=== PATIENT | male | born 1980 | race Caucasian/White ===

== ENCOUNTER → 2018-09-26 10:01 | Outpatient (CLI) | payer OTHER, SELFPAY ==
[2017-08-15 14:51] VITALS: BMI 33.9
--- NOTE | 2018-09-26 10:04 | RAD_ITS ---
STUDY: X-RAY - CERVICAL SPINE REASON FOR EXAM: Male, 38 years old. Back pain TECHNIQUE: 5 view(s) of the cervical spine were obtained. COMPARISON: None FINDINGS: Normal anterior atlantoaxial articulation. Normal odontoid process. Normal cervical lordosis. Normal vertebral bodies and endplates. Normal disc space heights. Normal visualized intervertebral neuroforamina. The soft tissue structures are unremarkable. RAD/Cerv Spine 4 or 5 Views IMPRESSION: Normal x-ray examination of the visualized cervical spine. Electronically Signed: Colby Cheung MD at 3:10 EST , Service support ,
== END ==
PROVIDERS: Family Provider Family Medicine; PCP Family Medicine; Referring Provider Family Medicine; Visit Provider Family Medicine
DX: M54.12 Radiculopathy, cervical region (principal); M25.512 Pain in left shoulder
CPT/HCPCS: 72050

== ENCOUNTER → 2018-10-18 06:35 | Outpatient (CLI) | payer OTHER, SELFPAY ==
--- NOTE | 2018-10-18 06:41 | MRI_ITS ---
STUDY: MRI BRAIN WITH AND WITHOUT CONTRAST REASON FOR EXAM: Male, 38 years old. HEADACHES X 20 YRS, NECK PAIN,POSTERIOR H/A TECHNIQUE: Standardized multiplanar fat and water weighted pulse sequences were obtained. 10 ml of Gadavist contrast material was administered intravenously for the contrast portion of the examination. COMPARISON: None. FINDINGS: Normal size of the ventricles and extra-axial spaces for the patient's age. Normal white matter tracts of the supratentorial brain. Normal bilateral basal ganglia. Normal thalami. There is no extra-axial fluid accumulation. Normal flow voids within the major intracranial circulation suggesting patency by spin echo criteria. Normal venous enhancement. There is no enhancing intra-axial or extra-axial abnormality. Normal sella turcica, pituitary gland, infundibular stalk, optic chiasm and hypothalamus. Normal tectal plate and pineal gland. Normal midbrain, jeff and medulla. Normal cerebellum. Normal basal cisterns. Normal bilateral temporal bones. Normal bilateral internal auditory canals. No demonstrated orbital abnormality, within the constraints of a routine brain study. Normal visualized paranasal sinuses. Normal calvarium and skull base. Normal visualized soft tissue structures. Normal visualized upper cervical spine. MRI/Brain W/WO Contrast IMPRESSION: Normal unenhanced and enhanced MRI of the brain. Electronically Signed: Cal Seo MD at 8:35 EST Tel , Service support ,
== END ==
PROVIDERS: Family Provider Family Medicine; PCP Family Medicine; Referring Provider Psychiatry & Neurology Neurology; Visit Provider Psychiatry & Neurology Neurology
DX: R51 Headache (principal)
CPT/HCPCS: 70553; A9585

== ENCOUNTER → 2019-04-11 15:26 | Outpatient (CLI) | payer OTHER, SELFPAY ==
[2019-04-11 15:17] VITALS: BMI 33.9
--- NOTE | 2019-04-11 15:28 | RAD_ITS ---
STUDY: X-RAY - LEFT TIBIA AND FIBULA REASON FOR EXAM: Male, 38 years old. Recently increasing pain. History of darren placement with subsequent removal proximal fixation screws. TECHNIQUE: 2 view(s) of the tibia and fibula were obtained. COMPARISON: 2 views of the left tibia and fibula January 13, 2015. FINDINGS: There is a healed fracture deformity of the distal diaphysis of the tibia. Intramedullary darren is again seen extending inferiorly from the proximal to distal tibial metadiaphysis. The 2 proximal fixation screws have been removed since previous exam, while the 2 distal fixation screws are unchanged. Normal visualized fibula. There is no demonstrated destructive osseous lesion. The soft tissue structures are unremarkable. RAD/Tibia & Fibula 2 Views IMPRESSION: 1. Interval healing of distal tibial fracture fixed by an intramedullary darren. 2. The proximal fixation screws of the intramedullary darren and pin removed since 2014, while the distal fixation screws are unchanged. Electronically Signed: Vamsi Matta MD at 16:22 EDT , Service support ,
--- NOTE | 2019-04-11 15:28 | RAD_ITS ---
STUDY: X-RAY - LEFT KNEE REASON FOR EXAM: Male, 38 years old. Recent increasing pain, history of darren placement with subsequent removal of proximal fixation screws. TECHNIQUE: 4 view(s) of the knee. COMPARISON: 2 views of the left tibia and fibula January 13, 2015. FINDINGS: Normal visualized distal femur. An intramedullary darren is again seen extending inferiorly from the proximal tibial metaphysis to a point outside the [id number]. The proximal fixation screws seen on prior study have been removed. Normal visualized proximal fibula. Normal patella. There is no demonstrated destructive osseous lesion or fracture. There is mild degenerative arthrosis of the medial femorotibial compartment. Normal lateral femorotibial compartment. Normal patellofemoral articulation. Normal proximal tibiofibular articulation. There is no demonstrated joint effusion. The soft tissue structures are unremarkable. RAD/Knee 4 or More Views IMPRESSION: 1. Tibial intramedullary darren again noted. The proximal fixation screws have been removed since January 2015. 2. Mild degenerative narrowing of the medial femorotibial compartment. Electronically Signed: Vamsi Matta MD at 16:18 EDT , Service support ,
== END ==
PROVIDERS: Family Provider Family Medicine; PCP Family Medicine; Referring Provider Orthopaedic Surgery; Visit Provider Orthopaedic Surgery
DX: M25.562 Pain in left knee (principal); Z87.81 Personal history of (healed) traumatic fracture
CPT/HCPCS: 73564; 73590

== ENCOUNTER → 2019-05-30 17:47 | Outpatient (CLI) | payer OTHER, SELFPAY ==
[2019-05-22 10:43] VITALS: BMI 26.4
--- NOTE | 2019-05-30 18:22 | MRI_ITS ---
STUDY: MRI LEFT REARFOOT WITHOUT CONTRAST REASON FOR EXAM: Male, 39 years old. Left ankle pain. TECHNIQUE: Standardized fat and water weighted pulse sequences were obtained in all 3 orthogonal planes. COMPARISON: June 30, 2016 FINDINGS: Normal subcutis adipose space. There is susceptibility artifact associated with intramedullary darren and screws in the distal tibia. Normal posterior tibialis tendon. Normal flexor digitorum longus tendon. Normal flexor hallucis longus tendon. Normal peroneus longus and brevis tendons. Normal tibialis anterior tendon. Normal extensor hallucis longus tendon. Normal extensor digitorum longus tendons. Normal Achilles tendon and teno-osseous insertion. Normal plantar fascia. There is a plantar calcaneal spur, but without cancellous marrow edema. Normal intrinsic muscles of the rearfoot. Normal distal tibiofibular syndesmotic ligamentous complex. Normal lateral ligamentous complex. Normal subtalar ligaments and sinus tarsi. Normal deltoid ligamentous complexes. Normal plantar calcaneonavicular (spring) ligament. Normal tibiotalar articulation. Normal talar dome. There is stable joint space narrowing with broadening and mild spurring at the medial aspect of the middle subtalar joint suggesting fibrous tarsal coalition, series 7 image 14/. Normal talonavicular articulation. Normal calcaneocuboid articulation. Normal navicular-cuneiform articulations. MRI/Lower Ext Joint Only (Routine) IMPRESSION: Spurring suggesting fibrous talocalcaneal tarsal coalition. No acute fracture. Findings are stable compared to the prior exam. Electronically Signed: Colin Godwin MD at 20:26 EDT , Service support ,
== END ==
PROVIDERS: Family Provider Family Medicine; PCP Family Medicine; Referring Provider Podiatrist; Visit Provider Podiatrist
DX: M19.079 Primary osteoarthritis, unspecified ankle and foot (principal); Q66.89 Other specified congenital deformities of feet; G57.52 Tarsal tunnel syndrome, left lower limb
CPT/HCPCS: 73721

== ENCOUNTER → 2019-07-11 15:25 | Outpatient (CLI) | payer OTHER, SELFPAY ==
[2019-06-04 14:17] VITALS: BMI 26.9
[2019-07-11 17:43] LABS: Absolute Lymphocyte Count 1.84 X10^3/uL (0.83-4.51); Absolute Neutrophil Count 3.6 X10^3/uL (2.0-7.7); Basophil# 0.05 X10^3/uL; Basophil% 0.8 % (0-1); Eosinophil# 0.14 X10^3/uL; Eosinophils% 2.3 % (0-5); Hematocrit 43.4 % (40-54); Lymphocyte # 1.84 X10^3/ul (4.0); Lymphocyte % 29.6 % (19-41); Mean Corp Hgb Conc 32.3 g/dL (32-36); Mean Corpuscular Volume 93.1 fL (80-94); Mean Platelet Vol. 10.5 fl (6.2-12.0); Monocyte# 0.52 X10^3/uL; Monocyte% 8.4 % (0-10); NRBC Flagged by Analyzer 0 % (0-5); Neutrophil # 3.64 X10^3/uL (2.7-7.7); Neutrophil % 58.6 % (47-70); Platelet Count 241 K/mm3 (150-450); RBC Distribution Width CV 12.8 % (11.6-14.6); RBC Distribution Width SD 43.7 fl (35.1-43.9); Red Blood Count 4.66 M/mm3 (4.6-6.2); White Blood Count 6.2 K/mm3 (4.4-11.0)
[2019-07-11 17:48] LABS: ALB/GLOB Ratio 1.2 RATIO (0.9-2.4); AST(SGOT) 11 U/L (15-37); Alanine Aminotransfer ALT/SGPT 22 U/L (16-61); Albumin, Serum 4.2 g/dL (3.2-5.0); Alkaline Phosphatase 69 U/L (45-117); Anion Gap 6 (5-15); BUN 15 mg/dL (7-18); BUN/Creat Ratio 18.2 RATIO (10-20); Calcium,Total 8.8 mg/dL (8.5-10.1); Chloride 105 mmol/L (98-107); Creatinine, Serum 0.82 mg/dL (0.70-1.30); EST Glomerular Filtration Rate 111 mL/min (>60); Est Glom Filt Rate - Afr Amer 134 mL/min (>60); Globulin 3.5 g/dL (2.2-4.2); Glucose 81 mg/dL (74-106); Potassium 3.8 mmol/L (3.5-5.1); Protein, Total 7.7 g/dL (6.4-8.2); Sodium Level 141 mmol/L (136-145)
== END ==
PROVIDERS: Family Provider Family Medicine; PCP Family Medicine; Visit Provider Family Medicine
DX: Z01.812 Encounter for preprocedural laboratory examination (principal)
CPT/HCPCS: 36415; 80053; 85025

== ENCOUNTER 2019-07-27 07:58 | Day surgery (SDC) | payer OTHER, SELFPAY ==
[2019-06-04 14:17] VITALS: BMI 26.9
[2019-07-27] VITALS (7 sets, daily range): BP systolic 97–130; BP diastolic 54–83; PULSE 82–94; RESP 15–16; TEMP 36.1–36.7; O2SAT 92–100; BMI 25.7
[2019-07-27] MEDS: Lactated Ringers 1,000 ML 100 ML IV ×2 (08:35→13:12)
--- NOTE | 2019-07-27 09:23 | RAD_ITS ---
STUDY: Fluoroscopy LEFT ANKLE REASON FOR EXAM: Male, 39 years old. Subtalar joint arthrodesis TECHNIQUE: 6 fluoroscopic view(s) of the ankle. COMPARISON: None. FINDINGS: 6 fluoroscopic images are provided of the ankle, calcaneus and distal foot. The cortical screws appear to be in anatomic position and alignment. Total exposure time recorded, 1 minute 54 seconds. RAD/Ankle min 3 Views IMPRESSION: Postoperative fluoroscopic changes 6 views status post arthrodesis. Electronically Signed: Susana Orellana MD at 16:06 EST Tel , Service support ,
--- NOTE | 2019-07-27 09:30 | BON_PTH ---
PATIENT: IMAN GREEN [place] [facility] [id number] AGE/SX: 39/M ROOM: RE07/27/[address]: Dr. David Gregg DPM : 1980 BED: DIS: 07/27/2019 SPEC #: [id number] RECD: 07/27/19 15:39 STATUS: [place] REJackeline #: [id number] BLANKA: 07/27/19 09:[address]: David Gregg DEPT: SURGICAL PATHOLOGY RECD BY: Nico Augustin ENTERED: 07/30/19 09:55 SP TYPE: Bone OTHR DR: Dr. Mat Cotter MD Tissues: A - Bone of ankle, NOS B - Bone of foot, NOS Procedures: Decalcification bone/plaque Surgery Specimen Level III HEADER OPERATION: Subtalar joint arthrodesis with plantar fasciotomy, resection PRE-OP DIAGNOSIS: Tarsal coalition subtalar joint with arthritis, plantar fascitis with heal spur, tarsal tunnel syndrome TISSUE SUBMITTED: A. Cyst and bone subtalar joint left ankle, BStefanie Frost, left 2nd toe MICROSCOPIC DIAGNOSIS A. Cyst and bone subtalar joint left ankle: Pieces of bone and adjacent dense fibroconnective tissue with reactive changes. See comment. Maxine. Richie, left second toe: A piece of bone with reactive changes, clinically richie. See comment. SJ:sarah 08/02/19 COMMENT A. A minute benign cyst is noted without any cyst lining. MICROSCOPIC DESCRIPTION Slides are reviewed. GROSS DESCRIPTION A - Received in fixative is one container labeled with the patient's name and designated cyst of bone left subtalar joint. The specimen consists of multiple fragments of bone measuring in aggregate 5 x 3 x 0.4 cm. The entire specimen is submitted in two cassettes after decalcification. B - Received in fixative is one container labeled with the patient's name and designated hammertoe left second toe. The specimen consists of a piece of bone measuring 1 x 0.5 x 0.2 cm. The entire specimen is submitted in one cassette after decalcification. / SJ:sarah 07/30/19 TC:5 CPT: 94071 x2, 90178 x2
--- NOTE | 2019-07-27 09:42 | DCINST_ITS ---
Discharge Diet: Light diet - advance as tolerated Discharge Activity: May Not Drive Weight Bearing Status: No weight bearing - No weightbearing left foot Keep extremity elevated above heart level: Left Leg - Keep left foot elevated for at least 50 minutes of every hour Call your doctor if your incision/area has: Continuous Slow Oozing, Sudden Increased Bleeding, Foul Smelling Discharge Call your doctor if you observe: Fever of 101 or Higher, Coldness, Increased Pain, Shortness of breath, Chest pain, Increased palpitations (irregular heartbeat), Calf discomfort, Uncontrolled pain Cleanse incision/area with: Do not get Incision Wet, Keep Dressing Clean & Dry Allergies/Adverse Reactions: Allergies No Known Allergies Allergy (Verified 07/27/19 08:22) Medications to take at Discharge acetaminophen 325 mg capsule 325 mg PO Q6H PRN 05/22/19 Multivitamin [Multivitamins] 1 ea PO DAILY 07/20/19 Ondansetron HCl [Zofran] 4 mg PO Q8H PRN PRN #15 tab 07/27/19 Oxycodone HCl/Acetaminophen [Percocet 5/325] 1 - 2 tab PO Q4H PRN PRN 4 Days #40 tab 07/27/19 Rivaroxaban [Xarelto] 10 mg PO DAILY #30 tab 07/27/19 The following prescriptions were given: Oxycodone HCl/Acetaminophen [Percocet 5/325] 1 - 2 tab PO Q4H PRN PRN 4 Days #40 tab PRN Reason: Pain Prescription Printed Rivaroxaban [Xarelto] 10 mg PO DAILY #30 tab Prescription Printed Ondansetron HCl [Zofran] 4 mg PO Q8H PRN PRN #15 tab PRN Reason: Nausea Prescription Printed Primary Care Physician: Mat Cotter MD [Primary Care Provider] - Test Results: Test results from this visit will be discussed in further detail at your follow- up appointment, if applicable. Please Follow Up With: David Gregg DPM When: 1 week, sooner if needed
[2019-07-27] MEDS: Cefazolin 2 GM in 0.9% Normal Saline 100 ML IV (09:46)
--- NOTE | 2019-07-27 12:44 | RAD_ITS ---
STUDY: X-RAY - LEFT FOOT CLINICAL: Male, 39 years old. Postop TECHNIQUE: 3 view(s) of the foot. COMPARISON: None. FINDINGS: Normal talus, calcaneus, and tarsal bones. Normal visualized subtalar, talonavicular, calcaneocuboid, tarsal and tarsometatarsal articulations. Normal metatarsi. Normal metatarsophalangeal joint of the great toe. Normal tibial and fibular sesamoid bones. Normal interphalangeal joint of the great toe. Normal phalanges of the great toe. Patient is postop arthrodesis of the third digit with a cortical screw extending through the proximal and distal interphalangeal joints. There is also a arthrodesis of the talar calcaneal joint visualized heterotopic bone. The is visualized intramedullary darren and cortical screws within the distal tibia. There is postoperative edema. RAD/Foot min 3 Views IMPRESSION: Postoperative changes detailed above. Electronically Signed: Susana Orellana MD at 16:02 EST Tel , Service support ,
--- NOTE | 2019-07-27 12:45 | OP.PCM_ITS ---
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 Plantar fasciitis w/ infracalcaneal spur left. 2nd digit hammer toe, left Post-Operative Diagnosis: Same Surgery/Procedure Performed:: Subtalar joint arthrodesis, left. Tarsal tunnel decompression, left. Plantar fasciotomy with resection of infracalcaneal spur, left. Arthrodesis correction 2nd digit hammer toe, left emblem cutter: yes - Dr. Ashley Chris Type of Anesthesia:: General Specimen's removed: Bone and cyst from left subtalar joint sent to pathology. Bone from 2nd digit hammer toe, left - sent to pathology Estimated Blood Loss (mL): 10mL Description of Procedure: Indications: This is a 39 year old gentleman with chronic pain to the left foot at level of the medial subtalar joint with shooting symptoms to bottom of foot, as well plantar fasciitis and heel spur syndrome, and painful 2nd digit hammer all on the left foot despite nonsurgical. He has elected to undergo surgical intervention (procedures as noted above). This was discussed with him in detail, reviewed the possible benefits vs risks, goals, expectations, alternative options, and typical healing/post op recovery. The consent forms were reviewed with him, and he freely signed them. All of his questions were answered. No guarantees were given nor implied. No warranties were given. Operative Procedure: The patient was brought back into the operating room and was placed on the operating room table in the supine position. Patient was carefully secured to the operating room table with a safety belt around the waist. A time out was performed and the patient was properly identified and the surgical plan was confirmed. The patient received 2g of IV Cefazolin for antibiotic prophylaxis. A well padded pneumatic tourniquet was applied around the patient's left thigh. The patient received anesthesia per the anesthesiologist. The left lower extremity was scrubbed, prepped, draped in the usual aseptic fashion. The left foot was elevated for 3 minutes and the left thigh pneumatic tourniquet was inflated to 300mmHg. Left subtalar joint: Attention was directed to the left foot. There was noted to be limited range of motion to the subtalar joint consistent with degenerative a rthritis and coalition. Attention was directed to the medial ankle/hindfoot where a curvilinear skin incision was made overlying the medial subtalar joint. This was done using a 15 blade. Careful dissection was completed down the posterior tibial tendon and flexor digitorum longus tendon sheaths, which were incised and reflected using a dissecting scissors. The tendons were gently moved out of the way and protected. The medial subtalar joint was visualized and severely fibrosed, and there was noted to be a pea sized ganglion cyst coming out of the joint. The cyst was dissected out and was sent to pathology. There was noted to be gel like fluid to the cyst consistent with a ganglion cyst. There was fibrosis and significant wearing away of the cartilage of the medial subtalar joint with fibrous coalition. The medial subtalar joint fibrosis was debrided away, there was very little cartilage remaining to the medial subtalar joint, but the remaining cartilage was debrided from the joint for arthrodesis. Also the posterior subtalar joint was visualized and the cartilage was debrided away for arthrodesis. This was done with a curette as well as a powered rasp being sure not to cause osteonecrosis. All cartilage was debrided away to viable bone for good arthrodesis. Some of the bone/cartilage debrided from the subtalar joint was sent with the cyst to pathology for further evaluation. The site was flushed out with copious amounts of normal saline solution. The joint surfaces were fenestrated using a 0.062 kwire on each surface and the surfaces were also further prepped using a curved osteotome and mallet to stimulate bleeding and good fusion. The fusion site was packed with cancellous bone chips to also aid fusion. The subtalar joint and heel were placed in neutral position with heel vertical to weightbearing surface and was fixated using 2 x 7.0mm Arthrex compression screws using rigid open reduction internal fixation technique, with intra operative fluoroscopy guidance. In order to place the screws, a skin incision was made to the posterior plantar heel and careful blunt dissection was completed down to the bone. Once the screws were placed, there was noted to be good bone to bone compression and contact across the subtalar joint with the prepped subtalar joint surfaces in good alignment. The subtalar joint was very rigid and stable. The screws were in good position. This was confirmed with intra-operative fluoroscopy. The surgical site was flushed out with copious amounts of normal saline solution. The tendon sheaths were and subcutaneous tissue layer were reapproximated using 3-0 Vicryl and the skin was reapproximated using 3-0 Monocryl, and heel incision was reapproximated using 3- 0 Nylon. Left tarsal tunnel syndrome: Attention was directed to the tarsal tunnel. An incision was made overlying the tarsal tunnel using a 15 blade. Careful dissection was completed down to the flexor retinaculum, which was identified and was released, exposing the tarsal tunnel. Careful dissection was completed down to the tibial nerve. The tibial nerve was visualized, along with its branches of the medial and lateral plantar nerves and medial calcaneal nerve. It was noted there were adhesions around the tibial nerve as well as to the aforementioned branches at the level of the tarsal tunnel, these were identified and carefully released. Also of note, the tibial nerve did appear yellowish and degenerative at this level consistent with tarsal tunnel syndrome. The surgical site was flushed out with copious amounts of normal saline solution. The rest of the tissues at the surgical site appeared healthy and viable. The flexor retinaculum was not reapproximated together to help prevent further impingement/entrapment of the tibial nerve and associated branches. The subcutaneous tissue layers was reapproximated using 3-0 Vicryl and the skin was reapproximated using 3-0 Monocryl. Left plantar fasciitis and infracalcaneal spur. Attention was directed to the p lantar heel. The infracalcaneal spur was visualized on intra operative fluoroscopy. A skin incision was made to the medial hindfoot at the level of the plantar fascia and infracalcaneal spur, careful dissection was completed down through the subcutaneous tissue layer. A plane was created superiorly and inferiorly around the plantar fascia and the medial 50% of the plantar fascia was released via a plantar fasciotomy. It was noted there was significant thickening of the plantar fascia with fibrosis at this level consistent with chronic plantar fasciitis. The infracalcaneal spur was felt, and was carefully resected using a powered rasp. Resection of the infracalcaneal spur was confirmed using intraoperative fluoroscopy. Images pre and post infracalcaneal spur resection were saved. The site was flushed out with copious amounts of normal saline solution. The skin was reapproximated using 3-0 Monocryl. Left 2nd digit hammer toe: Attention was directed to the 2nd toe on the left foot. A dorsal linear longitudinal incision was made over the proximal interphalangeal joint (PIPJ) of the toe. An incision was made longitudinally to the extensor digitorum longus tendon and split down the middle, leaving the ends intact, this was done with a 15 blade. The dorsal PIPJ joint capsule was incised with a 15 blade. The cartilage from the head of the proximal phalanx was resected using a powered sagittal saw, and cartilage from the base of the middle phalanx was resected using a bone cutting rongeur. The site was flushed out with copious amounts of normal saline solution. An Arthrex FT compression screw was placed through the phalanges of the toe holding the toe in rectus position. This was confirmed with intra operative fluoroscopy. The site was again flushed out with copious amounts of normal saline solution. The skin was reapproximated using 4-0 Monocryl. The pneumatic tourniquet was deflated at 120 minutes, and there was immediate return of warmth and perfusion to the foot and to all toes on the foot with normal temperature gradient and CFT < 2 seconds to all toes. Hemostasis was achieved with no significant bleeding noted. Also of note all vital structures including all vital neurovascular and soft tissue structures were properly identified, retracted, and protected as necessary during the procedures. At the end, a dressing was applied which consisted of Cavilon to the edges of the sutured skin incision with overlying steristrips. Then Betadine soaked adaptic, 4x4 gauze, Kerlix and paolo bandage was applied being sure to apply it not too tight. A well padded below the knee posterior splint was applied with posterior heel offloaded. The patient tolerated the above operative procedure well at the anesthesia well with no complication. The patient was transported to the recovery room with vital signs stable and in good condition. Post operative orders were placed. Post operative instructions were reviewed and dispensed verbal and written. No weightbearing left foot, keep left foot elevated for at least 50 minutes of every hour, keep dressing clean, dry and intact. Prescription for Percocet 1-2 tabs PO q 4 hours prn pain was prescribed. He is to follow up with me within 1 week or sooner if needed. Also post op ankle, foot and calcaneus xrays (left) were obtained and reviewed in the PACU. Findings show subtalar joint arthrodesis with intact screws in proper alignment and bone to bone compression, resection of infracalcaneal spur, and arthrodesis 2nd toe with toe in rectus position, otherwise no other acute findings and no complications seen. Grafts/Implants Used: 2 x 7.0mm Arthrex Screws, 1 x Arthrex FT compression screw, cancellous bone - Complications None
--- NOTE | 2019-07-27 12:45 | RAD_ITS ---
STUDY: X-RAY - LEFT CALCANEUS REASON FOR EXAM: Male, 39 years old. Post operative change TECHNIQUE: 2 view(s) of the calcaneus were obtained. COMPARISON: None. FINDINGS: There are 2 cortical screws transfixing the talocalcaneal joint for arthrodesis. RAD/Calcaneus min 2 Views IMPRESSION: Post operative change of the talar calcaneal joint status post arthrodesis. Electronically Signed: Susana Orellana MD at 16:05 EST Tel , Service support ,
--- NOTE | 2019-07-27 12:45 | RAD_ITS ---
STUDY: X-RAY - LEFT ANKLE REASON FOR EXAM: Male, 39 years old. Postop TECHNIQUE: 3 view(s) of the ankle. COMPARISON: None. FINDINGS: An intramedullary darren transfixed by 2 cortical screws in the distal radius. There are 2 cortical screws transfixing the talocalcaneal joint. There is soft tissue edema. RAD/Ankle min 3 Views IMPRESSION: Postoperative change status post open reduction internal fixation of the tibia. Postoperative change status post arthrodesis of the talar calcaneal joint. Electronically Signed: Susana Orellana MD at 16:03 EST Tel , Service support ,
== END 2019-07-27 15:02 | disposition home or self-care (01) ==
LOC: SDC 07:58 → AC 07:59
PROVIDERS: Family Provider Family Medicine; PCP Family Medicine; Referring Provider Podiatrist; Visit Provider Podiatrist
PROC: (CPT 27630; principal; 2019-07-27 09:15)
DX: G57.52 Tarsal tunnel syndrome, left lower limb (principal); M72.2 Plantar fascial fibromatosis; M19.072 Primary osteoarthritis, left ankle and foot; M77.32 Calcaneal spur, left foot; M20.42 Other hammer toe(s) (acquired), left foot; Q66.89 Other specified congenital deformities of feet; M67.472 Ganglion, left ankle and foot; G89.29 Other chronic pain; I47.1 Supraventricular tachycardia; G47.00 Insomnia, unspecified; E66.9 Obesity, unspecified; Z68.25 Body mass index [BMI] 25.0-25.9, adult; Z79.899 Other long term (current) drug therapy; Z87.891 Personal history of nicotine dependence
CPT/HCPCS: 27630; 28035; 28119; 28285; 28725; 64450; 73610; 73630; 73650; 76000; 88304; 88311; 97161; C1713; J7120; J2405

== ENCOUNTER 2019-10-19 08:30 | Outpatient (RCR) | payer OTHER, SELFPAY ==
[2019-06-04 14:17] VITALS: BMI 26.9
--- NOTE | 2019-07-24 12:43 | HP.PTEVAL_ITS ---
Patient's Visit Information IMAN GREEN is a 39 year old M referred to Physical Therapy by David Gregg DPM with a diagnosis of planned L subtalar arthrodesis, fasciotomy, heel spurs. Date of Evaluation: 07/24/19 Physical Therapist: Jaime Olivia, MUSTAPHA, OCS, CSCS - Visit Plan Duration: f/u 4-6 weeks after surg. Plan: Educated patient today on options for ex generally post surgically without disobeying NWB precautions. He needed very general information and was satisfied that he could stay active after his surgery for the 6 week NWB period until doctor wanted therapy to resume. Will get new script and call when therapy appropriate after surgery but will come in prior if having trouble with activitiy after surgery. - Subjective Findings: Will have subtalar fusion adn bone spur removal adn hammer toe fix this Tuesday. Will be immobile and wants to know what to do in meantime. Broke leg a while ago and wants to be active. Surgery is for pain and OA. Will be NWB for 6 weeks. Will have WC at home adn crutches. Will rent a knee scooter. Likes to jog adn do yoga and yard work. Enjoys running a mmile in the [facility] his house. 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 What can I do despite my foot. Wondering what options are? What can I do at home. No equipment at home other than dumbbells adn a workout ball to sit on. - Pain L foot Pain Intensity (Out of 10): 4 Pain Intensity Range: 4 - Objective Walks normal, sTeps normal today, able to walk on toes adn heels without pain. Trasnfers normal without deficits. Ankle aROM approx 5 degrees B DF, 55 PF, L inv 25 adn ev 15, strength ankles 4+. reflexes LE 2/3 patella and achilles. LB aROM WFL adn withotu pain, neck is WFL adn without pain. Strength knees and hips 5/5. Pt in good shape today and just has many questions about safety of working out outside of L ankles WB protocol for the 6 weeks after surgery that he will be NWB. - Goals Goal 1:: Pt comfortable with activitiy level options going into surgery Goal Time Frame: met for today. Goal 2:: Pt remain active for whole body health for 4-6 weeks while recovering from surgery. Goal Time Frame: 4-6 Weeks - Rehabilitation Potential Physical Therapy Diagnosis: L foot pain surgery pending. Rehabilitation Potential: Fair - Anticipated Interventions Patient/Client Instruction: Educate patient on: Condition, Plan of Care, Risk Factors, Benefits of Fitness Program For the Purpose of:: To increase tolerance to activity/condition/position, To improve ability of physical actions for home/community/work/leisure Thank you for the opportunity to evaluate your patient. For Medicare and Medicare HMO plans, please review the plan of care and approve it. It will need to be FAXED BACK to us at [phone] for Medicare purposes. For Medicare only, by signing this I certify the plan of care. Please let me know if there are questions or concerns regarding this plan of care. Physician Signature: Date:
--- NOTE | 2019-09-14 08:29 | HP.PTREVAL ---
David Gregg, ROXANE, It has been my pleasure to treat IMAN GREEN over the last 2 visits for planned L subtalar arthrodesis, fasciotomy, heel spurs. Please see the progress note below for an update on the physical therapy plan of care! Subjective: 6 weeks of NWB, 50% last week adn 100% with crutch R this week but boot prohibits from not using the crutch. Still needs boot to walk until week 10. (Late September). Pain not a huge issue. Been on feet alot last week at hospital and sore. Did not work out much first 4 weeks due to sickness. Working out at home with yoga , body weight and claisthenics. No specific foot exercises. Been pulling Df with a belt. Sleeping well. Pain this week to / with walking and described as dull ache. Off work for 12 weeks. Objective/Function: boot rides up a little high and uncomfortable to walk without crutch(not surgically but limitation saravia. Walking in boot FWB but prefers to use crutch for above reason. Stance without boot SL L is 1-2 sec and R is 10+. Can march in place without bot but is awkward WB on L. AROM L ankle 2 ev, 17 inv, 0 DF, 45 PF. Passively a couple degrees better. Strength 4-/5 in ankle motions. 2nd toe has incission and very little movement, big toe ext to 16 degrees. Metatarsals moving well. Incisions medially at ankle and over 2nd toe healed well and dry, no signs of redness, heat or swelling. I with gait and transfers. Plan Plan: New script received for WBAT in boot, ROM and strength. Will see 3x/week for 3-6 weeks for ROM to ankle focus eversion and DF, STM to calf and foot adn manual mobs for ev/inv/DF. strength to ankle. Gait training and progression. Pt is WBAT in boot. Goals Goal 1:: Pt comfortable with activitiy level options going into surgery Goal Time Frame: met for today. Goal 2:: Pt remain active for whole body health for 4-6 weeks while recovering from surgery. Goal Time Frame: 4-6 Weeks Goal Progress: Goal Met Goal 3:: 8 degrees DF 10 degrees ev adn 25 inv AROM to help normalize activitiy Goal Time Frame: 4-6 Weeks Goal 4:: Normal walking out of boot when allowed by doctor withoout gait deviations Goal Time Frame: 4-6 Weeks Goal 5:: Steps nromal and reciprocal. Goal Time Frame: 4-6 Weeks Goal 6:: Pt ready to return to work with full day on feet. Goal Time Frame: 6-8 Weeks Anticipated Interventions Patient/Client Instruction: Educate patient on: Condition, Plan of Care, Risk Factors, Benefits of Fitness Program For the Purpose of:: To increase tolerance to activity/condition/position, To improve ability of physical actions for home/community/work/leisure Therapeutic Exercise to Include: Strength training, Balance training, Coordination, Flexibilty training, Gait and locomotor training For the Purpose of:: To improve ability of physical actions for home/community/work/leisure, To improve gait and locomotor functions Manual Therapy Techniques to Include: Mobilization, Soft tissue mobilization For the Purpose of:: To increase ROM Cryotherapy (ice pack, ice massage): Yes Please do not hesitate to contact me at [phone] by phone or if you have questions or concerns regarding this new plan of care! Sincerely, Jaime Olivia, DPT, OCS, CSCS
--- NOTE | 2019-10-03 11:36 | HP.PTREVAL ---
David Gregg, ROXANE, It has been my pleasure to treat IMAN GREEN over the last 10 visits for planned L subtalar arthrodesis, fasciotomy, heel spurs. Please see the progress note below for an update on the physical therapy plan of care! Subjective: Feels better in ROM, still weak. No pain lately. At end of day 2/10 sometimes feeling exhausted. In boot all day and will see doctor tomorrow. Sleep is good. No problem with HEP. Needs to be stronger. Objective/Function: 6 degrees DF with knee straigth adn 7 with knee bent. 55 PF actively, 8 degrees inv and 23 eversion. 4/5 strength to resisted testing without pain today. Able to stand painfree equal WB but SLS on L 3 seconds vs 15+ R. PT GALARZA COME ALONG WELL WITH ROM AND PAIN, HAS DONE SOME STRENGTHENING AND IS WAITING TO GET RELEASED FROM DOCTOR FOR WB WITHOUT BOOT FOR GAIT TRAINING AND MORE AGGRESSIVE THERAPY WHCIH IS APPROPRIATE. Plan Plan: PT TO DOCTOR TOMORROW AND WILL GET NEW SCRIPT.2-3X/WEEK FOR 2-4 WEEKS AFTER DOTOR APPOINTMENT TOMORROW, STRENGTHENING l FOOT AND ANKLE, CONTINUE INV rom AND PROGRESSION OF GAIT OUT OF BOOT ALLOWED BY DOCTOR APPROPRIATE, PROPRIOCEPTION EX ALSO. Goals Goal 1:: Pt comfortable with activitiy level options going into surgery Goal Time Frame: met for today. Goal Progress: Goal Met Goal 2:: Pt remain active for whole body health for 4-6 weeks while recovering from surgery. Goal Time Frame: 4-6 Weeks Goal Progress: Goal Met Goal 3:: 8 degrees DF 10 degrees ev adn 25 inv AROM to help normalize activitiy Goal Time Frame: 4-6 Weeks Goal Progress: Progressing Goal 4:: Normal walking out of boot when allowed by doctor withoout gait deviations Goal Time Frame: 4-6 Weeks Goal Progress: APPROP. Goal 5:: Steps nromal and reciprocal. Goal Time Frame: 4-6 Weeks Goal Progress: APPROP. Goal 6:: Pt ready to return to work with full day on feet. Goal Time Frame: 6-8 Weeks Goal Progress: APPROP. Anticipated Interventions Patient/Client Instruction: Educate patient on: Condition, Plan of Care, Risk Factors, Benefits of Fitness Program For the Purpose of:: To increase tolerance to activity/condition/position, To improve ability of physical actions for home/community/work/leisure Therapeutic Exercise to Include: Strength training, Balance training, Coordination, Flexibilty training, Gait and locomotor training For the Purpose of:: To improve ability of physical actions for home/community/work/leisure, To improve gait and locomotor functions Manual Therapy Techniques to Include: Mobilization, Soft tissue mobilization For the Purpose of:: To increase ROM Cryotherapy (ice pack, ice massage): Yes Please do not hesitate to contact me at [phone] by phone or if you have questions or concerns regarding this new plan of care! Sincerely, Jaime Olivia, DPT, OCS, CSCS
--- NOTE | 2019-12-18 13:52 | HP.PT.NRP ---
IMAN GREEN was seen in my office for initial evaluation on 07/24/19. The following Plan of Care was established for this patient: Initial Duration: f/u 4-6 weeks after surg. Patient/Client Instruction: Educate patient on: Condition, Plan of Care, Risk Factors, Benefits of Fitness Program For the Purpose of:: To increase tolerance to activity/condition/position, To improve ability of physical actions for home/community/work/leisure Therapeutic Exercise to Include: Strength training, Balance training, Coordination, Flexibilty training, Gait and locomotor training For the Purpose of:: To improve ability of physical actions for home/community/work/leisure, To improve gait and locomotor functions Manual Therapy Techniques to Include: Mobilization, Soft tissue mobilization For the Purpose of:: To increase ROM Cryotherapy (ice pack, ice massage): Yes This patient was last seen in our office 10/19/19. Pertinent comments regarding their Physical therapy will appear below: Pt seen 16 visits of POC and was at least 50% better. He did cancel his last several visits withotu rescheduling. At this point, it has been nearly two months and I will discontinue due to nonattendance. At this point I will be discontinuing this patient from physical therapy. I would be happy to see this patient again in the future if found appropriate by the physician. Thank you! Jaime Olivia, DPT, OCS, CSCS
== END 2019-10-19 19:00 | disposition home or self-care (01) ==
LOC: PT 08:30
PROVIDERS: Family Provider Family Medicine; PCP Family Medicine; Referring Provider Podiatrist; Visit Provider Podiatrist
DX: Z98.890 Other specified postprocedural states (principal)
CPT/HCPCS: 97110; 97140; 97161; 97164; 97530

== ENCOUNTER 2020-05-28 22:51 | Outpatient (RCR) | payer OTHER, SELFPAY ==
[2020-05-01 16:16] VITALS: BMI 25.7
== END 2020-06-11 23:59 ==
LOC: EMPH 22:51
PROVIDERS: PCP Family Medicine; Visit Provider Family Medicine Geriatric Medicine
DX: Z11.59 Encounter for screening for other viral diseases (principal)
CPT/HCPCS: 87635; U0003

== ENCOUNTER 2020-07-07 18:11 | Outpatient (RCR) | payer OTHER, SELFPAY ==
[2020-05-01 16:16] VITALS: BMI 25.7
== END 2020-07-12 23:59 ==
LOC: EMPH 18:11
PROVIDERS: PCP Family Medicine; Visit Provider Family Medicine Geriatric Medicine
DX: Z03.818 Encounter for observation for suspected exposure to other biological agents ruled out (principal)
CPT/HCPCS: 87426

== ENCOUNTER 2020-08-06 10:50 | Outpatient (RCR) | payer OTHER, SELFPAY ==
[2020-05-01 16:16] VITALS: BMI 25.7
== END 2020-08-11 23:59 ==
LOC: EMPH 10:50
PROVIDERS: PCP Family Medicine; Referring Provider Family Medicine Geriatric Medicine; Visit Provider Family Medicine Geriatric Medicine
DX: Z03.818 Encounter for observation for suspected exposure to other biological agents ruled out (principal)
CPT/HCPCS: 87426

== ENCOUNTER 2020-08-20 13:08 | Outpatient (RCR) | payer OTHER, SELFPAY ==
[2020-05-01 16:16] VITALS: BMI 25.7
== END 2020-09-11 23:59 ==
LOC: EMPH 13:08
PROVIDERS: PCP Family Medicine; Referring Provider Family Medicine Geriatric Medicine; Visit Provider Family Medicine Geriatric Medicine
DX: Z03.818 Encounter for observation for suspected exposure to other biological agents ruled out (principal)
CPT/HCPCS: 87426

== ENCOUNTER 2020-09-22 13:53 | Outpatient (RCR) | payer OTHER, SELFPAY ==
[2020-05-01 16:16] VITALS: BMI 25.7
== END 2020-10-12 23:59 ==
LOC: EMPH 13:53
PROVIDERS: PCP Family Medicine; Referring Provider Family Medicine Geriatric Medicine; Visit Provider Family Medicine Geriatric Medicine
DX: Z03.818 Encounter for observation for suspected exposure to other biological agents ruled out (principal)
CPT/HCPCS: 87426

== ENCOUNTER → 2022-06-23 | Outpatient (CLI) | payer OTHER, SELFPAY ==
--- NOTE | 2022-06-23 16:10 | RAD_ITS ---
STUDY: X-RAY CHEST REASON FOR EXAM: Male, 42 years old. CHEST PAIN COUGH TECHNIQUE: XR Chest 2 Views COMPARISON: None FINDINGS: There is no demonstrated pleural abnormality. Normal size heart. Normal mediastinum and sandra. Normal visualized pulmonary arteries. Normal visualized aortic arch and descending thoracic aorta. Normal visualized thoracic spine. Normal visualized ribs, clavicles, and shoulders. There is no demonstrated abnormality of the visualized soft tissue structures of the upper abdomen. RAD/Chest PA and Lateral IMPRESSION: There are no acute findings. Electronically Signed: Ajith Vaca MD at 16:25 EDT ,
== END | disposition home or self-care (01) ==
LOC: MTRAD 16:09
PROVIDERS: PCP Family Medicine; Referring Provider Family Medicine; Visit Provider Family Medicine
DX: R05.9 Cough, unspecified (principal)
CPT/HCPCS: 71046

== ENCOUNTER 2023-05-12 04:01 | Emergency (ER) | payer OTHER, SELFPAY ==
[2023-05-12 04:03] VITALS: BP 180/110; PULSE 105; RESP 16; TEMP 36.4; O2SAT 99; BMI 28.7
--- NOTE | 2023-05-12 04:29 | EDS_ITS ---
HPI History of Present Illness Chief Complaint: General Illness Informant: patient Onset/Context/Timing Onset: Hours Context: Sudden Onset Timing: Continuous Quality: Shaky Location: Arms and legs Worsened by: Nothing Relieved by: Nothing Narrative Narrative: Patient presents with shakiness that began a few hours prior to arrival. Patient states he woke and felt like he was shaky. Patient states it is mainly on his arms and legs. Patient states nothing makes it better and nothing makes it worse. Patient denies any nausea or vomiting. Patient denies any chest pain or shortness of breath. Patient denies any diaphoresis. Patient states he felt like he might be having a panic attack but has never had panic attacks in the past. PFSH PFS Medical History Arthritis Back pain Hypertension Knee pain Severe headache Home Medications ibuprofen 200 mg tablet 200 mg PO Q6H PRN 12/17/22 [History Last Taken Unknown] prednisone 10 mg tablet 10 mg PO .COMPLEX #30 tabs 12/17/22 [Rx Last Taken Unknown] Allergy/AdvReac Type Severity Reaction Status Date / Time No Known Allergies Allergy Verified 05/12/23 04:11 Family History Father Diabetes Surgical History H/O cardiac radiofrequency ablation Optional surgery surgery of tibia Social History Smoking Status: Never smoker alcohol intake: never ROS ROS ED Constitutional Constitutional ED: Denies chills or fever(s) Eyes Eyes: Denies blurry vision or change in vision ENT ENT ED: Denies rhinorrhea or sore throat Cardiovascular Cardiovascular: Denies chest pain or palpitations Respiratory/Chest Respiratory/Chest: Denies cough or dyspnea Gastrointestinal Gastrointestinal: Denies nausea or vomiting Genitourinary Genitourinary ED: Denies dysuria or hematuria Musculoskeletal Musculoskeletal: Reports back pain; Denies neck pain Integumentary Denies abscess or rash Neurologic Neurologic: Reports headache(s); Denies weakness Allergic/Immunologic Allergic/Immunologic ED: Denies mouth swelling or urticaria EXAM Physical Exam Const Vital Signs: 05/12/23 04:03 05/12/23 04:07 05/12/23 04:52 Temperature 97.5 F L Temperature Source Temporal Pulse Rate 105 H 93 Respiratory Rate 16 Respiratory Effort Normal Non-Labored Respiratory Pattern Normal Blood Pressure 180/110 H 134/84 H Blood Pressure Mean 133 Pulse Ox 99 Oxygen Delivery Method Room Air 05/12/23 04:34 05/12/23 05:41 05/12/23 06:42 Temperature Temperature Source Pulse Rate 93 85 Respiratory Rate 19 H 17 Respiratory Effort Respiratory Pattern Blood Pressure 115/83 H 114/85 H Blood Pressure Mean 93 94 Pulse Ox 98 94 Oxygen Delivery Method Room Air Room Air Room Air Positive well nourished and well developed General Appearance ED: well developed and NAD HEENT Reports moist mucous membranes Neck supple and no JVD Resp normal respiratory effort and clear to auscultation bilaterally Cardio regular rate, regular rhythm and no murmurs GI normal to inspection, nondistended, normoactive bowel sounds and non-tender Palpation: soft Extremity normal to inspection General Extremety ED: Negative for edema or tenderness General Extremity: Negative for edema Neuro oriented x3, CN's II-XII intact bilaterally and no sensory deficits noted Sensorium / Orientation: alert Motor Exam: strength 5/5 throughout Psych mental status grossly normal Skin no rashes or lesions noted MDM MDM MDM Narrative Medical decision making narrative: Different diagnosis includes electrolyte abnormality, cardiac dysrhythmia, cardiac ischemia, pneumonia, aortic dissection, hypertensive urgency, and anxiety. EKG will be obtained to assess for cardiac dysrhythmia and cardiac ischemia. CBC will be obtained to assess for leukocytosis and anemia. Basic metabolic profile will be obtained to assess for electrolyte abnormality and renal function. High-sensitivity troponin will be obtained to assess for c ardiac ischemia. 2-hour repeat high-sensitivity troponin will be obtained to assess for ongoing cardiac ischemia. Chest x-ray will be obtained to assess for pneumonia and widened mediastinum. Lab Data Attestation: I reviewed the patient's lab results. Lab results narrative: CBC was reviewed and was within normal limits. Basic metabolic profile was reviewed. Potassium was slightly low at 3.3. The remainder is within normal limits. High-sensitivity troponin was reviewed and was normal at 4. 2-hour repeat high-sensitivity troponin was reviewed and was normal at 4. Labs: Laboratory Results - last 24 hr 05/12/23 05/12/23 04:45 06:50 WBC 6.8 RBC 4.89 Hgb 14.4 Hct 44.6 MCV 91.2 MCH 29.4 MCHC 32.3 RDW Std Deviation 42.9 RDW Coeff of Jacqueline 12.7 Plt Count 207 MPV 10.1 Immature Gran % (Auto) 0.300 Neut % (Auto) 62.6 Lymph % (Auto) 24.8 [place] % (Auto) 9.7 Eos % (Auto) 1.9 Baso % (Auto) 0.7 Absolute Neuts (auto) 4.2 Absolute Lymphs (auto) 1.68 Nucleated RBC % 0 Sodium 139 Potassium 3.3 L Chloride 104 Carbon Dioxide 27.0 Anion Gap 8 BUN 11 Creatinine 1.03 Estim Creat Clear Calc 92.47 Est GFR (MDRD) Af Amer 101 Est GFR (MDRD) Non-Af 84 BUN/Creatinine Ratio 10.7 Glucose 105 Calcium 8.7 Troponin I High Sens 4 4 Radiography Chest X-Ray - ED: 1 View, Read by ED Physician, Read by Radiologist and No Acute Disease Diagnostic Testing: Clinical Impression(s) from Imaging Studies Chest X-Ray 05/12/23 04:34 IMPRESSION: No radiographic evidence of acute cardiopulmonary disease. Electronically Signed: Jimenez Mullen MD at 5:32 EDT , Portable 1 view chest x-ray was obtained. On my independent interpretation, lung maciel are clear. There is normal cardiac silhouette. Bony thorax is normal. There is no acute process noted. Radiologist also interpreted the x- ray and agrees. EKG Initial EKG: Attestation: I personally reviewed and interpreted this EKG as follows: Interpretation: Sinus Rhythm (94) and No Acute Injury Pattern Comments: EKG was obtained. On my independent interpretation, it showed a normal sinus rhythm with a rate of 94. NE interval, QRS interval, and QTc intervals were all normal. [place] was normal. There are no acute ST or T wave changes. Prior EKG tracings: available for review Prior: Unchanged (10/20/2014) Treatment and Re-Evaluation :: Patient was given aspirin and sublingual nitroglycerin. Patient's blood pressure improved after the sublingual nitroglycerin. Patient states his shakiness also improved after this. Patient was given a dose of oral potassium. Patient is feeling better on reevaluation. Patient was advised of his findings. Patient has a HEART score of 1. Patient was advised that this is low risk for acute cardiac event. Patient was instructed to follow-up with his primary care physician in 5 to 7 days. Patient understands and is agreeable with the plan. All questions were answered. Discharge Plan Triage Chief Complaint: General Illness ED Provider: Jaime Lockwood Dx/Rx/DC Orders Clinical Impression: Shakiness Instructions: ED Chest Pain, Uncertain Cause Prescriptions: No Action ibuprofen 200 mg tablet 200 mg PO Q6H PRN prednisone 10 mg tablet 10 mg PO .COMPLEX Qty: 30 0RF Rx Instructions: Take 4 pills for 3 days, 3 pills for 3 days, 2 pills for 3 days, take 1 pill for 3 days Primary Care Provider: Nyasia Simmons Referrals: Nyasia Simmons, [facility] [facility] [Primary Care Provider] - Keep Randa appointment Disposition Disposition: Home, Self Care
--- NOTE | 2023-05-12 04:34 | RAD_ITS ---
INDICATION: chest pain EXAMINATION/TECHNIQUE: X-RAY - XR Chest 1 View COMPARISON: 06/23/22. FINDINGS: LINES/DEVICES: None. LUNGS: No consolidation, edema or effusion. No pneumothorax. MEDIASTINUM AND CARDIOVASCULAR STRUCTURES: Cardiac silhouette not enlarged. BONES AND SOFT TISSUES: Unremarkable. RAD/Chest 1 View (Portable) IMPRESSION: No radiographic evidence of acute cardiopulmonary disease. Electronically Signed: Jimenez Mullen MD at 5:32 EDT ,
[2023-05-12] MEDS: Aspirin 81 MG TAB.CHEW 324 MG PO (04:47)
[2023-05-12 04:48] LABS: Absolute Lymphocyte Count 1.68 X10^3/uL (0.83-4.51); Absolute Neutrophil Count 4.2 X10^3/uL (2.0-7.7); Basophil# 0.05 X10^3/uL; Basophil% 0.7 % (0-1); Eosinophil# 0.13 X10^3/uL; Eosinophils% 1.9 % (0-5); Hematocrit 44.6 % (40-54); Hemoglobin 14.4 g/dL (13.0-16.5); Lymphocyte # 1.68 X10^3/ul (0.83-4.51); Lymphocyte % 24.8 % (19-41); Mean Corp Hgb Conc 32.3 g/dL (32-36); Mean Corpuscular Hgb 29.4 pg (27.0-32.0); Mean Corpuscular Volume 91.2 fL (80-94); Mean Platelet Vol. 10.1 fl (6.2-12.0); Monocyte# 0.66 X10^3/uL; Monocyte% 9.7 % (0-10); NRBC Flagged by Analyzer 0 % (0-5); Neutrophil # 4.23 X10^3/uL (2.7-7.7); Neutrophil % 62.6 % (47-70); Platelet Count 207 K/mm3 (150-450); RBC Distribution Width CV 12.7 % (11.6-14.6); RBC Distribution Width SD 42.9 fl (35.1-43.9); Red Blood Count 4.89 M/mm3 (4.6-6.2); White Blood Count 6.8 K/mm3 (4.4-11.0)
[2023-05-12 04:52] VITALS: BP 134/84; PULSE 93
[2023-05-12] MEDS: Nitroglycerin SL (ED/IMG/CATH) 0.4 MG TABLET SL (04:52)
[2023-05-12 05:15] LABS: Anion Gap 8 (5-15); BUN 11 mg/dL (7-18); BUN/Creat Ratio 10.7 RATIO (10-20); Calcium,Total 8.7 mg/dL (8.5-10.1); Chloride 104 mmol/L (98-107); Creatinine, Serum 1.03 mg/dL (0.70-1.30); EST Glomerular Filtration Rate 84 mL/min (>60); Est Glom Filt Rate - Afr Amer 101 mL/min (>60); Estimated Creatinine Clearance 92.47 ml/min; Glucose 105 mg/dL (74-106); Potassium 3.3 mmol/L (3.5-5.1); Sodium Level 139 mmol/L (136-145); Troponin-I HS (w/2H Reflex) 4 pg/mL (3.0-78.0)
[2023-05-12] MEDS: Potassium Chloride Oral Tablet 20 MEQ 40 MEQ PO (05:39)
[2023-05-12 05:41] VITALS: BP 115/83; PULSE 93; RESP 19; O2SAT 98
[2023-05-12 06:42] VITALS: BP 114/85; PULSE 85; RESP 17; O2SAT 94
[2023-05-12 06:46] LABS: Reflex Troponin-HS? (from REC) Y
[2023-05-12 07:17] LABS: Troponin-I HS 4 pg/mL (3.0-78.0)
[2023-05-12 07:39] VITALS: BP 113/76; PULSE 78; RESP 18; O2SAT 95
== END 2023-05-12 07:43 | disposition home or self-care (01) ==
PROVIDERS: Emergency Provider Emergency Medicine; PCP Nurse Practitioner Family; Visit Provider Emergency Medicine
DX: R25.1 Tremor, unspecified (principal)
CPT/HCPCS: 71045; 80048; 84484; 85025; 93005; 99284; A4216

== ENCOUNTER → 2024-11-07 | Outpatient (CLI) | payer OTHER, SELFPAY ==
--- NOTE | 2024-11-07 15:13 | RAD_ITS ---
PROCEDURE: CERV SPINE 4 OR 5 VIEWS REASON FOR EXAM: Left shoulder pain. TECHNIQUE: 6 views of the cervical spine COMPARISON: None. FINDINGS: Normal vertebral body heights. No visible fracture. Disc space heights are preserved. No significant osseous neural foraminal narrowing on oblique views. Normal alignment. No translational instability with flexion or extension. Prevertebral soft tissues are unremarkable. RAD/Cerv Spine 4 or 5 Views IMPRESSION: No significant abnormalities. Reading Location: [id number]
--- NOTE | 2024-11-07 15:13 | RAD_ITS ---
PROCEDURE: SHOULDER MIN 2 VIEWS REASON FOR EXAM: Left shoulder pain. TECHNIQUE: Four views of the left shoulder were obtained. COMPARISON: None. FINDINGS: LEFT SHOULDER: No fracture. No suspicious bone lesion. Normal alignment of the acromioclavicular and glenohumeral joints. Soft tissues are unremarkable. RAD/Shoulder min 2 Views IMPRESSION: Unremarkable examination. Reading Location: [facility]
== END | disposition home or self-care (01) ==
LOC: MTRAD 15:13
PROVIDERS: PCP Nurse Practitioner Family; Referring Provider Orthopaedic Surgery Sports Medicine; Visit Provider Orthopaedic Surgery Sports Medicine
DX: M25.512 Pain in left shoulder (principal)
CPT/HCPCS: 72050; 73030

== ENCOUNTER → 2024-11-21 | Outpatient (CLI) | payer OTHER, SELFPAY ==
--- NOTE | 2024-11-21 14:28 | RAD_ITS ---
EXAM: XR Cervical Spine, 2 or 3 Views CLINICAL INDICATION: PAIN TECHNIQUE: Frontal and lateral views of the cervical spine. COMPARISON: No relevant prior studies available. FINDINGS: VERTEBRAE: Unremarkable. Normal alignment. No acute fracture. DISC SPACES: No acute findings. No significant narrowing. SOFT TISSUES: Unremarkable. OTHER FINDINGS: No significant dynamic instability. RAD/Cerv Spine 2 or 3 Views IMPRESSION: 1. No acute fracture. 2. No significant dynamic instability. Reading Location: [facility]
== END | disposition home or self-care (01) ==
LOC: MTRAD 14:28
PROVIDERS: PCP Nurse Practitioner Family; Referring Provider Student in an Organized Health Care Education/Training Program; Visit Provider Student in an Organized Health Care Education/Training Program
DX: M54.2 Cervicalgia (principal)
CPT/HCPCS: 72040

== ENCOUNTER → 2024-11-27 | Outpatient (CLI) | payer OTHER, SELFPAY ==
--- NOTE | 2024-11-27 14:56 | MRI_ITS ---
PROCEDURE: SPINE CERVICAL (ROUTINE) 11/27/2024 REASON FOR EXAM: PAIN TECHNIQUE: Cervical spine MRI without intravenous gadolinium-based contrast. Coronal and Sagittal reconstruction series were provided. COMPARISON: Cervical spine radiograph 11/21/2024 FINDINGS: Vertebrae: Vertebral body heights and disc spaces are within normal limits. Alignment: Straightening of the cervical lordosis. Spinal Cord: Cervical spinal cord is of normal size and signal intensities. Structures at the foramen magnum are unremarkable. C2-3: Disc osteophyte complex, [id number]-right uncinate hypertrophy. No significant canal stenosis. Moderate left neural foraminal narrowing. Right neural foramen is patent. C3-4: Small disc osteophyte complex and uncinate hypertrophy with mild facet degenerative changes. No significant canal stenosis. Mild left neural foraminal narrowing. Right neural foramen is patent. C4-5: Disc osteophyte complex, lmfdd-[id number]-accy-left uncinate hypertrophy and facet degenerative changes. Mild canal stenosis and mild bilateral neural foraminal narrowing. C5-6: Disc osteophyte complex, oebp-avomtxm-kxcg-right uncinate hypertrophy and facet degenerative changes with severe canal stenosis. Severe left and moderate right neural foraminal narrowing. C6-7: Disc osteophyte complex, uncinate hypertrophy and facet degenerative changes. No significant canal stenosis. Moderate left and mild right neural foraminal narrowing. C7-T1: Tiny disc osteophyte complex and mild facet degenerative changes. No significant canal stenosis or neural foraminal narrowing. . MRI/Spine Cervical (Routine) IMPRESSION: No acute fracture or traumatic subluxation. Multilevel degenerative changes most prominent at C5-C6 with up to severe canal stenosis and neural foraminal narrowing. Reading Location: [facility]
== END | disposition home or self-care (01) ==
LOC: MRI 14:51
PROVIDERS: PCP Nurse Practitioner Family; Referring Provider Student in an Organized Health Care Education/Training Program; Visit Provider Student in an Organized Health Care Education/Training Program
DX: G95.9 Disease of spinal cord, unspecified (principal)
CPT/HCPCS: 72141

== ENCOUNTER 2024-12-07 15:00 | Outpatient (RCR) | payer OTHER, SELFPAY ==
--- NOTE | 2024-11-08 17:50 | HP.PTEVAL ---
Patient's Visit Information Visit Information Visit Information: IMAN GREEN is a 44 year old M referred to Physical Therapy by Dr. Mat Deutsch MD with a diagnosis of L shoulder pain. Date of Evaluation: 11/08/24 Physical Therapist: Jaime Olivia, DPT, OCS, CSCS Visit Plan Frequency: 2x /Week Duration: 4-6 Weeks Plan: 2x/week for 4-6 weeks seems more cervical to this therapist... IE HEP cervical ret ext 10x every two hours and postural correction to bgin in two days after injection kicks in. Please treat with manual therapy for ext upper thoracic and lower cervical spine, progression of ext ROM excercises and neck ROM. strengthening of posture and scap/shoulder stabs to HEP. may do STM to L neck and scap muscles, PA mobs to thoracic and cervical and manual PROM nck and traction, and US to L g-h nonthermal. Montior L shoulder eer, neck ROM R rot and ext and shoulder elevation L for improvement. Subjective Subjective: Has had L shoulder pain since june(and has happened previously) in L joint and neck and into scapula. Insidious onset. Used to ex daily with yoga and bike riding with BFR curls flyes, tricep kickbacks, chest presses and OH and incline. Was doing that for a year or so. Woke up out of nowhere with this. US has helped in the past. Had injection this am which has not helped yet. 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 Worse after work.Chairs not comfortable Stopped workout b/c of this pain. Basic ADLs at home all I but not doing much else at home. Runs [employer] and is limitd due to this pain and called off hospital due to pain. Bad in the am and loosens up, wakes up at [facility] with this. Sleeps on R side. or L and these both hurt. Pain L scapula/shoulder: Pain Intensity (Out of 10): 3 Pain Intensity Range: 9 Comment: am worse. Objective Objective: Posture is FW head and protracted scapula, tightness pecs.Loss of cervical lordosis cervical aROM 45 ext with pain L neck, 68 L rotation adn 58 R rotation with pain on L side neck. scap mobility is good. + c/s compression. Shoulder AROM is full, slight er adn end range flexion pain. elbow and wrsit AROM wFL. reflexes 2/3 bi and tri sensation B UE WNL gross light touch. strength UEis strong at 4 flexion abd and empty can, slightly more pain empty can er painful and weak, IR 4/5 B without pain. elbow and wrist aROM WFL repeated flexion NE repeated c/s ret NE repeated ret/ext: improved shoulder and neck ROM rota and ext and stronger er. Balance/Special Test Scores Quick DASH Score: 52.2725 Goals Goal 1:: Pain in neck and shoulder 90% better and 1/10 at worst Goal Time Frame: 4-6 Weeks Goal 2:: Sleep without waking at night due to pain Goal Time Frame: 4-6 Weeks Goal 3:: Patient will return to work without worseening pain in neck/shoulder Goal Time Frame: 4-6 Weeks Goal 4:: quickdash score 15 or bettr Goal Time Frame: 4-6 Weeks Goal 5:: I appropriate HEP to limit future prob lems Goal Time Frame: 4-6 Weeks Goal 6:: symmetircal ext rotation strngth, full elevation ROM, full neck ROM all without pain Goal Time Frame: 4-6 Weeks Rehabilitation Potential Physical Therapy Diagnosis: limited shoulder and neck ROM and weakness in arm leading to pain and diminished comfrot with funciton. Rehabilitation Potential: Good Anticipated Interventions Patient/Client Instruction: Educate patient on: Condition and Plan of Care For the Purpose of:: To decrease pain, To increase ROM, To improve nutrient delivery to tissue, To increase tolerance to activity/condition/position and To improve ability of physical actions for home/community/work/leisure Therapeutic Exercise to Include: Strength training, Postural training, Flexibilty training, Relaxation training, Passive ROM and Active ROM For the Purpose of:: To decrease pain, To increase ROM, To improve nutrient delivery to tissue, To improve muscle performance and motor function and To increase tolerance to activity/condition/position Manual Therapy Techniques to Include: Mobilization, Passive ROM and Soft tissue mobilization For the Purpose of:: To decrease pain, To increase ROM, To improve nutrient delivery to tissue and To improve muscle performance and motor function Thermo therapy (hot pack): Yes Ultrasound (thermal/non thermal): Yes (nonthrmal) For the Purpose of:: To decrease pain, To decrease swelling/inflammation and To increase ROM Text: Thank you for the opportunity to evaluate your patient. For Medicare and Medicare HMO plans, please review the plan of care and approve it. It will need to be FAXED BACK to us at [phone] for Medicare purposes. For Medicare only, by signing this I certify the plan of care. Please let me know if there are questions or concerns regarding this plan of care. Physician Signature: Date:
--- NOTE | 2024-12-07 15:58 | HP.PTDCSUM ---
Discharge Summary D/C summary: It has been my pleasure to treat ROMATT JADYN GREEN referred by Dr. Mat Deutsch MD, with the diagnosis of L shoulder pain for a total of 7 visit(s). Discharge Date: 12/07/24 Please see the following information for a summary of their discharge status. Subjective Subjective: Strength is better but ROM in L shoulder is stiff. 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 Recommended disc replacement. Pain in L shoulder is different, tingling is gone, pain lateral upper arm and into forearm 5/10 at times with work. Worse on feet at work. Has nerve pain meeds daily which helps but does not last. Activities : avoids lifting and reaching. Avoids yard work due to fear. Sleep is still interrupted at times. Pain L scapula/shoulder: Pain Intensity (Out of 10): 3 Overall Improvement % Improvement: 70 Objective Objective/Function: Full cervical ROM without pain, 8- extension, 75 B rotations. L shoulder slightly tighter in flexion vs R at 160 vs 150. weakness evident in tricep on R and ext rotation but overall funcitonal. Improving symptoms and willing to continue on his own at home vs more therapy. Will f/u with Dr. Vazquez in a few weeks for possible surgery info. Goals Goal 1:: Pain in neck and shoulder 90% better and 1/10 at worst Goal Progress: 70% Goal 2:: Sleep without waking at night due to pain Goal Progress: Not Progressing Goal 3:: Patient will return to work without worseening pain in neck/shoulder Goal Progress: Not Progressing Goal 4:: quickdash score 15 or bettr Goal Progress: Progressing Goal 5:: I appropriate HEP to limit future prob lems Goal Progress: Goal Met Goal 6:: symmetircal ext rotation strngth, full elevation ROM, full neck ROM all without pain Goal Progress: Progressing Plan Plan: d/c to HEP D/C Information Discharge Comments: To see spinal surgeon in 2-3 weeks and continue HEP fo neck and shoulder ROM and strengthening via HEP in the meantime. d/c sentence: If there are questions or concerns regarding this patient's physical therapy, please feel free to call me at [phone]. Thank you for the referral of this patient. Sincerely, Jaime Olivia, DPT, OCS, CSCS Balance/Gait/Functional tests Balance/Special Test Scores Quick DASH Score: 31.8175 Improvement % Improvement: 70
== END 2024-12-07 19:00 | disposition home or self-care (01) ==
LOC: PT 15:00
PROVIDERS: PCP Nurse Practitioner Family; Referring Provider Orthopaedic Surgery Sports Medicine; Visit Provider Orthopaedic Surgery Sports Medicine
DX: M25.512 Pain in left shoulder (principal)
CPT/HCPCS: 97012; 97110; 97140; 97161; 97164

== ENCOUNTER 2025-01-01 09:26 | Day surgery (SDC) | payer OTHER, SELFPAY ==
[2024-12-21 06:53] LABS: Absolute Neutrophil Count 4.6 X10^3/uL (2.0-7.7); Basophil# 0.05 X10^3/uL; Basophil% 0.6 % (0-1); Eosinophil# 0.13 X10^3/uL; Eosinophils% 1.6 % (0-5); Hematocrit 44.9 % (40-54); Hemoglobin 14.9 g/dL (13.0-16.5); Lymphocyte % 33.5 % (19-41); Mean Corp Hgb Conc 33.2 g/dL (32-36); Mean Corpuscular Hgb 30.3 pg (27.0-32.0); Mean Corpuscular Volume 91.4 fL (80-94); Monocyte# 0.58 X10^3/uL; Monocyte% 7.2 % (0-10); NRBC Flagged by Analyzer 0 % (0-5); Neutrophil # 4.57 X10^3/uL (2.7-7.7); Neutrophil % 56.9 % (47-70); Platelet Count 236 K/mm3 (150-450); RBC Distribution Width CV 12.6 % (11.6-14.6); RBC Distribution Width SD 42.1 fl (35.1-43.9); Red Blood Count 4.91 M/mm3 (4.6-6.2); White Blood Count 8.1 K/mm3 (4.4-11.0)
[2024-12-21 07:07] LABS: Magnesium 2.2 mg/dL (1.5-2.2)
[2024-12-21 07:29] LABS: Anion Gap 14 (5-15); BUN 22 mg/dL (4-19); BUN/Creat Ratio 22.4 RATIO (10-20); Calcium,Total 9.5 mg/dL (7.6-11.0); Carbon Dioxide 25.4 mmol/L (21.0-32.0); Chloride 102 mmol/L (98-108); Creatinine, Serum 0.96 mg/dL (0.70-1.20); EST Glomerular Filtration Rate 100 (>60); Glucose 93 mg/dL (70-99); HIV Nonreactive (Nonreactive); Hepatitis B Surface Antibody REAC; Hepatitis C Antibody Nonreactive (Nonreactive); Sodium Level 141 mmol/L (133-145)
--- NOTE | 2024-12-21 07:33 | EKG12_ITS ---
Test Reason : PRE-OP Blood Pressure : */* mmHG Vent. Rate : 79 BPM Atrial Rate : 79 BPM P-R Int : 158 ms QRS Dur : 88 ms QT Int : 372 ms P-R-T Axes : 52 34 39 degrees QTcB Int : 426 ms Normal sinus rhythm Normal ECG Confirmed by HUYEN REYES, JIGNESH ([id number]), web content editor SARAH TIWARI ([id number]) on 12/21/2024 9:08:13 AM Referred By: Karlos Vazquez Confirmed By: JIGNESH MATSON MD
[2024-12-22 06:27] LABS: Hepatitis A AB, Total Negative (Negative)
[2025-01-01] VITALS (11 sets, daily range): BP systolic 142–154; BP diastolic 87–99; PULSE 112–121; RESP 16–18; TEMP 36.2–37; O2SAT 99–100; BMI 29.0
[2025-01-01] MEDS: 0.9% Normal Saline (1000mL) 1,000 ML 15 ML IV (10:05)
[2025-01-01] MEDS: Acetaminophen 500 MG Tablet 1000 MG PO (10:05)
[2025-01-01] MEDS: Magnesium 1 GM over 15 mins IV (10:05)
--- NOTE | 2025-01-01 10:33 | PCM.PRE.AN2 ---
ASA Classification* ASA Classification ASA Classification: 2 Assessment & Plan Anesthesia* Anesthesia Assessment Anesthesia Assessment: Discussed sedation and/or anesthesia options, risks, benefits, and alternatives with patient/parents/legal guardian/POA. Questions invited. The patient/parents/legal guardian/POA seems to understand and agrees to proceed with anesthesia plan. Reviewed the physical assessment, medical history, allergy history and patient home medications list prior to surgery/procedure/anesthetic and documented any changes. Performed airway and anesthesia risk assessments. Anesthesia Type Anesthesia Type: General History Source History Obtained from:: Patient and Chart Anesthesia Focused Assessment* Temperature: 97.2 F Pulse Rate: 112 Blood Pressure: 147/96 Respiratory Rate: 16 Pulse Ox: 99 Oxygen Delivery Method: Room Air Airway Assessment Mouth opens: >3 cm Mallampati Score: III Teeth Condition: Missing (Patient has several missing molars. Rest of the teeth are tight..) Neck Range of motion (ROM): Full ROM Focused Labs Anesthesia Preop lab: CBC WBC 8.1 K/mm3 (4.4-11.0) 12/21/24 06:19 12/21/24 RBC 4.91 M/mm3 (4.6-6.2) 12/21/24 06:19 12/21/24 Hgb 14.9 g/dL (13.0-16.5) 12/21/24 06:19 12/21/24 Hct 44.9 % (40-54) 12/21/24 06:19 12/21/24 Plt Count 236 K/mm3 (150-450) 12/21/24 06:19 12/21/24 CHEMISTRY Potassium 4.0 mmol/L (3.3-5.1) 12/21/24 06:19 12/21/24 Sodium 141 mmol/L (133-145) 12/21/24 06:19 12/21/24 Magnesium 2.2 mg/dL (1.5-2.2) 12/21/24 06:19 12/21/24 Phosphorus 3.4 mg/dL (2.5-4.9) 05/22/24 06:57 05/22/24 BUN 22 mg/dL (4-19) H 12/21/24 06:19 12/21/24 Creatinine 0.96 mg/dL (0.70-1.20) 12/21/24 06:19 12/21/24 Glucose 93 mg/dL (70-99) 12/21/24 06:19 12/21/24 TSH 1.46 uIU/mL (0.358-3.74) 12/23/14 17:30 12/23/14 COAG PT 13.1 SECONDS (11.7-14.9) 10/20/14 09:15 10/20/14 Pre-Assessment Diagnosis/Proposed Procedure Planned Operative Procedure(s): Cervical Disc Arthroplasty C4-5 and C5-6 Anesthesia History Anesthesia History - specialist icu: Anesthesia History - specialist icu Hx Hospitalization No 12/18/24 08:22 Any Problems With Anesthesia No 12/18/24 08:22 Cholinesterase deficiency No 12/18/24 08:22 You/Your Family Experience No 12/18/24 08:22 fever (hyperthermia) with Relationship Recent Exposure to Contagious No 01/01/25 09:59 Disease Does patient have nerve No 12/18/24 08:22 stimulator Patient instructed to have device shut off --Does patient have Pacemaker No 01/01/25 09:59 or ICD? When Was Last Pacemaker Check QUESTION #4 FULL TEXT: You/Your Family Experience fever (hyperthermia) with Anesthesia Last Oral Intake Last Oral intake: Last Oral Intake NPO since 07:30 01/01/25 09:59 Meds taken in AM with sips of Yes 01/01/25 09:59 water? Meds patient instructed to take am of surgery Any additional information?: Yes NPO since: 07:30 (Patient took preop Ensure at 7:30 AM.) Meds taken in AM with sips of water?: Yes PONV PONV - specialist icu: PONV - specialist icu Female No 12/18/24 08:22 HX of Motion Sickness Yes 12/18/24 08:22 HX of N/V After Surgery No 12/18/24 08:22 Non-Smoker Yes 12/18/24 08:22 Duration of Surgery greater Yes 12/18/24 08:22 than 60 minutes Number of Risk Factors 3 12/18/24 08:22 PONV Score Moderate Risk 12/18/24 08:22 Height & Weight Height & Weight: Anesthesia: Height & Weight Height 5 ft 9 in 01/01/25 09:59 Weight: 89 kg 01/01/25 09:59 Body Mass Index (BMI) 29.0 01/01/25 09:59 Respiratory Assessment Respiratory Assessment - specialist icu: Respiratory Tract Infection Hx - specialist icu Hx Respiratory Tract Infection No 12/18/24 08:22 STOP Sleep Apnea STOP Sleep Apnea - specialist icu: STOP Sleep Apnea - specialist icu Hx Hypertension No 12/18/24 08:22 Hx Sleep Apnea No 12/18/24 08:22 CPAP No 12/18/24 08:22 BIPAP No 12/18/24 08:22 Do you snore loudly (louder No 12/18/24 08:22 than talking or can be heard Do you often feel tired/ No 12/18/24 08:22 fatigued/ sleepy during daytime? Has anyone observed you stop No 12/18/24 08:22 breathing during sleep? STOP Results Negative 12/18/24 08:22 QUESTION #5 FULL TEXT : Do you snore loudly (louder than talking or can be heard through closed doors)? 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 - specialist icu: Tobacco Use History - specialist icu Tobacco Use Smoking Status Former smoker 12/18/24 08:22 Hx Tobacco Use No 12/18/24 08:22 Years Smoking Packs Smoked per Day Smoking Cessation Date was Yes - quit smoking within 15 12/18/24 08:22 within the last 15 years years Hx Smoking Cessation Date 09/12/09 12/18/24 08:22 Hx Smoking Cessation Counseling Hematologic Medial History Hematologic Hx - specialist icu: Hematologic Medical Hx - clinical documentation developer Hx of Blood Transfusion No 12/18/24 08:22 Hx of Transfusion in last 3 No 12/18/24 08:22 Months Date of Last Transfusion (if within last 3 months) Ever experience any problems No 12/18/24 08:22 with transfusion(s)? Specify any problems Hx of Preganancy in last 3 N/A 12/18/24 08:22 Months Nurse Filling Out Transfusion VCHRISTIN 12/18/24 08:22 & Questions: Date: 12/18/24 12/18/24 08:22 Time: 08:24 12/18/24 08:22 Patient unable to answer at this time (ie. confused, unrespo /Reproduction History /Reproductive History - specialist icu: /Reproductive Hx- specialist icu Hx Now Gestational Age (in weeks): EDC: Hx Hx Para Hx Section SAB Active Medications Active Medications: Current Medications Generic Name Dose Route Start Last Admin Trade Name Freq PRN Reason Stop Dose Admin Acetaminophen 1,000 mg 01/01/25 11:30 01/01/25 10:05 Acetaminophen 500 Mg Tablet PO 01/01/25 11:31 1,000 mg X1 ONE Administration Dexamethasone Sodium Phosphate 8 mg 01/01/25 11:30 Dexamethasone 10 Mg/Ml Vial IV 01/01/25 11:31 X1 ONE Dexamethasone Sodium Phosphate 4 mg 01/01/25 11:30 Dexamethasone 4 Mg/Ml Vial IV 01/01/25 11:31 X1 ONE Cefazolin Sodium 2 gm/ N/A 20 mls @ 400 mls/hr 01/01/25 11:30 IV 01/01/25 11:32 PREOP ONE Tranexamic Acid 1,000 mg/ 110 mls @ 440 mls/hr 01/01/25 11:30 Sodium Chloride IV 01/01/25 11:44 X1 ONE Tranexamic Acid 1,000 mg/ 110 mls @ 440 mls/hr 01/01/25 11:30 Sodium Chloride IV 01/01/25 11:44 X1 ONE Magnesium Sulfate 1 gm/ 102 mls @ 408 mls/hr 01/01/25 11:30 01/01/25 10:05 Dextrose IV 01/01/25 11:44 408 mls/hr X1 ONE Administration Sodium Chloride 1,000 mls @ 15 mls/hr 01/01/25 09:35 01/01/25 10:05 IV 15 mls/hr .Q48H NANDA Administration Insulin Human Lispro 1 - 6 unit 01/01/25 11:30 Insulin Lispro 100 Unit/Ml Insuln.Pen SC 01/01/25 18:00 Q4H PRN PRN BG>/= 180, SEE PROTOCOL Protocol PFSH Medical History Wears glasses History of steroid therapy Injury of head and neck Gastric reflux Former smoker History of echocardiogram Cardiology follow-up encounter History of irregular heartbeat Left shoulder pain Knee pain Back pain Severe headache Arthritis Hypertension Home Medications ?Medication ?Instructions ?Recorded ?Last Taken ?Type TENS unit electrodes (Pro Comfort 11/08/24 Unknown History Tens Electrode pads) acetaminophen 650 mg 1,300 mg PO QDAY PRN pain 11/08/24 12/31/24 History tablet,extended release ibuprofen 200 mg capsule 800 mg PO TID PRN pain 11/08/24 12/25/24 History multivitamin 1 tab PO QDAY 11/08/24 12/29/24 History baclofen 5 mg tablet 5 mg PO BID PRN pain 11/21/24 12/31/24 History duloxetine 30 mg capsule,delayed 30 mg PO DAILY 11/29/24 12/18/24 History release gabapentin 300 mg capsule 300 mg PO TID PRN pain 12/18/24 01/01/25 History omeprazole 20 mg capsule,delayed 20 mg PO DAILY 01/01/25 12/31/24 History release Allergy/AdvReac Type Severity Reaction Status Date / Time No Known Allergies Allergy Verified 01/01/25 09:56 Family History Father Diabetes Surgical History History of fusion of talotibial joint and subtalar joint surgery of tibia H/O cardiac radiofrequency ablation Optional surgery Social History household members: spouse and children Smoking Status: Former smoker quit date: 09/12/00 alcohol intake: current alcohol intake frequency: holidays/special occasions only substance use type: does not use Review of Systems (Anesthesia) ROS Narrative System reviewed and no additional complaints, except as documented.
--- NOTE | 2025-01-01 11:01 | HP.PCM_ITS ---
History and Physical MR#: [id number] Acct: [id number] Name: IMAN GREEN Rep #: [id number] : 1980 Provider: Dr. Karlos Vazquez MD Age/Sex: 44/M Location: [facility] [place] Status: Signed Intake Vital Signs 11/21/2513:38 Height 5 ft 9 in Intake Visit Reasons: cervical spine Allergies No Known Allergies Allergy (Verified 12/21/24 08:38) Medications ?Medication ?Instructions ?Recorded ?Confirmed ?Type TENS unit electrodes (Pro Comfort 11/08/24 12/21/24 History Tens Electrode pads) acetaminophen 650 mg 1,300 mg PO QDAY PRN pain 11/08/2412/21 History tablet,extended release ibuprofen 200 mg capsule 800 mg PO TID PRN pain 11/08/24 12/21/24 History multivitamin 1 tab PO QDAY 11/08/24 12/21/24 History baclofen 5 mg tablet 5 mg PO BID PRN pain 11/21/24 12/21/24 H istory duloxetine 30 mg capsule,delayed 30 mg PO DAILY 11/29/24 12/21/24 History release gabapentin 300 mg capsule 300 mg PO TID PRN pain 12/18/24 12/21/24 History PFSH Medical History Wears glasses History of steroid therapy Injury of head and neck Gastric reflux Former smoker History of echocardiogram Cardiology follow-up encounter History of irregular heartbeat Left shoulder pain Knee pain Back pain Severe headache Arthritis Hypertension Surgical History History of fusion of talotibial joint and subtalar joint surgery of tibia H/O cardiac radiofrequency ablation Optional surgery Family History Father Diabetes Social History household members: spouse and children Smoking Status: Former smoker quit date: 09/12/00 alcohol intake: current alcohol intake frequency: holidays/special occasions only substance use type: does not use HPI cervical spine Details: This documentation accurately reflects the service provided and the decisions made by me, Dr. Karlos Vazquez MD 12/21/24 [id number]. Part of today?s visit was documented by Sharon SCHULZ, acting as scribe. IMAN GREEN is a 44 year old M here today for pre-op cervical spine dos: 01/01/25. Patient is here for a Pre op visit. He states that the pain is really bad today. Patient has a lot of nerve pain today. He has been trying to not do a whole lot. Patient has neck pain and headaches. I examined the patient today. The left hand is a little weak. Patient states that he has had some balance issues. I went over the MRI with the patient today. I explained to the patient that he would do a fusion now, he would have to do another fusion later. I explained to the patient about the future operation that we would do. Patient had an ablation 10 years ago. Patient states that his EKG's have been normal. I stated to the patient about what would happen after the surgery. The first 4 days patient will have problems swallowing. I advise patient to eat soft foods. I advise patient to have a follow up post op appointment after the surgery. I explained to the patient would could happen after the surgery, so he is aware. After 3 months patient has no restrictions. I advise patient no excessive lifting or moving once the collar is off. I advise that patient has his nuck a little bit higher for a week. The suregry takes 2 hours to do. 11/29/24: IMAN GREEN is a 44 year old M here today for cervical spine MRI review. Patient rates his pain a 2-3/10 today. Patient continues with physical therapy and states it is going well. He states the general cervical spine pain and range of motion is getting somewhat better. He states the radiating pain that is in the left arm is pretty much the same. Patient states he takes Ibuprofen PRN for the pain. A month of dexterity issues but pain has been going on for the last 6 months. Patient is left hand dominant. 11/21/2024: IMAN GREEN is a 44 year old M here today for cervical spine pain. Last June he started having a lot of pain, but kept working with it. Three weeks ago he couldn't move his neck, he had to call off work for 2 days because he was in pain. Patient feels like he loses his strength in his arms. Hit hurts mainly in th upper left quadrant. He got xrays done today. Saw Dr. Get jacinto for injection in the shoulder, it didn't help. The injection made the pain worse. Tried doing heat, and it made it worse. Patient is doing physical therapy, he stated that it is going well for him. No benefit from chiropractor, flare started in June he was being very active at that time. Left sided neck pain down the back of his left arm and stops at the forearm. He denies pain that extends into his hand and fingers. He says he will occasionally get a shooting pain into his left armpit however this is infrequent. He does report dexterity changes and has dropped paper, tooth brush, and water bottle out of his left hand. Says that this has been worsening over the last several months. Ortho Exam General General: Yes no acute distress Neurologic: Yes alert and Yes oriented x3 Spine SPINE TESTING CERVICAL THORACIC LUMBAR Musculoskeletal Strength 0=absent - 5=normal Details: Neurological exam of the upper extremities shows 4+ power left wrist extension and triceps all other muscle groups show 5 power. Normal sensation across all dermatomes. Brisk knee reflexes. Dominique's negative. There is mild midline and left-sided paraspinal tenderness. Romberg's negative. Single leg stand showed good balance. Coding Level of Care Code Off vis,est,level 4 Diagnoses Cervical myelopathy with cervical radiculopathy G95.9; M54.12 Time Spent (min) 35 Assessment and Plan Assessment and Plan (1) Cervical myelopathy with cervical radiculopathy: Status: Acute Plan Again reviewed prior imaging shows a relatively normal cervical spine there is a slight straightening of the normal cervical lordosis and a mild degenerative changes at C6-7. No instability. Reviewed cervical MRI from November 27, 2024 which showed C4-5 mild canal stenosis and mild bilateral neural foraminal narrowing and C5-6 disc bulge which results in severe canal stenosis with severe left and moderate right neural foraminal narrowing. Explained imaging findings in detail. At this time due to the patient's several month history of worsening dexterity issues which has resulted in him dropping things out of his hands such as paper and cups, as well as his physical exam findings of decreased left tricep strength and brisk bilateral knee reflexes, discussed surgical options today with the patient. This issue initially started in June however over the last several months it has been worsening. Discussed in detail a C4-6 cervical disc replacement. Explained the procedure in detail and discussed risks and benefits of the surgery. The risks include but are not limited to infection, bleeding, hematoma formation, need for further surgery, DVT, pulm embolism, pneumonia, atelectasis, adjacent segment degeneration, hypermobility, dysphagia, dysphonia, recurrent laryngeal nerve injury, persistent pain, persistent numbness and weakness, spinal cord injury, nerve root injury. Patient understands and agrees to proceed with surgery. Consent was signed.
[2025-01-01 11:46] LABS: Bedside Glucose 132 mg/dL (74-106)
[2025-01-01] MEDS: Cefazolin 2 GM in Syringe 10 ML IV (12:00)
[2025-01-01] MEDS: TRANEXAMIC ACID 1,000 MG in 0.9% Normal Saline (100mL Bag) 100 ML 440 MG IV ×2 (12:00→14:01)
--- NOTE | 2025-01-01 12:05 | RAD_ITS ---
EXAM: XR Cervical Spine, 2 or 3 Views CLINICAL INDICATION: CERVICAL DISC ARTHROPLASTY C4-5 C5-6 TECHNIQUE: Frontal and lateral views of the cervical spine. COMPARISON: No relevant prior studies available. FINDINGS: VERTEBRAE: Unremarkable. No definite fracture. Normal alignment. DISC SPACES: No acute findings. No significant narrowing. SOFT TISSUES: Unremarkable. OTHER FINDINGS: Fluoroscopic guidance was used intraoperatively. A total 5 images were obtained. Total fluoroscopy time was 28 seconds. Total radiation dose was 3.0 mGy. RAD/Cerv Spine 2 or 3 Views IMPRESSION: Fluoroscopic guidance was used intraoperatively. Please refer to the operative note for further details. Reading Location: [facility] [place]
[2025-01-01] MEDS: dexAMETHasone 10 MG/ML Vial 8 MG IV (12:10)
--- NOTE | 2025-01-01 14:52 | OP.PCM_ITS ---
Procedures Musculoskeletal 20xxx-29xxx: Other Procedure See Report Operative Report (Standard) Operative Information Date of Procedure: 01/01/25 Pre-Operative Diagnosis: 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 Post-Operative Diagnosis: Same Surgery/Procedure Performed: C4-6 cervical disc replacement basting puller: Yes Postulant: Mary Perez Tasks completed by welder first class: Closing, Removing tissue, Hemostasis: Electrocautery and Retracting Type of Anesthesia: General RN Documented Start/Stop Times: Operation Date: 01/01/25 11:30 Case Time Into Pre-Op 01/01/25 09:30 Out of Pre-Op 01/01/25 11:43 Anesthesia Start 01/01/25 11:51 Into Room 01/01/25 11:51 Procedure Start 01/01/25 12:26 Procedure End 01/01/25 14:36 Anesthesia End 01/01/25 14:51 Out of Room 01/01/25 14:51 Procedure Start Time: 12:26 Procedure Stop Time: 14:36 Select all DRAINS/GRAFTS/IMPLANTS that apply: Prosthetic device Prosthetic device details: Zimvie Mobi-C cervical disc replacement prosthesis Estimated Blood Loss: 30 cc Specimen collected: No Description of surgery: Preoperative diagnosis: C4-6 disc herniation, with radiculomyelopathy Postoperative diagnosis: Same Name of procedure: C4-6 anterior cervical disc replacement - Cervical disc replacement C4-5, CPT code 07782 - Cervical disc replacement C5-6, CPT code 82197/51 Attending surgeon: Karlos Vazquez M.D. Anesthesia: Gen. endotracheal Estimated blood loss: 30 mL Complications: None Instrumentation used: Brennen [employer] Mobi-C cervical disc replacement implants Indications: The patient is a pleasant 44-year-old gentleman who presented with symptoms of neck pain, progressive left worse than right upper extremity radiation, progressive difficulty with dexterity and balance. MRI revealed C4-5 right paracentral soft disc extrusion with right hemicord compression, C5-6 left paracentral disc extrusion with left hemicord compression and foraminal stenosis. In order to halt the progression of myelopathy, patient requested surgical intervention. All risks and benefits of the procedure were explained to the patient. The risks include but are not limited to infection, bleeding, injury to nerves and vessels, vertebral artery injury, spinal cord injury, paralysis, vocal cord paralysis, injury to esophagus, need for further procedures, adjacent segment degeneration, heterotopic ossification, implant loosening, implant failure, DVT, pulmonary embolism, cardiopulmonary event, etc. Procedure: The patient was identified in the preoperative suite using unique patient identifiers. Skin was marked consent was taken and all questions were answered. The patient was then brought back to the operative room and a timeout was performed. General endotracheal anesthesia was given. Intraoperative neuro monitoring leads were applied. The patient was carefully positioned supine on a regular OR table. A lateral x-ray with a C-arm was done to identify the level and to define the incision. The anterior neck was then prepped and draped in the usual fashion. A final timeout was then performed. A transverse skin incision was then taken to the left of midline 2 fingerbreadths above the clavicle. Subcutaneous tissue was then divided with Bovie. Platysma was identified and cut transversely with scissors. The fascial interval between the sternocleidomastoid and the larynx was developed. Omohyoid was identified and mobilized medially and inferiorly. Carotid sheath was laterally while the esophagus with the larynx was retracted medially to reach the prevertebral fascia. All prevertebral layers of fascia were bluntly dissected and a Chesapeake pin was placed into one of the bodies. A lateral C-arm image was used to confirm the correct level. Once this was done longus coli muscle was elevated on both sides at and above and below C4-6 discs. Shadow line retractors were then placed with great care to protect the esoph yady. A long handle knife was then used to perform annulotomy at C4-5. Disc fragments were removed with the pituitary. Chesapeake pins were placed in C4 and C5 for disc distraction. AP view confirmed midline placement of Chesapeake pins. Curettes were utilized to remove cartilage from the endplates. Discectomy was performed laterally up to the uncovertebral joints. Adequate decompression was performed, PLL was thinned out and resected. Foramina were decompressed without taking down the uncovertebral processes. Soft disc fragments were removed from the right Javier canal in adequate decompression was a chieved. Once the disc space was prepared, trials of various sizes were utilized. Thorough irrigation was given. Mobi-C anterior cervical disc replacement implant of size 15 x 15 mm with 5 mm height was then placed under fluoroscopic guidance. Adequate positioning was noticed on AP and lateral views. The retractors were then moved to the C5-6 disc space and the procedure of complete discectomy and decompression was repeated. Left paracentral and foraminal disc extrusions were removed after taking down the PLL. Mobi-C implant of 17 x 17 mm with 5 mm height was placed at this level. AP and lateral fluoroscopy confirmed good position. Thorough irrigation was again given. Hemostasis was achieved with FloSeal and bipolar cautery. Closure was done with 3-0 Vicryl for the platysma and subcu taneous tissue layers and 4-0 Monocryl for the skin. Steri-Strips were applied and dressing was done with 4 x 4 gauze and Tegaderm. A cervical collar was then applied. The patient was then woken up from anesthesia extubated and taken to PACU in stable condition. Intraoperative neuro monitoring was performed throughout this procedure. Motor evoked potentials were run periodically. All potentials remained at baseline throughout the procedure. I was present for the entire surgery and performed the surgery myself. Surgical Findings: See operative note Complications Complications: No
--- NOTE | 2025-01-01 15:02 | PCM.POST.ANE ---
Anesthesia: Postop Eval I Current Vital Signs Temperature: 97.4 F Pulse Rate: 112 Blood Pressure: 149/87 Respiratory Rate: 16 Pulse Ox: 100 Oxygen Delivery Method: Nasal Cannula Oxygen Flow Rate (L/min): 4 Assessment Airway patent: Yes Spontaneous unlabored respirations: Yes Mental status: Awake and Calm nausea: No Vomiting: No Anesthesia Complication: No Fluid Hydration Crystalloid volume administer (ml): 1,600 Total IV fluid infused: 1,600 Progress Note Anesthesia document: Postop Eval 1 completed: Yes
[2025-01-01] MEDS: HYDROcodone Bitartrate/Apap 5/325 Tablet PO (16:40)
--- NOTE | 2025-01-01 20:23 | POSTOPAN2_ITS ---
Anesthesia Postop Eval I Sum Postop Eval Completion status Anesthesia document: Postop Eval 1 completed: Yes Anesthesia Postop Eval I Summary Anesthesia Postop Eval I Summary: Anesthesia Postop Eval I: Assessment Summary Airway patent Yes 01/01/25 15:03 ASSISTANT PROFESSOR OF MATHEMATICS.[email or web address] Spontaneous unlabored Yes 01/01/25 15:03 ASSISTANT PROFESSOR OF MATHEMATICS.SKOBIrineo respirations Mental status Awake,Calm 01/01/25 15:03 ASSISTANT PROFESSOR OF MATHEMATICS.SKOBY nausea No 01/01/25 15:03 ASSISTANT PROFESSOR OF MATHEMATICS.SKOBY Vomiting No 01/01/25 15:03 ASSISTANT PROFESSOR OF MATHEMATICS.SKOBY Anesthesia Postop Eval I: Fluid Summary Crystalloid volume administer 1,600 01/01/25 15:03 ASSISTANT PROFESSOR OF MATHEMATICS.SKOBY (ml) Colloids volume administered ( ml) Blood Product volume administered (ml) Total IV fluid infused 1,600 01/01/25 15:03 ASSISTANT PROFESSOR OF MATHEMATICS.SKOBIrineo Anesthesia Postop Eval I: Summary Notes Anesthesia Complication No 01/01/25 15:03 ASSISTANT PROFESSOR OF MATHEMATICS.SKOBIrineo Anesthesia Complication Comment: Post-operative progress note Anesthesia: Postop Eval II Evaluation Mental status: Awake and Calm Pain Level: 2 nausea: No Vomiting: No Complications Anesthesia Complication: No
--- NOTE | 2025-01-01 20:23 | PCM.POSTANE2 ---
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 Vomiting No 01/01/25 15:03 GRINDER OPERATOR [email or web address].SKOBY Anesthesia Postop Eval I: Fluid Summary Crystalloid volume administer 1,600 01/01/25 15:03 GRINDER OPERATOR [email or web address].SKOBY (ml) Colloids volume administered ( ml) Blood Product volume administered (ml) Total IV fluid infused 1,600 01/01/25 15:03 GRINDER OPERATOR AUTOMATIC.SKOBIrineo Anesthesia Postop Eval I: Summary Notes Anesthesia Complication No 01/01/25 15:03 GRINDER OPERATOR AUTOMATIC.SKOBIrineo Anesthesia Complication Comment: Post-operative progress note Anesthesia: Postop Eval II Evaluation Mental status: Awake and Calm Pain Level: 2 nausea: No Vomiting: No Complications Anesthesia Complication: No
== END 2025-01-01 18:17 | disposition home or self-care (01) ==
LOC: SDC 09:26 → AC 09:27
PROVIDERS: Anesthesiology; PCP Nurse Practitioner Family; Referring Provider Orthopaedic Surgery Orthopaedic Surgery of the Spine; Visit Provider Orthopaedic Surgery Orthopaedic Surgery of the Spine
PROC: (CPT 22856; principal; 2025-01-01 11:00)
DX: M50.021 Cervical disc disorder at C4-C5 level with myelopathy (principal); M50.022 Cervical disc disorder at C5-C6 level with myelopathy; M50.121 Cervical disc disorder at C4-C5 level with radiculopathy; M50.122 Cervical disc disorder at C5-C6 level with radiculopathy; M48.02 Spinal stenosis, cervical region; Z79.899 Other long term (current) drug therapy; Z87.891 Personal history of nicotine dependence
CPT/HCPCS: 22856; 22858; 00600; 36415; 72040; 76000; 80048; 82962; 83735; 85025; 86703; 86706; 86708; 86803; 86850; 86900; 86901; 87081; 93005; A4648; J2405; J3475

== ENCOUNTER 2025-01-02 00:42 | Emergency (ER) | payer OTHER, SELFPAY ==
[2025-01-02] VITALS (10 sets, daily range): BP systolic 143–197; BP diastolic 93–107; PULSE 100–132; RESP 16–24; TEMP 36.3–36.9; O2SAT 92–98; BMI 29.2
[2025-01-02 01:39] LABS: Absolute Lymphocyte Count 1.09 X10^3/uL (0.83-4.51); Absolute Neutrophil Count 15.3 X10^3/uL (2.0-7.7); Basophil# 0.04 X10^3/uL; Basophil% 0.2 % (0-1); Hematocrit 46.3 % (40-54); Hemoglobin 15.6 g/dL (13.0-16.5); Lymphocyte # 1.09 X10^3/ul (0.83-4.51); Lymphocyte % 6.4 % (19-41); Mean Corp Hgb Conc 33.7 g/dL (32-36); Mean Corpuscular Hgb 30.2 pg (27.0-32.0); Mean Corpuscular Volume 89.7 fL (80-94); Mean Platelet Vol. 10.5 fl (6.2-12.0); Monocyte# 0.46 X10^3/uL; Monocyte% 2.7 % (0-10); NRBC Flagged by Analyzer 0 % (0-5); Neutrophil # 15.27 X10^3/uL (2.7-7.7); Platelet Count 193 K/mm3 (150-450); RBC Distribution Width CV 12.7 % (11.6-14.6); RBC Distribution Width SD 41.4 fl (35.1-43.9); Red Blood Count 5.16 M/mm3 (4.6-6.2)
[2025-01-02] MEDS: Morphine 4 MG/ML Syringe IV (01:46)
[2025-01-02] MEDS: 0.9% Normal Saline (1000mL) 1,000 ML 999 ML IV (01:46)
[2025-01-02 01:54] LABS: Magnesium 2.1 mg/dL (1.5-2.2)
[2025-01-02] MEDS: Ondansetron 4 MG/2 ML Vial IV (01:56)
[2025-01-02] MEDS: Lorazepam 2 MG/ML WCH Syringe 1 MG IV (01:56)
[2025-01-02 01:59] LABS: Anion Gap 16 (5-15); BUN 11 mg/dL (4-19); BUN/Creat Ratio 11.2 RATIO (10-20); Calcium,Total 9.6 mg/dL (7.6-11.0); Chloride 103 mmol/L (98-108); Creatinine, Serum 0.94 mg/dL (0.70-1.20); EST Glomerular Filtration Rate 103 (>60); Estimated Creatinine Clearance 111.23 ml/min (50-250); Glucose 143 mg/dL (70-99); Potassium 4.2 mmol/L (3.3-5.1); Sodium Level 143 mmol/L (133-145)
[2025-01-02] MEDS: Metoprolol Tartrate 5 MG/5 ML Vial IV (02:43)
--- NOTE | 2025-01-02 03:32 | EX.ED.DYSGE1 ---
HPI History of Present Illness Chief Complaint: Hypertension Informant: patient and spouse/S.O. Narrative Narrative: Patient is a 44-year-old male with remote history of hypertension. He also has cervical myelopathy and underwent cervical surgery today. He states that he has been having pain despite taking the Walling and based on the procedure he is felt anxiety and has noticed that his blood pressure has been running high. He states that he contacted his surgeon who advised him that if his diastolic blood pressure persistently reads above 100 that he may need to be seen in the ER for treatment. He states that at home his blood pressure was approximately 180/115 and therefore he presents for evaluation [facility] Medical History Wears glasses History of steroid therapy Injury of head and neck Gastric reflux Former smoker History of echocardiogram Cardiology follow-up encounter History of irregular heartbeat Left shoulder pain Knee pain Back pain Severe headache Arthritis Hypertension Home Medications ?Medication ?Instructions ?Recorded ?Last Taken ?Type TENS unit electrodes (Pro Comfort 11/08/24 Unknown History Tens Electrode pads) multivitamin 1 tab PO QDAY 11/08/24 12/29/24 History gabapentin 300 mg capsule 300 mg PO TID PRN pain 12/18/24 01/01/25 History dexamethasone 4 mg tablet 4 mg PO BID #5 tabs 01/01/25 Unknown Rx hydrocodone-acetaminophen 5-325mg 1 tab PO Q6H PRN pain 7 days #28 01/01/25 Unknown Rx 5mg-325mg tabs meloxicam 15 mg tablet 15 mg PO DAILY #30 tabs 01/01/25 Unknown Rx methocarbamol 500 mg tablet 500 - 750 mg (1 - 1.5 x 500 mg) PO 01/01/25 Unknown Rx TID PRN pain/spasms #60 tabs omeprazole 20 mg capsule,delayed 20 mg PO DAILY 01/01/25 12/31/24 History release sennosides 8.6 mg capsule (senna) 8.6 mg PO BID PRN constipation #30 01/01/25 Unknown Rx caps lorazepam 1 mg tablet (Ativan) 1 mg PO TID PRN anxiety 5 days #15 01/02/25 Unknown Rx tabs metoprolol tartrate 25 mg tablet 25 mg PO BID 30 days #60 tabs 01/02/25 Unknown Rx oxycodone 5 mg tablet 5 mg PO Q6H PRN pain 5 days #20 01/02/25 Unknown Rx tabs Allergy/AdvReac Type Severity Reaction Status Date / Time No Known Allergies Allergy Verified 01/02/25 00:43 Family History Father Diabetes Surgical History History of fusion of talotibial joint and subtalar joint surgery of tibia H/O cardiac radiofrequency ablation Optional surgery Social History household members: spouse and children Smoking Status: Former smoker quit date: 09/12/00 alcohol intake: current alcohol intake frequency: holidays/special occasions only substance use type: does not use ROS ROS ED Constitutional Constitutional ED: Denies chills or fever(s) Eyes Eyes: Denies change in vision ENT ENT ED: Denies sore throat Cardiovascular Cardiovascular: Reports racing heartbeat; Denies chest pain Respiratory/Chest Respiratory/Chest: Denies cough or dyspnea Gastrointestinal Gastrointestinal: Denies abdominal pain, diarrhea, nausea or vomiting Genitourinary Genitourinary ED: Denies dysuria Musculoskeletal Musculoskeletal: Reports neck pain Integumentary Denies rash Neurologic Neurologic: Denies headache(s), paresthesias or weakness Psychiatric Psychiatric: Reports anxiety Hematologic/Lymphatic Hematologic/Lymphatic: Denies easy bleeding or easy bruising EXAM Physical Exam Const Vital Signs: 01/02/25 00:42 01/02/25 00:45 01/02/25 00:45 Temperature 98.2 F 98.2 F Temperature Source Oral Oral Pulse Rate 132 H 132 H Respiratory Rate 20 H 20 H Respiratory Effort Respiratory Pattern Blood Pressure 193/107 H 197/107 H 168/102 H Blood Pressure Mean 135 137 124 Pulse Ox 97 97 Oxygen Delivery Method Room Air Room Air 01/02/25 00:47 01/02/25 01:45 01/02/25 02:00 Temperature 98.2 F 98.4 F Temperature Source Oral Oral Pulse Rate 100 111 H Respiratory Rate 20 H 16 Respiratory Effort Normal Respiratory Pattern Normal Blood Pressure 161/102 H 161/102 H Blood Pressure Mean 121 121 Pulse Ox 95 95 Oxygen Delivery Method Room Air Room Air 01/02/25 02:15 01/02/25 03:00 01/02/25 03:15 Temperature 98.2 F Temperature Source Oral Pulse Rate 105 H 106 H 105 H Respiratory Rate 18 24 H 19 H Respiratory Effort Respiratory Pattern Blood Pressure 144/97 H 152/94 H 150/93 H Blood Pressure Mean 112 110 108 Pulse Ox 94 94 92 Oxygen Delivery Method Room Air 01/02/25 03:22 01/02/25 03:30 01/02/25 03:38 Temperature 97.4 F L Temperature Source Pulse Rate 104 H 104 H Respiratory Rate 21 H 19 H Respiratory Effort Respiratory Pattern Blood Pressure 143/93 H 146/103 H 149/97 H Blood Pressure Mean 107 116 114 Pulse Ox 94 98 Oxygen Delivery Method Room Air Positive well nourished and well developed General Appearance ED: well developed HEENT HEENT Narrative: Normocephalic atraumatic Eyes PERRL and EOMs intact bilaterally General Eye ED: Negative for scleral icterus Neck Neck Narrative: C-collar in place with postsurgical changes consistent with his recent procedure No active bleeding or obvious signs of external infection Resp normal respiratory effort and clear to auscultation bilaterally Cardio regular rhythm Rate: tachycardic and other Other Details: Tachycardic rate with regular rhythm No murmurs rubs or gallops noted Extremity normal to inspection Extremity Narrative: No asymmetric edema no pitting edema negative Homans' sign bilaterally Neuro oriented x3, CN's II-XII intact bilaterally and no sensory deficits noted Sensorium / Orientation: alert Motor Exam: strength 5/5 throughout Psych Mood & Affect: anxious Skin Skin Narrative: Postoperative changes as documented above without secondary findings to suggest infection MDM MDM MDM Narrative Medical decision making narrative: Patient arrived to the ER hypertensive and tachycardic. He states tachycardia is nothing new for him. He reports that he used to be on metoprolol secondary to hypertension but because his blood pressure had improved he was taken off. He has potential for increased pain from the surgery driving the hypertension as well as the anxiety aspect. In order to rule out endorgan damage such as acute kidney injury or cardiac ischemia/ACS and EKG was obtained as well as basic blood work. He does not have a headache or alteration in mental status so I have low concern for a spontaneous subarachnoid or subdural hemorrhage and he does not show findings concerning for hypertensive encephalopathy. EKG was sinus tachycardia without ischemic findings going against ACS. Kidney function is normal going against YANIRA. After receiving medication he had improvement of his heart rate and blood pressure. The blood pressure reduced between 15 and 25% which is the goal reduction in the ER. He reported feeling much better after medicated. Therefore at this time he does not have signs of endorgan damage his heart rate and blood pressure have improved and therefore there is no need for further workup and he can be given symptomatic medications and is otherwise safe for discharge History & Record Review Discussion w/independent historian: Patient and Significant other Lab Data Attestation: I reviewed the patient's lab results. Labs: Laboratory Results - last 24 hr 01/02/25 00:57 WBC 17.0 H RBC 5.16 Hgb 15.6 Hct 46.3 MCV 89.7 MCH 30.2 MCHC 33.7 RDW Std Deviation 41.4 RDW Coeff of Jacqueline 12.7 Plt Count 193 MPV 10.5 Immature Gran % (Auto) 0.700 Neut % (Auto) 90.0 H Lymph % (Auto) 6.4 L [place] % (Auto) 2.7 Eos % (Auto) 0.0 Baso % (Auto) 0.2 Absolute Neuts (auto) 15.3 H Absolute Lymphs (auto) 1.09 Nucleated RBC % 0 Sodium 143 Potassium 4.2 Chloride 103 Carbon Dioxide 23.0 Anion Gap 16 H BUN 11 Creatinine 0.94 Estim Creat Clear Calc 111.23 Est GFR (MDRD) Non-Af 103 BUN/Creatinine Ratio 11.2 Glucose 143 H Calcium 9.6 Magnesium 2.1 Discharge Plan Triage Chief Complaint: Hypertension Other Complaint: Other, Pain/Inj ED Provider: Finn Alan Dx/Rx/DC Orders Clinical Impression: Accelerated hypertension, Cervical myelopathy with cervical radiculopathy, Sinus tachycardia Instructions: Blood Pressure Check Steps, ED Hypertension New Begin Treatment Prescriptions: New metoprolol tartrate 25 mg tablet 25 mg PO BID 30 Days Qty: 60 0RF oxycodone 5 mg tablet 5 mg PO Q6H PRN (Reason: pain) 5 Days Qty: 20 0RF lorazepam [Ativan] 1 mg tablet 1 mg PO TID PRN (Reason: anxiety) 5 Days Qty: 15 0RF No Action multivitamin Tablet 1 tab PO QDAY (DME) Pro Comfort Tens Electrode Pad See Rx Instructions .Route Rx Instructions: As directed gabapentin 300 mg capsule 300 mg PO TID PRN (Reason: pain) omeprazole 20 mg capsule,delayed release(DR/EC) 20 mg PO DAILY hydrocodone-acetaminophen 5-325 mg tablet 1 tab PO Q6H PRN (Reason: pain) 7 Days Qty: 28 0RF meloxicam 15 mg tablet 15 mg PO DAILY Qty: 30 0RF Patient Comments: STARTING 01/02/25 Rx Instructions: take one tablet once a day methocarbamol 500 mg tablet 500 - 750 mg PO TID PRN (Reason: pain/spasms) Qty: 60 0RF dexamethasone 4 mg tablet 4 mg PO BID Qty: 5 0RF Rx Instructions: take 2 tablets on day 1, 2 tablets on day 2, and 1 tablet on day 3 senna 8.6 mg capsule 8.6 mg PO BID PRN (Reason: constipation) Qty: 30 0RF Primary Care Provider: Nyasia Simmons Referrals: Nyasia Simmons, DATA PROGRAMMER-C [Primary Care Provider] - Activity Restrictions/Additional Instructions: Please stop the Walling and begin using the oxycodone for improved pain control. In order to help control your blood pressure begin taking the metoprolol twice a day as directed. Use Ativan as needed if you feel anxious as this can also cause spikes to your blood pressure. Return to the ER should you have any further concerns Print Language: Barbadian Disposition Disposition: Home, Self Care Discharge Date/Time: 01/02/25 04:18
--- NOTE | 2025-01-02 11:28 | EDS_ITS ---
HPI History of Present Illness Chief Complaint: Hypertension [facility] Medical History Wears glasses History of steroid therapy Injury of head and neck Gastric reflux Former smoker History of echocardiogram Cardiology follow-up encounter History of irregular heartbeat Left shoulder pain Knee pain Back pain Severe headache Arthritis Hypertension Home Medications ?Medication ?Instructions ?Recorded ?Last Taken ?Type TENS unit electrodes (Pro Comfort 11/08/24 Unknown Hi story Tens Electrode pads) multivitamin 1 tab PO QDAY 11/08/2412/29 History gabapentin 300 mg capsule 300 mg PO TID PRN pain 12/1801/01/25 History dexamethasone 4 mg tablet 4 mg PO BID #5 tabs 01/01/25 Unknown Rx hydrocodone-acetaminophen 5-325mg 1 tab PO Q6H PRN vianey n 7 days #28 01/01/25 Unknown Rx 5mg-325mg tabs meloxicam 15 mg tablet 15 mg PO DAILY #30 tabs 12/12 11/06 Unknown Rx methocarbamol 500 mg tablet 500 - 750 mg (1 - 1.5 x 50 0 mg) PO 01/01/25 Unknown Rx TID PRN pain/spasms #60 tabs omeprazole 20 mg capsule,delayed 20 mg PO DAILY 12/31/24 History release sennosides 8.6 mg capsule (senna) 8.6 mg PO BID PRN co nstipation #30 01/01/25 Unknown Rx caps lorazepam 1 mg tablet (Ativan) 1 mg PO TID PRN anxiety #10 tabs 01/02/25 Unknown Rx metoprolol tartrate 25 mg tablet 25 mg PO BID #60 tabs 01/02/25 Unknown Rx oxycodone 5 mg capsule 5 mg PO Q4H PRN pain 3 days #14 01/02/25 Unknown Rx caps Allergy/AdvReac Type Severity Reaction Status Date / Time No Known Allergies Allergy Verified 01/02/25 00:43 Family History Father Diabetes Surgical History History of fusion of talotibial joint and subtalar joint surgery of tibia H/O cardiac radiofrequency ablation Optional surgery Social History household members: spouse and children Smoking Status: Former smoker quit date: 09/12/00 alcohol intake: current alcohol intake frequency: holidays/special occasions only substance use type: does not use EXAM Physical Exam Const Vital Signs: 01/02/25 00:42 01/02/25 00:45 01/02/25 00:45 Temperature 98.2 F 98.2 F Temperature Source Oral Oral Pulse Rate 132 H 132 H Respiratory Rate 20 H 20 H Respiratory Effort Respiratory Pattern Blood Pressure 193/107 H 197/107 H 168/102 H Blood Pressure Mean 135 137 124 Pulse Ox 97 97 Oxygen Delivery Method Room Air Room Air 01/02/25 00:47 01/02/25 01:45 01/02/25 02:00 Temperature 98.2 F 98.4 F Temperature Source Oral Oral Pulse Rate 100 111 H Respiratory Rate 20 H 16 Respiratory Effort Normal Respiratory Pattern Normal Blood Pressure 161/102 H 161/102 H Blood Pressure Mean 121 121 Pulse Ox 95 95 Oxygen Delivery Method Room Air Room Air 01/02/25 02:15 01/02/25 03:00 01/02/25 03:15 Temperature 98.2 F Temperature Source Oral Pulse Rate 105 H 106 H 105 H Respiratory Rate 18 24 H 19 H Respiratory Effort Respiratory Pattern Blood Pressure 144/97 H 152/94 H 150/93 H Blood Pressure Mean 112 110 108 Pulse Ox 94 94 92 Oxygen Delivery Method Room Air 01/02/25 03:22 01/02/25 03:30 01/02/25 03:38 Temperature 97.4 F L Temperature Source Pulse Rate 104 H 104 H Respiratory Rate 21 H 19 H Respiratory Effort Respiratory Pattern Blood Pressure 143/93 H 146/103 H 149/97 H Blood Pressure Mean 107 116 114 Pulse Ox 94 98 Oxygen Delivery Method Room Air MDM MDM MDM Narrative Medical decision making narrative: I was asked by nursing staff to change pharmacies where Dr. Alan wrote prescriptions for patient for Oxy IR as well as metoprolol and Ativan. Apparently [place] pharmacy did not have some of these medications and I was asked to change them to [facility] pharmacy which was done by myself. Lab Data Labs: Laboratory Results - last 24 hr 01/02/25 00:57 WBC 17.0 H RBC 5.16 Hgb 15.6 Hct 46.3 MCV 89.7 MCH 30.2 MCHC 33.7 RDW Std Deviation 41.4 RDW Coeff of Jacqueline 12.7 Plt Count 193 MPV 10.5 Immature Gran % (Auto) 0.700 Neut % (Auto) 90.0 H Lymph % (Auto) 6.4 L [place] % (Auto) 2.7 Eos % (Auto) 0.0 Baso % (Auto) 0.2 Absolute Neuts (auto) 15.3 H Absolute Lymphs (auto) 1.09 Nucleated RBC % 0 Sodium 143 Potassium 4.2 Chloride 103 Carbon Dioxide 23.0 Anion Gap 16 H BUN 11 Creatinine 0.94 Estim Creat Clear Calc 111.23 Est GFR (MDRD) Non-Af 103 BUN/Creatinine Ratio 11.2 Glucose 143 H Calcium 9.6 Magnesium 2.1 Discharge Plan Triage Chief Complaint: Hypertension Other Complaint: Other, Pain/Inj ED Provider: Finn Alan Dx/Rx/DC Orders Clinical Impression: Accelerated hypertension, Cervical myelopathy with cervical radiculopathy, Sinus tachycardia Instructions: Blood Pressure Check Steps, ED Hypertension New Begin Treatment Prescriptions: New metoprolol tartrate 25 mg tablet 25 mg PO BID Qty: 60 0RF lorazepam [Ativan] 1 mg tablet 1 mg PO TID PRN (Reason: anxiety) Qty: 10 0RF oxycodone 5 mg capsule 5 mg PO Q4H PRN (Reason: pain) 3 Days Qty: 14 0RF No Action multivitamin Tablet 1 tab PO QDAY (DME) Pro Comfort Tens Electrode Pad See Rx Instructions .Route Rx Instructions: As directed gabapentin 300 mg capsule 300 mg PO TID PRN (Reason: pain) omeprazole 20 mg capsule,delayed release(DR/EC) 20 mg PO DAILY hydrocodone-acetaminophen 5-325 mg tablet 1 tab PO Q6H PRN (Reason: pain) 7 Days Qty: 28 0RF meloxicam 15 mg tablet 15 mg PO DAILY Qty: 30 0RF Patient Comments: STARTING 01/02/25 Rx Instructions: take one tablet once a day methocarbamol 500 mg tablet 500 - 750 mg PO TID PRN (Reason: pain/spasms) Qty: 60 0RF dexamethasone 4 mg tablet 4 mg PO BID Qty: 5 0RF Rx Instructions: take 2 tablets on day 1, 2 tablets on day 2, and 1 tablet on day 3 senna 8.6 mg capsule 8.6 mg PO BID PRN (Reason: constipation) Qty: 30 0RF Primary Care Provider: Nyasia Simmons Referrals: Nyasia Simmons, COMMERCIAL MAINTENANCE TECHNICIAN-C [Primary Care Provider] - Activity Restrictions/Additional Instructions: Please stop the [address] and begin using the oxycodone for improved pain control. In order to help control your blood pressure begin taking the metoprolol twice a day as directed. Use Ativan as needed if you feel anxious as this can also cause spikes to your blood pressure. Return to the ER should you have any further concerns Print Language: Mongolian Disposition Disposition: Home, Self Care Discharge Date/Time: 01/02/25 04:18
== END 2025-01-02 04:18 | disposition home or self-care (01) ==
PROVIDERS: Emergency Provider Emergency Medicine; PCP Nurse Practitioner Family; Visit Provider Emergency Medicine
DX: I10 Essential (primary) hypertension (principal); G95.9 Disease of spinal cord, unspecified; R00.0 Tachycardia, unspecified; M54.12 Radiculopathy, cervical region; Z87.891 Personal history of nicotine dependence
CPT/HCPCS: 80048; 83735; 85025; 93005; 96361; 96374; 96375; 99283; A4216; J2405

== ENCOUNTER → 2025-01-15 | Outpatient (CLI) | payer OTHER, SELFPAY ==
--- NOTE | 2025-01-15 10:12 | RAD_ITS ---
PROCEDURE: CERV SPINE 2 OR 3 VIEWS 01/15/2025 REASON FOR EXAM: STATUS POST DISC REPLACEMENT TECHNIQUE: 2 views of the cervical spine. FINDINGS: Cervical spine is visualized on the lateral view from the skull base to T1. Status post intervertebral disc prosthesis/replacement C4-5 and C5-6 appears intact and anatomic. No fracture or malalignment. No prevertebral soft tissue swelling. C6-7 disc space narrowing. Visualized apices appear clear. RAD/Cerv Spine 2 or 3 Views IMPRESSION: Status post intervertebral disc prosthesis/replacement C4-5 and C5-6 appears in tact and anatomic. No fracture or malalignment. Reading Location: [id number]
== END | disposition home or self-care (01) ==
LOC: MTRAD 10:12
PROVIDERS: PCP Nurse Practitioner Family; Referring Provider Student in an Organized Health Care Education/Training Program; Visit Provider Student in an Organized Health Care Education/Training Program
DX: Z98.890 Other specified postprocedural states (principal)
CPT/HCPCS: 72040

== ENCOUNTER → 2025-02-13 | Outpatient (CLI) | payer OTHER, SELFPAY ==
--- NOTE | 2025-02-13 16:01 | RAD_ITS ---
PROCEDURE: CERV SPINE 2 OR 3 VIEWS 02/13/2025 REASON FOR EXAM: S/P CERVICAL DISC REPLACMENT TECHNIQUE: 2 views of the cervical spine. COMPARISON: Cervical spine radiographs on 01/15/2025 FINDINGS: Postoperative changes from disc replacement at C4-5 and C5-6, unchanged from 01/15/2025. Vertebral body heights and alignment are maintained. Mild disc space narrowing at C6-7, similar to prior. Prevertebral soft tissues are unremarkable. Lung apices are clear. RAD/Cerv Spine 2 or 3 Views IMPRESSION: Stable postoperative appearance of the cervical spine. Reading Location: [id number]
== END | disposition home or self-care (01) ==
LOC: MTRAD 16:01
PROVIDERS: PCP Nurse Practitioner Family; Referring Provider Orthopaedic Surgery Orthopaedic Surgery of the Spine; Visit Provider Orthopaedic Surgery Orthopaedic Surgery of the Spine
DX: Z98.890 Other specified postprocedural states (principal)
CPT/HCPCS: 72040

== ENCOUNTER 2025-03-14 11:00 | Outpatient (RCR) | payer OTHER, SELFPAY ==
--- NOTE | 2025-01-22 12:52 | HP.PTEVAL_ITS ---
Patient's Visit Information Visit Information Visit Information: IMAN GREEN is a 44 year old M referred to Physical Therapy by MYKEL Harvey with a diagnosis of post cervical disc replacement 01/01. Date of Evaluation: 01/22/25 Physical Therapist: Jaime Olivia, CHAPOT, OCS, CSCS Visit Plan Frequency: 2x /Week Duration: 4-6 Weeks Plan: 2x/week for 4-8 weeks for IE HEP: cervical AROM rotation and retraction 10x 3x/day, scapular circles 15x 3x/day, UE AROM elevation 10x 3x/day and posture and education on avoiding bending lifting twisting shear forces. Ho given Please treat with ensurring ROM cervical improving, upper cervical rotation mobs if neded but not on surgial site. Focus on neck isometrics, scapular and upper half strength with head in proper psoition and using bands and db to geet I in home program which patient is willing and motivated to do. no bending lifting and twisting until 3 months according to doctor note. ice as needed. Subjective Subjective: 01/01/25 had cervical disc replacement [id number]. It went well. [place] better after and has recovered well. Had some surgical paina nd difficulty swallowing for a few days. has been doing walking and leg work. Restrictions to 8# lifting currently. 6 weeks that will bump up. Still feels weak. Symptoms prior was pain and stiffness in L arm and neck. L arm symptoms and weakness and had some in his left leg. Pain is much better now and mostly at base of neck. Busy days feels tight in neck but it is all manageable pain ranges 0-3/10 and more stiffness at end of ranges. Feels good looking up. Sleeping is not great, wakes up sore, changes positions alot. AM pain gone in 5 minutes. Sleeping is getting better. 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 Exercises: walking alot, no others. Wants to do yoga, BFR strength, bike, walks with . L handed. Pain neck pain.: Pain Intensity (Out of 10): 1 Pain Intensity Range: 0 and 3 Objective Objective: 58 R rotation adn 70 L rotation cervical spine, 65 extension with some stretching anteriorly, SB about 10 B with pulling. Posture is forward head and protracted scapula B. incision anterior neck with mild scarring but no redness, heat or swelling. UE AROM WFL, end range L elevation is tight vs R. strength is 4+ wrists, 4 elbows, 4 R shoulder elevation and 4- L, rotations 4 B er adn 4+ ir. reflexes 2/3 bi adn tri B. Sensation B UE WNL to gross light touch. Tightness evident B pecs, - nerve root stretches symptoms today. good balance adn gait today with no evidence of balance problems. Balance/Special Test Scores Oswestry Neck Score: 15 Goals Goal 1:: symmetircal rotation ROM without pain neck Goal Time Frame: 4-6 Weeks Goal 2:: I appropriate HEP for strenght upper half in good posture without cueing to minimize future problems Goal Time Frame: 4-6 Weeks Goal 3:: patient feel 90% back to normal and pain 1/10 at worst. Goal Time Frame: 4-6 Weeks Goal 4:: oswestry neck 4 or better Goal Time Frame: 4-6 Weeks Goal 5:: Plan to return to work Goal Time Frame: 4-6 Weeks Rehabilitation Potential Physical Therapy Diagnosis: stiffness and weakness and post surgical limiting funciton Rehabilitation Potential: Good Anticipated Interventions Patient/Client Instruction: Educate patient on: Condition and Plan of Care For the Purpose of:: To decrease pain, To increase ROM, To improve nutrient delivery to tissue, To improve muscle performance and motor function and To increase tolerance to activity/condition/position Therapeutic Exercise to Include: Strength training, Postural training, Flexibilty training, Relaxation training, Passive ROM and Active ROM For the Purpose of:: To decrease pain, To increase ROM, To improve nutrient delivery to tissue, To improve muscle performance and motor function, To increase tolerance to activity/condition/position and To improve ability of physical actions for home/community/work/leisure Manual Therapy Techniques to Include: Passive ROM and Soft tissue mobilization For the Purpose of:: To decrease pain, To increase ROM, To improve nutrient delivery to tissue and To improve muscle performance and motor function Cryotherapy (ice pack, ice massage): Yes For the Purpose of:: To decrease pain, To decrease swelling/inflammation and To improve nutrient delivery to tissue Text: Thank you for the opportunity to evaluate your patient. For Medicare and Medicare HMO plans, please review the plan of care and approve it. It will need to be FAXED BACK to us at [phone] for Medicare purposes. For Medicare only, by signing this I certify the plan of care. Please let me know if there are questions or concerns regarding this plan of care. Physician Signatu re: Date:
--- NOTE | 2025-03-14 11:27 | HP.PTDCSUM ---
Discharge Summary D/C summary: It has been my pleasure to treat ROMATT JADYN GREEN referred by MYKEL Harvey, with the diagnosis of post cervical disc replacement 01/01 for a total of 12 visit(s). Discharge Date: 03/14/25 Please see the following information for a summary of their discharge status. Subjective Subjective: Doing well, took a wk off of exerec ises due to some soreness maybe from ex , maybe from sanding blocks. Got back to exercise with no problems. Sleeep is OK. To doctor in 2 weeks. Will be released to work then. 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 Will continue workout. Still needs to be stronger. Pain neck pain.: Pain Intensity (Out of 10): 0 Overall Improvement % Improvement: 90 Objective Objective/Function: Good posture today and ROM symmetrical at 80 degrees and 77 extension UE AROM WFL, strength weaker on L slightly vs R but funcitonal. Goals Goal 1:: symmetircal rotation ROM without pain neck Goal Progress: Goal Met Goal 2:: I appropriate HEP for strenght upper half in good posture without cueing to minimize future problems Goal Progress: Goal Met Goal 3:: patient feel 90% back to normal and pain 1/10 at worst. Goal Progress: Goal Met Goal 4:: oswestry neck 4 or better Goal Progress: Progressing Goal 5:: Plan to return to work Goal Progress: Goal Met Plan Plan: d/c to [facility] D/C Information Discharge Comments: Pt to continue via [facility] and see doc in two weeks, doing well. Ready by then from a PT perspective to return to work. d/c sentence: If there are questions or concerns regarding this patient's physical therapy, please feel free to call me at [phone]. Thank you for the referral of this patient. Sincerely, Jaime Olivia, DPT, OCS, CSCS Balance/Gait/Functional tests Balance/Special Test Scores Oswestry Neck Score: 12 Improvement % Improvement: 90
== END 2025-03-14 13:11 | disposition home or self-care (01) ==
LOC: PT 11:00
PROVIDERS: PCP Nurse Practitioner Family; Visit Provider Student in an Organized Health Care Education/Training Program
DX: Z98.890 Other specified postprocedural states (principal)
CPT/HCPCS: 97110; 97161; 97164; 97530

== ENCOUNTER → 2025-03-25 | Outpatient (CLI) | payer OTHER, SELFPAY ==
--- NOTE | 2025-03-25 13:42 | RAD_ITS ---
PROCEDURE: CERV SPINE 2 OR 3 VIEWS 03/25/2025 REASON FOR EXAM: S/P CERVICAL DISC REPLACEMENT TECHNIQUE: CERV SPINE 2 OR 3 VIEWS COMPARISON: 02/14/2025. FINDINGS: No evidence of acute fracture or dislocation. C4-5 and C5-6 prosthetic discs. Up to mild discogenic degenerative changes of the non fused levels. Grade 1 anterolisthesis of C7 on T1. 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 Spondylosis. Spondylolisthesis. No significant interval change. Reading Location: [place] [id number]
== END | disposition home or self-care (01) ==
LOC: MTRAD 13:41
PROVIDERS: PCP Nurse Practitioner Family; Referring Provider Student in an Organized Health Care Education/Training Program; Visit Provider Student in an Organized Health Care Education/Training Program
DX: Z98.890 Other specified postprocedural states (principal)
CPT/HCPCS: 72040

== ENCOUNTER 2025-07-16 06:23 | Day surgery (SDC) | payer OTHER, SELFPAY ==
--- NOTE | 2025-07-11 16:46 | PAT.ANE_ITS ---
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 When Was Last Pacemaker Check QUESTION #4 FULL TEXT: You/Your Family Experience fever (hyperthermia) with Anesthesia Last Oral Intake Last Oral intake: Last Oral Intake NPO since Meds taken in AM with sips of water? 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 Female No 07/11/25 11:46 HX of Motion Sickness No 07/11/25 11:46 HX of N/V After Surgery No 07/11/25 11:46 Non-Smoker Yes 07/11/25 11:46 Duration of Surgery greater No 07/11/25 11:46 than 60 minutes Number of Risk Factors 1 07/11/25 11:46 PONV Score Low Risk 07/11/25 11:46 Height & Weight Height & Weight: Anesthesia: Height & Weight Height 5 ft 9 in 02/25/25 14:29 Respiratory Assessment Respiratory Assessment - vending machine technician: Respiratory Tract Infection Hx - vending machine technician Hx Respiratory Tract Infection No 07/11/25 11:46 STOP Sleep Apnea STOP Sleep Apnea - vending machine technician: STOP Sleep Apnea - vending machine technician Hx Hypertension Yes 07/11/25 11:46 Hx Sleep Apnea No 07/11/25 11:46 CPAP No 07/11/25 11:46 BIPAP No 07/11/25 11:46 Do you snore loudly (louder No 07/11/25 11:46 than talking or can be heard Do you often feel tired/ No 07/11/25 11:46 fatigued/ sleepy during daytime? Has anyone observed you stop No 07/11/25 11:46 breathing during sleep? STOP Results Negative 07/11/25 11:46 QUESTION #5 FULL TEXT : Do you snore loudly (louder than talking or can be heard through closed doors)? 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 Specify any problems Hx of Preganancy in last 3 N/A 07/11/25 11:46 Months Nurse Filling Out Transfusion VCHRISTIN 07/11/25 11:46 & Questions: Date: 07/11/25 07/11/25 11:46 Time: 11:48 07/11/25 11:46 Patient unable to answer at this time (ie. 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: /Reproductive Hx- vending machine technician Hx Now No 07/11/25 11:46 Gestational Age (in weeks): EDC: Hx Hx Para Hx Section SAB No 07/11/25 11:46 [facility] [place] Medical History (Updated 07/11/25 @ 11:46 by Roxy Fleming) Wears glasses History of steroid therapy Injury of head and neck Gastric reflux Former smoker History of echocardiogram Cardiology follow-up encounter History of irregular heartbeat Left shoulder pain Knee pain Back pain Severe headache Arthritis Hypertension Home Medications Medication Instructions Recorded Last Taken Type TENS unit electrodes (Pro [employer]fort 11/08/24 Unknown Hi story Tens Electrode pads) multivitamin 1 tab PO QDAY 11/08/2412/29 History omeprazole 20 mg capsule,delayed 20 mg PO DAILY PRN GE RD 01/01/25 12/31/24 History release losartan 50 mg tablet 50 mg PO QDAY 02/14/25 Unkno wn History methylprednisolone 4 mg tablets in 4 mg PO UD 07/11/25 Unknown History a dose pack Allergy/AdvReac Type Severity Reaction Status Date / Time No Known Allergies Allergy Verified 07/11/25 11:38 Family History Father Diabetes Surgical History (Updated 07/11/25 @ 11:46 by Roxy Fleming) Hx of cervical spine surgery History of fusion of talotibial joint and subtalar joint surgery of tibia H/O cardiac radiofrequency ablation Optional surgery Social History household members: spouse and children Smoking Status: Former smoker quit date: 09/12/00 alcohol intake: current alcohol intake frequency: holidays/special occasions only substance use type: does not use Audit: Pertinent Findings Pertinent Findings EKG Perinent findings: January 02, 2025. Sinus tachycardia 114 bpm. Otherwise normal EKG. Recommendation Anesthesia Recommendation Anesthesia recommendation: OPTIMIZED for anesthesia
[2025-07-16] VITALS (8 sets, daily range): BP systolic 106–135; BP diastolic 70–91; PULSE 71–83; RESP 16; TEMP 36.1–36.4; O2SAT 93–96; BMI 29.5
--- OUTSIDE RECORDS SUMMARY | 2025-07-16 06:26 | XMS RPT_ITS | CCD ---
Author Organization [facility] Care Team Providers Care Polisher Brass Name Role Phone Anderson Wong Unavailable Jenifer Retana LPN Unavailable [phone] Dr. Mat Cotter Primary Care Provider Dr. Mat Cotter Referring Provider MYKEL Wong Attending Provider [phone] Troy AWNING MAKER-C, [place] Primary Care Provider Troy AWNING MAKER-C, Nyasia Referring Provider Anderson Wong Attending Provider [phone] Mat Deutsch MD Attending Provider Mat Deutsch MD Referring Provider Mary Regan Attending Provider Mary Regan Referring Provider Dr. Parveen Pandey MD Attending Provider Dr. Karlos Vazquez MD Referring Provider Dr. Karlos Vazquez MD Attending Provider Dr. Jeramy Ochoa MD Other Provider Dr. Karlos Vazquez MD Other Provider Dr. Finn Alan DO Emergency Provider Dr. Finn Alan DO Attending Provider Troy AWNING MAKER-C, Nyasia Primary Care Provider Troy AWNING MAKER-C, Nyasia Referring Provider Dr. Alyssa Peralta DC Attending Provider Troy AWNING MAKER-C, Nyasia Primary Care Provider Troy AWNING MAKER-C, Nyasia Referring Provider Mat Deutsch MD Attending Provider [phone] Mat Deutsch MD Referring Provider [phone] Troy AWNING MAKER-C, Nyasia Primary Care Provider [phone] Troy AWNING MAKER-C, [place] Referring Provider Mary Regan Attending Provider [phone] Mary Regan Referring Provider [phone] Troy, Nyasia Primary Care Unavailable Mat Deutsch Referring Unavailable Mat Deutsch Attending Unavailable Troy, Nyasia Primary Care Unavailable Troy, Nyasia Referring Unavailable Ld Leon Attending Unavailable Troy, Nyasia Primary Care Unavailable Assessment, Health Risk Attending Unavaila ble Assessment, Health Risk Referring Unavaila ble Vazquez, Karlos Referring Unavailable Vazquez, Karlos Attending Unavailable Troy, Nyasia Primary Care Unavailable Vazquez, Karlos Attending Unavailable Vazquez, Karlos Referring Unavailable Troy, Nyasia Primary Care Unavailable Kancherla, Jeramy Consulting Unavailable Troy, Nyasia Primary Care Unavailable Ana, Mary Attending Unavailable Troy, Nyasia Primary Care Unavailable Ana, Mary Attending Unavailable Ana, Mary Referring Unavailable Troy, Nyasia Primary Care Unavailable Finn Alan Attending Unavailable Troy, Nyasia Primary Care Unavailable Ana, Mary Attending Unavailable Ana, Mary Referring Unavailable Ana, Mary Referring Unavailable Ana, Mary Attending Unavailable Troy, Nyasia Primary Care Unavailable Troy, Nyasia Primary Care Unavailable Troy, Nyasia Referring Unavailable Ana, Mary Attending Unavailable Troy, Nyasia Primary Care Unavailable Troy, Nyasia Referring Unavailable Ana, Mary Attending Unavailable Troy, Nyasia Referring Unavailable Alyssa Peralta Attending Unavailable Troy, Nyasia Primary Care Unavailable Vazquez, Karlos Attending Unavailable Vazquez, Karlos Referring Unavailable Troy, Nyasia Primary Care Unavailable Kancherla, Jeramy Consulting Unavailable Vazquez, Karlos Consulting Unavailable Vazquez, Karlos Referring Unavailable Troy, Nyasia Primary Care Unavailable Parveen Pandey Attending Unavailable Troy, Nyasia Referring Unavailable Karlos Vazquez Attending Unavailable Troy, Nyasia Primary Care Unavailable Troy, Nyasia Primary Care Unavailable Get, Mat Referring Unavailable Mat Deutsch Attending Unavailable Troy, Nyasia Primary Care Unavailable Troy, Nyasia Referring Unavailable Get, Mat Attending Unavailable Troy, Nyasia Primary Care Unavailable Troy, Nyasia Referring Unavailable Anderson Francisco Attending Unavailable Vazquez, Karlos Attending Unavailable Troy, Nyasia Referring Unavailable Troy, Nyasia Primary Care Unavailable Karlos Vazquez Attending Unavailable Troy, Nyasia Primary Care Unavailable Troy, Nyasia Referring Unavailable Troy, Nyasia Referring Unavailable Troy, Nyasia Primary Care Unavailable Ana, Mary Attending Unavailable Tryo, Nyasia Primary Care Unavailable Aan, Mary Attending Unavailable Ana, Mary Referring Unavailable Allergies Allergy Classification Reported Allergen(s) Allergy Type Date of Onset Reaction(s) Facility NEGATED: Highlighted row has been ruled out! (2 sources) Observed no known allergies at [facility] No Known Allergies 7 propensity to adverse reactions [facility] Work Phone: Medications Current Medications Medication Drug Class(es) Dates Sig (Normalized) Sig (Original) losartan potassium 50 mg oral tablet (6 sources) Angiotensin 2 Receptor Winnie Start: 02-14-2025 take 1 tablet by mouth once daily Losartan 50 mg tablet Active 50 mg PO daily February 14, 2025 12:00am Multivitamin tablet (12 sources) Start: 11-08-2024 Multivitamin tablet Active 1 {tbl} PO daily November 08, 2024 1:00am omeprazole 20 mg delayed release oral capsule (12 sources) Proton Pump Inhibitor Start: 01-01-2025 take 1 capsule by mouth once daily Omeprazole 20 mg capsule,delayed release(DR/EC) Active 20 mg PO DAILY January 01, 2025 12:00am Start: 12-25-2014 End: 09-28-2016 take 1 tablet by mouth once daily as needed PRILOSEC 20 MG CPDR One tablet by mouth daily as needed OMEPRAZOLE [id number] Parveen Pandey MD oxyCODONE hydrochloride 5 mg oral tablet (8 sources) Opioid Agonist Start: 01-02-2025 take 1 tablet by mouth every six hours as needed for pain Oxycodone 5 mg tablet Active 5 mg PO EVERY 6 HOURS as needed for pain 20 5 January 02, 2025 Start: 01-02-2025 End: 01-15-2025 take 1 capsule by mouth every four hours as needed for pain Oxycodone 5 mg capsule Discontinued 5 mg PO Q4H as needed for pain 14 3 0 January 02, 2025 January 15, 2025 10:28am Status post cervical disc replacement Other specified postprocedural states Tens Unit Electrodes (Pro Comfort Tens Electrode) pad (12 sources) Start: 11-08-2024 Tens Unit Elec trodes (Pro Comfort Tens Electrode) pad Active 0 .Route November 08, 2024 1:00am As directed Start: 11-08-2024 Tens Unit Elec trodes (Pro Comfort Tens Electrode) pad Active 0 .ROUTE November 08, 2024 1:00am As directed Completed/Discontinued Medications Medication Drug Class(es) Dates Sig (Normalized) Sig (Original) 8 hr acetaminophen 650 mg extended release oral tablet (20 sources) Start: 11-08-2024 End: 01-01-2025 take 2 tablets by mouth once daily as needed for pain Acetaminophen 650 mg tablet extended release Discontinued 1300 mg PO daily as needed for pain November 08, 2024 1:00am January 01, 2025 2:49pm Start: 05-22-2019 End: 12-17-2022 take 1 capsule by mouth every six hours as needed for pain Acetaminophen (Tylenol) 325 mg capsule Discontinued 325 mg PO EVERY 6 HOURS as needed for Pain Or Fever May 22, 2019 12:00am December 17, 2022 3:38pm acetaminophen 325 mg / HYDROcodone bitartrate 5 mg oral tablet (20 sources) Opioid Agonist Start: 01-01-2025 End: 01-15-2025 Hydrocodone-Acetaminophen 5- 325 mg tablet Discontinued 1 {tbl} PO EVERY 6 HOURS as needed for pain 28 7 0 January 01, 2025 January 15, 2025 10:28am Status post cervical disc replacement Other specified postprocedural states Start: 01-28-2015 End: 08-15-2017 Hydrocodone-Acetaminophen 1 TABLET tablet Discontinued 1 - 2 {tbl} PO EVERY 6 HOURS NEEDED as needed for Pain 30 1 January 28, 2015 12:00am August 15, 2017 3:54pm Start: 01-28-2015 End: 08-15-2017 take 1 tablet by mouth every six hours as needed Hydrocodone-Acetaminophen Discontinued 1 - 2 TABLET PO EVERY 6 HOURS NEEDED January 28, 2015 12:00am August 15, 2017 3:54pm acetaminophen 325 mg / oxyCODONE hydrochloride 5 mg oral tablet (14 sources) Opioid Agonist Start: 07-27-2019 End: 08-01-2019 Oxycodone-Acetaminophen 1 TABLET tablet Discontinued 1 - 2 {tbl} PO EVERY 4 HOURS NEEDED as needed for Pain 40 4 July 27, 2019 July 30, 2019 1:00am August 01, 2019 1:07am Primary osteoarthritis, left ankle and foot Start: 07-27-2019 End: 08-01-2019 take 1 tablet by mouth every four hours as needed Oxycodone-Acetaminophen Discontinued 1 - 2 TABLET PO EVERY 4 HOURS NEEDED 40 4 July 27, 2019 August 01, 2019 1:07am amoxicillin 875 mg / clavulanate 125 mg oral tablet (14 sources) Penicillin-class Antibacterial Start: 10-05-2024 End: 10-15-2024 Amoxicillin-Pot Clavulanate 875-125 mg tablet Discontinued 1 {tbl} PO Q12H 20 10 0 October 05, 2024 1:00am October 14, 2024 1:00am October 15, 2024 1:10am Acute sinusitis, unspecified Start: 02-11-2017 End: 02-21-2017 AMOXICILLIN-POT CLAVULANATE 875-125 MG TABS Take 1 tab every 12 hours AMOXICILLIN-POT CLAVULANATE [id number] Anderson HOGUE baclofen 5 mg oral tablet (11 sources) gamma-Aminobutyric Acid-ergic Agonist Start: 11-21-2024 End: 01-01-2025 take 1 tablet by mouth twice daily as needed for pain Baclofen 5 mg tablet Discontinued 5 mg PO TWICE A DAY as needed for pain November 21, 2024 12:00am January 01, 2025 2:49pm cephalexin 500 mg oral capsule (8 sources) Cephalosporin Antibacterial Start: 01-01-2025 End: 01-02-2025 take 2 tablets by mouth once daily Cephalexin 500 mg capsule Discontinued 500 mg PO TWICE A DAY 6 0 January 01, 2025 12:00am January 02, 2025 12:46am take 2 tablets once a day for 3 days cyclobenzaprine hydrochloride 10 mg oral tablet (14 sources) Muscle Relaxant Start: 05-02-2019 End: 05-22-2019 take 1 tablet by mouth at bedtime as needed for muscle spasms Cyclobenzaprine 10 mg tablet Discontinued 10 mg PO BEDTIME as needed for muscle spasm 14 0 May 02, 2019 12:00am May 22, 2019 10:44am dexamethasone 4 mg oral tablet (8 sources) Corticosteroid Start: 01-01-2025 End: 03-28-2025 Dexamethasone 4 mg tablet Discontinued 4 mg PO TWICE A DAY 5 0 January 01, 2025 12:00am March 28, 2025 11:02am take 2 tablets on day 1, 2 tablets on day 2, and 1 tablet on day 3 diclofenac sodium 0.01 mg/mg topical gel (20 sources) Nonsteroidal Anti-inflammatory Drug Start: 11-08-2024 End: 12-18-2024 Diclofenac Sodium (Arthritis Pain (Diclofenac)) 1 % gel Discontinued 2 g TOPICAL ONCE as needed November 08, 2024 1:00am December 18, 2024 8:11am apply to single elbow, wrist or hand; for hand includes palm/fingers/back of hand Start: 08-15-2017 End: 04-11-2019 take 1 tablet by mouth three times daily Diclofenac Sodium 25 mg tablet,delayed release (DR/EC) Discontinued 25 mg PO THREE TIMES A DAY August 15, 2017 1:00am April 11, 2019 3:18pm docusate sodium 100 mg oral capsule (14 sources) Start: 01-28-2015 End: 08-15-2017 take 1 capsule by mouth twice daily as needed for constipation Docusate Sodium 100 MG capsule Discontinued 100 mg PO TWICE DAILY NEEDED as needed for Constipation 10 0 January 28, 2015 12:00am August 15, 2017 3:54pm DULoxetine 30 mg delayed release oral capsule (11 sources) Serotonin and Norepinephrine Reuptake Inhibitor Start: 11-29-2024 End: 01-02-2025 take 1 capsule by mouth once daily Duloxetine 30 mg capsule,delayed release(DR/EC) Discontinued 30 mg PO DAILY November 29, 2024 12:00am January 02, 2025 12:46am gabapentin 300 mg oral capsule (8 sources) Anti-epileptic Agent Start: 12-18-2024 End: 02-14-2025 take 1 capsule by mouth three times daily as needed for pain Gabapentin 300 mg capsule Discontinued 300 mg PO THREE TIMES A DAY as needed for pain December 18, 2024 12:00am February 14, 2025 10:46am ibuprofen 200 mg oral capsule (20 sources) Nonsteroidal Anti-inflammatory Drug Start: 11-08-2024 End: 01-01-2025 take 4 capsules by mouth three times daily as needed for pain Ibuprofen 200 mg capsule Discontinued 800 mg PO THREE TIMES A DAY as needed for pain November 08, 2024 1:00am January 01, 2025 2:49pm Start: 12-17-2022 End: 10-05-2024 take 1 tablet by mouth every six hours as needed Ibuprofen 200 mg tablet Discontinued 200 mg PO EVERY 6 HOURS as needed December 17, 2022 12:00am October 05, 2024 4:53pm Start: 02-10-2015 take 1 tablet by neeta th twice daily as needed IBUPROFEN 800 MG TABS 1 po twice daily prn IBUPROFEN [id number] Dave Higgins Start: 10-20-2014 End: 08-15-2017 Ibuprofen 200 MG tablet Disc ontinued 200 mg PO NEEDED as needed for Pain October 20, 2014 1:00am August 15, 2017 3:53pm LORazepam 1 mg oral tablet (8 sources) Benzodiazepine Start: 01-02-2025 End: 01-15-2025 take 1 tablet by mouth three times daily as needed for anxiety Lorazepam (Ativan) 1 mg tablet Discontinued 1 mg PO THREE TIMES A DAY as needed for anxiety 10 0 January 02, 2025 12:00am January 15, 2025 10:28am meloxicam 15 mg oral tablet (8 sources) Nonsteroidal Anti-inflammatory Drug Start: 01-01-2025 End: 01-15-2025 take 1 tablet by mouth once daily Meloxicam 15 mg tablet Discontinued 15 mg PO DAILY 30 0 January 01, 2025 12:00am January 15, 2025 10:28am take one tablet once a day menthol 0.04 mg/mg topical gel (12 sources) Start: 11-08-2024 End: 12-18-2024 Menthol (Biofreeze (Menthol)) 4 % gel Discontinued 1 NMA TOPICAL THREE TIMES A DAY as needed November 08, 2024 1:00am December 18, 2024 8:11am methocarbamol 500 mg oral tablet (8 sources) Muscle Relaxant Start: 01-01-2025 End: 03-28-2025 take 500-750 mg by mouth three times daily as needed for pain Methocarbamol 500 mg tablet Discontinued 500 - 750 mg PO THREE TIMES A DAY as needed for pain/spasms 60 0 January 01, 2025 2:50pm March 28, 2025 11:02am metoprolol tartrate 25 mg oral tablet (20 sources) beta-Adrenergic Winnie Start: 01-02-2025 End: 02-14-2025 take 1 tablet by mouth twice daily Metoprolol Tartrate 25 mg tablet Discontinued 25 mg PO TWICE A DAY 60 0 January 02, 2025 12:00am February 14, 2025 10:46am Start: 08-15-2017 End: 04-11-2019 take 1 tablet by mouth once daily Metoprolol Tartrate (Lopressor) 50 mg tablet Discontinued 50 mg PO daily August 15, 2017 1:00am April 11, 2019 3:18pm Start: 12-23-2014 End: 08-15-2017 take 1 tablet by mouth twice daily Metoprolol Tartrate 50 MG tablet Discontinued 50 mg PO TWICE A DAY 60 December 23, 2014 12:00am August 15, 2017 3:54pm MULTIPLE VITAMIN (4 sources) Start: 12-25-2014 take 1 tablet by mouth once daily MULTIVITAMINS TABS One tablet by mouth daily MULTIPLE VITAMIN Goehner Christophe Pandey MD Start: 12-25-2014 End: 09-28-2016 take 1 tablet by mouth once daily MULTIVITAMINS TABS One tablet by mouth daily MULTIPLE VITAMIN Whit E Refugio [place] Multivitamin 1 EACH tablet (12 sources) Start: 07-20-2019 End: 12-17-2022 Multivitamin 1 EACH tablet Discontinued 1 NMA PO DAILY July 20, 2019 1:00am December 17, 2022 3:39pm Multivitamin preparation (2 sources) Start: 07-20-2019 End: 12-17-2022 Multivitamin Discontinued 1 EACH PO DAILY July 20, 2019 1:00am December 17, 2022 3:39pm Start: 07-20-2019 Multivitamin A ctive 1 EACH PO DAILY July 20, 2019 1:00am naproxen sodium 220 mg oral tablet (14 sources) Nonsteroidal Anti-inflammatory Drug Start: 10-20-2014 End: 08-15-2017 take 1 tablet by mouth once daily Naproxen Sodium 220 MG tablet Discontinued 220 mg PO DAILY October 20, 2014 1:00am August 15, 2017 3:53pm ondansetron 4 mg oral tablet (14 sources) Serotonin-3 Receptor Antagonist Start: 07-27-2019 End: 12-17-2022 take 1 tablet by mouth every eight hours as needed for nausea Ondansetron Hcl 4 MG tablet Discontinued 4 mg PO EVERY 8 HOURS NEEDED as needed for Nausea July 27, 2019 10:41am December 17, 2022 3:39pm predniSONE 10 mg oral tablet (20 sources) Start: 12-17-2022 End: 10-05-2024 Prednisone 10 mg tablet Discontinued 10 mg PO .COMPLEX 30 December 17, 2022 12:00am October 05, 2024 4:53pm Take 4 pills for 3 days, 3 pills for 3 days, 2 pills for 3 days, take 1 pill for 3 days Start: 05-02-2019 End: 05-22-2019 take 3 tablets by mouth once daily, then take 2 tablets by mouth once daily, then take 1 tablet by mouth once daily Prednisone 20 mg tablet Discontinued 20 mg PO DAILY May 02, 2019 12:00am May 22, 2019 10:44am 3 tablets daily for 5 days, then 2 tablets daily for 5 days, then 1 tablet daily for 5 days promethazine hydrochloride 25 mg oral tablet (14 sources) Phenothiazine Start: 01-28-2015 End: 08-15-2017 take 1 tablet by mouth every four hours as needed for nausea Promethazine 25 MG tablet Discontinued 25 mg PO EVERY 4 HOURS NEEDED as needed for Nausea January 28, 2015 12:00am August 15, 2017 3:54pm rivaroxaban 10 mg oral tablet (14 sources) Factor Xa Inhibitor Start: 07-27-2019 End: 12-17-2022 take 1 tablet by mouth once daily Rivaroxaban 10 MG tablet Discontinued 10 mg PO DAILY July 27, 2019 1:00am December 17, 2022 3:39pm sennosides, jail 8.6 mg oral capsule (8 sources) Start: 01-01-2025 End: 01-15-2025 take 1 capsule by mouth twice daily as needed for constipation Sennosides (Senna) 8.6 mg capsule Discontinued 8.6 mg PO TWICE A DAY as needed for constipation 30 0 January 01, 2025 12:00am January 15, 2025 10:28am Problems Active Problems Problem Classification Problem Date Documented Date Episodic/Chronic Cardiac dysrhythmias (2 sources) Supraventricular tachycardia; Translations: [Supraventricular tachycardia] Onset: 12-25-2014 12-25-2014 Chronic Cardiac dysrhythmias (7 sources) Sinus tachycardia; Translations: [Tachycardia, unspecified] 01-10-2025 Episodic Essential hypertension (9 sources) Malignant hypertension; Translations: [Essential (primary) hypertension] Onset: 01-07-2025 01-02-2025 Chronic Immunizations and screening for infectious disease (20 sources) Patient encounter status; Translations: [Encounter for screening for COVID-19] 04-20-2022 Episodic Other bone disease and musculoskeletal deformities (20 sources) Segmental and somatic dysfunction; Translations: [Segmental and somatic dysfunction of cervical region] 07-27-2019 Episodic Other connective tissue disease (1 source) Patellar tendonitis; Translations: [Patellar tendinitis, right knee] 12-17-2022 Episodic Other connective tissue disease (12 sources) Tendonitis of right patellar tendon; Translations: [Patellar tendinitis, right knee] 12-17-2022 Episodic Other nervous system disorders (20 sources) Cervical myelopathy; Translations: [Disease of spinal cord, unspecified] 11-21-2024 Chronic Other nervous system disorders (1 source) Disease of spinal cord, unspecified; Translations: [Disease of spinal cord, unspecified] Onset: 12-06-2024 Chronic Other nervous system disorders (13 sources) Tremor; Translations: [Tremor, unspecified] 05-12-2023 Episodic Other upper respiratory infections (20 sources) Acute pharyngitis; Translations: [Viral upper respiratory tract infection] Onset: 09-14-2016 02-11-2017 Episodic Residual codes; unclassified (20 sources) History of surgical procedure on cervical spine; Translations: [Other specified postprocedural states] 01-01-2025 Episodic Spondylosis; intervertebral disc disorders; other back problems (1 source) Cervical disc disorder at C4-C5 level with myelopathy; Translations: [Cervical disc disorder at C4-C5 level with myelopathy] Onset: 01-10-2025 Chronic Sprains and strains (14 sources) Strain of trapezius muscle; Translations: [Strain of other muscles, fascia and tendons at shoulder and upper arm level, left arm, initial encounter] 07-27-2019 Episodic Unclassified (20 sources) Left shoulder pain; Translations: [M25.512 - Pain in left shoulder] Unclassified (17 sources) Status post cervical disc replacement; Translations: [Z98.890 - Other specified postprocedural states] Past or Other Problems Problem Classification Problem Date Documented Date Episodic/Chronic Fracture of lower limb (2 sources) Fracture of tibia; Translations: [Unspecified fracture of shaft of unspecified tibia] Onset: 11-04-2014 11-04-2014 Episodic Nonspecific chest pain (2 sources) Rib pain; Translations: [Pleurodynia] Onset: 11-08-2016 11-08-2016 Episodic Other aftercare (2 sources) Follow-up orthopedic assessment; Translations: [Encounter for other orthopedic aftercare] Onset: 11-04-2014 11-04-2014 Episodic Other lower respiratory disease (2 sources) Dyspnea; Translations: [Shortness of breath] Onset: 11-08-2016 11-08-2016 Episodic Other non-traumatic joint disorders (20 sources) Pain in left shoulder; Translations: [Left shoulder pain] Onset: 11-18-2024 11-08-2024 Episodic Other nutritional; endocrine; and metabolic disorders (2 sources) Body mass index (BMI) 29.0-29.9, adult; Translations: [Body mass index (BMI) 29.0-29.9, adult] Onset: 12-25-2014 12-25-2014 Episodic Other upper respiratory disease (2 sources) Pain in throat; Translations: [Acute pharyngitis, unspecified] Onset: 09-28-2016 09-28-2016 Episodic Residual codes; unclassified (1 source) Other specified postprocedural states; Translations: [Other specified postprocedural states] Onset: 03-29-2025 Episodic Spondylosis; intervertebral disc disorders; other back problems (7 sources) Neck pain; Translations: [Cervicalgia] Onset: 11-29-2024 02-25-2025 Episodic Unclassified (14 sources) surgery of tibia 04-12-2022 Comment on above: nail inserted 2014 Results Test Name Value Interpretation Reference Range Facility MR/PATKeysha 07-11-2025 [facility] Department [address] [place] [address] PAT - Anesthesia 07/11/25 1646 MR#: [id number] Acct: [id number] Name: IMAN GREEN Rep #: [id number] : 1980 45 From: Jeramy Ochoa MD PCP: GLO Donnelly Status:PRE [facility] Y Race: C Location: [facility] Pre-Assessment Diagnosis/Proposed Procedure Planned Operative Procedure(s): COLONOSCOPY Anesthesia History Anesthesia History - math interventionist: Anesthesia History - math interventionist Hx Hospitalization Yes: SURGERY 01/01/2025 07/11/25 11:46 Any Problems With Anesthesia No 07/11/25 11:46 Cholinesterase deficiency No 07/11/25 11:46 You/Your Family Experience No 07/11/25 11:46 fever (hyperthermia) with Relationship Recent Exposure to Contagious No 01/01/25 09:59 Disease Does patient have nerve No 07/11/25 11:46 stimulator Patient instructed to have device shut off --Does patient have Pacemaker or ICD? When Was Last Pacemaker Check QUESTION #4 FULL TEXT: You/Your Family Experience fever (hyperthermia) with Anesthesia Last Oral Intake Last Oral intake: Last Oral Intake NPO since Meds taken in AM with sips of water? Meds patient instructed to take am of surgery PONV PONV - math interventionist: PONV - math interventionist Female No 07/11/25 11:46 HX of Motion Sickness No 07/11/25 11:46 HX of N/V After Surgery No 07/11/25 11:46 Non-Smoker Yes 07/11/25 11:46 Duration of Surgery greater No 07/11/25 11:46 than 60 minutes Number of Risk Factors 1 07/11/25 11:46 PONV Score Low Risk 07/11/25 11:46 Height Weight Height Weight: Anesthesia: Height Weight Height 5 ft 9 in 02/25/25 14:29 Respiratory Assessment Respiratory Assessment - math interventionist: Respiratory Tract Infection Hx - math interventionist Hx Respiratory Tract Infection No 07/11/25 11:46 STOP Sleep Apnea STOP Sleep Apnea - math interventionist: STOP Sleep Apnea - math interventionist Hx Hypertension Yes 07/11/25 11:46 Hx Sleep Apnea No 07/11/25 11:46 CPAP No 07/11/25 11:46 BIPAP No 07/11/25 11:46 Do you snore loudly (louder No 07/11/25 11:46 than talking or can be heard Do you often feel tired/ No 07/11/25 11:46 fatigued/ sleepy during daytime? Has anyone observed you stop No 07/11/25 11:46 breathing during sleep? STOP Results Negative 07/11/25 11:46 QUESTION #5 FULL TEXT : Do you snore loudly (louder than talking or can be heard through closed doors)? 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 Specify any problems Hx of Preganancy in last 3 N/A 07/11/25 11:46 Months Nurse Filling Out Transfusion VCHRISTIN 07/11/25 11:46 Questions: Date: 07/11/25 07/11/25 11:46 Time: 11:48 07/11/25 11:46 Patient unable to answer at this time (ie. confused, unrespo /Reproductio n History /Reproductiv e History - math interventionist: /Reproductiv e Hx- math interventionist Hx Now No 07/11/25 11:46 Gestational Age (in weeks): EDC: Hx Hx Para Hx Section SAB No 07/11/25 11:46 PFSH Medical History (Updated 07/11/25 @ 11:46 by Roxy Bernadette) Wears glasses History of steroid therapy Injury of head and neck Gastric reflux Former smoker History of echocardiogram Cardiology follow-up encounter History of irregular heartbeat Left shoulder pain Knee pain Back pain Severe headache Arthritis Hypertension Home Medications ???Medication ???Instructions ???Recorded ???Last Taken ???Type TENS unit electrodes (Pro Comfort 11/08/24 Unknown History Tens Electrode pads) multivitamin 1 tab PO QDAY 11/08/24 12/29/24 Hi story omeprazole 20 mg capsule,delayed 20 mg PO DAILY PRN GERD 01/01/25 0 12/31/24 History release losartan 50 mg tablet 50 mg PO QDAY 02/14/25 Unknown His tory methylprednisolone 4 mg tablets in 4 mg PO UD 07/11/25 Unknown Hist ory a dose pack All (more content not included)... Normal [facility] CBC, Employeeon 07-02-2025 Absolute Lymph 2.71 X10 3/uL Normal 0.83-4.51 [facility] Comment on above: Performed By: #### L 100.0200, L400.0100, L500.2900 ####[facility] [address] [place], [address] Absolute Neut 4.9 X10 3/uL Normal 2.0-7.7 [facility] Comment on above: Performed By: #### L 100.0200, L400.0100, L500.2900 ####[facility] [address] [place], [address] Basophils/100 WBC (Bld) 0.9 % Normal 0-1 [facility] Comment on above: Performed By: #### L 100.0200, L400.0100, L500.2900 ####[facility] [address] [place], [address] Eosinophils/100 WBC (Bld) 3.1 % Normal 0-5 [facility] Comment on above: Performed By: #### L 100.0200, L400.0100, L500.2900 ####[facility] [address] [place], [address] Erythrocyte distribution width (RBC) [Ratio] 12.8 % Normal 11.6-14.6 [facility] Comment on above: Performed By: #### L 100.0200, L400.0100, L500.2900 ####[facility] [address] [place], [address] Hematocrit (Bld) [Volume fraction] 43.5 % Normal 40-54 [facility] Comment on above: Performed By: #### L 100.0200, L400.0100, L500.2900 ####[facility] [address] [place], [address] Hemoglobin (Bld) [Mass/Vol] 14.6 g/dL Normal 13.0-16.5 [facility] Comment on above: Performed By: #### L 100.0200, L400.0100, L500.2900 ####[facility] [address] [place], [address] Lymphocytes/100 WBC (Bld) 30.9 % Normal 19-41 [facility] Comment on above: Performed By: #### L 100.0200, L400.0100, L500.2900 ####[facility] [address] [place], [address] MCH (RBC) [Entitic mass] 29.3 pg Normal 27.0-32.0 [facility] Comment on above: Performed By: #### L 100.0200, L400.0100, L500.2900 ####[facility] [address] [place], [address] MCHC (RBC) [Mass/Vol] 33.6 g/dL Normal 32-36 [facility] Comment on above: Performed By: #### L 100.0200, L400.0100, L500.2900 ####[facility] [address] [place], [address] MCV (RBC) [Entitic vol] 87.3 fL Normal 80-94 [facility] Comment on above: Performed By: #### L 100.0200, L400.0100, L500.2900 ####[facility] [address] [place], [address] Monocytes/100 WBC (Bld) 8.8 % Normal 0-10 [facility] Comment on above: Performed By: #### L 100.0200, L400.0100, L500.2900 ####[facility] [address] [place], [address] Neutrophils/100 WBC (Bld) 55.8 % Normal 47-70 [facility] Comment on above: Performed By: #### L 100.0200, L400.0100, L500.2900 ####[facility] [address] [place], [address] NRBC # 0.00 10 3/uL Normal 0-5 [facility] Comment on above: Performed By: #### L 100.0200, L400.0100, L500.2900 ####[facility] [address] [place], [address] Nucleated RBC (Bld) [#/Vol] 0 10*3/uL Normal 0-5 [facility] Comment on above: Performed By: #### L 100.0200, L400.0100, L500.2900 ####[facility] [address] [place], [address] Platelet mean volume (Bld) [Entitic vol] 10.2 fL Normal 6.2-12.0 [facility] Comment on above: Performed By: #### L 100.0200, L400.0100, L500.2900 ####[facility] [address] [place], [address] Platelets (Bld) [#/Vol] 238 10*3/uL Normal 150-450 [facility] Comment on above: Performed By: #### L 100.0200, L400.0100, L500.2900 ####[facility] [address] [place], [address] RBC (Bld) [#/Vol] 4.98 10*6/uL Normal 4.6-6.2 [facility] Comment on above: Performed By: #### L 100.0200, L400.0100, L500.2900 ####[facility] [address] [place], [address] RDW SD 40.7 fl Normal 35.1-43.9 [facility] Comment on above: Performed By: #### L 100.0200, L400.0100, L500.2900 ####[facility] [address] [place], [address] WBC (Bld) [#/Vol] 8.8 10*3/uL Normal 4.4-11.0 [facility] Comment on above: Performed By: #### L 100.0200, L400.0100, L500.2900 ####[facility] [address] [place], [address] Employee Profileon 5 LDH 146 U/L Normal 87-241 [facility] Comment on above: Performed By: #### L 100.0200, L400.0100, L500.2900 ####[facility] [address] [place], [address] Phosphate [Mass/Vol] 4.1 mg/dL Normal 2.7-4.5 [facility] Comment on above: Performed By: #### L 100.0200, L400.0100, L500.2900 ####[facility] [address] [place], [address] URIC 6.5 mg/dL Normal 3.5-7.2 [facility] Comment on above: Result Comment: The drugs N-Acetylcysteine and Metamizole may falsely depress this assay. Performed By: #### L 100.0200, L400.0100, L500.2900 ####[facility] [address] [place], [address] Urinalysis, Employeeon 07-02 BILIRUBIN URINE Negative Normal Negative [facility] Comment on above: Order Comment: Urine , Random Performed By: #### L 100.0200, L400.0100, L500.2900 ####[facility] [address] [place], [address] Clarity (U) Clear Normal Clear [facility] Comment on above: Order Comment: Urine , Random Performed By: #### L 100.0200, L400.0100, L500.2900 ####[facility] [address] [place], [address] Color (U) Yellow Normal Yellow [facility] Comment on above: Order Comment: Urine , Random Performed By: #### L 100.0200, L400.0100, L500.2900 ####[facility] [address] [place], [address] GLUCOSE, UR Normal Normal Normal [facility] Comment on above: Order Comment: Urine , Random Performed By: #### L 100.0200, L400.0100, L500.2900 ####[facility] [address] [place], [address] KETONE UR Negative Normal Negative [facility] Comment on above: Order Comment: Urine , Random Performed By: #### L 100.0200, L400.0100, L500.2900 ####[facility] [address] [place], [address] LEUK ESTERASE Negative Normal Negative [facility] Comment on above: Order Comment: Urine , Random Performed By: #### L 100.0200, L400.0100, L500.2900 ####[facility] [address] [place], [address] Nitrite Ql (U) Negative Normal Negative [facility] Comment on above: Order Comment: Urine , Random Performed By: #### L 100.0200, L400.0100, L500.2900 ####[facility] [address] [place], [address] OCCULT BLOOD-UR Negative Normal Negative [facility] Comment on above: Order Comment: Urine , Random Performed By: #### L 100.0200, L400.0100, L500.2900 ####[facility] [address] [place], [address] pH UR 6.0 Normal 5.0 - 8.0 [facility] Comment on above: Order Comment: Urine , Random Performed By: #### L 100.0200, L400.0100, L500.2900 ####[facility] [address] [place], [address] PROT DIPSTX 15 mg/dl Abnormal Negative [facility] Comment on above: Order Comment: Urine , Random Performed By: #### L 100.0200, L400.0100, L500.2900 ####[facility] [address] [place], [address] SP.GR. DIPSTX 1.020 Normal 1.002-1.030 [facility] Comment on above: Order Comment: Urine , Random Performed By: #### L 100.0200, L400.0100, L500.2900 ####[facility] [address] [place], [address] UROBILI Normal Normal Normal [facility] Comment on above: Order Comment: Urine , Random Performed By: #### L 100.0200, L400.0100, L500.2900 ####[facility] [address] [place], [address] Orthopedic Visit Reporton Orthopedic Visit Report [facility] [facility] [address] [place] [address] OFFICE VISIT Date of Service: 03/28/25 MR#: [id number] Acct: [id number] Name: IMAN GREEN Rep #: [id number] : 1980 Provider: Dr. Karlos Vazquez MD Age/Sex: 44/M Location: [facility] Status: Signed Intake Vital Signs 01/02/25 00:42 02/25/25 14:29 Height 5 ft 9 in 5 ft 9 in Weight: 201 lb BMI 29.7 BP 132/88 H Intake Visit Reasons: CERVICAL SPINE Chief Complaint: 3 months post-op Allergies No Known Allergies Allergy (Verified 02/25/25 13:56) Medications ???Medication ???Instructions ???Recorded ???Confirmed ???Type TENS unit electrodes (Pro Comfort 11/08/24 02/25/25 History Tens Electrode pads) multivitamin 1 tab PO QDAY 11/08/24 03/28/25 Hi story omeprazole 20 mg capsule,delayed 20 mg PO DAILY 01/01/25 03/28/25 H istory release losartan 50 mg tablet 50 mg PO QDAY 02/14/25 03/28/25 Hi story PFSH Medical History Wears glasses History of steroid therapy Injury of head and neck Gastric reflux Former smoker History of echocardiogram Cardiology follow-up encounter History of irregular heartbeat Left shoulder pain Knee pain Back pain Severe headache Arthritis Hypertension Surgical History History of fusion of talotibial joint and subtalar joint surgery of tibia H/O cardiac radiofrequency ablation Optional surgery Family History Father Diabetes Social History household members: spouse and children Smoking Status: Former smoker quit date: 09/12/00 alcohol intake: current alcohol intake frequency: holidays/special occasions only substance use type: does not use HPI CERVICAL SPINE Details: This documentation accurately reflects the service provided and the decisions made by me, Dr. Karlos Vazquez MD 03/28/25 1057. Part of today???s visit was documented by Sharon SCHULZ and Roselia Castro RN, acting as scribe. IMAN GREEN is a 44 year old M here today for 3 months post-op, C4-6 cervical disc replacement, dos: 01/01/25. He sates that he is doing well but does get pain intermittently at the base of his head. He does take Ibuprofen for the pain prn. He has been discharged from PT but was given exercises to do at home which he continues to do. He denies issues with swallowing and is not avoiding any foods. The left sided arm pain he was experiencing before surgery has completely resolved. The patient is a 44-year-old male presenting for post-surgical follow-up and management of occipital headaches. The patient underwent neck surgery in December and has been recovering since then. He was discharged from physical therapy a few weeks ago and continues to perform a prescribed exercise circuit focusing on back and shoulder strengthening. The patient has been advised to gradually increase physical activity, including lifting and neck movements, as the surgical hardware has stabilized. The patient reports persistent occipital headaches, which he has experienced for years prior to the neck surgery. He describes the headaches as occurring at the back of the head, sometimes leading to stiffness. The patient finds relief with oxydermal injections and has been advised to continue extensive muscle strengthening to prevent muscle spasms. The patient also reports intermittent tingling at the fingertips, primarily on the left side, which is not associated with pain. This symptom is noted to be the last to recover post-surgery, with the possibility of incomplete recovery. - Musculoskeletal: Denies difficulty with eating, reports normal eating habits. - Neurological: Reports intermittent tingling in fingertips, denies pain associated with tingling. - Head and Neck: Reports persistent occipital headaches, denies radiating pain. Attestation: Documentation on this patient encounter was supported using ambient scribe technology/ voice AI technology. The patient consented to recording for the purpose of documenting the encounter. Provider reviewed content of the generated note prior to signature. Ortho Exam General General: Yes no acute distress Neurologic: Yes alert and Yes oriented x3 Psychologic: Yes reasonable and appropriate Spine SPINE TESTING CERVICAL THORACIC LUMBAR Musculoskeletal Strength 0=absent - 5=normal Details: Neurological exam of the upper extremities shows 5X5 power. Normal sensation across all dermatomes. Physical examination of the neck shows a well-healed and dry incision. Dominique's negative. Exam Narrative - Musculoskeletal: Normal strength in upper extremities, including (more content not included)... Normal [facility] Cerv Spine 2 or 3 Viewson Cerv Spine 2 or 3 Views [facility] Imaging Services [address] [place] [address] Cerv Spine 2 or 3 Views MR#: [id number] Acct: [id number] Name: IMAN GREEN Rep #: [id number] : 1980 M 44 From: Jimenez Martinez MD PCP: GLO Donnelly Status: REG CLI Study: Cerv Spine 2 or 3 Views Date of Exam: 03/25/25 Exam# [id number] Ordering Dr: Mary Perez PROCEDURE: CERV SPINE 2 OR 3 VIEWS 03/25/2025 REASON FOR EXAM: S/P CERVICAL DISC REPLACEMENT TECHNIQUE: CERV SPINE 2 OR 3 VIEWS COMPARISON: 02/14/2025. FINDINGS: No evidence of acute fracture or dislocation. C4-5 and C5-6 prosthetic discs. Up to mild discogenic degenerative changes of the non fused levels. Grade 1 anterolisthesis of C7 on T1. 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 Spondylosis. Spondylolisthesis. No significant interval change. Reading Location: [id number] CC: AWNING MAKERMayra Simmons; MYKEL Harvey Chief Service Dispatcher: Signed Normal [facility] PT D/C Summary (1)on 025 PT D/C Summary (1) [facility] Physical Therapy [facility] [address] [place] [address] [address] [place] [address] / REHABILITATION SERVICES DISCHARGE SUMMARY MR#: [id number] Acct: [id number] Name: IMAN GREEN Rep #: [id number] : 1980 44 From: Jaime COWANT, OCS, CSCS Referring Dr.: MYKEL Harvey Status: REG RCR Insurance: [employer] [employer] INSURANCE Discharge Summary D/C summary: It has been my pleasure to treat IMAN GREEN referred by MYKEL Harvey, with the diagnosis of post cervical disc replacement 01/01 for a total of 12 visit(s). Discharge Date: 03/14/25 Please see the following information for a summary of their discharge status. Subjective Subjective: Doing well, took a wk off of exerec ises due to some soreness maybe from ex , maybe from sanding blocks. Got back to exercise with no problems. Sleeep is OK. To doctor in 2 weeks. Will be released to work then. 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 Will continue workout. Still needs to be stronger. Pain neck pain.: Pain Intensity (Out of 10): 0 Overall Improvement % Improvement: 90 Objective Objective/Function: Good posture today and ROM symmetrical at 80 degrees and 77 extension UE AROM WFL, strength weaker on L slightly vs R but funcitonal. Goals Goal 1:: symmetircal rotation ROM without pain neck Goal Progress: Goal Met Goal 2:: I appropriate HEP for strenght upper half in good posture without cueing to minimize future problems Goal Progress: Goal Met Goal 3:: patient feel 90% back to normal and pain 1/10 at worst. Goal Progress: Goal Met Goal 4:: oswestry neck 4 or better Goal Progress: Progressing Goal 5:: Plan to return to work Goal Progress: Goal Met Plan Plan: d/c to HEP D/C Information Discharge Comments: Pt to continue via HEP and see doc in two weeks, doing well. Ready by then from a PT perspective to return to work. d/c sentence: If there are questions or concerns regarding this patient's physical therapy, please feel free to call me at [phone]. Thank you for the referral of this patient. Sincerely, Jaime Olivia, MUSTAPHA, OCS, CSCS Balance/Gait/Function al tests Balance/Special Test Scores Oswestry Neck Score: 12 Improvement % Improvement: 90 03/14/25 1127 CC: GLO Simmons; MYKEL Harvey EBG Signed Normal [facility] Chiropractic Reporton 2024 Chiropractic Report [facility] [address] [id number] OFFICE VISIT Date of Service: 02/25/25 MR#: [id number] Acct: [id number] Name: IMAN GREEN Rep #: [id number] : 1980 Provider: MYKEL Schumacher Age/Sex: 44/M Location: [facility] Status: Signed Intake Vital Signs 10/05/24 15:48 10/30/24 16:10 01/02/25 00:42 02/25/25 14:29 Height 5 ft 9 in 5 ft 9 in 5 ft 9 in 5 ft 9 in Weight: 201 lb BMI 29.7 BP 132/88 H Intake Visit Reasons: EST CARE Allergies No Known Allergies Allergy (Verified 02/25/25 13:56) Medications ???Medication ???Instructions ???Recorded ???Confirmed ???Type TENS unit electrodes (Pro Comfort 11/08/24 02/25/25 History Tens Electrode pads) multivitamin 1 tab PO QDAY 11/08/24 02/25/25 Hi story dexamethasone 4 mg tablet 4 mg PO BID #5 tabs 01/01/2502/25 Rx methocarbamol 500 mg tablet 500 - 750 mg (1 - 1.5 x 500 mg) PO 01/01/25 02/25/25 Rx TID PRN pain/spasms #60 tabs omeprazole 20 mg capsule,delayed 20 mg PO DAILY 01/01/25 02/25/25 H istory release losartan 50 mg tablet 50 mg PO QDAY 02/14/25 02/25/25 Hi story PFSH Medical History Wears glasses History of steroid therapy Injury of head and neck Gastric reflux Former smoker History of echocardiogram Cardiology follow-up encounter History of irregular heartbeat Left shoulder pain Knee pain Back pain Severe headache Arthritis Hypertension Surgical History History of fusion of talotibial joint and subtalar joint surgery of tibia H/O cardiac radiofrequency ablation Optional surgery Family History Father Diabetes Social History household members: spouse and children Smoking Status: Former smoker quit date: 09/12/00 alcohol intake: current alcohol intake frequency: holidays/special occasions only substance use type: does not use HPI EST CARE Chief Complaint: Neck pain Visit Number: 1 Details: Iman is a 44 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 He was a previous patient in 2019 for neck pain. He states he had an extreme flare up of left neck and shoulder pain at the beginning of the year and was seen by Orthopedics. Dr. Vazquez ordered an MRI and he ended up having disc replacement surgery on C5/C6,C6/7 in December 2024. He states the surgery was a success and he had immediate pain relief. He has been doing PT since surgery and feels that it is going well. He has one spot on the upper left cspine that "pops" with neck rotation. This is a non painful popping, however he will start to get HAs from that area as the days go on. He would like to have this worked on once he is fully released from Dr. Vazquez. Onset: 12/11/24 Location: L upper neck Duration: intermittent Aggravating or associated factors: ROM Relieving factors: pressure on the area Pain Quality: aching and dull Current Sensation: snapping/popping Exam Musc General: Yes normal posture, normal gait, joint tenderness and decreased range of motion; No muscle weakness Cervical Spine: Yes cervical muscular tenderness left upper , Yes pain with cervical ROM with rotation to left, Yes scars present (spine surgery), Yes cervical spasm left upper paracervical muscles and intrinsics and Yes misalignment misalignment: C1 and C2 Neuro General: patient alert, patient awake, patient oriented x3, moves all extremities and normal light touch, pain and propioception Cranial Nerves: CN's II-XI intact bilaterally Cognition: normal cognition Speech: speech normal Gait: normal gait Motor: muscle tone normal throughout Sensory Exam: no sensory deficits noted Assessment and Plan Assessment and Plan (1) Status post cervical disc replacement: Status: Acute (2) Neck pain: Status: Acute Plan Patient wanted to re-establish as he hasn't been seen in my office for 6 years. He recently had a successful neck surgery by Dr. Vazquez and has been doing PT regularly. He has an area in the upper left cspine that seems to be an irritation that never went away after surgery/PT. I explained to patient that I will only adjust above or below surgical site(once cleared) with non rotatory techniques. Iman is going to follow back up with treatment should this pain persist once he is cleared at 12 weeks. Plan Details Goals Barriers: Goals Improve ROM Decrease spasm Barriers Post cervical fusion Follow Up: PRN Coding Level of Care Code Off vis,new,level 4 Diagnoses Status post cervical disc replacement Z98.890 Neck pain M54.2 02/25/25 1526 Date (more content not included)... Normal [facility] Orthopedic Visit Reporton Orthopedic Visit Report [facility] [address] [place] [address] OFFICE VISIT Date of Service: 02/14/25 MR#: [id number] Acct: [id number] Name: MIAN GREEN Rep #: [id number] : 1980 Provider: Dr. Karlos Vazquez MD Age/Sex: 44/M [facility] Status: Signed Intake Vital Signs 11/21/24 14:38 01/02/25 00:42 Height 5 ft 9 in 5 ft 9 in Intake Visit Reasons: cervical spine Chief Complaint: 6 week post-op Accompanied by: Is patient in pain?: Yes Pain scale (1-10): 1 Allergies No Known Allergies Allergy (Verified 02/14/25 10:45) Medications ???Medication ???Instructions ???Recorded ???Confirmed ???Type TENS unit electrodes (Pro Comfort 11/08/24 02/14/25 History Tens Electrode pads) multivitamin 1 tab PO QDAY 11/08/24 02/14/25 Hi story dexamethasone 4 mg tablet 4 mg PO BID #5 tabs 01/01/2502/14 Rx methocarbamol 500 mg tablet 500 - 750 mg (1 - 1.5 x 500 mg) PO 01/01/25 02/14/25 Rx TID PRN pain/spasms #60 tabs omeprazole 20 mg capsule,delayed 20 mg PO DAILY 01/01/25 02/14/25 H istory release losartan 50 mg tablet 50 mg PO QDAY 02/14/25 02/14/25 Hi story PFSH Medical History Wears glasses History of steroid therapy Injury of head and neck Gastric reflux Former smoker History of echocardiogram Cardiology follow-up encounter History of irregular heartbeat Left shoulder pain Knee pain Back pain Severe headache Arthritis Hypertension Surgical History History of fusion of talotibial joint and subtalar joint surgery of tibia H/O cardiac radiofrequency ablation Optional surgery Family History Father Diabetes Social History household members: spouse and children Smoking Status: Former smoker quit date: 09/12/00 alcohol intake: current alcohol intake frequency: holidays/special occasions only substance use type: does not use HPI cervical spine Details: This documentation accurately reflects the service provided and the decisions made by me, Dr. Karlos Vazquez MD 02/14/25 1041. Part of today???s visit was documented by Kathy Ramirez ATC and Mary Perez PA-C, acting as scribe. IMAN GREEN is a 44 year old M here today for s/p C4-6 cervical disc replacement DOS 01/01/2025. Patient states he has some mild pain today but he did a lot of driving yesterday. He continues to take Methocarbamol PRN when he is more active. Patient states he continues with physical therapy and it is going well. Denies any dysphagia, not avoiding any foods. Says that he is close to prior neck ROM. Denies any nerve pain down the arms continuing to get less and less spasms. Patient says that he had a fall and landed onto grass recently, denies any increased neck pain. Ortho Exam General General: Yes no acute distress Neurologic: Yes alert and Yes oriented x3 Spine SPINE TESTING CERVICAL THORACIC LUMBAR Musculoskeletal Strength 0=absent - 5=normal Details: Neurological exam of the upper extremities shows 5X5 power. Normal sensation across all dermatomes. Physical examination of the neck shows a well-healed and dry incision. Dominique's negative. Coding Level of Care Code Global Post Op Diagnoses Status post cervical disc replacement Z98.890 Assessment and Plan Assessment and Plan (1) Status post cervical disc replacement: Status: Acute Plan Obtained and reviewed xrays today in the clinic. Xrays show prosthesis in good position. Patient is now 6 weeks out C4-6 disc replacement. He will continue outpatient PT. Continue restrictions of no bending, lifting, twisting, okay to lift upwards of 2 gallons of milk or 16 pounds. 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 Encouraged the patient that if tolerated he can consider going back to work early. Okay for the patient to do some push mowing and weed eating so long as the device is not too heavy. He will follow up in 6 weeks for a 3 month follow up. Patient is in agreement. Plan Details Goals Barriers: Goals Improve ROM Decrease spasm Improve ability to perform ADLs (yard work) 02/14/25 1107 Date Karlos Henderson Signature: Date (if applicable) CC: AWNING MAKER-C Nyasia De La Cruz [facility] Cerv Spine 2 or 3 Viewson Cerv Spine 2 or 3 Views [facility] Imaging Services [address] [place], [place] [address] Cerv Spine 2 or 3 Views MR#: [id number] Acct: [id number] Name: IMAN GREEN Rep #: [id number] : 1980 M 44 From: Nish Dunbar MD PCP: YARELI DonnellyC Status: REG CLI Study: Cerv Spine 2 or 3 Views Date of Exam: 02/13/25 Exam# [id number] Ordering Dr: Karlos Vazquez MD PROCEDURE: CERV SPINE 2 OR 3 VIEWS 02/13/2025 REASON FOR EXAM: S/P CERVICAL DISC REPLACMENT TECHNIQUE: 2 views of the cervical spine. COMPARISON: Cervical spine radiographs on 01/15/2025 FINDINGS: Postoperative changes from disc replacement at C4-5 and C5-6, unchanged from 01/15/2025. Vertebral body heights and alignment are maintained. Mild disc space narrowing at C6-7, similar to prior. Prevertebral soft tissues are unremarkable. Lung apices are clear. RAD/Cerv Spine 2 or 3 Views IMPRESSION: Stable postoperative appearance of the cervical spine. Reading Location: [id number] CC: AWNING MAKER-C Nyasia Simmons; Dr. Karlos Vazquez MD Chief Service Dispatcher: Signed Normal [facility] Inital Evaluation (1) - PTon 01-22-2025 Inital Evaluation (1) - PT [facility] Physical Therapy [facility] [address] [place] [address] [address] [place] [address] / REHABILITATION SERVICES INITIAL EVALUATION MR#: [id number] Acct: [id number] Name: IMAN GREEN Rep #: [id number] : 1980 44 From: Jaime Olivia DPT, OCS, CSCS Referring Dr.: MYKEL Harvey Status: REG RCR Insurance: [employer] [employer]URANCE Patient's Visit Information Visit Information Visit Information: IMAN GREEN is a 44 year old M referred to Physical Therapy by MYKEL Harvey with a diagnosis of post cervical disc replacement 01/01. Date of Evaluation: 01/22/25 Physical Therapist: Jaime Olivia DPT, OCS, CSCS Visit Plan Frequency: 2x /Week Duration: 4-6 Weeks Plan: 2x/week for 4-8 weeks for IE HEP: cervical AROM rotation and retraction 10x 3x/day, scapular circles 15x 3x/day, UE AROM elevation 10x 3x/day and posture and education on avoiding bending lifting twisting shear forces. Ho given Please treat with ensurring ROM cervical improving, upper cervical rotation mobs if neded but not on surgial site. Focus on neck isometrics, scapular and upper half strength with head in proper psoition and using bands and db to geet I in home program which patient is willing and motivated to do. no bending lifting and twisting until 3 months according to doctor note. ice as needed. Subjective Subjective: 01/01/25 had cervical disc replacement c456. It went well. [place] better after and has recovered well. Had some surgical paina nd difficulty swallowing for a few days. has been doing walking and leg work. Restrictions to 8# lifting currently. 6 weeks that will bump up. Still feels weak. Symptoms prior was pain and stiffness in L arm and neck. L arm symptoms and weakness and had some in his left leg. Pain is much better now and mostly at base of neck. Busy days feels tight in neck but it is all manageable pain ranges 0-3/10 and more stiffness at end of ranges. Feels good looking up. Sleeping is not great, wakes up sore, changes positions alot. AM pain gone in 5 minutes. Sleeping is getting better. 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 Exercises: walking alot, no others. Wants to do yoga, BFR strength, bike, walks with . L handed. Pain neck pain.: Pain Intensity (Out of 10): 1 Pain Intensity Range: 0 and 3 Objective Objective: 58 R rotation adn 70 L rotation cervical spine, 65 extension with some stretching anteriorly, SB about 10 B with pulling. Posture is forward head and protracted scapula B. incision anterior neck with mild scarring but no redness, heat or swelling. UE AROM WFL, end range L elevation is tight vs R. strength is 4+ wrists, 4 elbows, 4 R shoulder elevation and 4- L, rotations 4 B er adn 4+ ir. reflexes 2/3 bi adn tri B. Sensation B UE WNL to gross light touch. Tightness evident B pecs, - nerve root stretches symptoms today. good balance adn gait today with no evidence of balance problems. Balance/Special Test Scores Oswestry Neck Score: 15 Goals Goal 1:: symmetircal rotation ROM without pain neck Goal Time Frame: 4-6 Weeks Goal 2:: I appropriate HEP for strenght upper half in good posture without cueing to minimize future problems Goal Time Frame: 4-6 Weeks Goal 3:: patient feel 90% back to normal and pain 1/10 at worst. Goal Time Frame: 4-6 Weeks Goal 4:: oswestry neck 4 or better Goal Time Frame: 4-6 Weeks Goal 5:: Plan to return to work Goal Time Frame: 4-6 Weeks Rehabilitation Potential Physical Therapy Diagnosis: stiffness and weakness and post surgical limiting funciton Rehabilitation Potential: Good Anticipated Interventions Patient/Client Instruction: Educate patient on: Condition and Plan of Care For the Purpose of:: To decrease pain, To increase ROM, To improve nutrient delivery to tissue, To improve muscle performance and motor function and To increase tolerance to activity/condition/po sit ion Therapeutic Exercise to Include: Strength training, Postural training, Flexibilty training, Relaxation training, Passive ROM and Active ROM For the Purpose of:: To decrease pain, To increase ROM, To improve nutrient delivery to tissue, To improve muscle performance and motor function, To increase tolerance to activity/condition/po sition and To improve ability of physical actions for home/community/work/l eisure Manual Therapy Techniques to Include: Passive ROM and Soft tissue mobilization For the Purpose of:: To decrease pain, To increase ROM, To improve nutrient delivery to tissue and To improve muscle performance and motor function Cryotherapy (ice pack, ice massage): Yes For the Purpose of:: To decrease pain, To decrease swelling/inflammation and To improve nutrient delivery to tissue Text: Thank you for the opportunity to evaluate your patient. (more content not included)... Normal [facility] Cerv Spine 2 or 3 Viewson Cerv Spine 2 or 3 Views [facility] Imaging Services [address] [place] [address] Cerv Spine 2 or 3 Views MR#: [id number] Acct: [id number] Name: IMAN GREEN Rep #: [id number] : 1980 M 44 From: Maikel Schulz MD PCP: Nyasia Troy, AWNING MAKER-C Status: REG CLI Study: Cerv Spine 2 or 3 Views Date of Exam: 01/15/25 Exam# [id number] Ordering Dr: Mary Perez PROCEDURE: CERV SPINE 2 OR 3 VIEWS 01/15/2025 REASON FOR EXAM: STATUS POST DISC REPLACEMENT TECHNIQUE: 2 views of the cervical spine. FINDINGS: Cervical spine is visualized on the lateral view from the skull base to T1. Status post intervertebral disc prosthesis/replacemen t C4-5 and C5-6 appears intact and anatomic. No fracture or malalignment. No prevertebral soft tissue swelling. C6-7 disc space narrowing. Visualized apices appear clear. RAD/Cerv Spine 2 or 3 Views IMPRESSION: Status post intervertebral disc prosthesis/replacemen t C4-5 and C5-6 appears intact and anatomic. No fracture or malalignment. Reading Location: [id number] CC: AWNING MAKER-C Nyasia Simmons; MYKEL Harvey Chief Service Dispatcher: Signed Normal [facility] Orthopedic Visit Reporton Orthopedic Visit Report [facility] [address] [place] [address] OFFICE VISIT Date of Service: 01/15/25 MR#: [id number] Acct: [id number] Name: IMAN GREEN Rep #: [id number] : 1980 Provider: MYKEL Harvey Age/Sex: 44/M Location: [facility] Status: Signed Intake Vital Signs 11/21/24 14:38 01/02/25 00:42 Height 5 ft 9 in 5 ft 9 in Intake Visit Reasons: cervical spine Allergies No Known Allergies Allergy (Verified 01/15/25 10:27) Medications ???Medication ???Instructions ???Recorded ???Confirmed ???Type TENS unit electrodes (Pro Comfort 11/08/24 12/21/24 History Tens Electrode pads) multivitamin 1 tab PO QDAY 11/08/24 01/15/25 Hi story gabapentin 300 mg capsule 300 mg PO TID PRN pain 12/18/24 History dexamethasone 4 mg tablet 4 mg PO BID #5 tabs 01/01/2501/15 Rx methocarbamol 500 mg tablet 500 - 750 mg (1 - 1.5 x 500 mg) PO 01/01/25 01/15/25 Rx TID PRN pain/spasms #60 tabs omeprazole 20 mg capsule,delayed 20 mg PO DAILY 01/01/25 01/15/25 H istory release metoprolol tartrate 25 mg tablet 25 mg PO BID #60 tabs 01/02/2503/06 Rx PFSH Medical History Wears glasses History of steroid therapy Injury of head and neck Gastric reflux Former smoker History of echocardiogram Cardiology follow-up encounter History of irregular heartbeat Left shoulder pain Knee pain Back pain Severe headache Arthritis Hypertension Surgical History History of fusion of talotibial joint and subtalar joint surgery of tibia H/O cardiac radiofrequency ablation Optional surgery Family History Father Diabetes Social History household members: spouse and children Smoking Status: Former smoker quit date: 09/12/00 alcohol intake: current alcohol intake frequency: holidays/special occasions only substance use type: does not use HPI cervical spine Details: This documentation accurately reflects the service provided and the decisions made by , MYKEL Harvey 01/15/25 1024. Part of today???s visit was documented by Sharon SCHULZ, acting as scribe. IMAN GREEN is a 44 year old M here today for 2 week post op, cervical spine, dos 01/01/25. Patient had a C4-6 disc replacement. Patient states that he is doing well and is having minimal pain. Patient has not take the Vicodin unless he absolutely needs it. He stopped taking the Meloxicam yesterday and has been using Ibuprofen. He states that a lot of his symptoms are resolving that he had before surgery. He no longer has the scapular pain, his nerve pain has decreased as well as the muscle spasms. He is not lifting more than 5lbs. patient is doing well postoperatively and has been doing a lot around the house and at times feels like he is doing too much. Patient says that his symptoms before surgery but the left sided pain numbness and tingling has resolved. He said for about 2 to 3 days after the surgery he was having some mild dysphagia however that has also improved. He has not worn the collar since the first couple days. Ortho Exam General General: Yes no acute distress Neurologic: Yes alert and Yes oriented x3 Spine SPINE TESTING CERVICAL THORACIC LUMBAR Musculoskeletal Strength 0=absent - 5=normal Details: Neurological exam of the upper extremities shows 5X5 power. Normal sensation across all dermatomes. Physical examination of the neck shows a well-healed and dry incision. Coding Level of Care Code Global Post Op Diagnoses Status post cervical disc replacement Z98.890 Assessment and Plan Assessment and Plan (1) Status post cervical disc replacement: Status: Acute Orders: Orders Cerv Spine 2 or 3 Views Today Z98.890 - Other specified postprocedural states Referrals Physical Therapy Referral Z98.890 - Other specified postprocedural states Plan Obtained and reviewed x-rays today in the clinic. Independent rotation of the x-rays was performed and x-rays show hardware in good position. The patient is 2 weeks out C4-6 disc replacement. Patient is doing well postoperatively. We will start outpatient physical therapy for the patient. Reviewed restrictions of no bending, lifting, twisting until 3 months postop. At this time is okay for the patient to lift upwards of a gallon of milk or about 8 pounds. Discussed that it is okay for the patient to do work around the house so long as he continues to try to remain mindful of the restrictions. Discussed that it is okay for the patient to mow his lawn. He will follow-up in 4 weeks for 6-week follow-up. Patient is in agreement. (more content not included)... Normal [facility] Absolute lymphocyte countOrd ered By: Finn Alan on 01-02-2025 Lymphocytes Auto (Unsp spec) [#/Vol] 1.09 10*3/uL 0.83-4.51 [facility] Absolute neutrophil countOrd ered By: Finn Alan on 01-02-2025 Neutrophils (Bld) [#/Vol] 15.3 10*3/uL High 2.0-7.7 [facility] Anion gap in Serum or Plasma Ordered By: Finn Alan on 01-02-2025 Anion gap [Moles/Vol] 16 mmol/L High 5-15 [facility] Automated lymphocyte count a s percentage of total leukocytesOrdered By: Finn Alan on 01-02-2025 Lymphocytes/100 WBC Auto (Unsp spec) 6.4 % Low 19-41 [facility] BUN/creatinine ratioOrdered By: Finn Alan on 01-02-2025 Urea nitrogen/Creatinine [Mass ratio] 11.2 mg/mg 10- [facility] Basic Metabolic Profile (BMP )on 01-02-2025 BUN/CRE 11.2 RATIO Normal - [facility] Comment on above: Performed By: #### L 501.5200, L500.2500, L100.0100 #### [facility] [address] [place], [address] Calcium [Mass/Vol] 9.6 mg/dL Normal 7.6-11.0 [facility] Comment on above: Performed By: #### L 501.5200, L500.2500, L100.0100 #### [facility] [address] [place], [address] Chloride [Moles/Vol] 103 mmol/L Normal 98-108 [facility] Comment on above: Performed By: #### L 501.5200, L500.2500, L100.0100 #### [facility] [address] [place], [address] CO2 [Moles/Vol] 23.0 mmol/L Normal 21.0-32.0 [facility] Comment on above: Performed By: #### L 501.5200, L500.2500, L100.0100 #### [facility] [address] [place], [address] Creatinine [Mass/Vol] 0.94 mg/dL Normal 0.70-1.20 [facility] Comment on above: Performed By: #### L 501.5200, L500.2500, L100.0100 #### [facility] [address] [place], [address] ECRCL 111.23 ml/min Normal 50-250 [facility] Comment on above: Performed By: #### L 501.5200, L500.2500, L100.0100 #### [facility] [address] [place], [address] GAP 16 High 5-15 [facility] Comment on above: Performed By: #### L 501.5200, L500.2500, L100.0100 #### [facility] [address] [place], [address] GFR/1.73 sq M.predicted among non-blacks MDRD (S/P/Bld) [Vol rate/Area] 103 mL/min/{1.73_m2} Normal >60 [facility] Comment on above: Result Comment: mL/m in/1.73m2 CKD-EPI Creatinine Equation (2020) Performed By: #### L 501.5200, L500.2500, L100.0100 #### [facility] [address] [place], [address] Glucose [Mass/Vol] 143 mg/dL High 70-99 [facility] Comment on above: Performed By: #### L 501.5200, L500.2500, L100.0100 #### [facility] [address] [place], [address] Potassium [Moles/Vol] 4.2 mmol/L Normal 3.3-5.1 [facility] Comment on above: Result Comment: Hemo lysis present, Results??could be affected. ?? Performed By: #### L 501.5200, L500.2500, L100.0100 #### [facility] [address] [place], [address] Sodium [Moles/Vol] 143 mmol/L Normal 133-145 [facility] Comment on above: Performed By: #### L 501.5200, L500.2500, L100.0100 #### [facility] [address] [place], [address] Urea nitrogen [Mass/Vol] 11 mg/dL Normal 4-19 [facility] Comment on above: Performed By: #### L 501.5200, L500.2500, L100.0100 #### [facility] [address] [place], [address] Basophil percentageOrdered B y: Finn Alan on 01-02-2025 Basophils/100 WBC (Bld) 0.2 % 0-1 [facility] CBC W/Diff, Automatedon 12-12 Absolute Lymph 1.09 X10 3/uL Normal 0.83-4.51 [facility] Comment on above: Performed By: #### L 501.5200, L500.2500, L100.0100 #### [facility] [address] [place], [address] Absolute Neut 15.3 X10 3/uL High 2.0-7.7 [facility] Comment on above: Performed By: #### L 501.5200, L500.2500, L100.0100 #### [facility] [address] [place], [address] Basophils/100 WBC (Bld) 0.2 % Normal 0-1 [facility] Comment on above: Performed By: #### L 501.5200, L500.2500, L100.0100 #### [facility] [address] [place], [address] Eosinophils/100 WBC (Bld) 0.0 % Normal 0-5 [facility] Comment on above: Performed By: #### L 501.5200, L500.2500, L100.0100 #### [facility] [address] [place], [address] Erythrocyte distribution width (RBC) [Ratio] 12.7 % Normal 11.6-14.6 [facility] Comment on above: Performed By: #### L 501.5200, L500.2500, L100.0100 #### [facility] [address] [place], [address] Hematocrit (Bld) [Volume fraction] 46.3 % Normal 40-54 [facility] Comment on above: Performed By: #### L 501.5200, L500.2500, L100.0100 #### [facility] [address] [place], [address] Hemoglobin (Bld) [Mass/Vol] 15.6 g/dL Normal 13.0-16.5 [facility] Comment on above: Performed By: #### L 501.5200, L500.2500, L100.0100 #### [facility] [address] [place], [address] IG% 0.700 Normal 0.0-0.9 [facility] Comment on above: Result Comment: IG% - Immature Granulocytes (promyelocytes, myelocytes and metamyelocytes) > 1% indicates that a LEFT SHIFT is Present. Performed By: #### L 501.5200, L500.2500, L100.0100 #### [facility] [address] [place], [address] Lymphocytes/100 WBC (Bld) 6.4 % Low 19-41 [facility] Comment on above: Performed By: #### L 501.5200, L500.2500, L100.0100 #### [facility] [address] [place], [address] MCH (RBC) [Entitic mass] 30.2 pg Normal 27.0-32.0 [facility] Comment on above: Performed By: #### L 501.5200, L500.2500, L100.0100 #### [facility] [address] [place], [address] MCHC (RBC) [Mass/Vol] 33.7 g/dL Normal 32-36 [facility] Comment on above: Performed By: #### L 501.5200, L500.2500, L100.0100 #### [facility] [address] [place], [address] MCV (RBC) [Entitic vol] 89.7 fL Normal 80-94 [facility] Comment on above: Performed By: #### L 501.5200, L500.2500, L100.0100 #### [facility] [address] [place], [address] Monocytes/100 WBC (Bld) 2.7 % Normal 0-10 [facility] Comment on above: Performed By: #### L 501.5200, L500.2500, L100.0100 #### [facility] [address] [place], [address] Neutrophils/100 WBC (Bld) 90.0 % High 47-70 [facility] Comment on above: Performed By: #### L 501.5200, L500.2500, L100.0100 #### [facility] [address] [place], [address] Nucleated RBC (Bld) [#/Vol] 0 10*3/uL Normal 0-5 [facility] Comment on above: Performed By: #### L 501.5200, L500.2500, L100.0100 #### [facility] [address] [place], [address] Platelet mean volume (Bld) [Entitic vol] 10.5 fL Normal 6.2-12.0 [facility] Comment on above: Performed By: #### L 501.5200, L500.2500, L100.0100 #### [facility] [address] [place], [address] Platelets (Bld) [#/Vol] 193 10*3/uL Normal 150-450 [facility] Comment on above: Performed By: #### L 501.5200, L500.2500, L100.0100 #### [facility] [address] [place], [address] RBC (Bld) [#/Vol] 5.16 10*6/uL Normal 4.6-6.2 [facility] Comment on above: Performed By: #### L 501.5200, L500.2500, L100.0100 #### [facility] [address] [place], [address] RDW SD 41.4 fl Normal 35.1-43.9 [facility] Comment on above: Performed By: #### L 501.5200, L500.2500, L100.0100 #### [facility] [address] [place], [address] WBC (Bld) [#/Vol] 17.0 10*3/uL High 4.4-11.0 [facility] Comment on above: Performed By: #### L 501.5200, L500.2500, L100.0100 #### [facility] [address] [place], [address] Carbon dioxide, total [Moles /volume] in Central venous bloodOrdered By: Finn Alan on 01-02-2025 CO2 [Moles/Vol] 23.0 mmol/L 21.0-32.0 [facility] Chloride assayOrdered By: Chelsea Alan on 01-02-2025 Chloride [Moles/Vol] 103 mmol/L 98-108 [facility] Emergency Department Summary on 01-02-2025 Emergency Department Summary [facility] Medical Records Department [address] [place] [address] Emergency Department Summary 01/02/25 MR#: [id number] Acct: [id number] Name: IMAN GREEN #: [id number] : 1980 44 From: Finn Alan DO PCP: GLO Donnelly Status:DEP ER Location: ED HPI History of Present Illness Chief Complaint: Hypertension PFSH [facility] Medical History Wears glasses History of steroid therapy Injury of head and neck Gastric reflux Former smoker History of echocardiogram Cardiology follow-up encounter History of irregular heartbeat Left shoulder pain Knee pain Back pain Severe headache Arthritis Hypertension Home Medications ???Medication ???Instructions ???Recorded ???Last Taken ???Type TENS unit electrodes (Pro Comfort 11/08/24 Unknown History Tens Electrode pads) multivitamin 1 tab PO QDAY 11/08/24 12/29/24 Hi story gabapentin 300 mg capsule 300 mg PO TID PRN pain 12/18/24 History dexamethasone 4 mg tablet 4 mg PO BID #5 tabs 01/01/25 Unkno wn Rx hydrocodone-acetamino phen 5-325mg 1 tab PO Q6H PRN pain 7 days #28 01/01/25 Unknown Rx 5mg-325mg tabs meloxicam 15 mg tablet 15 mg PO DAILY #30 tabs 01/01/25 U nknown Rx methocarbamol 500 mg tablet 500 - 750 mg (1 - 1.5 x 500 mg) PO 01/01/25 Unknown Rx TID PRN pain/spasms #60 tabs omeprazole 20 mg capsule,delayed 20 mg PO DAILY 01/01/25 12/31/24 H istory release sennosides 8.6 mg capsule (senna) 8.6 mg PO BID PRN constipation #3 0 01/01/25 Unknown Rx caps lorazepam 1 mg tablet (Ativan) 1 mg PO TID PRN anxiety #10 tabs 0 01/02/25 Unknown Rx metoprolol tartrate 25 mg tablet 25 mg PO BID #60 tabs 01/02/25 Unk nown Rx oxycodone 5 mg capsule 5 mg PO Q4H PRN pain 3 days #14 Unknown Rx caps Allergy/AdvReac Type Severity Reaction Status Date / Time No Known Allergies Allergy Verified 01/02/25 00:43 Family History Father Diabetes Surgical History History of fusion of talotibial joint and subtalar joint surgery of tibia H/O cardiac radiofrequency ablation Optional surgery Social History household members: spouse and children Smoking Status: Former smoker quit date: 09/12/00 alcohol intake: current alcohol intake frequency: holidays/special occasions only substance use type: does not use EXAM Physical Exam Const Vital Signs: 01/02/25 00:42 01/02/25 00:45 01/02/25 00:45 Temperature 98.2 F 98.2 F Temperature Source Oral Oral Pulse Rate 132 H 132 H Respiratory Rate 20 H 20 H Respiratory Effort Respiratory Pattern Blood Pressure 193/107 H 197/107 H 168/102 H Blood Pressure Mean 135 137 124 Pulse Ox 97 97 Oxygen Delivery Method Room Air Room Air 01/02/25 00:47 01/02/25 01:45 01/02/25 02:00 Temperature 98.2 F 98.4 F Temperature Source Oral Oral Pulse Rate 100 111 H Respiratory Rate 20 H 16 Respiratory Effort Normal Respiratory Pattern Normal Blood Pressure 161/102 H 161/102 H Blood Pressure Mean 121 121 Pulse Ox 95 95 Oxygen Delivery Method Room Air Room Air 01/02/25 02:15 01/02/25 03:00 01/02/25 03:15 Temperature 98.2 F Temperature Source Oral Pulse Rate 105 H 106 H 105 H Respiratory Rate 18 24 H 19 H Respiratory Effort Respiratory Pattern Blood Pressure 144/97 H 152/94 H 150/93 H Blood Pressure Mean 112 110 108 Pulse Ox 94 94 92 Oxygen Delivery Method Room Air 01/02/25 03:22 01/02/25 03:30 01/02/25 03:38 Temperature 97.4 F L Temperature Source Pulse Rate 104 H 104 H Respiratory Rate 21 H 19 H Respiratory Effort Respiratory Pattern Blood Pressure 143/93 H 146/103 H 149/97 H Blood Pressure Mean 107 116 114 Pulse Ox 94 98 Oxygen Delivery Method Room Air MDM MDM MDM Narrative Medical decision making narrative: I was asked by nursing staff to change pharmacies where Dr. Alan wrote prescriptions for patient for Oxy IR as well as metoprolol and Ativan. Apparently [facility] did not have some of these medications and I was asked to change them to [facility] pharmacy which was done by myself. Lab Data Labs: Laboratory Results - last 24 hr 01/02/25 00:57 WBC 17.0 H RBC 5.16 Hgb 15.6 Hct 46.3 MCV 89.7 MCH 30.2 MCHC 33.7 RDW Std Deviation 41.4 RDW Coeff of Jacqueline 12.7 Plt Count 193 MPV 10.5 Immature Gran % (Auto) 0.700 Neut % (Auto) 90.0 H Lymph % (Auto) 6.4 L Wallace % (Auto) 2.7 Eos % (Auto) 0.0 Baso % (Auto) 0. (more content not included)... Normal [facility] Emergency Department Summary [facility] Medical Records Department [address] [place] [address] Emergency Department Summary 01/02/25 MR#: [id number] Acct: [id number] Name: IMAN GREEN JADYN Rep #: [id number] : 1980 44 From: Finn Alan DO PCP: GLO Donnelly Status:DEP ER Location: ED HPI History of Present Illness Chief Complaint: Hypertension Informant: patient and spouse/S.O. Narrative Narrative: Patient is a 44-year-old male with remote history of hypertension. He also has cervical myelopathy and underwent cervical surgery today. He states that he has been having pain despite taking the [place] and based on the procedure he is felt anxiety and has noticed that his blood pressure has been running high. He states that he contacted his surgeon who advised him that if his diastolic blood pressure persistently reads above 100 that he may need to be seen in the ER for treatment. He states that at home his blood pressure was approximately 180/115 and therefore he presents for evaluation [facility] Medical History Wears glasses History of steroid therapy Injury of head and neck Gastric reflux Former smoker History of echocardiogram Cardiology follow-up encounter History of irregular heartbeat Left shoulder pain Knee pain Back pain Severe headache Arthritis Hypertension Home Medications ???Medication ???Instructions ???Recorded ???Last Taken ???Type TENS unit electrodes (Pro Comfort 11/08/24 Unknown History Tens Electrode pads) multivitamin 1 tab PO QDAY 11/08/24 12/29/24 Hi story gabapentin 300 mg capsule 300 mg PO TID PRN pain 12/18/24 History dexamethasone 4 mg tablet 4 mg PO BID #5 tabs 01/01/25 Unkno wn Rx hydrocodone-acetamino phen 5-325mg 1 tab PO Q6H PRN pain 7 days #28 01/01/25 Unknown Rx 5mg-325mg tabs meloxicam 15 mg tablet 15 mg PO DAILY #30 tabs 01/01/25 U nknown Rx methocarbamol 500 mg tablet 500 - 750 mg (1 - 1.5 x 500 mg) PO 01/01/25 Unknown Rx TID PRN pain/spasms #60 tabs omeprazole 20 mg capsule,delayed 20 mg PO DAILY 01/01/25 12/31/24 H istory release sennosides 8.6 mg capsule (senna) 8.6 mg PO BID PRN constipation #3 0 01/01/25 Unknown Rx caps lorazepam 1 mg tablet (Ativan) 1 mg PO TID PRN anxiety 5 days #15 01/02/25 Unknown Rx tabs metoprolol tartrate 25 mg tablet 25 mg PO BID 30 days #60 tabs 12/12 12/04 Unknown Rx oxycodone 5 mg tablet 5 mg PO Q6H PRN pain 5 days #20 Unknown Rx tabs Allergy/AdvReac Type Severity Reaction Status Date / Time No Known Allergies Allergy Verified 01/02/25 00:43 Family History Father Diabetes Surgical History History of fusion of talotibial joint and subtalar joint surgery of tibia H/O cardiac radiofrequency ablation Optional surgery Social History household members: spouse and children Smoking Status: Former smoker quit date: 09/12/00 alcohol intake: current alcohol intake frequency: holidays/special occasions only substance use type: does not use ROS ROS ED Constitutional Constitutional ED: Denies chills or fever(s) Eyes Eyes: Denies change in vision ENT ENT ED: Denies sore throat Cardiovascular Cardiovascular: Reports racing heartbeat; Denies chest pain Respiratory/Chest Respiratory/Chest: Denies cough or dyspnea Gastrointestinal Gastrointestinal: Denies abdominal pain, diarrhea, nausea or vomiting Genitourinary Genitourinary ED: Denies dysuria Musculoskeletal Musculoskeletal: Reports neck pain Integumentary Denies rash Neurologic Neurologic: Denies headache(s), paresthesias or weakness Psychiatric Psychiatric: Reports anxiety Hematologic/Lymphatic Hematologic/Lymphatic : Denies easy bleeding or easy bruising EXAM Physical Exam Const Vital Signs: 01/02/25 00:42 01/02/25 00:45 01/02/25 00:45 Temperature 98.2 F 98.2 F Temperature Source Oral Oral Pulse Rate 132 H 132 H Respiratory Rate 20 H 20 H Respiratory Effort Respiratory Pattern Blood Pressure 193/107 H 197/107 H 168/102 H Blood Pressure Mean 135 137 124 Pulse Ox 97 97 Oxygen Delivery Method Room Air Room Air 01/02/25 00:47 01/02/25 01:45 01/02/25 02:00 Temperature 98.2 F 98.4 F Temperature Source Oral Oral Pulse Rate 100 111 H Respiratory Rate 20 H 16 Respiratory Effort Normal Respiratory Pattern Normal Blood Pressure 161/102 H 161/102 H Blood Pressure Mean 121 121 Pulse Ox 95 95 Oxygen Delivery Method Room Air Room Air 01/02/25 02:15 01/02/25 03:00 01/02/25 03:15 Temperature 98.2 F Temper (more content not included)... Normal [facility] Eosinophil percentageOrdered By: Finn Alan on 01-02-2025 Eosinophils/100 WBC (Bld) 0.0 % 0-5 [facility] Erythrocyte distribution wid th (RBC) [Ratio]Ordered By: Finn Alan on 01-02-2025 Erythrocyte distribution width (RBC) [Entitic vol] 41.4 fL 35.1-43.9 [facility] Erythrocyte distribution wid th ratioOrdered By: Finn Alan on 01-02-2025 Erythrocyte distribution width (RBC) [Ratio] 12.7 % 11.6-14.6 [facility] Erythrocyte distribution wid th standard deviationOrdered By: Finn Alan on 01-02-2025 Erythrocyte distribution width (RBC) [Ratio] 41.4 fl 35.1-43.9 [facility] Estimation of creatinine abel aranceOrdered By: Finn Alan on 01-02-2025 Estimated Creatinine Clearance Calc 111.23 ml/min 50-250 [facility] GFR/1.73 sq M.predicted annabelle g non-blacks MDRD (S/P/Bld) [Vol rate/Area]Ordered By: Finn Alan on 01-02-2025 Estimated GFR (MDRD) Non-Af Amer 103 >60 [facility] Comment on above: mL/min/1.73m2 CKD-EP I Creatinine Equation (2020) Glomerular filtration rate ( GFR) estimation/1.73 sq m using serum, plasma, or whole bOrdered By: Finn Alan on 01-02-2025 GFR/1.73 sq M.predicted among non-blacks MDRD (S/P/Bld) [Vol rate/Area] 103 mL/min/{1.73_m2} >60 [facility] Comment on above: mL/min/1.73m2 CKD-EP I Creatinine Equation (2020) Hematocrit Auto (Bld) [Volum e fraction]Ordered By: Finn Alan on 01-02-2025 Hematocrit (Bld) [Volume fraction] 46.3 % 40-54 [facility] Hemoglobin measurementOrdere d By: Finn Alan on 01-02-2025 Hemoglobin (Bld) [Mass/Vol] 15.6 g/dL 13.0-16.5 [facility] Immature granulocytes/100 WB C Auto (Bld)Ordered By: Finn Alan on 01-02-2025 Immature granulocytes/100 WBC (Bld) 0.700 % 0.0-0.9 [facility] Comment on above: IG% - Immature Granu locytes (promyelocytes, myelocytes and metamyelocytes) > 1% indicates that a LEFT SHIFT is Present. Lymphocytes Auto (Unsp spec) [#/Vol]Ordered By: Finn Alan on 01-02-2025 Lymphocytes (Bld) [#/Vol] 1.09 10*3/uL 0.83-4.51 [facility] Lymphocytes/100 WBC Auto (Un sp spec)Ordered By: Finn Alan on 01-02-2025 Lymphocytes/100 WBC (Bld) 6.4 % Low 19-41 [facility] MCV (mean corpuscular volume ) determinationOrdered By: Finn Alan on 01-02-2025 MCV (RBC) [Entitic vol] 89.7 fL 80-94 [facility] Magnesiumon 01-02-2025 Magnesium [Mass/Vol] 2.1 mg/dL Normal 1.5-2.2 [facility] Comment on above: Performed By: #### L 501.5200, L500.2500, L100.0100 #### [facility] Laboratory [address] [place], [address] Magnesium (Unsp spec) [Mass/ Vol]Ordered By: Finn Alan on 01-02-2025 Magnesium [Mass/Vol] 2.1 mg/dL 1.5-2.2 [facility] Magnesium measurement (mass/ volume)Ordered By: Finn Alan on 01-02-2025 Magnesium (Unsp spec) [Mass/Vol] 2.1 mg/dL 1.5-2.2 [facility] Mean corpuscular hemoglobin (MCH) determinationOrdered By: Finn Alan on 01-02-2025 MCH (RBC) [Entitic mass] 30.2 pg 27.0-32.0 [facility] Mean corpuscular hemoglobin concentration (MCHC) determinationOrdered By: Finn Alan on 01-02-2025 MCHC (RBC) [Mass/Vol] 33.7 g/dL 32-36 [facility] Mean platelet volume determi nationOrdered By: Finn Alan on 01-02-2025 Platelet mean volume (Bld) [Entitic vol] 10.5 fL 6.2-12.0 [facility] Monocyte percentageOrdered B y: Finn Alan on 01-02-2025 Monocytes/100 WBC (Bld) 2.7 % 0-10 [facility] Neutrophil percentageOrdered By: Finn Alan on 01-02-2025 Neutrophils/100 WBC (Bld) 90.0 % High 47-70 [facility] Nucleated red blood cell per centageOrdered By: Finn Alan on 01-02-2025 Nucleated RBC/100 WBC (Bld) [Ratio] 0 % 0-5 [facility] Platelet countOrdered By: Chelsea Alan on 01-02-2025 Platelets (Bld) [#/Vol] 193 10*3/uL 150-450 [facility] Potassium (Unsp spec) [Mass/ Vol]Ordered By: Finn Alan on 01-02-2025 Potassium [Moles/Vol] 4.2 mmol/L 3.3-5.1 [facility] Comment on above: Hemolysis present, R esults could be affected. Potassium measurement (mass/ volume)Ordered By: Finn Alan on 01-02-2025 Potassium (Unsp spec) [Mass/Vol] 4.2 mmol/L 3.3-5.1 [facility] Comment on above: Hemolysis present, R esults could be affected. RBC Auto (Bld) [#/Vol]Ordere d By: Finn Alan on 01-02-2025 RBC (Bld) [#/Vol] 5.16 10*6/uL 4.6-6.2 [facility] Serum creatinine measurement (mass/volume)Ordered By: Finn Alan on 01-02-2025 Creatinine [Mass/Vol] 0.94 mg/dL 0.70-1.20 [facility] Serum glucose measurement (m ass/volume)Ordered By: Finn Alan on 01-02-2025 Glucose [Mass/Vol] 143 mg/dL High 70-99 [facility] Serum or plasma calcium lee urement (mass/volume)Ordered By: Finn Alan on 01-02-2025 Calcium [Mass/Vol] 9.6 mg/dL 7.6-11.0 [facility] Serum or plasma urea nitroge n measurement (mass/volume)Ordered By: Finn Alan on 01-02-2025 Urea nitrogen [Mass/Vol] 11 mg/dL 4-19 [facility] Sodium levelOrdered By: Sidney Alan on 01-02-2025 Sodium [Moles/Vol] 143 mmol/L 133-145 [facility] White blood cell (WBC) count Ordered By: Finn Alan on 01-02-2025 WBC (Bld) [#/Vol] 17.0 10*3/uL High 4.4-11.0 [facility] Bedside Glucoseon 01-01-2025 FINGERSTICK GLU 132 mg/dL High 74-106 [facility] Comment on above: Result Comment: DINO GARBERKAMINI OF PATIENT CARE PER NURSING PROTOCOL Performed By: #### L 501.080 ####[facility] [id number] [place], [address] Cerv Spine 2 or 3 Viewson Cerv Spine 2 or 3 Views [facility] Imaging Services [address] [place] [address] Cerv Spine 2 or 3 Views MR#: [id number] Acct: [id number] Name: IMAN GREEN Rep #: [id number] : 1980 M 44 From: Patrick Zuñiga MD PCP: Nyasia Simmons NP-C Status: REG [facility] Study: Cerv Spine 2 or 3 Views Date of Exam: 01/01/25 Exam# [id number] Ordering Dr: Karlos Vazquez MD EXAM: XR Cervical Spine, 2 or 3 Views CLINICAL INDICATION: CERVICAL DISC ARTHROPLASTY C4-5 C5-6 TECHNIQUE: Frontal and lateral views of the cervical spine. COMPARISON: No relevant prior studies available. FINDINGS: VERTEBRAE: Unremarkable. No definite fracture. Normal alignment. DISC SPACES: No acute findings. No significant narrowing. SOFT TISSUES: Unremarkable. OTHER FINDINGS: Fluoroscopic guidance was used intraoperatively. A total 5 images were obtained. Total fluoroscopy time was 28 seconds. Total radiation dose was 3.0 mGy. RAD/Cerv Spine 2 or 3 Views IMPRESSION: Fluoroscopic guidance was used intraoperatively. Please refer to the operative note for further details. Reading [facility] CC: AWNING MAKER-C Nyasia Simmons; Dr. Karlos Vazquez MD Chief Service Dispatcher: Signed Normal [facility] Glucose measurement at [facility] deOrdered By: Karlos Vazquez on 01-01-2025 Bedside Glucose (Misc Panel) 132 mg/dL High 74-106 [facility] Comment on above: MANAGEMENT OF PATIEN T CARE PER NURSING PROTOCOL Glucose [Mass/Vol] 132 mg/dL High 74-106 [facility] Comment on above: MANAGEMENT OF PATIEN T CARE PER NURSING PROTOCOL MR/POSTOP.ANEon 01-01-2025 MR/POSTOP.[facility] Medical Records Department [address] [place] [address] Anesthesia Postop Eval I 01/01/25 1502 MR#: [id number] Acct: [id number] Name: IMAN GREEN JADYN Rep #: [id number] : 1980 44 From: Mariam Cloud CRNA PCP: GLO Donnelly Status:[facility] Y Race: C Location: [place] [address] Anesthesia: Postop Eval I Current Vital Signs Temperature: 97.4 F Pulse Rate: 112 Blood Pressure: 149/87 Respiratory Rate: 16 Pulse Ox: 100 Oxygen Delivery Method: Nasal Cannula Oxygen Flow Rate (L/min): 4 Assessment Airway patent: Yes Spontaneous unlabored respirations: Yes Mental status: Awake and Calm nausea: No Vomiting: No Anesthesia Complication: No Fluid Hydration Crystalloid volume administer (ml): 1,600 Total IV fluid infused: 1,600 Progress Note Anesthesia document: Postop Eval 1 completed: Yes 01/01/25 150 Date Mariam Cloud ZONE SUPERVISOR FIREARMS Cosigner Signature: Date CC: Signed Normal [facility] [id number] 01-01-2025 MR/POSTOPAN2 [facility] Medical Records Department [address] [place] [address] Anesthesia Postop Eval II 01/01/252022 MR#: [id number] Acct: [id number] Name: IMAN GREEN JADYN Rep #: [id number] : 1980 44 From: Jeramy Ochoa MD PCP: GLO Donnelly Status:[facility] Y Race: C Location: [facility] Anesthesia Postop Eval I Sum Postop Eval Completion status Anesthesia document: Postop Eval 1 completed: Yes Anesthesia Postop Eval I Summary Anesthesia Postop Eval I Summary: Anesthesia Postop Eval I: Assessment Summary Airway patent Yes 01/01/25 15:03 ZONE SUPERVISOR FIREARMS.SKOBY Spontaneous unlabored Yes 01/01/25 15:03 ZONE SUPERVISOR FIREARMS.SKOBY respirations Mental status Awake,Calm 01/01/25 15:03 ZONE SUPERVISOR FIREARMS.SKOBY nausea No 01/01/25 15:03 ZONE SUPERVISOR FIREARMS.SKOBY Vomiting No 01/01/25 15:03 ZONE SUPERVISOR FIREARMS.SKOBY Anesthesia Postop Eval I: Fluid Summary Crystalloid volume administer 1,600 01/01/25 15:03 ZONE SUPERVISOR FIREARMS.SKOBY (ml) Colloids volume administered ( ml) Blood Product volume administered (ml) Total IV fluid infused 1,600 01/01/25 15:03 ZONE SUPERVISOR FIREARMS.SKOBY Anesthesia Postop Eval I: Summary Notes Anesthesia Complication No 01/01/25 15:03 ZONE SUPERVISOR FIREARMS.SKOBY Anesthesia Complication Comment: Post-operative progress note Anesthesia: Postop Eval II Evaluation Mental status: Awake and Calm Pain Level: 2 nausea: No Vomiting: No Complications Anesthesia Complication: No 01/01/252023 Date Jeramy Ochoa MD Cosigner Signature: Date CC: Signed Normal [facility] Operative Reporton 5 Operative Report [facility] Medical Records Department [address] [place] [address] Operative Report 01/01/25 1452 MR#: [id number] Acct: [id number] Name: IMAN GREEN Rep #: [id number] : 1980 44 From: Karlos Vazquez MD PCP: GLO Donnelly Status:REG [facility] Location: [facility]02-1 Procedures Musculoskeletal 20xxx-29xxx: Other Procedure See Report Operative Report (Standard) Operative Information Date of Procedure: 01/01/25 Pre-Operative Diagnosis: 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 Post-Operative Diagnosis: Same Surgery/Procedure Performed: C4-6 cervical disc replacement polls or surveys interviewer: Yes Supervisor Screen Printing: Mary Perez Tasks completed by cutter first: Closing, Removing tissue, Hemostasis: Electrocautery and Retracting Type of Anesthesia: General RN Documented Start/Stop Times: Operation Date: 01/01/25 11:30 Case Time Into Pre-Op 01/01/25 09:30 Out of Pre-Op 01/01/25 11:43 Anesthesia Start 01/01/25 11:51 Into Room 01/01/25 11:51 Procedure Start 01/01/25 12:26 Procedure End 01/01/25 14:36 Anesthesia End 01/01/25 14:51 Out of Room 01/01/25 14:51 Procedure Start Time: 12:26 Procedure Stop Time: 14:36 Select all DRAINS/GRAFTS/IMPLANT S that apply: Prosthetic device Prosthetic device details: Zimvie Mobi-C cervical disc replacement prosthesis Estimated Blood Loss: 30 cc Specimen collected: No Description of surgery: Preoperative diagnosis: C4-6 disc herniation, with radiculomyelopathy Postoperative diagnosis: Same Name of procedure: C4-6 anterior cervical disc replacement - Cervical disc replacement C4-5, CPT code 04705 - Cervical disc replacement C5-6, CPT code 81330/51 Attending surgeon: Karlos Vazquez M.D. Anesthesia: Gen. endotracheal Estimated blood loss: 30 mL Complications: None Instrumentation used: Brennen [employer]omet Mobi-C cervical disc replacement implants Indications: The patient is a pleasant 44-year-old gentleman who presented with symptoms of neck pain, progressive left worse than right upper extremity radiation, progressive difficulty with dexterity and balance. MRI revealed C4-5 right paracentral soft disc extrusion with right hemicord compression, C5-6 left paracentral disc extrusion with left hemicord compression and foraminal stenosis. In order to halt the progression of myelopathy, patient requested surgical intervention. All risks and benefits of the procedure were explained to the patient. The risks include but are not limited to infection, bleeding, injury to nerves and vessels, vertebral artery injury, spinal cord injury, paralysis, vocal cord paralysis, injury to esophagus, need for further procedures, adjacent segment degeneration, heterotopic ossification, implant loosening, implant failure, DVT, pulmonary embolism, cardiopulmonary event, etc. Procedure: The patient was identified in the preoperative suite using unique patient identifiers. Skin was marked consent was taken and all questions were answered. The patient was then brought back to the operative room and a timeout was performed. General endotracheal anesthesia was given. Intraoperative neuro monitoring leads were applied. The patient was carefully positioned supine on a regular OR table. A lateral x-ray with a C-arm was done to identify the level and to define the incision. The anterior neck was then prepped and draped in the usual fashion. A final timeout was then performed. A transverse skin incision was then taken to the left of midline 2 fingerbreadths above the clavicle. Subcutaneous tissue was then divided with Bovie. Platysma was identified and cut transversely with scissors. The fascial interval between the sternocleidomastoid and the larynx was developed. Omohyoid was identified and mobilized medially and inferiorly. Carotid sheath was laterally while the esophagus with the larynx was retracted medially to reach the prevertebral fascia. All prevertebral layers of fascia were bluntly dissected and a Isle pin was placed into one of the bodies. A lateral C-arm image was used to confirm the correct level. Once this was done longus coli muscle was elevated on both sides at and above and below C4-6 discs. Shadow line retractors were then placed with great care to protect the esophagus. A long handle knife was then used to perform annulotomy at C4-5. Disc fragments were removed with the pituitary. Isle pins were placed in C4 and C5 for disc distraction. AP view confirmed midline placement of Isle pins. Curettes were utilized to remove cartilage from the endplates. Discectomy was performed laterally up to the uncovertebral joints. Adequate decompression was performed, PLL was thinned out and resected. Foramina were decompressed without taking down the uncovertebral processes. Soft disc fragments were removed from the right Javier canal in adequate decompressi (more content not included)... Normal [facility] Hepatitis A AB, Totalon 12-11 HEPATITIS A,TOT Negative Normal Negative [facility] Comment on above: Result Comment: Comm ent: The HAV total antibody assay detects both IgG and IgM but does not differentiate between them. A negative result suggests susceptibility to infection. A positive result could be due to vaccination, previously resolved infection or active infection. Testing for HAV IgM should be performed if active HAV infection is suspected. [facility] offers profiles that will automatically reflex positive HAV total antibody results to IgM (e.g., panel #[id number] HAV Antibody w/ Rfx). Performed at: [address] [id number] Sql Developer: Dalton Ferris PhD, Phone: [phone] Performed By: #### M 100.651, BTSPAT, L3100.0300, L500.2500, L100.0100, L3890.6301, L3890.6006, L3890.6202 ####[facility] [id number] [place], [place], [address] MRSA/SAID NASAL SCREENon MRSA+SAID SCRN Reason for Exam: Surgery MRSA MRSA Negative S. AUREUS S. aureus Negative Normal [facility] Comment on above: Performed By: #### M 100.651, BTSPAT, L3100.0300, L500.2500, L100.0100, L3890.6301, L3890.6006, L3890.6202 ####[facility] [id number] [place], [place], [address] 12 Lead EKGon 12-21-2024 12 Lead EKG [facility] Cardiovascular Services [address] [place] [address] 12 Lead EKG 12/21/24 0441 MR#: [id number] Acct: [id number] Name: IMAN GREEN Rep #: [id number] : 1980 44 From: Parveen Pandey MD Attending Dr: Dr. Karlos Vazquez MD Status: PRE [facility] Ordering Dr: Karlos Vazquez MD Date: 12/21/24 Location: [facility] Sex: M C Admitted: Test Reason : PRE-OP Blood Pressure : */* mmHG Vent. Rate : 79 BPM Atrial Rate : 79 BPM P-R Int : 158 ms QRS Dur : 88 ms QT Int : 372 ms P-R-T Axes : 52 34 39 degrees QTcB Int : 426 ms Normal sinus rhythm Normal ECG Confirmed by HUYEN REYES, PARVEEN ([id number]), technical editor SARAH TIWARI ([id number]) on 12/21/2024 9:08:13 AM Referred By: Karlos Vazquez Confirmed By: PARVEEN PANDEY MD 12/21/24 0908 Date Parveen Pandey MD CC: AWNING MAKER-C Naysia Simmons; Dr. Karlos Vazquez MD Signed Normal [facility] Absolute lymphocyte countOrd ered By: Karlos Vazquez on 12-21-2024 Lymphocytes Auto (Unsp spec) [#/Vol] 2.70 10*3/uL 0.83-4.51 [facility] Absolute neutrophil countOrd ered By: Karlos Vazquez on 12-21-2024 Neutrophils (Bld) [#/Vol] 4.6 10*3/uL 2.0-7.7 [facility] Anion gap in Serum or Plasma Ordered By: Karlos Vazquez on 12-21-2024 Anion gap [Moles/Vol] 14 mmol/L 5-15 [facility] Automated lymphocyte count a s percentage of total leukocytesOrdered By: Karlos Vazquez on 12-21-2024 Lymphocytes/100 WBC Auto (Unsp spec) 33.5 % 19-41 [facility] BUN/creatinine ratioOrdered By: Karlos Vazquez on 12-21-2024 Urea nitrogen/Creatinine [Mass ratio] 22.4 mg/mg High 10- [facility] Basic Metabolic Profile (BMP )on 12-21-2024 BUN/CRE 22.4 RATIO High - [facility] Comment on above: Performed By: #### M 100.651, BTSPAT, L3100.0300, L500.2500, L100.0100, L3890.6301, L3890.6006, L3890.6202 ####[facility] [address] [place], [place], [id number] Calcium [Mass/Vol] 9.5 mg/dL Normal 7.6-11.0 [facility] Comment on above: Performed By: #### M 100.651, BTSPAT, L3100.0300, L500.2500, L100.0100, L3890.6301, L3890.6006, L3890.6202 ####[facility] [address] [place], [address] Chloride [Moles/Vol] 102 mmol/L Normal 98-108 [facility] Comment on above: Performed By: #### M 100.651, BTSPAT, L3100.0300, L500.2500, L100.0100, L3890.6301, L3890.6006, L3890.6202 ####[facility] [address] [place], [address] CO2 [Moles/Vol] 25.4 mmol/L Normal 21.0-32.0 [facility] Comment on above: Performed By: #### M 100.651, BTSPAT, L3100.0300, L500.2500, L100.0100, L3890.6301, L3890.6006, L3890.6202 ####[facility] [address] [place], [address] Creatinine [Mass/Vol] 0.96 mg/dL Normal 0.70-1.20 [facility] Comment on above: Performed By: #### M 100.651, BTSPAT, L3100.0300, L500.2500, L100.0100, L3890.6301, L3890.6006, L3890.6202 ####[facility] [address] [place], [address] GAP 14 Normal 5-15 [facility] Comment on above: Performed By: #### M 100.651, BTSPAT, L3100.0300, L500.2500, L100.0100, L3890.6301, L3890.6006, L3890.6202 ####[facility] [address] [place], [address] GFR/1.73 sq M.predicted among non-blacks MDRD (S/P/Bld) [Vol rate/Area] 100 mL/min/{1.73_m2} Normal >60 [facility] Comment on above: Result Comment: mL/m in/1.73m2 CKD-EPI Creatinine Equation (2020) Performed By: #### M 100.651, BTSPAT, L3100.0300, L500.2500, L100.0100, L3890.6301, L3890.6006, L3890.6202 ####[facility] [address] [place], [address] Glucose [Mass/Vol] 93 mg/dL Normal 70-99 [facility] Comment on above: Performed By: #### M 100.651, BTSPAT, L3100.0300, L500.2500, L100.0100, L3890.6301, L3890.6006, L3890.6202 ####[facility] [address] [place], [address] Potassium [Moles/Vol] 4.0 mmol/L Normal 3.3-5.1 [facility] Comment on above: Performed By: #### M 100.651, BTSPAT, L3100.0300, L500.2500, L100.0100, L3890.6301, L3890.6006, L3890.6202 ####[facility] [address] [place], [address] Sodium [Moles/Vol] 141 mmol/L Normal 133-145 [facility] Comment on above: Performed By: #### M 100.651, BTSPAT, L3100.0300, L500.2500, L100.0100, L3890.6301, L3890.6006, L3890.6202 ####[facility] [address] [place], [address] Urea nitrogen [Mass/Vol] 22 mg/dL High 4-19 [facility] Comment on above: Performed By: #### M 100.651, BTSPAT, L3100.0300, L500.2500, L100.0100, L3890.6301, L3890.6006, L3890.6202 ####[facility] [address] [place], [address] Basophil percentageOrdered B y: Karlos Vazquez on 12-21-2024 Basophils/100 WBC (Bld) 0.6 % 0-1 [facility] CBC W/Diff, Automatedon 12-11 Absolute Lymph 2.70 X10 3/uL Normal 0.83-4.51 [facility] Comment on above: Performed By: #### M 100.651, BTSPAT, L3100.0300, L500.2500, L100.0100, L3890.6301, L3890.6006, L3890.6202 ####[facility] [address] [place], [address] Absolute Neut 4.6 X10 3/uL Normal 2.0-7.7 [facility] Comment on above: Performed By: #### M 100.651, BTSPAT, L3100.0300, L500.2500, L100.0100, L3890.6301, L3890.6006, L3890.6202 ####[facility] [address] [place], [address] Basophils/100 WBC (Bld) 0.6 % Normal 0-1 [facility] Comment on above: Performed By: #### M 100.651, BTSPAT, L3100.0300, L500.2500, L100.0100, L3890.6301, L3890.6006, L3890.6202 ####[facility] [address] [place], [address] Eosinophils/100 WBC (Bld) 1.6 % Normal 0-5 [facility] Comment on above: Performed By: #### M 100.651, BTSPAT, L3100.0300, L500.2500, L100.0100, L3890.6301, L3890.6006, L3890.6202 ####[facility] [address] [place], [address] Erythrocyte distribution width (RBC) [Ratio] 12.6 % Normal 11.6-14.6 [facility] Comment on above: Performed By: #### M 100.651, BTSPAT, L3100.0300, L500.2500, L100.0100, L3890.6301, L3890.6006, L3890.6202 ####[facility] [address] [place], [address] Hematocrit (Bld) [Volume fraction] 44.9 % Normal 40-54 [facility] Comment on above: Performed By: #### M 100.651, BTSPAT, L3100.0300, L500.2500, L100.0100, L3890.6301, L3890.6006, L3890.6202 ####[facility] [address] [place], [address] Hemoglobin (Bld) [Mass/Vol] 14.9 g/dL Normal 13.0-16.5 [facility] Comment on above: Performed By: #### M 100.651, BTSPAT, L3100.0300, L500.2500, L100.0100, L3890.6301, L3890.6006, L3890.6202 ####[facility] [address] [place], [address] IG% 0.200 Normal 0.0-0.9 [facility] Comment on above: Result Comment: IG% - Immature Granulocytes (promyelocytes, myelocytes and metamyelocytes) > 1% indicates that a LEFT SHIFT is Present. Performed By: #### M 100.651, BTSPAT, L3100.0300, L500.2500, L100.0100, L3890.6301, L3890.6006, L3890.6202 ####[facility] [address] [place], [address] Lymphocytes/100 WBC (Bld) 33.5 % Normal 19-41 [facility] Comment on above: Performed By: #### M 100.651, BTSPAT, L3100.0300, L500.2500, L100.0100, L3890.6301, L3890.6006, L3890.6202 ####[facility] [address] [place], [address] MCH (RBC) [Entitic mass] 30.3 pg Normal 27.0-32.0 [facility] Comment on above: Performed By: #### M 100.651, BTSPAT, L3100.0300, L500.2500, L100.0100, L3890.6301, L3890.6006, L3890.6202 ####[facility] [address] [place], [address] MCHC (RBC) [Mass/Vol] 33.2 g/dL Normal 32-36 [facility] Comment on above: Performed By: #### M 100.651, BTSPAT, L3100.0300, L500.2500, L100.0100, L3890.6301, L3890.6006, L3890.6202 ####[facility] [address] [place], [address] MCV (RBC) [Entitic vol] 91.4 fL Normal 80-94 [facility] Comment on above: Performed By: #### M 100.651, BTSPAT, L3100.0300, L500.2500, L100.0100, L3890.6301, L3890.6006, L3890.6202 ####[facility] [address] [place], [address] Monocytes/100 WBC (Bld) 7.2 % Normal 0-10 [facility] Comment on above: Performed By: #### M 100.651, BTSPAT, L3100.0300, L500.2500, L100.0100, L3890.6301, L3890.6006, L3890.6202 ####[facility] [address] [place], [address] Neutrophils/100 WBC (Bld) 56.9 % Normal 47-70 [facility] Comment on above: Performed By: #### M 100.651, BTSPAT, L3100.0300, L500.2500, L100.0100, L3890.6301, L3890.6006, L3890.6202 ####[facility] [address] [place], [address] Nucleated RBC (Bld) [#/Vol] 0 10*3/uL Normal 0-5 [facility] Comment on above: Performed By: #### M 100.651, BTSPAT, L3100.0300, L500.2500, L100.0100, L3890.6301, L3890.6006, L3890.6202 ####[facility] [address] [place], [address] Platelet mean volume (Bld) [Entitic vol] 10.0 fL Normal 6.2-12.0 [facility] Comment on above: Performed By: #### M 100.651, BTSPAT, L3100.0300, L500.2500, L100.0100, L3890.6301, L3890.6006, L3890.6202 ####[facility] [address] [place], [address] Platelets (Bld) [#/Vol] 236 10*3/uL Normal 150-450 [facility] Comment on above: Performed By: #### M 100.651, BTSPAT, L3100.0300, L500.2500, L100.0100, L3890.6301, L3890.6006, L3890.6202 ####[facility] [address] [place], [place], [phone]) RBC (Bld) [#/Vol] 4.91 10*6/uL Normal 4.6-6.2 [facility] Comment on above: Performed By: #### M 100.651, BTSPAT, L3100.0300, L500.2500, L100.0100, L3890.6301, L3890.6006, L3890.6202 ####[facility] [address] [place], [place], [phone](130) RDW SD 42.1 fl Normal 35.1-43.9 [facility] Comment on above: Performed By: #### M 100.651, BTSPAT, L3100.0300, L500.2500, L100.0100, L3890.6301, L3890.6006, L3890.6202 ####[facility] [address] [place], [place], [phone](250) WBC (Bld) [#/Vol] 8.1 10*3/uL Normal 4.4-11.0 [facility] Comment on above: Performed By: #### M 100.651, BTSPAT, L3100.0300, L500.2500, L100.0100, L3890.6301, L3890.6006, L3890.6202 ####[facility] [address] [place], [place], [phone](015) Carbon dioxide, total [Moles /volume] in Central venous bloodOrdered By: Karlos Vazquez on 12-21-2024 CO2 [Moles/Vol] 25.4 mmol/L 21.0-32.0 [facility] Chloride assayOrdered By: Pam Vazquez on 12-21-2024 Chloride [Moles/Vol] 102 mmol/L 98-108 [facility] Eosinophil percentageOrdered By: Karlos Vazquez on 12-21-2024 Eosinophils/100 WBC (Bld) 1.6 % 0-5 [facility] Erythrocyte distribution wid th (RBC) [Ratio]Ordered By: Karlos Vazquez on 12-21-2024 Erythrocyte distribution width (RBC) [Entitic vol] 42.1 fL 35.1-43.9 [facility] Erythrocyte distribution wid th ratioOrdered By: Karlos Vazquez on 12-21-2024 Erythrocyte distribution width (RBC) [Ratio] 12.6 % 11.6-14.6 [facility] Erythrocyte distribution wid th standard deviationOrdered By: Karlos Vazquez on 12-21-2024 Erythrocyte distribution width (RBC) [Ratio] 42.1 fl 35.1-43.9 [facility] GFR/1.73 sq M.predicted annabelle g non-blacks MDRD (S/P/Bld) [Vol rate/Area]Ordered By: Karlos Vazquez on 12-21-2024 Estimated GFR (MDRD) Non-Af Amer 100 >60 [facility] Comment on above: mL/min/1.73m2 CKD-EP I Creatinine Equation (2020) Glomerular filtration rate ( GFR) estimation/1.73 sq m using serum, plasma, or whole bOrdered By: Karlos Vazquez on 12-21-2024 GFR/1.73 sq M.predicted among non-blacks MDRD (S/P/Bld) [Vol rate/Area] 100 mL/min/{1.73_m2} >60 [facility] Comment on above: mL/min/1.73m2 CKD-EP I Creatinine Equation (2020) HBV surface Ab Ql (S)Ordered By: Karlos Vazquez on 12-21-2024 Hepatitis B Surface Antibody REAC [facility] Comment on above: <8.5 mIU/mL: Non-[place] ctive8.5<= x <11.5 mIU/mL: Indeterminate>=11.5 mIU/mL: Reactive Non Reactive: Inconsistent with immunity less than <10 mIU/mL Reactive: Consistent with immunity greater than or equal to 10 mIU/mL HIVon 12-21-2024 HIV Non-Reactive Normal Nonreactive [facility] Comment on above: Result Comment: Non- Reactive Reactive Repeatedly reactive samples must be confirmed according to CDC recommended confirmatory algorithms. The subresults for either HIVAG or AHIV can be used as an aid in the selection of the confirmation algorithm for reactive samples. Send out specimens with Reactive results to [facility] for confirmation. Order the HIV antibody detection and differentiation: lc#[id number] Performed By: #### M 100.651, BTSPAT, L3100.0300, L500.2500, L100.0100, L3890.6301, L3890.6006, L3890.6202 ####[facility] [address] [place], [address] Hematocrit Auto (Bld) [Volum e fraction]Ordered By: Karlos Vazquez on 12-21-2024 Hematocrit (Bld) [Volume fraction] 44.9 % 40-54 [facility] Hemoglobin measurementOrdere d By: Karlos Vazquez on 12-21-2024 Hemoglobin (Bld) [Mass/Vol] 14.9 g/dL 13.0-16.5 [facility] Hepatitis A virus total anti body assayOrdered By: Karlosrohan Vazquez on 12-21-2024 Hepatitis A Antibody Total Negative Negative [facility] Comment on above: Comment: The HAV tot al antibody assay detects both IgG andIgM but does not differentiate between them. A negativeresult suggests susceptibility to infection. A positiveresult could be due to vaccination, previously resolvedinfection or active infection. Testing for HAV IgM shouldbe performed if active HAV infection is suspected. [facility]ers profiles that will automatically reflex positive HAVtotal antibody results to IgM (e.g., panel #[id number] HAVAntibody w/ Rfx).Performed at: [address] [id number] Director: Dalton Ferris PhD, Phone: [phone] Hepatitis B Surface Antibody on 12-21-2024 HEP B Surf Ab REAC Normal [facility] Comment on above: Result Comment: <8.5 mIU/mL: Non-Reactive 8.5<= x <11.5 mIU/mL: Indeterminate >=11.5 mIU/mL: Reactive Non Reactive: Inconsistent with immunity less than <10 mIU/mL Reactive: Consistent with immunity greater than or equal to 10 mIU/mL Performed By: #### M 100.651, BTSPAT, L3100.0300, L500.2500, L100.0100, L3890.6301, L3890.6006, L3890.6202 ####[facility] [address] [place], [place], [id number] Hepatitis C Antibodyon 12-21 Hepatitis C Ab Non-Reactive Normal Nonreactive [facility] Comment on above: Result Comment: Reac tive: Presumptive evidence of antibodies to HCV. Follow CDC recommendations for supplemental testing. Non-Reactive: Antibodies to HCV were not detected; does not exclude the possibility of exposure to HCV Reactive Results are presumptive evidence of antibodies to HCV. Follow CDC recommendations for supplemental testing. Order confirmation testing: HCV Quant by PCR testing - HCVPCR lc#[id number] Non Reactive: < 0.8 Equivocal: >/= 0.8 to < 1.0 Reactive: >/= 1.0 The CDC requires that a reactive/equivocal HCV antibody result be sent out for confirmation. HCV Quant by PCR testing. Performed By: #### M 100.651, BTSPAT, L3100.0300, L500.2500, L100.0100, L3890.6301, L3890.6006, L3890.6202 ####[facility] [address] [place], [place], [id number] Hepatitis C antibodyOrdered By: Karlos Vazquez on 12-21-2024 Hepatitis C Antibody Non-Reactive Nonreactive [facility] Comment on above: Reactive: Presumptiv e evidence of antibodies to HCV. Follow CDC recommendations for supplemental testing.Non-Reactive: Antibodies to HCV were not detected; does not exclude the possibility of exposure to HCVReactive Results are presumptive evidence of antibodies to HCV. Follow CDC recommendations for supplemental testing.Order confirmation testing: HCV Quant by PCR testing - HCVPCR lc#[id number] Non Reactive: < 0.8 Equivocal: >/= 0.8 to < 1.0 Reactive: >/= 1.0The CDC requires that a reactive/equivocal HCV antibody result be sent out for confirmation. HCV Quant by PCR testing. Immature granulocytes/100 WB C Auto (Bld)Ordered By: Karlos Vazquez on 12-21-2024 Immature granulocytes/100 WBC (Bld) 0.200 % 0.0-0.9 [facility] Comment on above: IG% - Immature Granu locytes (promyelocytes, myelocytes and metamyelocytes) > 1% indicates that a LEFT SHIFT is Present. Lymphocytes Auto (Unsp spec) [#/Vol]Ordered By: Karlos Vazquez on 12-21-2024 Lymphocytes (Bld) [#/Vol] 2.70 10*3/uL 0.83-4.51 [facility] Lymphocytes/100 WBC Auto (Un sp spec)Ordered By: Karlos Vazquez on 12-21-2024 Lymphocytes/100 WBC (Bld) 33.5 % 19-41 [facility] MCV (mean corpuscular volume ) determinationOrdered By: Karlos Vazquez on 12-21-2024 MCV (RBC) [Entitic vol] 91.4 fL 80-94 [facility] MRSA screenOrdered By: Eric Vazquez on 12-21-2024 MRSA DNA DEYVI+probe Ql (Unsp spec) [facility] Nasal Screen MRSA/MSSA [facility] Magnesiumon 12-21-2024 Magnesium [Mass/Vol] 2.2 mg/dL Normal 1.5-2.2 [facility] Comment on above: Performed By: #### L 501.5200 ####[facility] [address] [place], [place], [id number] Magnesium (Unsp spec) [Mass/ Vol]Ordered By: Jeramy cOhoa on 12-21-2024 Magnesium [Mass/Vol] 2.2 mg/dL 1.5-2.2 [facility] Magnesium measurement (mass/ volume)Ordered By: Jeramy Ochoa on 12-21-2024 Magnesium (Unsp spec) [Mass/Vol] 2.2 mg/dL 1.5-2.2 [facility] Mean corpuscular hemoglobin (MCH) determinationOrdered By: Karlos Vazquez on 12-21-2024 MCH (RBC) [Entitic mass] 30.3 pg 27.0-32.0 [facility] Mean corpuscular hemoglobin concentration (MCHC) determinationOrdered By: Karlos Vazquez on 12-21-2024 MCHC (RBC) [Mass/Vol] 33.2 g/dL 32-36 [facility] Mean platelet volume determi nationOrdered By: Karlos Vazquez on 12-21-2024 Platelet mean volume (Bld) [Entitic vol] 10.0 fL 6.2-12.0 [facility] Monocyte percentageOrdered B y: Karlos Vazquez on 12-21-2024 Monocytes/100 WBC (Bld) 7.2 % 0-10 [facility] Neutrophil percentageOrdered By: Karlos Vazquez on 12-21-2024 Neutrophils/100 WBC (Bld) 56.9 % 47-70 [facility] No Panel InformationOrdered By: Karlos Vazquez on 12-21-2024 HIV (1&2) Antibody Non-Reactive Nonreactive [facility] Comment on above: Non-ReactiveReactive Repeatedly reactive samples must be confirmed according to CDC recommended confirmatory algorithms. The subresults for either HIVAG or AHIV can be used as an aid in the selection of the confirmation algorithm for reactive samples.Send out specimens with Reactive results to [facility] for confirmation.Order the HIV antibody detection and differentiation: #[id number] Nucleated red blood cell per centageOrdered By: Karlos Vazquez on 12-21-2024 Nucleated RBC/100 WBC (Bld) [Ratio] 0 % 0-5 [facility] Orthopedic Visit Reporton Orthopedic Visit Report [facility] [address] [place] [address] OFFICE VISIT Date of Service: 12/21/24 MR#: [id number] Acct: [id number] Name: IMAN GREEN Rep #: [id number] : 1980 Provider: Dr. Karlos Vazquez MD Age/Sex: 44/M Location: [facility] Status: Signed Intake Vital Signs 11/21/24 14:38 Height 5 ft 9 in Intake Visit Reasons: cervical spine Allergies No Known Allergies Allergy (Verified 12/21/24 08:38) Medications ???Medication ???Instructions ???Recorded ???Confirmed ???Type TENS unit electrodes ([employer] 11/08/24 12/21/24 History Tens Electrode pads) acetaminophen 650 mg 1,300 mg PO QDAY PRN pain 11/08/24 12/21/24 History tablet,extended release ibuprofen 200 mg capsule 800 mg PO TID PRN pain 11/08/24 History multivitamin 1 tab PO QDAY 11/08/24 12/21/24 Hi story baclofen 5 mg tablet 5 mg PO BID PRN pain 11/21/2412/11 History duloxetine 30 mg capsule,delayed 30 mg PO DAILY 11/29/24 12/21/24 H istory release gabapentin 300 mg capsule 300 mg PO TID PRN pain 12/18/24 History PFSH Medical History Wears glasses History of steroid therapy Injury of head and neck Gastric reflux Former smoker History of echocardiogram Cardiology follow-up encounter History of irregular heartbeat Left shoulder pain Knee pain Back pain Severe headache Arthritis Hypertension Surgical History History of fusion of talotibial joint and subtalar joint surgery of tibia H/O cardiac radiofrequency ablation Optional surgery Family History Father Diabetes Social History household members: spouse and children Smoking Status: Former smoker quit date: 09/12/00 alcohol intake: current alcohol intake frequency: holidays/special occasions only substance use type: does not use HPI cervical spine Details: This documentation accurately reflects the service provided and the decisions made by me, Dr. Karlos Vazquez MD 12/21/24 0829. Part of today???s visit was documented by Sharon SCHULZ, acting as scribe. IMAN GREEN is a 44 year old M here today for pre-op cervical spine dos: 01/01/25. Patient is here for a Pre op visit. He states that the pain is really bad today. Patient has a lot of nerve pain today. He has been trying to not do a whole lot. Patient has neck pain and headaches. I examined the patient today. The left hand is a little weak. Patient states that he has had some balance issues. I went over the MRI with the patient today. I explained to the patient that he would do a fusion now, he would have to do another fusion later. I explained to the patient about the future operation that we would do. Patient had an ablation 10 years ago. Patient states that his EKG's have been normal. I stated to the patient about what would happen after the surgery. The first 4 days patient will have problems swallowing. I advise patient to eat soft foods. I advise patient to have a follow up post op appointment after the surgery. I explained to the patient would could happen after the surgery, so he is aware. After 3 months patient has no restrictions. I advise patient no excessive lifting or moving once the collar is off. I advise that patient has his nuck a little bit higher for a week. The suregry takes 2 hours to do. 11/29/24: IMAN GREEN is a 44 year old M here today for cervical spine MRI review. Patient rates his pain a 2-3/10 today. Patient continues with physical therapy and states it is going well. He states the general cervical spine pain and range of motion is getting somewhat better. He states the radiating pain that is in the left arm is pretty much the same. Patient states he takes Ibuprofen PRN for the pain. A month of dexterity issues but pain has been going on for the last 6 months. Patient is left hand dominant. 11/21/2024: IMAN GREEN is a 44 year old M here today for cervical spine pain. Last June he started having a lot of pain, but kept working with it. Three weeks ago he couldn't move his neck, he had to call off work for 2 days because he was in pain. Patient feels like he loses his strength in his arms. Hit hurts mainly in th upper left quadrant. He got xrays done today. Saw Dr. Deutsch a week for injection in the shoulder, it didn't help. The injection made the pain worse. Tried doing heat, and it made it worse. Patient is doing physical therapy, he stated that it is going well for him. No benefit from chiropractor, flare started in June he was being very active at that time. Left sided neck pain down the back of his left arm and stops at the f (more content not included)... Normal [facility] Platelet countOrdered By: Pam Vazquez on 12-21-2024 Platelets (Bld) [#/Vol] 236 10*3/uL 150-450 [facility] Potassium (Unsp spec) [Mass/ Vol]Ordered By: Karlos Vazquez on 12-21-2024 Potassium [Moles/Vol] 4.0 mmol/L 3.3-5.1 [facility] Potassium measurement (mass/ volume)Ordered By: Karlos Vazquez on 12-21-2024 Potassium (Unsp spec) [Mass/Vol] 4.0 mmol/L 3.3-5.1 [facility] RBC Auto (Bld) [#/Vol]Ordere d By: Karlos Vazquez on 12-21-2024 RBC (Bld) [#/Vol] 4.91 10*6/uL 4.6-6.2 [facility] Serum creatinine measurement (mass/volume)Ordered By: Karlos Vazquez on 12-21-2024 Creatinine [Mass/Vol] 0.96 mg/dL 0.70-1.20 [facility] Serum glucose measurement (m ass/volume)Ordered By: Karlos Vazquez on 12-21-2024 Glucose [Mass/Vol] 93 mg/dL 70-99 [facility] Serum hepatitis B virus surf paolo antibody detectionOrdered By: Karlos Vazquez on 12-21-2024 HBV surface Ab Ql (S) REAC [facility] Comment on above: <8.5 mIU/mL: Non-Lianne ctive8.5<= x <11.5 mIU/mL: Indeterminate>=11.5 mIU/mL: Reactive Non Reactive: Inconsistent with immunity less than <10 mIU/mL Reactive: Consistent with immunity greater than or equal to 10 mIU/mL Serum or plasma calcium lee urement (mass/volume)Ordered By: Karlos Vazquez on 12-21-2024 Calcium [Mass/Vol] 9.5 mg/dL 7.6-11.0 [facility] Serum or plasma urea nitroge n measurement (mass/volume)Ordered By: Karlos Vazquez on 04-11-2025 Urea nitrogen [Mass/Vol] 22 mg/dL High 4-19 [facility] Sodium levelOrdered By: Miguel Vazquez on 12-21-2024 Sodium [Moles/Vol] 141 mmol/L 133-145 [facility] Type AND Screen - PAT ONLYon 12-21-2024 ABO and Rh group Nom (Bld) Blood group A Rh(D) negative Normal [facility] Comment on above: Order Comment: Surge ry Date: 01/01/25Reason for Laboratory Test [id number] Disc Arthroplasty C4-5 and C5-6 Performed By: #### M 100.651, BTSPAT, L3100.0300, L500.2500, L100.0100, L3890.6301, L3890.6006, L3890.6202 ####[facility] [address] [place], [place], [id number] White blood cell (WBC) count Ordered By: Karlos Vazquez on 12-21-2024 WBC (Bld) [#/Vol] 8.1 10*3/uL 4.4-11.0 [facility] PT D/C Summary (1)on 025 PT D/C Summary (1) [facility] Physical Therapy [address] [place] [address] / REHABILITATION SERVICES DISCHARGE SUMMARY MR#: [id number] Acct: [id number] Name: IMAN GREEN Rep #: [id number] : 1980 44 From: Jaime Olivia DPT, OCS, CSCS Referring Dr.: Dr. Mat Deutsch MD Status: R EG RCR Insurance: [facility] [employer]Please/[facility] [employer]ANCE Discharge Summary D/C summary: It has been my pleasure to treat IMAN GREEN referred by Dr. Mat Deutsch MD, with the diagnosis of L shoulder pain for a total of 7 visit(s). Discharge Date: 12/07/24 Please see the following information for a summary of their discharge status. Subjective Subjective: Strength is better but ROM in L shoulder is stiff. 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 Recommended disc replacement. Pain in L shoulder is different, tingling is gone, pain lateral upper arm and into forearm 5/10 at times with work. Worse on feet at work. Has nerve pain meeds daily which helps but does not last. Activities : avoids lifting and reaching. Avoids yard work due to fear. Sleep is still interrupted at times. Pain L scapula/shoulder: Pain Intensity (Out of 10): 3 Overall Improvement % Improvement: 70 Objective Objective/Function: Full cervical ROM without pain, 8- extension, 75 B rotations. L shoulder slightly tighter in flexion vs R at 160 vs 150. weakness evident in tricep on R and ext rotation but overall funcitonal. Improving symptoms and willing to continue on his own at home vs more therapy. Will f/u with Dr. Vazquez in a few weeks for possible surgery info. Goals Goal 1:: Pain in neck and shoulder 90% better and 1/10 at worst Goal Progress: 70% Goal 2:: Sleep without waking at night due to pain Goal Progress: Not Progressing Goal 3:: Patient will return to work without worseening pain in neck/shoulder Goal Progress: Not Progressing Goal 4:: quickdash score 15 or bettr Goal Progress: Progressing Goal 5:: I appropriate HEP to limit future prob lems Goal Progress: Goal Met Goal 6:: symmetircal ext rotation strngth, full elevation ROM, full neck ROM all without pain Goal Progress: Progressing Plan Plan: d/c to HEP D/C Information Discharge Comments: To see spinal surgeon in 2-3 weeks and continue HEP fo neck and shoulder ROM and strengthening via HEP in the meantime. d/c sentence: If there are questions or concerns regarding this patient's physical therapy, please feel free to call me at [phone]. Thank you for the referral of this patient. Sincerely, Jaime Olivia, DPT, OCS, CSCS Balance/Gait/Function al tests Balance/Special Test Scores Quick DASH Score: 31.8175 Improvement % Improvement: 70 12/07/24 [id number] CC: [employer]-C Nyasia Simmons; Dr. Mat Deutsch MD EBG Signed Normal [facility] Orthopedic Visit Reporton Orthopedic Visit Report [facility] [address] [place] [address] [address] [place] [address] OFFICE VISIT Date of Service: 11/29/24 MR#: [id number] Acct: [id number] Name: IMAN GREEN Rep #: [id number] : 1980 Provider: MYKEL Harvey Age/Sex: 44/M Location: [facility] Status: Signed Intake Vital Signs 11/21/24 14:38 Height 5 ft 9 in Intake Visit Reasons: CERVICAL SPINE Chief Complaint: MRI Review Accompanied by: Is patient in pain?: Yes Pain scale (1-10): 3 Allergies No Known Allergies Allergy (Verified 11/29/24 11:36) Medications ???Medication ???Instructions ???Recorded ???Confirmed ???Type TENS unit electrodes (Pro Comfort 11/08/24 11/29/24 History Tens Electrode pads) acetaminophen 650 mg 1,300 mg PO QDAY PRN 11/08/2411/11 History tablet,extended release diclofenac sodium 1 % topical gel 2 g topical ONCE PRN 11/08/24 History (Arthritis Pain (diclofenac)) ibuprofen 200 mg capsule 800 mg PO TID PRN 11/08/24 5 History menthol 4 % topical gel (Biofreeze 1 applic topical TID PRN 5 11/29/24 History (menthol)) multivitamin 1 tab PO QDAY 11/08/24 11/29/24 Hi story baclofen 5 mg tablet 5 mg PO BID PRN 11/21/24 11/29/24 History duloxetine 30 mg capsule,delayed mg PO 11/29/24 11/29/24 History release PFSH Medical History Left shoulder pain Knee pain Back pain Severe headache Arthritis Hypertension Surgical History History of fusion of talotibial joint and subtalar joint surgery of tibia H/O cardiac radiofrequency ablation Optional surgery Family History Father Diabetes Social History household members: spouse and children Smoking Status: Former smoker quit date: 09/12/00 alcohol intake: current alcohol intake frequency: holidays/special occasions only substance use type: does not use HPI CERVICAL SPINE Details: This documentation accurately reflects the service provided and the decisions made by me, MYKEL Harvey 11/29/24 1133. Part of today???s visit was documented by Kathy Ramirez ATC, acting as scribe. IMAN GREEN is a 44 year old M here today for cervical spine MRI review. Patient rates his pain a 2-3/10 today. Patient continues with physical therapy and states it is going well. He states the general cervical spine pain and range of motion is getting somewhat better. He states the radiating pain that is in the left arm is pretty much the same. Patient states he takes Ibuprofen PRN for the pain. A month of dexterity issues but pain has been going on for the last 6 months. Patient is left hand dominant. 11/21/2024: IMAN GREEN is a 44 year old M here today for cervical spine pain. Last June he started having a lot of pain, but kept working with it. Three weeks ago he couldn't move his neck, he had to call off work for 2 days because he was in pain. Patient feels like he loses his strength in his arms. Hit hurts mainly in th upper left quadrant. He got xrays done today. Saw Dr. Deutsch a week for injection in the shoulder, it didn't help. The injection made the pain worse. Tried doing heat, and it made it worse. Patient is doing physical therapy, he stated that it is going well for him. No benefit from chiropractor, flare started in June he was being very active at that time. Left sided neck pain down the back of his left arm and stops at the forearm. He denies pain that extends into his hand and fingers. He says he will occasionally get a shooting pain into his left armpit however this is infrequent. He does report dexterity changes and has dropped paper, tooth brush, and water bottle out of his left hand. Says that this has been worsening over the last several months. Ortho Exam General General: Yes no acute distress Neurologic: Yes alert and Yes oriented x3 Spine SPINE TESTING CERVICAL THORACIC LUMBAR Musculoskeletal Strength 0=absent - 5=normal Details: Neurological exam of the upper extremities shows 4+ power left wrist extension and triceps all other muscle groups show 5 power. Normal sensation across all dermatomes. Brisk knee reflexes. Dominique's negative. There is mild midline and left-sided paraspinal tenderness. Romberg's negative. Single leg stand showed good balance. Coding Level of Care Code Off vis,est,level 4 Diagnoses Cervical myelopathy G95.9 Assessment and Plan Assessment and Plan (1) Cervical myelopathy: Status: Acute Plan Again reviewed prior imaging shows a relatively normal cervical spine there is a slight straightening of the normal cervical lordosis and a mild degenerati (more content not included)... Normal [facility] Magnetic resonance imaging r eportOrdered By: Jesus Wade on 11-27-2024 Study report [facility] Imaging Services [address] [place] [address] Spine Cervical (Routine) MR#: [id number] Acct: [id number] Name: IMAN GREEN JADYN Rep #: [id number] : 1980 M 44 From: Shelby Wade MD PCP: GLO Donnelly Status: REG CLI Study:Spine Cervical (Routine) Date of Exam: 11/27/24 Exam# [id number] Ordering Dr: Lenny Perez PROCEDURE: SPINE CERVICAL (ROUTINE) 11/27/2024 REASON FOR EXAM: PAIN TECHNIQUE: Cervical spine MRI without intravenous gadolinium-based contrast. Coronal and Sagittal reconstruction series were provided. COMPARISON: Cervical spine radiograph 11/21/2024 FINDINGS: Vertebrae: Vertebral body heights and disc spaces are within normal limits. Alignment: Straightening of the cervical lordosis. Spinal Cord: Cervical spinal cord is of normal size and signal intensities. Structures at the foramen magnum are unremarkable. C2-3: Disc osteophyte complex, dcbp-zeyjqso-tbpi-rig ht uncinate hypertrophy. Nosignificant canal stenosis. Moderate left neural foraminal narrowing. Right neural foramen is patent. C3-4: Small disc osteophyte complex and uncinate hypertrophy with mild facet degenerative changes. No significant canal stenosis. Mild left neural foraminal narrowing. Right neural foramen is patent. C4-5: Disc osteophyte complex, pjpqa-rskewrj-nfdm-le ft uncinate hypertrophy and facet degenerative changes. Mild canal stenosis and mild bilateral neural foraminal narrowing. C5-6: Disc osteophyte complex, ldik-vblcbqd-nnwu-rig ht uncinate hypertrophy and facet degenerative changes with severe canal stenosis. Severe left and moderate right neural foraminal narrowing. C6-7: Disc osteophyte complex, uncinate hypertrophy and facet degenerative changes. No significant canal stenosis. Moderate left and mild right neural foraminal narrowing. C7-T1: Tiny disc osteophyte complex and mild facet degenerative changes. No significant canal stenosis or neural foraminal narrowing. . MRI/Spine Cervical (Routine) IMPRESSION: No acute fracture or traumatic subluxation. Multilevel degenerative changes most prominent at C5-C6 with up to severe canal stenosis and neural foraminal narrowing. Reading [facility] CC: GLO Simmons; MYKEL Harvey ~ Chief Service Dispatcher: Signed [facility] Spine Cervical (Routine)on 0 11-27-2024 Spine Cervical (Routine) [facility] Imaging Services [address] [place] [id number] Spine Cervical (Routine) MR#: [id number] Acct: [id number] Name: IMAN GREEN Rep #: [id number] : 1980 44 From: Jesus barney MD PCP: GLO Donnelly Status: REG CLI Study: Spine Cervical (Routine) Date of Exam: Exam# [id number] Ordering Dr: Mary Perez PROCEDURE: SPINE CERVICAL (ROUTINE) 11/27/2024 REASON FOR EXAM: PAIN TECHNIQUE: Cervical spine MRI without intravenous gadolinium-based contrast. Coronal and Sagittal reconstruction series were provided. COMPARISON: Cervical spine radiograph 11/21/2024 FINDINGS: Vertebrae: Vertebral body heights and disc spaces are within normal limits. Alignment: Straightening of the cervical lordosis. Spinal Cord: Cervical spinal cord is of normal size and signal intensities. Structures at the foramen magnum are unremarkable. C2-3: Disc osteophyte complex, otip-qqnqbun-lzol-rig ht uncinate hypertrophy. No significant canal stenosis. Moderate left neural foraminal narrowing. Right neural foramen is patent. C3-4: Small disc osteophyte complex and uncinate hypertrophy with mild facet degenerative changes. No significant canal stenosis. Mild left neural foraminal narrowing. Right neural foramen is patent. C4-5: Disc osteophyte complex, tnlmg-tzbhsjn-msun-le ft uncinate hypertrophy and facet degenerative changes. Mild canal stenosis and mild bilateral neural foraminal narrowing. C5-6: Disc osteophyte complex, otlb-ijhqihv-yeby-rig ht uncinate hypertrophy and facet degenerative changes with severe canal stenosis. Severe left and moderate right neural foraminal narrowing. C6-7: Disc osteophyte complex, uncinate hypertrophy and facet degenerative changes. No significant canal stenosis. Moderate left and mild right neural foraminal narrowing. C7-T1: Tiny disc osteophyte complex and mild facet degenerative changes. No significant canal stenosis or neural foraminal narrowing. . MRI/Spine Cervical (Routine) IMPRESSION: No acute fracture or traumatic subluxation. Multilevel degenerative changes most prominent at C5-C6 with up to severe canal stenosis and neural foraminal narrowing. Reading Location: [facility] CC: GLO Simmons; MYKEL Harvey Chief Service Dispatcher: Signed Normal [facility] Cerv Spine 2 or 3 Viewson Cerv Spine 2 or 3 Views [facility] Imaging Services [address] [place] [id number] Cerv Spine 2 or 3 Views MR#: [id number] Acct: [id number] Name: IMAN GREEN Rep #: [id number] : 1980 M 44 From: Patrick Zuñiga MD PCP: GLO Donnelly Status: REG CLI Study: Cerv Spine 2 or 3 Views Date of Exam: 11/21/24 Exam# [id number] Ordering Dr: Mary Perez EXAM: XR Cervical Spine, 2 or 3 Views CLINICAL INDICATION: PAIN TECHNIQUE: Frontal and lateral views of the cervical spine. COMPARISON: No relevant prior studies available. FINDINGS: VERTEBRAE: Unremarkable. Normal alignment. No acute fracture. DISC SPACES: No acute findings. No significant narrowing. SOFT TISSUES: Unremarkable. OTHER FINDINGS: No significant dynamic instability. RAD/Cerv Spine 2 or 3 Views IMPRESSION: 1. No acute fracture. 2. No significant dynamic instability. Reading [facility] CC: GLO Simmons; MYKEL Harvey Chief Service Dispatcher: Signed Normal [facility] Orthopedic Visit Reporton Orthopedic Visit Report [facility] [address] [place] [address] [address] [place] [address] OFFICE VISIT Date of Service: 11/21/24 MR#: [id number] Acct: [id number] Name: IMAN GREEN Rep #: [id number] : 1980 Provider: MYKEL Harvey Age/Sex: 44/M Location: [facility] Status: Signed Intake Vital Signs 10/30/24 16:10 11/21/24 14:38 Height 5 ft 9 in 5 ft 9 in Intake Visit Reasons: CERVICAL SPINE Chief Complaint: Cervical spine pain Accompanied by: Is patient in pain?: Yes Pain scale (1-10): 3 Allergies No Known Allergies Allergy (Verified 11/21/24 14:39) Medications ???Medication ???Instructions ???Recorded ???Confirmed ???Type TENS unit electrodes (Pro Comfort 11/08/24 11/21/24 History Tens Electrode pads) acetaminophen 650 mg 1,300 mg PO QDAY PRN 11/08/2411/10 History tablet,extended release diclofenac sodium 1 % topical gel 2 g topical ONCE PRN 11/08/2409/05 History (Arthritis Pain (diclofenac)) ibuprofen 200 mg capsule 800 mg PO TID PRN 11/08/24 5 History menthol 4 % topical gel (Biofreeze 1 applic topical TID PRN 5 11/21/24 History (menthol)) multivitamin 1 tab PO QDAY 11/08/24 11/21/24 Hi story baclofen 5 mg tablet 5 mg PO BID PRN 11/21/24 11/21/24 History Have you fallen in the past year?: No [facility] Medical History Left shoulder pain Knee pain Back pain Severe headache Arthritis Hypertension Surgical History History of fusion of talotibial joint and subtalar joint surgery of tibia H/O cardiac radiofrequency ablation Optional surgery Family History Father Diabetes Social History household members: spouse and children Smoking Status: Former smoker quit date: 09/12/00 alcohol intake: current alcohol intake frequency: holidays/special occasions only substance use type: does not use HPI CERVICAL SPINE Details: This documentation accurately reflects the service provided and the decisions made by me, MYKEL Harvey 11/21/24 7334. Part of today???s visit was documented by Shane Ramirez MA, acting as scribe. IMAN GREEN is a 44 year old M here today for cervical spine pain. Last June he started having a lot of pain, but kept working with it. Three weeks ago he couldn't move his neck, he had to call off work for 2 days because he was in pain. Patient feels like he loses his strength in his arms. Hit hurts mainly in th upper left quadrant. He got xrays done today. Saw Dr. Deutsch a week for injection in the shoulder, it didn't help. The injection made the pain worse. Tried doing heat, and it made it worse. Patient is doing physical therapy, he stated that it is going well for him. No benefit from chiropractor, flare started in June he was being very active at that time. Left sided neck pain down the back of his left arm and stops at the forearm. He denies pain that extends into his hand and fingers. He says he will occasionally get a shooting pain into his left armpit however this is infrequent. He does report dexterity changes and has dropped paper, tooth brush, and water bottle out of his left hand. Says that this has been worsening over the last several months. 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 Normal sensation across all dermatomes. Left knee reflex was brisk. Dominique's negative. There is mild midline and left-sided paraspinal tenderness. Romberg's negative. Single leg stand showed good balance. Coding Level of Care Code Off vis,est,level 4 Diagnoses Cervical myelopathy G95.9 Assessment and Plan Assessment and Plan (1) Cervical myelopathy: Status: Acute Orders: Orders Cerv Spine 2 or 3 Views Today M54.2 - Cervicalgia Spine Cervical (Routine) Today G95.9 - Disease of spinal cord, unspecified Plan Obtained and reviewed flexion/extension x-rays in the clinic. Independent interpretation of the x- rays was performed. Also reviewed prior AP and lateral cervical x-rays. Imaging shows a relatively normal cervical spine there is a slight straightening of the normal cervical lordosis and a mild degenerative changes at C6-7. No instability. No fracture. No MRI. Explained imaging findings in detail. At this time due to the patient's worsening dexterity iss (more content not included)... Normal [facility] Inital Evaluation (1) - PTon 11-08-2024 Inital Evaluation (1) - PT [facility] Physical Therapy [facility] [place] [address] / REHABILITATION SERVICES INITIAL EVALUATION MR#: [id number] Acct: [id number] Name: IMAN GREEN Rep #: [id number] : 1980 44 From: Jaime Olivia DPT, OCS, CSCS Referring Dr.: Dr. Mat Deutsch MD Status: R EG RCR Insurance: [employer] [employer] INSURANCE Patient's Visit Information Visit Information Visit Information: IMAN GREEN is a 44 year old M referred to Physical Therapy by Dr. Mat Deutsch MD with a diagnosis of L shoulder pain. Date of Evaluation: 11/08/24 Physical Therapist: Jaime Olivia DPT, OCS, CSCS Visit Plan Frequency: 2x /Week Duration: 4-6 Weeks Plan: 2x/week for 4-6 weeks seems more cervical to this therapist... IE HEP cervical ret ext 10x every two hours and postural correction to bgin in two days after injection kicks in. Please treat with manual therapy for ext upper thoracic and lower cervical spine, progression of ext ROM excercises and neck ROM. strengthening of posture and scap/shoulder stabs to HEP. may do STM to L neck and scap muscles, PA mobs to thoracic and cervical and manual PROM nck and traction, and US to L g-h nonthermal. Montior L shoulder eer, neck ROM R rot and ext and shoulder elevation L for improvement. Subjective Subjective: Has had L shoulder pain since june(and has happened previously) in L joint and neck and into scapula. Insidious onset. Used to ex daily with yoga and bike riding with BFR curls flyes, tricep kickbacks, chest presses and [place] and incline. Was doing that for a year or so. Woke up out of nowhere with this. US has helped in the past. Had injection this am which has not helped yet. 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 Worse after work.Chairs not comfortable Stopped workout b/c of this pain. Basic ADLs at home all I but not doing much else at home. Runs [employer] and is limitd due to this pain and called off hospital due to pain. Bad in the am and loosens up[facility] Sleeps on R side. or L and these both hurt. Pain L scapula/shoulder: Pain Intensity (Out of 10): 3 Pain Intensity Range: 9 Comment: am worse. Objective Objective: Posture is FW head and protracted scapula, tightness pecs.Loss of cervical lordosis cervical aROM 45 ext with pain L neck, 68 L rotation adn 58 R rotation with pain on L side neck. scap mobility is good. + c/s compression. Shoulder AROM is full, slight er adn end range flexion pain. elbow and wrsit AROM wFL. reflexes 2/3 bi and tri sensation B UE WNL gross light touch. strength UEis strong at 4 flexion abd and empty can, slightly more pain empty can er painful and weak, IR 4/5 B without pain. elbow and wrist aROM WFL repeated flexion NE repeated c/s ret NE repeated ret/ext: improved shoulder and neck ROM rota and ext and stronger er. Balance/Special Test Scores Quick DASH Score: 52.2725 Goals Goal 1:: Pain in neck and shoulder 90% better and 1/10 at worst Goal Time Frame: 4-6 Weeks Goal 2:: Sleep without waking at night due to pain Goal Time Frame: 4-6 Weeks Goal 3:: Patient will return to work without worseening pain in neck/shoulder Goal Time Frame: 4-6 Weeks Goal 4:: quickdash score 15 or bettr Goal Time Frame: 4-6 Weeks Goal 5:: I appropriate HEP to limit future prob lems Goal Time Frame: 4-6 Weeks Goal 6:: symmetircal ext rotation strngth, full elevation ROM, full neck ROM all without pain Goal Time Frame: 4-6 Weeks Rehabilitation Potential Physical Therapy Diagnosis: limited shoulder and neck ROM and weakness in arm leading to pain and diminished comfrot with funciton. Rehabilitation Potential: Good Anticipated Interventions Patient/Client Instruction: Educate patient on: Condition and Plan of Care For the Purpose of:: To decrease pain, To increase ROM, To improve nutrient delivery to tissue, To increase tolerance to activity/condition/po sition and To improve ability of physical actions for home/community/work/l eisure Therapeutic Exercise to Include: Strength training, Postural training, Flexibilty training, Relaxation training, Passive ROM and Active ROM For the Purpose of:: To decrease pain, To increase ROM, To improve nutrient delivery to tissue, To improve muscle performance and motor function and To increase tolerance to activity/condition/po sition Manual Therapy Techniques to Include: Mobilization, Passive ROM and Soft tissue mobilization For the Purpose of:: To decrease pain, To increase ROM, To improve nutrient delivery to tissue and To improve muscle performance and motor function Thermo therapy (hot pack): Yes Ultrasound (thermal/non thermal): Yes (nonthrmal) For the Purpose of:: To decrease pain, To decrease swelling/inflammation and To increase ROM (more content not included)... Normal [facility] Orthopedic Visit Reporton Orthopedic Visit Report [facility] [address] [place] [id number] OFFICE VISIT Date of Service: 11/08/24 MR#: [id number] Acct: [id number] Name: IMAN GREEN Rep #: [id number] : 1980 Provider: Dr. 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 Required: No Accompanied by: Is patient in pain?: Yes Pain scale (1-10): 8 Allergies No Known Allergies Allergy (Verified 11/08/24 09:47) Medications ???Medication ???Instructions ???Recorded ???Confirmed ???Type TENS unit electrodes (Pro Comfort 11/08/24 11/08/24 History Tens Electrode pads) acetaminophen 650 mg 1,300 mg PO QDAY PRN 11/08/2410/14 History tablet,extended release diclofenac sodium 1 % topical gel 2 g topical ONCE PRN 11/08/24 History (Arthritis Pain (diclofenac)) ibuprofen 200 mg capsule 800 mg PO TID PRN 11/08/24 5 History menthol 4 % topical gel (Biofreeze 1 applic topical TID PRN 5 11/08/24 History (menthol)) multivitamin 1 tab PO QDAY 11/08/24 11/08/24 Hi story PFSH Medical History Left shoulder pain Knee pain Back pain Severe headache Arthritis Hypertension Surgical History (Updated 11/08/24 @ 09:51 by Lisa Ferguson) History of fusion of talotibial joint and subtalar joint surgery of tibia H/O cardiac radiofrequency ablation Optional surgery Family History Father Diabetes Social History (Updated 11/08/24 @ 09:52 by Lisa Ferguson) household members: spouse and children Smoking Status: Former smoker quit date: 09/12/00 alcohol intake: current alcohol intake frequency: holidays/special occasions only substance use type: does not use HPI LEFT SHOULDER Details: This documentation accurately reflects the service provided and the decisions made by me, Dr. Mat Deutsch MD 11/08/24 0935. Part of today???s visit was documented by [ ], acting as scribe. IMAN GREEN is a 44 year old M here today for L shoulder pain. 6 years. no injury. comes and goes. lasting 4 months now. lateral based pain. worse with lifting. had seen a chiro and did US therapy. 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 POS night time symptoms. ROS Const Denies chills, Denies fatigue, Denies fever(s), Denies frequent falls, Reports headache(s) and Denies weakness ENT Reports headache(s) Card Denies chest pain and Denies dyspnea Resp Denies dyspnea GI Denies abdominal pain, Denies constipation, Denies diarrhea, Denies fecal incontinence, Denies nausea and Denies vomiting Denies urinary incontinence Musc Reports arthralgias, Denies joint swelling, Reports numbness (left shoulder, arm, hand), Reports stiffness and Reports tingling (Left shoulder, arm and hand) Skin/Breast Denies rash Neuro No convulsions, No frequent falls, Yes headache(s), Yes numbness (left shoulder, arm, hand), Yes tingling (Left shoulder, arm and hand) and No weakness Endo Denies fatigue Office Procedures Ortho Injections Injections Yes Subacromial Injection Left Is this a patient provided medication?: No Office Meds Kenalog 40 mg/mL suspension for injection Performing Provider: Mat Deutsch MD Performing Location: [facility] Administered by: Mat Deutsch MD on 11/08/24 10:16 Dose Route Admin Location Dispensed Lot Number Expiration Date [facility] Man ufacturer 80 mg intra-articular left shoulder subacromial 2 mL [id number] 01/10/26 [phone] [facility] Supplemental Info [facility] Imaging Services [address] [place] [id number] Shoulder min 2 Views MR#: [id number] Acct: [id number] Name: IMAN GREEN Rep #: [id number] : 1980 M 44 From: Ousmane Amezquita MD PCP: GLO Donnelly Status: REG CLI Study: Shoulder min 2 Views Date of Exam: 11/07/24 Exam# [id number] Ordering Dr: Mat Deutsch MD PROCEDURE: SHOULDER MIN 2 VIEWS REASON FOR EXAM: Left shoulder pain. TECHNIQUE: Four views of the left shoulder were obtained. COMPARISON: None. FINDINGS: LEFT SHOULDER: No fracture. No suspicious bone lesion. Normal alignment of the acromioclavicular and glenohumeral joints. Soft tissues are unremarkable. RAD/Shoulder min 2 Views IMPRESSION: Unremarkable examination. Electronically Signed By: Khanh (more content not included)... Normal [facility] Cerv Spine 4 or 5 Viewson Cerv Spine 4 or 5 Views [facility] Imaging Services [address], [place] [id number] Cerv Spine 4 or 5 Views MR#: [id number] Acct: [id number] Name: IMAN GREEN Rep #: [id number] : 1980 M 44 From: Jimenez Martinez MD PCP: GLO Donnelly Status: REG CLI Study: Cerv Spine 4 or 5 Views Date of Exam: 11/07/24 Exam# [id number] Ordering Dr: Mat Deutsch MD PROCEDURE: CERV SPINE 4 OR 5 VIEWS REASON FOR EXAM: Left shoulder pain. TECHNIQUE: 6 views of the cervical spine COMPARISON: None. FINDINGS: Normal vertebral body heights. No visible fracture. Disc space heights are preserved. No significant osseous neural foraminal narrowing on oblique views. Normal alignment. No translational instability with flexion or extension. Prevertebral soft tissues are unremarkable. RAD/Cerv Spine 4 or 5 Views IMPRESSION: No significant abnormalities. Reading Location: [id number] CC: AWNING MAKER-C Nyasia Simmons; Dr. Mat Deutsch MD Chief Service Dispatcher: Signed Normal [facility] Shoulder min 2 Viewson 11-07 Shoulder min 2 Views [facility] Imaging Services [address], [place] [address] Shoulder min 2 Views MR#: [id number] Acct: [id number] Name: JUAN R GREENANGELICA SALAMANCA Rep #: [id number] : 1980 M 44 From: Ousmane corona MD PCP: GLO Donnelly Status: REG CLI Study: Shoulder min 2 Views Date of Exam: 11/07/24 Exam# [id number] Ordering Dr: Mat Deutsch MD PROCEDURE: SHOULDER MIN 2 VIEWS REASON FOR EXAM: Left shoulder pain. TECHNIQUE: Four views of the left shoulder were obtained. COMPARISON: None. FINDINGS: LEFT SHOULDER: No fracture. No suspicious bone lesion. Normal alignment of the acromioclavicular and glenohumeral joints. Soft tissues are unremarkable. RAD/Shoulder min 2 Views IMPRESSION: Unremarkable examination. Reading Location: [id number] CC: AWNING MAKER-C Nyasia Simmons; Dr. Mat Deutsch MD Chief Service Dispatcher: Signed Normal [facility] Urgent Care Visit Reporton 0 10-05-2024 Urgent Care Visit Report [facility] [address], [address] [place] [address] OFFICE VISIT Date of Service: 10/05/24 MR#: [id number] Acct: [id number] Name: IMAN GREEN Rep #: [id number] : 1980 Provider: MYKEL Gonzalez Age/Sex: 44/M Location: [facility] Status: Signed Intake Vital Signs 05/12/23 04:03 10/05/24 15:48 Height 5 ft 9 in 5 ft 9 in Weight: 190 lb 2 oz BMI 28.0 BP 120/80 Position Sitting Pulse 69 Temp 98.1 F Temp Source Oral Pulse Oximetry (%) 96 Oxygen Delivery Method room air Intake Visit Reasons: cough, congestion, headache Accompanied by: Self Allergies No Known Allergies Allergy (Verified 05/12/23 04:11) Medications ???Medication ???Instructions ???Recorded ???Confirmed ???Type amoxicillin 875 mg-potassium 1 tab PO Q12H 10 days #20 tabs 10/05/24 10/05/24 Rx clavulanate 125 mg tablet Nurse's Note: Patient has cough,congestion sinus pressure ROMAN and ears popping. Patient states that he had the cough for 2.5 weeks and a couple days ago his ST came back and he had some weakness. [facility] Medical History Arthritis Back pain Hypertension Knee pain Severe headache Surgical History H/O cardiac radiofrequency ablation Optional surgery surgery of tibia Family History Father Diabetes Social History Smoking Status: Never smoker alcohol intake: never HPI HPI Details: IMAN GREEN, is a 44 M who presents to the office today for complaint of cough, congestion, headache and sinus pressure for the past 2 half weeks. Patient denies fever, chills, sweats. No nausea, vomiting or diarrhea. No loss of taste or smell. No other associated symptoms or alleviating/aggravati ng factors. ROS Const Constitutional: No other (6 system ROS completed with pertinent findings in the HPI otherwise normal.) Exam Const General: cooperative and healthy appearing HENMT Head: normal to inspection Ears: hearing grossly normal bilaterally, TM's normal bilaterally and EAC's normal Nose: nasal discharge purulent Face and sinus: sinus tenderness frontal and maxillary Mouth: oral mucosae normal Throat: abnormal tonsil bilaterally erythema and hypertrophy 1+ and postnasal drainage Resp Effort Inspection: normal respiratory effort Auscultation: Bilateral: Clear to Auscultation Cardio Rate: regular rate Rhythm: regular rhythm Neuro General: patient alert Psych Appearance: grossly normal Mental Status: mental status grossly normal Coding Level of Care Code Off vis,new,level 3 Diagnoses Acute sinusitis J01.90 Assessment and Plan Assessment and Plan (1) Acute sinusitis: Status: Acute Medications: New amoxicillin-pot clavulanate 875-125 mg 1 TAB PO Q12H 20 tabs 0RF 10 days J01.90 - Acute sinusitis, unspecified Plan Augmentin as prescribed today. Encouraged to get plenty of rest, drink lots of clear liquids, and use Tylenol or Ibuprofen (unless contraindicated) for fever and comfort. Patient also educated on other symptomatic management techniques. To be seen in 7-10 days if no improvement; sooner if worsening of symptoms. Patient advised of potential red flags and when appropriate to report to the ED. Patient verbalized understanding and agreement with all the above. Plan Details Goals Barriers: Goals Improve ROM Decrease spasm Improve ability to perform ADLs (yard work) 10/05/24 1649 Date Anderson Henderson Signature: Date (if applicable) CC: Normal [facility] Absolute lymphocyte countOrd ered By: Jaime Lockwood on 05-12-2023 Lymphocytes Auto (Unsp spec) [#/Vol] 1.68 10*3/uL 0.83-4.51 [facility] Basophil percentageOrdered B y: Jaime Lockwood on 05-12-2023 Basophils/100 WBC (Bld) 0.7 % 0-1 [facility] Chloride [Moles/Vol] 104 mmol/L 98-107 [facility] Eosinophils/100 WBC (Bld) 1.9 % 0-5 [facility] Glucose [Mass/Vol] 105 mg/dL 74-106 [facility] Comment on above: Fasting Glucose resu lt from 100 to 125 mg/dL suggests IMPAIRED HOMEOSTASIS per A.D.A. criteria. Neutrophils (Bld) [#/Vol] 4.2 10*3/uL 2.0-7.7 [facility] Neutrophils/100 WBC (Bld) 62.6 % 47-70 [facility] Potassium [Moles/Vol] 3.3 mmol/L 3.5-5.1 [facility] Sodium [Moles/Vol] 139 mmol/L 136-145 [facility] WBC (Bld) [#/Vol] 6.8 10*3/uL 4.4-11.0 [facility] Blood erythrocytes count (nu mber/volume)Ordered By: Jaime Lockwood on 05-12-2023 RBC (Bld) [#/Vol] 4.89 10*6/uL 4.6-6.2 [facility] Blood hemoglobin measurement (mass/volume)Ordered By: Jaime Lockwood on 05-12-2023 Hemoglobin (Bld) [Mass/Vol] 14.4 g/dL 13.0-16.5 [facility] Blood lymphocytes/100 leukoc ytesOrdered By: Jaime Lockwood on 05-12-2023 Lymphocytes/100 WBC (Bld) 24.8 % 19-41 [facility] Blood monocytes/100 leukocyt esOrdered By: Jaime Lockwood on 05-12-2023 Monocytes/100 WBC (Bld) 9.7 % 0-10 [facility] Blood platelet mean volumeOr dered By: Jaime Lockwood on 05-12-2023 Platelet mean volume (Bld) [Entitic vol] 10.1 fL 6.2-12.0 [facility] Determination of erythrocyte mean corpuscular volume (MCV)Ordered By: Jaime Lockwood on 05-12-2023 MCV (RBC) [Entitic vol] 91.2 fL 80-94 [facility] Hematocrit Auto (Bld) [Volum e fraction]Ordered By: Jaime Lockwood on 05-12-2023 Hematocrit (Bld) [Volume fraction] 44.6 % 40-54 [facility] Laboratory - Chemistry and C hemistry - challengeOrdered By: Jaime Lockwood on 05-12-2023 CO2 [Moles/Vol] 27.0 mmol/L 21.0-32.0 [facility] Urea nitrogen/Creatinine [Mass ratio] 10.7 mg/mg 10-20 [facility] Laboratory - Hematology and Cell countsOrdered By: Jaime Lockwood on 05-12-2023 Erythrocyte distribution width (RBC) [Entitic vol] 42.9 fL 35.1-43.9 [facility] Erythrocyte distribution width (RBC) [Ratio] 12.7 % 11.6-14.6 [facility] Immature granulocytes/100 WBC (Bld) 0.300 % 0.0-0.9 [facility] Comment on above: IG% - Immature Granu locytes (promyelocytes, myelocytes and metamyelocytes) > 1% indicates that a LEFT SHIFT is Present. MCH (RBC) [Entitic mass] 29.4 pg 27.0-32.0 [facility] Nucleated RBC/100 WBC (Bld) [Ratio] 0 % 0-5 [facility] MCHC Auto (RBC) [Mass/Vol]Or dered By: Jaime Lockwood on 05-12-2023 MCHC (RBC) [Mass/Vol] 32.3 g/dL 32-36 [facility] No Panel InformationOrdered By: Jaime Lockwood on 05-12-2023 Troponin I High Sensitivity 4 pg/mL 3.0-78.0 [facility] Comment on above: Please Note: New Sussy t Units and Gender Specific Reference Ranges. For more information see Policy Stat Procedure [place] High Sensitivity Troponin (TNIH) and attachments. Estimated Creatinine Clearance Calc 92.47 ml/min [facility] Estimated GFR (MDRD) Amer 101 mL/min >60 [facility] Comment on above: GFR Calc Estimated GFR (MDRD) Non-Af Amer 84 mL/min >60 [facility] Comment on above: Non- GFR Calc Platelets bldOrdered By: Smiley Lockwood on 05-12-2023 Platelets (Bld) [#/Vol] 207 10*3/uL 150-450 [facility] Serum or plasma calcium lee urement (mass/volume)Ordered By: Jaime Lockwood on 05-12-2023 Calcium [Mass/Vol] 8.7 mg/dL 8.5-10.1 [facility] Serum or plasma creatinine m easurement (mass/volume)Ordered By: Jaime Lockwood on 05-12-2023 Creatinine [Mass/Vol] 1.03 mg/dL 0.70-1.30 [facility] Comment on above: The validity of the calculated GFR & GFRAA in patients over 70 years has not been determined. Clinical correlation is essential. Serum or plasma urea nitroge n measurement (mass/volume)Ordered By: Jaime Lockwood on 05-12-2023 Urea nitrogen [Mass/Vol] 11 mg/dL 7-18 [facility] Thin prep Papanicolaou smear with manual screeningOrdered By: Jaime Lockwood on 05-12-2023 Thin prep Papanicolaou smear with manual screening 8 5-15 [facility] Absolute lymphocyte counton 06-07-2022 Lymphocytes Auto (Unsp spec) [#/Vol] 2.04 10*3/uL 0.83-4.51 [facility] Work Phone: Absolute reticulocyte counto n 06-07-2022 Reticulocytes (Bld) [#/Vol] 0.00 10*3/uL 0-5 [facility] Work Phone: Basophil percentageon 2021 Basophil percentage 2.2 mg/dL 2.5-4.9 [facility] Work Phone: Bilirubin [Mass/Vol] 0.30 mg/dL 0.20-1.00 [facility] Work Phone: Comment on above: For patients on eltr ombopag therapy, use of Dimension [place] TBIL is not recommended. Chloride [Moles/Vol] 105 mmol/L 98-107 [facility] Work Phone: Cholesterol [Mass/Vol] 195 mg/dL <200 [facility] Work Phone: Comment on above: <200 mg/dL Desirable 200-240 mg/dL Borderline >240 mg/dL High Risk Glucose [Mass/Vol] 103 mg/dL 74-106 [facility] Work Phone: Comment on above: Fasting Glucose resu lt from 100 to 125 mg/dL suggests IMPAIRED HOMEOSTASIS per A.D.A. criteria. Neutrophils (Bld) [#/Vol] 5.9 10*3/uL 2.0-7.7 [facility] Work Phone: Potassium [Moles/Vol] 3.9 mmol/L 3.5-5.1 [facility] Work Phone: Protein [Mass/Vol] 8.2 g/dL 6.4-8.2 [facility] Work Phone: Sodium [Moles/Vol] 140 mmol/L 136-145 [facility] Work Phone: Triglyceride [Mass/Vol] 200 mg/dL <199 [facility] Work Phone: Comment on above: The drugs N-Acetylcy steine and Metamizole may falsely depress this assay.Serum Triglycerides Reference Interval Normal <150 mg/dL Borderline high 150 - 199 mg/dL High 200 - 499 mg/dL Very High > or = 500 mg/dL WBC (Bld) [#/Vol] 9.0 10*3/uL 4.4-11.0 [facility] Work Phone: Bilirubin Test strip Ql (U)o n 06-07-2022 Bilirubin Ql (U) Negative Negative [facility] Work Phone: Blood erythrocytes count (nu mber/volume)on 06-07-2022 RBC (Bld) [#/Vol] 5.38 10*6/uL 4.6-6.2 [facility] Work Phone: Blood hemoglobin measurement (mass/volume)on 06-07-2022 Hemoglobin (Bld) [Mass/Vol] 15.9 g/dL 13.0-16.5 [facility] Work Phone: Blood platelet mean volumeon 06-07-2022 Platelet mean volume (Bld) [Entitic vol] 10.1 fL 6.2-12.0 [facility] Work Phone: Determination of erythrocyte mean corpuscular volume (MCV)on 06-07-2022 MCV (RBC) [Entitic vol] 88.3 fL 80-94 [facility] Work Phone: Direct bilirubinon 2 Bilirubin.direct [Mass/Vol] 0.07 mg/dL 0.00-0.30 [facility] Work Phone: Hematocrit Auto (Bld) [Volum e fraction]on 06-07-2022 Hematocrit (Bld) [Volume fraction] 47.5 % 40-54 [facility] Work Phone: Ketones Test strip Ql (U)on 06-07-2022 Ketones Ql (U) Negative Negative [facility] Work Phone: Laboratory - Chemistry and C hemistry - challengeon 06-07-2022 ALP [Catalytic activity/Vol] 83 U/L 45-117 [facility] Work Phone: ALT [Catalytic activity/Vol] 34 U/L 16-61 [facility] Work Phone: Cholesterol.total/Peyton sterol in HDL [Mass ratio] 6.10 {ratio} [facility] Work Phone: CO2 [Moles/Vol] 28.0 mmol/L 21.0-32.0 [facility] Work Phone: Globulin (S) [Mass/Vol] 4.4 g/dL 2.2-4.2 [facility] Work Phone: Urea nitrogen/Creatinine [Mass ratio] 14.0 mg/mg 10-20 [facility] Work Phone: Laboratory - Hematology and Cell countson 06-07-2022 Erythrocyte distribution width (RBC) [Entitic vol] 42.7 fL 35.1-43.9 [facility] Work Phone: Erythrocyte distribution width (RBC) [Ratio] 13.2 % 11.6-14.6 [facility] Work Phone: MCH (RBC) [Entitic mass] 29.6 pg 27.0-32.0 [facility] Work Phone: Nucleated RBC/100 WBC (Bld) [Ratio] 0 % 0-5 [facility] Work Phone: MCHC Auto (RBC) [Mass/Vol]on 06-07-2022 MCHC (RBC) [Mass/Vol] 33.5 g/dL 32-36 [facility] Work Phone: Nitrite Test strip Ql (U)on 06-07-2022 Nitrite Ql (U) Negative Negative [facility] Work Phone: No Panel Informationon 06-07 Estimated GFR (MDRD) Amer 105 mL/min >60 [facility] Work Phone: Comment on above: GFR Calc Estimated GFR (MDRD) Non-Af Amer 87 mL/min >60 [facility] Work Phone: Comment on above: Non- GFR Calc Platelets bldon 06-07-2022 Platelets (Bld) [#/Vol] 279 10*3/uL 150-450 [facility] Work Phone: Protein Test strip Ql (U)on 06-07-2022 Protein Ql (U) 15 mg/dl Negative [facility] Work Phone: Segmented neutrophils/100 WB C Auto (Bld)on 06-07-2022 Segmented neutrophils/100 WBC (Bld) 64.9 % 47-70 [facility] Work Phone: Serum or plasma albumin lee urement (mass/volume)on 06-07-2022 Albumin [Mass/Vol] 3.8 g/dL 3.2-5.0 [facility] Work Phone: Serum or plasma albumin/glob ulin mass ratioon 06-07-2022 Albumin/Globulin [Mass ratio] 0.9 {ratio} 0.9-2.4 [facility] Work Phone: Serum or plasma calcium lee urement (mass/volume)on 06-07-2022 Calcium [Mass/Vol] 8.7 mg/dL 8.5-10.1 [facility] Work Phone: Serum or plasma cholesterol in HDL measurement (mass/volume)on 06-07-2022 Cholesterol in HDL [Mass/Vol] 32 mg/dL >40 [facility] Work Phone: Comment on above: The drugs N-Acetylcy steine and Metamizole may falsely depress this assay. Reference Range HDL <40 mg/dL Low HDL Cholesterol HDL >or= 60 mg/dL High HDL Cholesterol Serum or plasma cholesterol in VLDL measurement (mass/volume)on 06-07-2022 Cholesterol in VLDL [Mass/Vol] 40 mg/dL 5-40 [facility] Work Phone: Serum or plasma creatinine m easurement (mass/volume)on 06-07-2022 Creatinine [Mass/Vol] 1.00 mg/dL 0.70-1.30 [facility] Work Phone: Comment on above: The validity of the calculated GFR & GFRAA in patients over 70 years has not been determined. Clinical correlation is essential. Serum or plasma low density lipoprotein (LDL) cholesterol measurement (mass/volume)on 06-07-2022 Cholesterol in LDL [Mass/Vol] 123 mg/dL 0-130 [facility] Work Phone: Serum or plasma urea nitroge n measurement (mass/volume)on 06-07-2022 Urea nitrogen [Mass/Vol] 14 mg/dL 7-18 [facility] Work Phone: Serum or plasma uric acid me asurement (mass/volume)on 06-07-2022 Urate [Mass/Vol] 5.9 mg/dL 3.5-7.2 [facility] Work Phone: Comment on above: The drugs N-Acetylcy steine and Metamizole may falsely depress this assay. Thin prep Papanicolaou smear with manual screeningon 06-07-2022 Thin prep Papanicolaou smear with manual screening 19 U/L 15-37 [facility] Work Phone: Thin prep Papanicolaou smear with manual screening 7 5-15 [facility] Work Phone: Thin prep Papanicolaou smear with manual screening 189 U/L 87-241 [facility] Work Phone: Urine blood detectionon 05-14 RBC Ql (U) Negative Negative [facility] Work Phone: Urine clarityon 06-07-2022 Clarity (U) Clear Clear [facility] Work Phone: Urine color determinationon 06-07-2022 Color (U) Yellow Yellow [facility] Work Phone: Urine glucose detectionon Glucose Ql (U) Normal mg/dl Normal [facility] Work Phone: Urine leukocyte esterase det ection by dipstickon 06-07-2022 Leukocyte esterase Test strip Ql (U) Negative Negative [facility] Work Phone: Urine pHon 06-07-2022 pH (U) 6.0 [pH] 5.0 - 8.0 [facility] Work Phone: Urine specific gravity measu rementon 06-07-2022 Specific gravity (U) [Rel density] 1.010 1.002-1.030 [facility] Work Phone: Urobilinogen Auto test strip Ql (U)on 06-07-2022 Urobilinogen Ql (U) Normal mg/dl Normal [facility] Work Phone: Laboratory - Microbiology an d Antimicrobial susceptibilityon 04-20-2022 SARS-CoV-2 (COVID-19) RNA DEYVI+probe Ql (Unsp spec) Not detected [facility] Work Phone: Microbiology: Culture, R/O S trep Aon 02-14-2017 GE use only - for [employer] import when terms are not otherwise specified . Invalid Interpretation Code [facility] Work Phone: Office Visit: UC: Sore throa ton 02-11-2017 Documentation of current medications (procedure) Done Invalid Interpretation Code [facility] Work Phone: Tobacco smoking status NHIS Never Invalid Interpretation Code [facility] Work Phone: Tobacco use [facility] Never smoker Invalid Interpretation Code [facility] Work Phone: Office Visit: UC: Cough/Sore Throaton 09-28-2016 Rapid strep test Negative Invalid Interpretation Code [facility] [facility] Work Phone: Office Visiton 12-25-2014 cardiac risk group A Invalid Interpretation Code [facility] Work Phone: General cardiovascular disease 10Y risk [#] [place]D'Agostino Not enough information Invalid Interpretation Code [facility] Work Phone: Clinical Lists Update: Prelo die try out worker stamping 12-23-2014 Anion gap 4 mmol/L Low [facility] Work Phone: BUN/Creatinine Ratio 20.9 mg/mg High [facility] Work Phone: Calcium 9.0 mg/dL Invalid Interpretation Code [facility] Work Phone: Chloride 104 mmol/L Invalid Interpretation Code [facility] Work Phone: CO2 30.0 mmol/L Invalid Interpretation Code [facility] Work Phone: Creatinine 1.1 mg/dL Invalid Interpretation Code [facility] Work Phone: eGFR (non-black) 81 mL/min/{1.73_m2} Invalid Interpretation Code [facility] Work Phone: eGFR (non-black) 98 mL/min/{1.73_m2} Invalid Interpretation Code [facility] Work Phone: Glucose 88 mg/dL Invalid Interpretation Code [facility] Work Phone: Potassium 3.5 mmol/L Invalid Interpretation Code [facility] Work Phone: Sodium 138 mmol/L Invalid Interpretation Code [facility] Work Phone: Thyroid stimulating hormone (TSH) 1.46 u[iU]/mL Invalid Interpretation Code [facility] Work Phone: Urea nitrogen 23 mg/dL High [facility] Work Phone: Office Visiton 12-02-2014 Smoking cessation education (procedure) yes Invalid Interpretation Code [facility] Work Phone: External Other: Preferred Me thod of Contacton 11-04-2014 Patient's prefered method of contact secmsg Invalid Interpretation Code [facility] Work Phone: Vital Signs Date Time Vital Sign Value Performing Clinician Faci barbara 02-25-2025 14:29-0400 Body height 175.26 cm Mat Deutsch MD Work Phone: [facility] 02-25-2025 14:29-0400 Body mass index (BMI) [Ratio] 29.7 kg/m2 Mat Deutsch MD Work Phone: [facility] 02-25-2025 14:29-0400 Body weight 91.17 kg Mat Deutsch MD Work Phone: [facility] 02-25-2025 14:29-0400 Diastolic blood pressure 88 mm[Hg] Mat Deutsch MD Work Phone: [facility] 02-25-2025 14:29-0400 Systolic blood pressure 132 mm[Hg] Mat Deutsch MD Work Phone: [facility] 01-02-2025 03:38-0400 Body temperature 97.4 [degF] Nyasia Troy [employer] Work Phone: [facility] 01-02-2025 03:38-0400 Diastolic blood pressure 97 mm[Hg] Nyasia Troy [employer] Work Phone: [facility] 01-02-2025 03:38-0400 Heart rate 104 /min Nyasia Troy [employer] Work Phone: [facility] 01-02-2025 03:38-0400 Respiratory rate 19 /min Nyasia Troy [employer] Work Phone: [facility] 01-02-2025 03:38-0400 SaO2% (BldA) [Mass fraction] 98 % Nyasia Troy [employer] Work Phone: [facility] 01-02-2025 03:38-0400 Systolic blood pressure 149 mm[Hg] Nyasia Troy [employer] Work Phone: [facility] 01-02-2025 00:42-0400 Body height 175.26 cm Nyasia Troy [employer] Work Phone: [facility] 01-02-2025 00:42-0400 Body mass index (BMI) [Ratio] 29.2 kg/m2 Nyasia Troy [employer] Work Phone: [facility] 01-02-2025 00:42-0400 Body weight 90 kg Nyasia Troy [employer] Work Phone: [facility] 01-01-2025 15:51-0400 Body temperature 98.6 [degF] Nyasia Troy [employer] Work Phone: [facility] 01-01-2025 15:51-0400 Diastolic blood pressure 99 mm[Hg] Nyasia Troy [employer] Work Phone: [facility] 01-01-2025 15:51-0400 Heart rate 114 /min Nyasia Troy [employer] Work Phone: [facility] 01-01-2025 15:51-0400 Respiratory rate 16 /min Nyasia Troy [employer] Work Phone: [facility] 01-01-2025 15:51-0400 SaO2% (BldA) [Mass fraction] 100 % Nyasia Troy [employer] Work Phone: [facility] 01-01-2025 15:51-0400 Systolic blood pressure 144 mm[Hg] Nyasia Troy [employer] Work Phone: [facility] 01-01-2025 15:45-0400 Inhaled oxygen flow rate 4 L/min Nyasia Troy [employer] Work Phone: [facility] 01-01-2025 09:59-0400 Body mass index (BMI) [Ratio] 29 kg/m2 Nyasia Troy [employer] Work Phone: [facility] 01-01-2025 09:59-0400 Body weight 89 kg Nyasia Troy [employer] Work Phone: [facility] 11-21-2024 14:38-0400 Body height 175.26 cm Nyasia Troy [employer] Work Phone: [facility] 10-30-2024 16:10-0500 Body height 175.26 cm Nyasia Troy [employer] Work Phone: [facility] 10-05-2024 15:48-0500 Body mass index (BMI) [Ratio] 28 kg/m2 Nyasia Troy [employer] Work Phone: [facility] 10-05-2024 15:48-0500 Body temperature 98.1 [degF] Nyasia Simmons [employer] Work Phone: [facility] 10-05-2024 15:48-0500 Body weight 86.23 kg Nyasia Simmons [employer] Work Phone: [facility] 10-05-2024 15:48-0500 Diastolic blood pressure 80 mm[Hg] Nyasia Simmons [employer] Work Phone: [facility] 10-05-2024 15:48-0500 Heart rate 69 /min Nyasia Simmons [employer] Work Phone: [facility] 10-05-2024 15:48-0500 SaO2% (BldA) [Mass fraction] 96 % Nyasia Simmons [employer] Work Phone: [facility] 10-05-2024 15:48-0500 Systolic blood pressure 120 mm[Hg] Nyasia Simmons [employer] Work Phone: [facility] 05-12-2023 07:39-0400 Diastolic blood pressure 76 mm[Hg] [facility] 05-12-2023 07:39-0400 Heart rate 78 /min [facility] 05-12-2023 07:39-0400 Respiratory rate 18 /min [facility] 05-12-2023 07:39-0400 SaO2% (BldA) [Mass fraction] 95 % [facility] 05-12-2023 07:39-0400 Systolic blood pressure 113 mm[Hg] [facility] 05-12-2023 04:03-0400 Body height 175.26 cm [facility] 05-12-2023 04:03-0400 Body mass index (BMI) [Ratio] 28.7 kg/m2 [facility] 05-12-2023 04:03-0400 Body temperature 97.5 [degF] [facility] 05-12-2023 04:03-0400 Body weight 88.2 kg [facility] 02-11-2017 15:32-0400 BMI (Body Mass Index) 33.45 kg/m2 Jenifer Retana LPN [facility] Work Phone: 02-11-2017 15:32-0400 Body Temperature 98.4 [degF] Jenifer Retana LPN [facility] Work Phone: 02-11-2017 15:32-0400 BP Diastolic 84 mm[Hg] Jenifer Retana LPN [facility] Work Phone: 02-11-2017 15:32-0400 BP Systolic 122 mm[Hg] Jenifer Retana LPN [facility] Work Phone: 02-11-2017 15:32-0400 Height 172.72 cm Jenifer Retana LPN [facility] Work Phone: 02-11-2017 15:32-0400 Pulse (Heart Rate) 85 /min Jenifer Retana LPN [facility] Work Phone: 02-11-2017 15:32-0400 Pulse Oximetry 97 % Jenifer Retana LPN [facility] Work Phone: 02-11-2017 15:32-0400 Respiratory Rate 14 /min Jenifer Retana LPN [facility] Work Phone: 02-11-2017 15:32-0400 Weight 99.79 kg Jenifer Retana LPN [facility] Work Phone: 09-28-2016 16:10-0500 BSA (Body Surface Area) 2.13 m2 Jenifer Retana LPN [facility] Work Phone: Encounters Encounter Date Encounter Type Care Provider Facility Start: 07-16-2025 ambulatory [facility] Facility:[facility] Start: 07-02-2025 ambulatory [facility] Facility:[facility] Start: 03-28-2025 End: 03-28-[address] Karlos Vazquez MD -[facility] Work Phone: Start: 03-28-2025 End: 03-28-2025 ambulatory Nyasia Simmons [employer] Work Phone: -[facility] Start: 03-25-2025 End: 03-25-2025 ambulatory Nyasia Simmons [employer] Work Phone: [facility] Start: 03-25-2025 End: 03-25-2025 Patient encounter procedure Mary Perez PA -[facility] Work Phone: Start: 03-25-2025 End: 03-25-2025 ambulatory Mary Perez Facility:[facility] Start: 03-14-2025 End: 03-14-2025 ambulatory Nyasia Simmons [employer] Work Phone: -Physical Therapy Start: 03-14-2025 End: 03-14-2025 Discharged Recurring Mary Perez PA -Physical Therapy Work Phone: Start: 02-25-2025 End: 02-25-[address] Alyssa Peralta DC -[facility] Work Phone: Start: 02-25-2025 End: 02-25-2025 ambulatory Mat Deutsch MD Work Phone: [facility] Work Phone: Start: 02-19-2025 Registered Recurring Mary Perez PA -Physical Therapy Work Phone: Start: 02-15-2025 Registered Recurring Mary Perez PA -Physical Therapy Work Phone: Start: 02-14-2025 End: 02-14-[address] Karlos Vazquez MD -[facility] Work Phone: Start: 02-14-2025 End: 02-14-2025 ambulatory Mat Deutsch MD Work Phone: [facility] Work Phone: Start: 02-13-2025 End: 02-13-2025 ambulatory Mat Deutsch MD Work Phone: [facility] Work Phone: Start: 02-13-2025 End: 02-13-[address] Karlos Vazquez MD -[facility] Work Phone: Start: 02-13-2025 End: 02-13-[address] [facility] Facility:[facility] Start: 02-12-2025 Registered Recurring Mary HOGUE -Physical Therapy Work Phone: Start: 01-15-2025 End: 01-15-2025 ambulatory Nyasia Simmons [employer] Work Phone: [facility] Work Phone: Start: 01-15-2025 End: 01-15-2025 Patient encounter procedure Mary HOGUE -[facility] Work Phone: Start: 01-15-2025 End: 01-15-2025 ambulatory Nyasia Troy Facility:[facility] Start: 01-10-2025 Encounter for other preprocedural examination [facility] Start: 01-02-2025 End: 01-02-2025 Emergency department patient visit Nyasia Simmons [employer] Work Phone: -Emergency Department Work Phone: Start: 01-01-2025 ambulatory Karlos Vazquez Facility:[facility] Start: 01-01-2025 Non-patient / Non-visit Dr. Karlos rousseau MD -[facility] Start: 01-01-2025 End: 01-01-2025 Admission to same day surgery center Dr. Karlos Vazquez MD -[facility] Start: 01-01-2025 End: 01-01-[address] [facility] Facility:[facility] Start: 12-21-2024 End: 12-21-[address] Karlos Vazquez MD -[facility] Work Phone: Start: 12-21-2024 End: 12-21-2024 ambulatory Karlos George Facility:[facility] Start: 12-21-2024 End: 12-21-[address] [facility] Facility:[facility] Start: 12-21-2024 End: 12-21-2024 Non-patient / Non-visit Dr. Parveen Pandey MD -[facility] Work Phone: Start: 12-07-2024 End: 12-07-2024 ambulatory Nyasia Troy [employer] Work Phone: [facility] Work Phone: Start: 12-07-2024 End: 12-07-[address] Mat Deutsch MD -Physical Therapy Work Phone: Start: 12-03-[address] Mat Deutsch MD -Physical Therapy Work Phone: Start: 11-29-2024 End: 11-29-2024 Patient encounter procedure Mray HOGUE -[facility] Work Phone: Start: 11-29-2024 End: 11-29-2024 ambulatory Nyasia Troy Facility:[facility] Start: 11-29-[address] Mat Deutsch MD -Physical Therapy Work Phone: Start: 11-27-2024 End: 11-27-2024 ambulatory Nyasia Troy [employer] Work Phone: [facility] Work Phone: Start: 11-27-2024 End: 11-27-2024 Patient encounter procedure Mary HOGUE -[facility] Work Phone: Start: 11-27-2024 End: 11-27-2024 ambulatory Nyasia Troy Facility:[facility] Start: 11-21-2024 End: 11-21-2024 Patient encounter procedure Mary HOGUE -[facility] Work Phone: Start: 11-21-2024 End: 11-21-2024 ambulatory Nyasia Troy [employer] Work Phone: [facility] Work Phone: Start: 11-21-2024 End: 11-21-2024 ambulatory Nyasia Troy Facility:[facility] Start: 11-15-[address] Mat Deutsch MD -Physical Therapy Work Phone: Start: 11-08-2024 End: 11-08-[address] Mat Deutsch MD -[facility] Work Phone: Start: 11-08-2024 End: 11-08-2024 ambulatory [facility] Facility:[facility] Start: 11-07-2024 End: 11-07-2024 ambulatory [facility] [employer] Work Phone: [facility] Work Phone: Start: 11-07-2024 End: 11-07-[address] Mat Deutsch MD -[facility]iology[facility] [place] Work Phone: Start: 11-07-2024 End: 11-07-2024 ambulatory [facility] Facility:[facility] Start: 10-05-2024 End: 10-05-2024 Patient encounter procedure [facility] Work Phone: Start: 10-05-2024 End: 10-05-2024 ambulatory [facility] Facility:[facility] Start: 05-12-2023 End: 05-12-2023 Emergency department patient visit [facility]-Emergency Department Work Phone: Start: 06-23-2022 End: 06-23-[address] Mat Cotter Work Phone: [facility] Work Phone: Start: 06-23-2022 End: 06-23-[address] Mat Cotter Work Phone: [facility] Start: 06-07-[address] Mat Cotter Work Phone: [facility] Start: 04-20-2022 End: 04-20-[address] Mat Cotter Work Phone: [facility] Procedures Date Procedure Procedure Detail Performing Clinician Start: 03-25-2025 X-ray of cervical spine [facility] [employer] Work Phone: Start: 02-13-2025 X-ray of cervical spine Mat Deutsch MD Work Phone: Start: 01-15-2025 X-ray of cervical spine Nyasia Simmons [employer] Work Phone: Start: 01-02-2025 Estimated creatinine clearance Nyasia Simmons [employer] Work Phone: Start: 01-01-2025 Fluoroscopic guidance R reinaldo Simmons [employer] Work Phone: Start: 01-01-2025 X-ray of cervical spine Nyasia Simmons NP-C Work Phone: Start: 01-01-2025 Surgical procedure o n cervical spine Nyasia Simmons [employer] Work Phone: Start: 12-21-2024 Methicillin resistan t Staphylococcus aureus screening test Nyasia Simmons NP-C Work Phone: Start: 12-21-2024 Hepatitis A virus an tibody, total measurement Nyasia Simmons NP-C Work Phone: Comment on above: Comment: The HAV tot al antibody assay detects both IgG andIgM but does not differentiate between them. A negativeresult suggests susceptibility to infection. A positiveresult could be due to vaccination, previously resolvedinfection or active infection. Testing for HAV IgM shouldbe performed if active HAV infection is suspected. [facility] profiles that will automatically reflex positive HAVtotal antibody results to IgM (e.g., panel #[id number] HAVAntibody w/ Rfx).Performed at: [address] [id number] Director: Dalton Ferris PhD, Phone: [phone] Start: 12-21-2024 Hepatitis C antibody measurement Nyasia Simmons NP-C Work Phone: Comment on above: Reactive: Presumptiv e evidence of antibodies to HCV. Follow CDC recommendations for supplemental testing.Non-Reactive: Antibodies to HCV were not detected; does not exclude the possibility of exposure to HCVReactive Results are presumptive evidence of antibodies to HCV. Follow CDC recommendations for supplemental testing.Order confirmation testing: HCV Quant by PCR testing - HCVPCR #[id number] Non Reactive: < 0.8 Equivocal: >/= 0.8 to < 1.0 Reactive: >/= 1.0The CDC requires that a reactive/equivocal HCV antibody result be sent out for confirmation. HCV Quant by PCR testing. Start: 11-27-2024 MRI of cervical spine R reinaldo Simmons [employer]ING [employer] Work Phone: Start: 11-21-2024 X-ray of cervical spine Nyasia Simmons AW[employer]ING [employer]C Work Phone: Start: 11-07-2024 Plain X-ray of shoulder Nyasia Simmons [employer]ING [employer] Work Phone: Start: 11-07-2024 X-ray of cervical spine Nyasia Simmons [employer]ING [employer] Work Phone: Start: 05-12-2023 Plain chest X-ray Start: 06-23-2022 Plain chest X-ray Dr. Christophe Cotter Work Phone: Start: 02-11-2017 End: 02-11-2017 Rapid strep test Anderson HOGUE Work Phone: Start: 09-28-2016 End: 09-29-2016 Rapid strep test Anderson HOGUE Work Phone: Start: 12-25-2014 End: 12-26-2014 Documentation of current medications Parveen Pandey MD Start: 12-25-2014 End: 01-02-2015 Echocardiography Parveen Pandey MD Start: 12-25-2014 End: 12-25-2014 Follow Up Appt 3 months Eddie Jackson Start: 11-04-2014 End: 11-05-2014 Documentation of current medications Dave Higgins Work Phone: Plan of Treatment Date Care Activity Detail Author Start: 01-15-2025 Patient referral [facility] Work Phone: Start: 01-02-2025 [facility] Start: 01-01-2025 Patient discharge [facility] Start: 01-01-2025 Anesthesia cervical spine & cord nos ANESTH SPINE CORD SURGERY [facility] Start: 01-01-2025 Tot disc arthrp ant appr disc 2nd level cervical TOT DISC ARTHRP 2ND LVL CRV [facility] Start: 01-01-2025 Tot disc arthrp art disc ant appro 1 ntrspc crv TOT DISC ARTHRP 1NTRSPC CRV [facility] Start: 11-08-2024 Patient referral [facility] Work Phone: Start: 05-12-2023 [facility] Start: 02-11-2017 End: 02-11-2017 Appointment Appointment [facility] Work Phone: Start: 02-11-2017 End: 02-11-2017 Streptococcus.beta-hemolytic [Presence] in Throat by Organism specific culture *Culture, R/O Strep A Swab [facility] Work Phone: Start: 01-13-2015 End: 01-13-2015 X-ray exam of lower leg X-Ray, Tibia & Fibula [facility] Work Phone: Start: 12-25-2014 End: 12-26-2014 Echocardiography Echocardiogram (complete) [facility] Work Phone: Start: 12-25-2014 End: 12-25-2014 Follow Up Appt 3 months Follow Up Appt 3 months [facility] Work Phone: Start: 12-25-2014 End: 12-25-2014 Follow Up Appt Other Follow Up Appt Other [facility] Work Phone: Start: 12-02-2014 End: 12-02-2014 X-ray exam of lower leg X-Ray, Tibia & Fibula [facility] Work Phone: Start: 11-04-2014 End: 11-04-2014 X-ray exam of lower leg X-Ray, Tibia & Fibula [facility] Work Phone: Electrocardiographic procedure [facility] Patient Education [facility] Work Phone: Patient referral [facility] Work Phone: Immunizations Immunization Date Immunization Notes Care Provider [facility] 06-09-2024 influenza, seasonal, injectable, preservative free Nyasia Troy [employer] Work Phone: [facility] 06-18-2023 influenza, injectabl e, quadrivalent, preservative free Nyasia Troy [employer] Work Phone: [facility] 06-15-2022 influenza, injectabl e, quadrivalent, preservative free Nyasia Troy [employer] Work Phone: [facility] 06-15-2022 influenza, seasonal, injectable Dr. Mat Cotter Work Phone: [facility] 08-26-2021 Covid (Moderna) Dr. Mat wiseman Work Phone: [facility] 07-06-2021 influenza, injectabl e, quadrivalent, preservative free Nyasia Troy [employer]ING [employer] Work Phone: [facility] 07-06-2021 influenza, seasonal, injectable Dr. Mat Cotter Work Phone: [facility] 10-15-2020 Covid (Moderna) Dr. Mat wiseman Work Phone: [facility] 09-17-2020 Covid (Moderna) Dr. Mat wiseman Work Phone: [facility] 06-09-2020 influenza, injectabl e, quadrivalent, preservative free Nyasia Troy [employer]ING [employer]C Work Phone: [facility] 06-09-2020 influenza, seasonal, injectable Dr. Mat Cotter Work Phone: [facility] 07-03-2019 influenza, injectabl e, quadrivalent, preservative free Nyasia Troy [employer]ING [employer] Work Phone: [facility] 07-03-2019 influenza, seasonal, injectable Dr. Mat Cotter Work Phone: [facility] 07-04-2018 influenza, injectabl e, quadrivalent, preservative free Nyasia Troy [employer]ING [employer] Work Phone: [facility] 07-04-2018 influenza, seasonal, injectable Dr. Mat Cotter Work Phone: [facility] 06-16-2017 influenza, injectabl e, quadrivalent, preservative free Nyasia Troy [employer]ING [employer]C Work Phone: [facility] 06-16-2017 influenza, seasonal, injectable Dr. Mat Cotter Work Phone: [facility] 06-10-2016 influenza, injectabl e, quadrivalent, preservative free Nyasia Troy [employer]ING [employer] Work Phone: [facility] 06-10-2016 influenza, seasonal, injectable Dr. Mat Cotter Work Phone: [facility] 03-18-2016 hepatitis B vaccine, pediatric or pediatric/adolescent dosage Dr. Mat Cotter Work Phone: [facility] 06-30-2015 hepatitis B vaccine, pediatric or pediatric/adolescent dosage Dr. Mat Cotter Work Phone: [facility] 06-09-2015 influenza, injectabl e, quadrivalent, preservative free Nyasia Troy [employer]ING [employer] Work Phone: [facility] 06-09-2015 influenza, seasonal, injectable Dr. Mat Cotter Work Phone: [facility] 05-26-2015 hepatitis B vaccine, pediatric or pediatric/adolescent dosage Dr. Mat Cotter Work Phone: [facility] 07-13-[address] Mat Cotter Work Phone: [facility] Payers Date Payer Category Payer Self-pay [id number] 2024 Unknown [id number] 2015 Unknown [id number] Unknown [id number] Unknown [id number] 2.16.8 [id number] Unknown [id number] 2.16.8 [id number] Unknown [id number] 2.16.8 [id number] Unknown [id number] 2.16.8 [id number] Unknown [id number] 2.16.8 40.1.701868.3.579.2.462 Unknown [id number] 2.16.8 40.1.636489.3.579.2.462 Unknown [id number] 2.16.8 40.1.532601.3.579.2.462 Unknown [id number] 2.16.8 40.1.474446.3.579.2.462 Unknown [id number] 2.16.8 40.1.985790.3.579.2.462 Unknown [id number] 2.16.8 40.1.194296.3.579.2.462 Unknown [id number] 2.16.8 40.1.609170.3.579.2.462 Unknown [id number] 2.16.8 40.1.605736.3.579.2.462 Unknown [id number] 2.16.8 40.1.888590.3.579.2.462 Unknown [id number] 2.16.8 40.1.561821.3.579.2.462 Unknown [id number] 2.16.8 40.1.794581.3.579.2.462 Unknown [id number] 2.16.8 40.1.232518.3.579.2.462 Unknown [id number] 2.16.8 40.1.598830.3.579.2.462 Unknown [id number] 2.16.8 40.1.309972.3.579.2.462 Unknown [id number] 2.16.8 40.1.899297.3.579.2.462 Unknown [id number] 2.16.8 40.1.409014.3.579.2.462 Unknown [id number] 2.16.8 40.1.533876.3.579.2.462 Unknown [id number] 2.16.8 40.1.980811.3.579.2.462 Unknown [id number] 2.16.8 [id number] Social History Date Type Detail Facility Start: 04-20-2022 End: 05-12-2023 Tobacco smoking status [facility] Unknown if ever smoked [facility] Start: 1980 Sex Assigned At Male [facility] Start: 11-08-2024 End: 01-02-2025 Tobacco smoking status WIIS Ex-smoker (finding) [facility] Start: 11-18-2024 End: 01-02-2025 Sex Male (finding) [facility] Medical Equipment Procedure Code Equipment Code Equipment Origin al Text Equipment Identifier Dates Fusion, talonavicular joint 7.0 COMPRESSION FT SCREW FDA Start: 07-27-2019 Fusion, talonavicular joint BONE,CRUSHED CANCELLOUS 15CC FDA Start: 07-27-2019 Fusion, talonavicular joint COMPRESSION SCREW FULLY THREAD FDA Start: 07-27-2019 Fusion, talonavicular joint 7.0 COMPRESSION FT SCREW FDA Start: 07-27-2019 Fusion, talonavicular joint BONE,CRUSHED CANCELLOUS 15CC FDA Start: 07-27-2019 Fusion, talonavicular joint COMPRESSION SCREW FULLY THREAD FDA Start: 07-27-2019 Fusion, talonavicular joint 7.0 COMPRESSION FT SCREW FDA Start: 07-27-2019 Fusion, talonavicular joint BONE,CRUSHED CANCELLOUS 15CC FDA Start: 07-27-2019 Fusion, talonavicular joint COMPRESSION SCREW FULLY THREAD FDA Start: 07-27-2019 Fusion, talonavicular joint 7.0 COMPRESSION FT SCREW FDA Start: 07-27-2019 Fusion, talonavicular joint BONE,CRUSHED CANCELLOUS 15CC FDA Start: 07-27-2019 Fusion, talonavicular joint COMPRESSION SCREW FULLY THREAD FDA Start: 07-27-2019 Fusion, talonavicular joint 7.0 COMPRESSION FT SCREW FDA Start: 07-27-2019 Fusion, talonavicular joint BONE,CRUSHED CANCELLOUS 15CC FDA Start: 07-27-2019 Fusion, talonavicular joint COMPRESSION SCREW FULLY THREAD FDA Start: 07-27-2019 Fusion, talonavicular joint 7.0 COMPRESSION FT SCREW FDA Start: 07-27-2019 Fusion, talonavicular joint BONE,CRUSHED CANCELLOUS 15CC FDA Start: 07-27-2019 Fusion, talonavicular joint COMPRESSION SCREW FULLY THREAD FDA Start: 07-27-2019 Fusion, talonavicular joint 7.0 COMPRESSION FT SCREW FDA Start: 07-27-2019 Fusion, talonavicular joint BONE,CRUSHED CANCELLOUS 15CC FDA Start: 07-27-2019 Fusion, talonavicular joint COMPRESSION SCREW FULLY THREAD FDA Start: 07-27-2019 Fusion, talonavicular joint 7.0 COMPRESSION FT SCREW FDA Start: 07-27-2019 Fusion, talonavicular joint BONE,CRUSHED CANCELLOUS 15CC FDA Start: 07-27-2019 Fusion, talonavicular joint COMPRESSION SCREW FULLY THREAD FDA Start: 07-27-2019 Fusion, talonavicular joint 7.0 COMPRESSION FT SCREW FDA Start: 07-27-2019 Fusion, talonavicular joint BONE,CRUSHED CANCELLOUS 15CC FDA Start: 07-27-2019 Fusion, talonavicular joint COMPRESSION SCREW FULLY THREAD FDA Start: 07-27-2019 Fusion, talonavicular joint 7.0 COMPRESSION FT SCREW FDA Start: 07-27-2019 Fusion, talonavicular joint BONE,CRUSHED CANCELLOUS 15CC FDA Start: 07-27-2019 Fusion, talonavicular joint COMPRESSION SCREW FULLY THREAD FDA Start: 07-27-2019 Fusion, talonavicular joint 7.0 COMPRESSION FT SCREW FDA Start: 07-27-2019 Fusion, talonavicular joint BONE,CRUSHED CANCELLOUS 15CC FDA Start: 07-27-2019 Fusion, talonavicular joint COMPRESSION SCREW FULLY THREAD FDA Start: 07-27-2019 Fusion, talonavicular joint 7.0 COMPRESSION FT SCREW FDA Start: 07-27-2019 Fusion, talonavicular joint BONE,CRUSHED CANCELLOUS 15CC FDA Start: 07-27-2019 Fusion, talonavicular joint COMPRESSION SCREW FULLY THREAD FDA Start: 07-27-2019 Fusion, talonavicular joint 7.0 COMPRESSION FT SCREW FDA Start: 07-27-2019 Fusion, talonavicular joint BONE,CRUSHED CANCELLOUS 15CC FDA Start: 07-27-2019 Fusion, talonavicular joint COMPRESSION SCREW FULLY THREAD FDA Start: 07-27-2019 Fusion, talonavicular joint 7.0 COMPRESSION FT SCREW FDA Start: 07-27-2019 Fusion, talonavicular joint BONE,CRUSHED CANCELLOUS 15CC FDA Start: 07-27-2019 Fusion, talonavicular joint COMPRESSION SCREW FULLY THREAD FDA Start: 07-27-2019 Arthroplasty, spine, cervical Cervical total intervertebral disc prosthesis, modular ()[id number] FDA Start: 01-01-2025 Arthroplasty, spine, cervical Cervical total intervertebral disc prosthesis, modular ()[id number] FDA Start: 01-01-2025 Arthroplasty, spine, cervical Ligation clip, metallic ()[id number] FDA Start: 01-01-2025 Arthroplasty, spine, cervical Gelatin haemostatic agent ()[id number] FDA Start: 01-01-2025 Goals Date Patient Goal Desired Activity /State Mental Status Date Assessment Result Facility 01-02-2025 Cognitive function Level Of Cons ciousness Awake;Alert;Appropriate;Follow s Commands [facility] Work Phone: 01-01-2025 Cognitive function Level Of Cons ciousness Follows Commands;Drowsy [facility] Work Phone: 01-01-2025 Cognitive function Voice/Name [facility] Work Phone: 05-12-2023 Cognitive function Level Of Cons ciousness Awake;Alert [facility] Work Phone: Clinical Notes 10-05-2024 to 07-15-2025 Note Date & Type Note Facility 03-26-2025 Radiology Diagnostic study note [facility] Imaging Services [address] [place], [place] [address] Cerv Spine 2 or 3 Views MR#: [id number] Acct: [id number] Name: IMAN GREEN Rep #: [id number] : 1980 M 44 From: Corbin Martinez MD PCP: YARELI DonnellyC Status: REG CLI Study:Cerv Spine 2 or 3 Views Date of Exam: 03/25/25 Exam# [id number] Ordering Dr: Lenny Perez PROCEDURE: CERV SPINE 2 OR 3 VIEWS 03/25/2025 REASON FOR EXAM: S/P CERVICAL DISC REPLACEMENT TECHNIQUE: CERV SPINE 2 OR 3 VIEWS COMPARISON: 02/14/2025. FINDINGS: No evidence of acute fracture or dislocation. C4-5 and C5-6 prosthetic discs. Up to mild discogenic degenerative changes of the non fused levels. Grade 1 anterolisthesis of C7 on T1. 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 Spondylosis. Spondylolisthesis. No significant interval change. Reading Location: [id number] CC: AWNING MAKER-C Nyasia Simmons; MYKEL Harvey ~ Chief Service Dispatcher: Signed [facility] 03-14-2025 Discharge summary [facility] 03-14-2025 Discharge summary Note Date/Time March 14, 2025 1:11pm [facility] Physical Therapy [facility] [address] [place] [address] [address] [place] [address] / REHABILITATION SERVICES DISCHARGE SUMMARY MR#: [id number] Acct: [id number] Name: IMAN GREEN Rep #: [id number] : 1980 44 From: Jaime Olivia DPT, OCS, CSCS Referring DrStefanie: MYKEL Harvey Status: REG RCR Insurance: [facility] MePlease/[facility] [employer]ANCE Discharge Summary D/C summary: It has been my pleasure to treat IMAN GREEN referred by MYKEL Harvey, with the diagnosis of post cervical disc replacement 01/01 for a total of 12 visit(s). Discharge Date: 03/14/25 Please see the following information for a summary of their discharge status. Subjective Subjective: Doing well, took a wk off of exerec ises due to some soreness maybe from ex , maybe from sanding blocks. Got back to exercise with no problems. Sleeep is OK. To doctor in 2 weeks. Will be released to work then. 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 Will continue workout. Still needs to be stronger. Pain neck pain.: Pain Intensity (Out of 10): 0 Overall Improvement % Improvement: 90 Objective Objective/Function: Good posture today and ROM symmetrical at 80 degrees and 77 extension UE AROM WFL, strength weaker on L slightly vs R but funcitonal. Goals Goal 1:: symmetircal rotation ROM without pain neck Goal Progress: Goal Met Goal 2:: I appropriate HEP for strenght upper half in good posture without cueing to minimize future problems Goal Progress: Goal Met Goal 3:: patient feel 90% back to normal and pain 1/10 at worst. Goal Progress: Goal Met Goal 4:: oswestry neck 4 or better Goal Progress: Progressing Goal 5:: Plan to return to work Goal Progress: Goal Met Plan Plan: d/c to HEP D/C Information Discharge Comments: Pt to continue via HEP and see doc in two weeks, doing well. Ready by then from a PT perspective to return to work. d/c sentence: If there are questions or concerns regarding this patient's physical therapy, please feel free to call me at [phone]. Thank you for the referral of thispatient. Sincerely, Jaime Olivia DPT, OCS, CSCS Balance/Gait/Functional tests Balance/Special Test Scores Oswestry Neck Score: 12 Improvement % Improvement: 90 <Electronically signed by Jaime Olivia DPT, MADISON, CSCS> 03/14/25 1127 CC: GLO Simmons; MYKEL Harvey ~ EBG Signed [facility] Work Phone: 1(820) 831-735206-05-2025 Progress [facility] [address] [place] [address] OFFICE VISIT Date of Service: 02/14/25 MR#: [id number] Acct: [id number] Name: IMAN GREEN Rep #: [id number] : 1980 Provider: Dr. Miguel Vazquez MD Age/Sex: 44/M Location: [facility] Status: Signed Intake Vital Signs 11/21/24 14:38 01/02/25 00:42 Height 5 ft 9 in 5 ft 9 in Intake Visit Reasons: cervical spine Chief Complaint: 6 week post-op Accompanied by: Is patient in pain?: Yes Pain scale (1-10): 1 Allergies No Known Allergies Allergy (Verified 02/14/25 10:45) Medications ?Medication ?Instructions ?Recorded ?Confirmed ?Type TENS unit electrodes (Pro Comfort 11/08/24 02/14/25 H istory Tens Electrode pads) multivitamin 1 tab PO QDAY 11/08/2402/14 History dexamethasone 4 mg tablet 4 mg PO BID #5 tabs 01/01/25 02/14/25 Rx methocarbamol 500 mg tablet 500 - 750 mg (1 - 1.5 x 50 0 mg) PO 01/01/25 02/14/25 Rx TID PRN pain/spasms #60 tabs omeprazole 20 mg capsule,delayed 20 mg PO DAILY 02/14/25 History release losartan 50 mg tablet 50 mg PO QDAY 02/14/2502/14 History PFSH Medical History Wears glasses History of steroid therapy Injury of head and neck Gastric reflux Former smoker History of echocardiogram Cardiology follow-up encounter History of irregular heartbeat Left shoulder pain Knee pain Back pain Severe headache Arthritis Hypertension Surgical History History of fusion of talotibial joint and subtalar joint surgery of tibia H/O cardiac radiofrequency ablation Optional surgery Family History Father Diabetes Social History household members: spouse and children Smoking Status: Former smoker quit date: 01/01/01 alcohol intake: current alcohol intake frequency: holidays/special occasions only substance use type: does not use HPI cervical spine Details: This documentation accurately reflects the service provided and the decisions made by me, Dr. Karlos Vazquez MD 02/14/25 1041. Part of today?s visit was documented by Kathy Ramirez ATC and Mary Perez PA-C,acting as scribe. IMAN GREEN is a 44 year old M here today for s/p C4-6 cervical disc replacement DOS 01/01/2025. Patient states he has some mild pain today but he dida lot of driving yesterday. He continues to take Methocarbamol PRN when he is more active. Patient states he continues with physical therapy and it is going well. Denies any dysphagia, not avoiding any foods. Says that he is close to prior neck ROM.Denies any nerve pain down the arms continuing to get less and less spasms. Patient says that he had a fall and landed onto grass recently, denies any increased neck pain. Ortho Exam General General: Yes no acute distress Neurologic: Yes alert and Yes oriented x3 Spine SPINE TESTING CERVICAL THORACIC LUMBAR Musculoskeletal Strength 0=absent - 5=normal Details: Neurological exam of the upper extremities shows 5X5 power. Normal sensation across all dermatomes.Physical examination of the neck shows a well-healed anddry incision. Dominique's negative. Coding Level of Care Code Global Post Op Diagnoses Status post cervical disc replacement Z98.890 Assessment and Plan Assessment and Plan (1) Status post cervical disc replacement: Status: Acute Plan Obtained and reviewed xrays today in the clinic. Xrays show prosthesis in good position. Patient is now 6 weeks out C4-6 disc replacement. He will continue outpatient PT. Continue restrictions of no bending, lifting, twisting, okay to lift upwardsof 2 gallons of milk or 16 pounds. 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 Encouraged the patient that if tolerated he can consider going back to work early. Okay for the patient to do some push mowing and weed eating so long as the device is nottoo heavy. He will follow up in 6 weeks for a 3 month follow up. Patient is in agreement. Plan Details Goals & Barriers: Goals Improve ROM Decrease spasm Improve ability to perform ADLs (yard work) 02/14/25 1107 MD> Date _ Karlos Vazquez MD Cosigner Signature: Date (if applicable) CC: GLO Simmons ~ [facility]06-05-2025 Radiology Diagnostic study note [facility] Imaging Services [address] [place], [place] [id number] Cerv Spine 2 or 3 Views MR#: [id number] Acct: [id number] Name: IMAN GREEN Rep #: [id number] : 1980 M 44 From: Ladonna Dunbar MD PCP: GLO Donnelly Status: REG CLI Study:Cerv Spine 2 or 3 Views Date of Exam: 02/13/25 Exam# [id number] Ordering Dr: Pam Vazquez MD PROCEDURE: CERV SPINE 2 OR 3 VIEWS 02/13/2025 REASON FOR EXAM: S/P CERVICAL DISC REPLACMENT TECHNIQUE: 2 views of the cervical spine. COMPARISON: Cervical spine radiographs on 01/15/2025 FINDINGS: Postoperative changes from disc replacement at C4-5 and C5-6, unchanged from 01/15/2025. Vertebral body heights and alignment are maintained. Mild disc space narrowing at C6-7, similar to prior. Prevertebral soft tissues are unremarkable. Lung apices are clear. RAD/Cerv Spine 2 or 3 Views IMPRESSION: Stable postoperative appearance of the cervical spine. Reading Location: [facility] CC: GLO Simmons; Dr. Karlos Vazquez MD ~ Chief Service Dispatcher: Signed [facility]05-07-2025 Radiology Diagnostic study note [facility] Imaging Services [address] [place] [address] Cerv Spine 2 or 3 Views MR#: [id number] Acct: [id number] Name: IMAN GREEN Rep #: [id number] : 1980 M 44 From: Chester Schulz MD PCP: GLO Donnelly Status: REG CLI Study:Cerv Spine 2 or 3 Views Date of Exam: 01/15/25 Exam# [id number] Ordering Dr: Lenny Perez PROCEDURE: CERV SPINE 2 OR 3 VIEWS 01/15/2025 REASON FOR EXAM: STATUS POST DISC REPLACEMENT TECHNIQUE: 2 views of the cervical spine. FINDINGS: Cervical spine is visualized on the lateral view from the skull base to T1. Status post intervertebral disc prosthesis/replacement C4-5 and C5-6 appears intact and anatomic. No fracture or malalignment. No prevertebral soft tissue swelling. C6-7 disc space narrowing. Visualized apices appear clear. RAD/Cerv Spine 2 or 3 Views IMPRESSION: Status post intervertebral disc prosthesis/replacement C4-5 and C5-6 appears intact and anatomic. No fracture or malalignment. Reading Location: [id number] CC: AWNING MAKER-C Nyasia Simmons; MYKEL Harvey ~ Chief Service Dispatcher: Signed [facility]2025 [facility] Medical Records Department [address] [place] [address] History Physical Exam 01/01/25 1101 MR#: [id number] Acct: [id number] Name: IMAN GREEN Rep #: [id number] : 1980 44 From: Karlos Vazquez MD PCP: GLO Donnelly Status:REG [facility] Location: [facility]-1 History and Physical MR#: [id number] Acct: [id number] Name: IMAN GREEN Rep #: [id number] : 1980 Provider: Dr. Karlos Vazquez MD Age/Sex: 44/M Location: [facility] Status: Signed Intake Vital Signs 11/21/2513:38 Height 5 ft 9 in Intake Visit Reasons: cervical spine Allergies No Known Allergies Allergy (Verified 12/21/24 08:38) Medications ???Medication ???Instructions ???Recorded ???Confirmed ???Type TENS unit electrodes (Pro Comfort 11/08/24 12/21/24 History Tens Electrode pads) acetaminophen 650 mg 1,300 mg PO QDAY PRN pain 11/08/24 12/21/24 Histor y tablet,extended release ibuprofen 200 mg capsule 800 mg PO TID PRN pain 11/08/24 12/21/24 History multivitamin 1 tab PO QDAY 11/08/24 12/21/24 History baclofen 5 mg tablet 5 mg PO BID PRN pain 11/21/24 12/21/24 History duloxetine 30 mg capsule,delayed 30 mg PO DAILY 11/29/24 12/21/24 History release gabapentin 300 mg capsule 300 mg PO TID PRN pain 12/18/24 12/21/24 History PFSH Medical History Wears glasses History of steroid therapy Injury of head and neck Gastric reflux Former smoker History of echocardiogram Cardiology follow-up encounter History of irregular heartbeat Left shoulder pain Knee pain Back pain Severe headache Arthritis Hypertension Surgical History History of fusion of talotibial joint and subtalar joint surgery of tibia H/O cardiac radiofrequency ablation Optional surgery Family History Father Diabetes Social History household members: spouse and children Smoking Status: Former smoker quit date: 09/12/00 alcohol intake: current alcohol intake frequency: holidays/special occasions only substance use type: does not use HPI cervical spine Details: This documentation accurately reflects the service provided and the decisions made by me, Dr. Karlos Vazquez MD 12/21/24 0829. Part of today???s visit was documented by Sharon SCHULZ, acting as scribe. IMAN GREEN is a 44 year old M here today for pre-op cervical spine dos: 01/01/25. Patient is here for a Pre op visit. He states that the pain is really bad today. Patient has a lot of nerve pain today. He has been trying to not do a whole lot. Patient has neck pain and headaches. I examined the patient today. The left hand is a little weak. Patient states that he has had some balance issues. I went over the MRI with the patient today. I explained to the patient that he would do a fusion now, he would have to do another fusion later. I explained to the patient about the future operation that we would do. Patient had an ablation 10 years ago. Patient states that his EKG's have been normal. I stated to the patient about what would happen after the surgery. The first 4 days patient will have problems swallowing. I advise patient to eat soft foods. I advise patient to have a follow up post op appointment after the surgery. I explained to the patient would could happen after the surgery, so he is aware. After 3 months patient has no restrictions. I advise patient no excessive lifting or moving once the collar is off. I advise that patient has his nuck a little bit higher for a week. The suregry takes 2 hours to do. 11/29/24: IMAN GREEN is a 44 year old M here today for cervical spine MRI review. Patient rates his pain a 2-3/10 today. Patient continues with physical therapy and states it is going well. He states the general cervical spine pain and range of motion is getting somewhat better. He states the radiating pain that is in the left arm is pretty much the same. Patient states he takes Ibuprofen PRN for the pain. A month of dexterity issues but pain has been going on for the last 6 months. Patient is left hand dominant. 11/21/2024: IMAN GREEN is a 44 year old M here today for cervical spine pain. Last June he started having a lot of pain, but kept working with it. Three weeks ago he couldn't move his neck, he had to call off work for 2 days because he was in pain. Patient feels like he loses his strength in his arms. Hit hurts mainly in th upper left quadrant. He got xrays done today. Saw Dr. Deutsch a week for injection in the shoulder, it didn't help. (more content not included)...[facility]03-28-2025 Discharge summary Author Jaime Olivia [facility] Note Date/Time December 07, 2024 7:0 0pm [facility] Physical Therapy [facility] [address] [place] [address] / REHABILITATION SERVICES DISCHARGE SUMMARY MR#: [id number] Acct: [id number] Name: IMAN GREEN Rep #: [id number] : 1980 44 From: Jaime Olivia DPT, OCS, CSCS Referring Dr.: Dr. Mat Deutsch MD Status: REG RCR Insurance: [employer] [employer]URANCE Discharge Summary D/C summary: It has been my pleasure to treat IMAN GREEN referred by Dr. Mat Deutsch MD, with the diagnosis of L shoulder pain for a total of 7 visit(s). Discharge Date: 12/07/24 Please see the following information for a summary of their discharge status. Subjective Subjective: Strength is better but ROM in L shoulder is stiff. 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 Recommended disc replacement. Pain in L shoulder is different, tingling is gone, pain lateral upper arm and into forearm 5/10 at times with work. Worse on feet at work. Has nerve pain meeds daily which helps but does not last. Activities : avoids lifting and reaching. Avoids yard work due to fear. Sleep is still interrupted at times. Pain L scapula/shoulder: Pain Intensity (Out of 10): 3 Overall Improvement % Improvement: 70 Objective Objective/Function: Full cervical ROM without pain, 8- extension, 75 B rotations. L shoulder slightly tighter in flexion vs R at 160 vs 150. weakness evident in tricep on R and ext rotation but overall funcitonal. Improving symptoms and willing to continue on his own at home vs more therapy. Will f/u with Dr. Vazquez in a few weeks for possible surgery info. Goals Goal 1:: Pain in neck and shoulder 90% better and 1/10 at worst Goal Progress: 70% Goal 2:: Sleep without waking at night due to pain Goal Progress: Not Progressing Goal 3:: Patient will return to work without worseening pain in neck/shoulder Goal Progress: Not Progressing Goal 4:: quickdash score 15 or bettr Goal Progress: Progressing Goal 5:: I appropriate HEP to limit future prob lems Goal Progress: Goal Met Goal 6:: symmetircal ext rotation strngth, full elevation ROM, full neck ROM allwithout pain Goal Progress: Progressing Plan Plan: d/c to HEP D/C Information Discharge Comments: To see spinal surgeon in 2-3 weeks and continue HEP fo neck and shoulder ROM and strengthening via HEP in the meantime. d/c sentence: If there are questions or concerns regarding this patient's physical therapy, please feel free to call me at [phone]. Thank you for the referral of thispatient. Sincerely, Jaime Olivia DPT, MADISON, CSCS Balance/Gait/Functional tests Balance/Special Test Scores Quick DASH Score: 31.8175 Improvement % Improvement: 70 <Electronically signed by MADISON Cooley DPT, CSCS> 12/07/24 1558 CC: GLO Simmons; Dr. Mat Deutsch MD ~ EBG Signed [facility] Work Phone: 1(270) 596-412503-28-2025 Discharge summary [facility] Physical [facility] [address] [place] [address]. [address] [place] [address] / REHABILITATION SERVICES DISCHARGE SUMMARY MR#: [id number] Acct: [id number] Name: IMAN GREEN Rep #: [id number] : 1980 44 From: MADISON Cooley DPT, CSCS Referring Dr.: Dr. Mat Deutsch MD Status: REG RCR Insurance: [employer]!/[facility] [employer] INSURANCE Discharge Summary D/C summary: It has been my pleasure to treat IMAN GREEN referred by Dr. Mat Deutsch MD, with the diagnosis of L shoulder pain for a total of 7 visit(s). Discharge Date: 12/07/24 Please see the following information for a summary of their discharge status. Subjective Subjective: Strength is better but ROM in L shoulder is stiff. Had MRi and has herniations in neck,c56 is severe and causing radiation into arm. Recommended disc replacement. Pain in L shoulder is different, tingling is gone, pain lateral upper arm and into forearm 5/10 at times with work. Worse on feet at work. Has nerve pain meeds daily which helps but does not last. Activities : avoids lifting and reaching. Avoids yard work due to fear. Sleep is still interrupted at times. Pain L scapula/shoulder: Pain Intensity (Out of 10): 3 Overall Improvement % Improvement: 70 Objective Objective/Function: Full cervical ROM without pain, 8- extension, 75 B rotations. L shoulder slightly tighter in flexion vs R at 160 vs 150. weakness evident in tricep on R and ext rotation but overall funcitonal. Improving symptoms and willing to continue on his own at home vs more therapy. Will f/u with Dr. Vazquez in a few weeks for possible surgery info. Goals Goal 1:: Pain in neck and shoulder 90% better and 1/10 at worst Goal Progress: 70% Goal 2:: Sleep without waking at night due to pain Goal Progress: Not Progressing Goal 3:: Patient will return to work without worseening pain in neck/shoulder Goal Progress: Not Progressing Goal 4:: quickdash score 15 or bettr Goal Progress: Progressing Goal 5:: I appropriate HEP to limit future prob lems Goal Progress: Goal Met Goal 6:: symmetircal ext rotation strngth, full elevation ROM, full neck ROM allwithout pain Goal Progress: Progressing Plan Plan: d/c to HEP D/C Information Discharge Comments: To see spinal surgeon in 2-3 weeks and continue HEP fo neck and shoulder ROM and strengthening via HEP in the meantime. d/c sentence: If there are questions or concerns regarding this patient's physical therapy, please feel free to call me at [phone]. Thank you for the referral of thispatient. Sincerely, Jaime Olivia, DPT, OCS, CSCS Balance/Gait/Functional tests Balance/Special Test Scores Quick DASH Score: 31.8175 Improvement % Improvement: 70 12/07/24 1558 CC: GLO Simmons; Dr. Mat Deutsch MD ~ EBG Signed [facility]03-20-2025 Evaluation note* Diagnosis Onset Date Resolution Status Admit Date Cervical myelopathy acute November 29, 2024 11:23am Cervical myelopathy with cervical radiculopathy acute December 8:29am Status post cervical disc replacement acute January 15, 2025 10 :20am Status post cervical disc replacement acute February 14, 2025 1 0:28am Neck pain acute February 25 1:54pm Status post cervical disc replacement acute February 25, 2025 1:54pm [facility] Work Phone: 1(746) 624-160203-20-2025 Evaluation note* Diagnosis Onset Date Resolution Status Admit Date Cervical myelopathy acute November 29, 2024 11:23am Cervical myelopathy with cervical radiculopathy acute December 8:29am Status post cervical disc replacement acute January 15, 2025 10 :20am Status post cervical disc replacement acute February 14, 2025 1 0:28am Neck pain acute February 25 1:54pm Status post cervical disc replacement acute February 25, 2025 1:54pm Status post cervical disc replacement acute March 28, 2025 10:55am [facility] Work Phone: 1(474) 627-325603-12-2025 Evaluation note* Diagnosis Onset Date Resolution Status Admit Date Cervical myelopathy acute November 21, 2024 2:20pm Cervical myelopathy acute November 29, 2024 11:23am Cervical myelopathy with cervical radiculopathy acute December 8:29am Status post cervical disc replacement acute January 15, 2025 10 :20am Status post cervical disc replacement acute February 14, 2025 1 0:28am Neck pain acute February 25 1:54pm Status post cervical disc replacement acute February 25, 2025 1:54pm [facility] Work Phone: 1(201) 616-115303-12-2025 Radiology Diagnostic study note [facility] Imaging Services [address], [place] [id number] Cerv Spine 2 or 3 Views MR#: [id number] Acct: [id number] Name: IMAN GREEN Rep #: [id number] : 1980 M 44 From: Marzena Zuñiga MD PCP: GLO Donnelly Status: REG CLI Study:Cerv Spine 2 or 3 Views Date of Exam: 11/21/24 Exam# [id number] Ordering Dr: Lenny Perezyn PA EXAM: XR Cervical Spine, 2 or 3 Views CLINICAL INDICATION: PAIN TECHNIQUE: Frontal and lateral views of the cervical spine. COMPARISON: No relevant prior studies available. FINDINGS: VERTEBRAE: Unremarkable. Normal alignment. No acute fracture. DISC SPACES: No acute findings. No significant narrowing. SOFT TISSUES: Unremarkable. OTHER FINDINGS: No significant dynamic instability. RAD/Cerv Spine 2 or 3 Views IMPRESSION: 1. No acute fracture. 2. No significant dynamic instability. Reading [facility] CC: AWNING MAKER-C Nyasai Simmons; MYKEL Harvey ~ Chief Service Dispatcher: Signed [facility]02-27-2025 Evaluation note* Diagnosis Onset Date Resolution Status Admit Date Left shoulder pain acute Februa 2024 9:43am Cervical myelopathy acute November 21, 2024 2:20pm Cervical myelopathy acute November 29, 2024 11:23am Cervical myelopathy with cervical radiculopathy acute December 8:29am Status post cervical disc replacement acute January 15, 2025 10 :20am Status post cervical disc replacement acute February 14, 2025 1 0:28am [facility] Work Phone: 1(808) 585-704902-26-2025 Radiology Diagnostic study note [facility] Imaging Services [address], [place] [address] Shoulder min 2 Views MR#: [id number] Acct: [id number] Name: IMAN GREEN Rep #: [id number] : 1980 M 44 From: Husam Amezquita MD PCP: GLO Donnelly Status: REG CLI Study:Shoulder min 2 Views Date of Exam: 11/07/24 Exam# [id number] Ordering Dr: Mat Deutsch MD PROCEDURE: SHOULDER MIN 2 VIEWS REASON FOR EXAM: Left shoulder pain. TECHNIQUE: Four views of the left shoulder were obtained. COMPARISON: None. FINDINGS: LEFT SHOULDER: No fracture. No suspicious bone lesion. Normal alignment of the acromioclavicular and glenohumeral joints. Soft tissues are unremarkable. RAD/Shoulder min 2 Views IMPRESSION: Unremarkable examination. Reading Location: [id number] CC: GLO Simmons; Dr. Mat Deutsch MD ~ Chief Service Dispatcher: Signed [facility]02-26-2025 Radiology Diagnostic study note [facility] Imaging Services [address] [place] [address] Cerv Spine 4 or 5 Views MR#: [id number] Acct: [id number] Name: IMAN GREEN Rep #: [id number] : 1980 M 44 From: Corbin Martinez MD PCP: GLO Donnelly Status: REG CLI Study:Cerv Spine 4 or 5 Views Date of Exam: 11/07/24 Exam# [id number] Ordering Dr: Mat Deutsch MD PROCEDURE: CERV SPINE 4 OR 5 VIEWS REASON FOR EXAM: Left shoulder pain. TECHNIQUE: 6 views of the cervical spine COMPARISON: None. FINDINGS: Normal vertebral body heights. No visible fracture. Disc space heights are preserved. No significant osseous neural foraminal narrowing on oblique views. Normal alignment. No translational instability with flexion or extension. Prevertebral soft tissues are unremarkable. RAD/Cerv Spine 4 or 5 Views IMPRESSION: No significant abnormalities. Reading Location: [id number] CC: GLO Simmons; Dr. Mat Deutsch MD ~ Chief Service Dispatcher: Signed [facility]01-24-2025 Evaluation note* Diagnosis Onset Date Resolution Status Admit Date Acute sinusitis acute September 132024 3:47pm Left shoulder pain acute Februa 2024 9:43am [facility] Work Phone: 1(706) 331-562501-24-2025 Evaluation note* Diagnosis Onset Date Resolution Status Admit Date Acute sinusitis acute September 132024 3:47pm Left shoulder pain acute Februa 2024 9:43am Cervical myelopathy acute November 21, 2024 2:20pm Cervical myelopathy acute November 29, 2024 11:23am [facility] Work Phone: 1([phone]) 576-312301-24-2025 Evaluation note* Diagnosis Onset Date Resolution Status Admit Date Acute sinusitis acute September 132024 3:47pm Left shoulder pain acute Februa 2024 9:43am Cervical myelopathy acute November 21, 2024 2:20pm Cervical myelopathy acute November 29, 2024 11:23am Cervical myelopathy with cervical radiculopathy acute December 8:29am [facility] Work Phone: 1([phone]) 168-929501-24-2025 Evaluation note* Diagnosis Onset Date Resolution Status Admit Date Acute sinusitis acute September 132024 3:47pm Left shoulder pain acute Februa 2024 9:43am Cervical myelopathy acute November 21, 2024 2:20pm Cervical myelopathy acute November 29, 2024 11:23am Cervical myelopathy with cervical radiculopathy acute December 8:29am Status post cervical disc replacement acute January 15, 2025 10 :20am [facility] Work Phone: Evaluation noteNo assessment information available [facility] Work Phone: Hospital Discharge instructions Additional Instructions Please stop the [place] and begin using the oxycodone for improved pain control. In order to help control your blood pressure begin taking the metoprolol twice a day as directed. Use Ativan as needed if you feel anxious as this can also cause spikes to your blood pressure. [facility] the [facility] should [facility] Work [facility]: Hospital Discharge instructionsAmbulatory Orders* Physical Therapy Referral Location: None Selected [facility] Work Phone: Progress note Author Karlos Vazquez [facility] Note Date/Time February 14, 2025 11:07 am [facility] [address] [place] [id number] OFFICE VISIT Date of Service: 02/14/25 MR#: [id number] Acct: [id number] Name: IMAN GREEN Rep #: [id number] : 1980 Provider: Dr. Miguel Vazquez MD Age/Sex: 44/M Location: [email or web address] Status: Signed Intake Vital Signs 11/21/24 14:38 01/02/25 00:42 Height 5 ft 9 in 5 ft 9 in Intake Visit Reasons: cervical spine Chief Complaint: 6 week post-op Accompanied by: Is patient in pain?: Yes Pain scale (1-10): 1 Allergies No Known Allergies Allergy (Verified 02/14/25 10:45) Medications ?Medication ?Instructions ?Recorded ?Confirmed ?Type TENS unit electrodes ([employer] 11/08/24 02/14/25 H istory Tens Electrode pads) multivitamin 1 tab PO QDAY 11/08/2402/14 History dexamethasone 4 mg tablet 4 mg PO BID #5 tabs 01/01/25 02/14/25 Rx methocarbamol 500 mg tablet 500 - 750 mg (1 - 1.5 x 50 0 mg) PO 01/01/25 02/14/25 Rx TID PRN pain/spasms #60 tabs omeprazole 20 mg capsule,delayed 20 mg PO DAILY 02/14/25 History release losartan 50 mg tablet 50 mg PO QDAY 02/14/2502/14 History PFSH Medical History Wears glasses History of steroid therapy Injury of head and neck Gastric reflux Former smoker History of echocardiogram Cardiology follow-up encounter History of irregular heartbeat Left shoulder pain Knee pain Back pain Severe headache Arthritis Hypertension Surgical History History of fusion of talotibial joint and subtalar joint surgery of tibia H/O cardiac radiofrequency ablation Optional surgery Family History Father Diabetes Social History household members: spouse and children Smoking Status: Former smoker quit date: 09/12/00 alcohol intake: current alcohol intake frequency: holidays/special occasions only substance use type: does not use HPI cervical spine Details: This documentation accurately reflects the service provided and the decisions made by me, Dr. Karlos Vazquez MD 02/14/25 1041. Part of today?s visit was documented by Kathy Ramirez ATC and Mary Perez PA-C, acting as scribe. IMAN GREEN is a 44 year old M here today for s/p C4-6 cervical disc replacement DOS 01/01/2025. Patient states he has some mild pain today but he dida lot of driving yesterday. He continues to take Methocarbamol PRN when he is more active. Patient states he continues with physical therapy and it is going well. Denies any dysphagia, not avoiding any foods. Says that he is close to prior neck ROM. Denies any nerve pain down the arms continuing to get less and less spasms. Patient says that he had a fall and landed onto grass recently, denies any increased neck pain. Ortho Exam General General: Yes no acute distress Neurologic: Yes alert and Yes oriented x3 Spine SPINE TESTING CERVICAL THORACIC LUMBAR Musculoskeletal Strength 0=absent - 5=normal Details: Neurological exam of the upper extremities shows 5X5 power. Normal sensation across all dermatomes. Physical examination of the neck shows a well-healed anddry incision. Dominique's negative. Coding Level of Care Code Global Post Op Diagnoses Status post cervical disc replacement Z98.890 Assessment and Plan Assessment and Plan (1) Status post cervical disc replacement: Status: Acute Plan Obtained and reviewed xrays today in the clinic. Xrays show prosthesis in good position. Patient is now 6 weeks out C4-6 disc replacement. He will continue outpatient PT. Continue restrictions of no bending, lifting, twisting, okay to lift upwardsof 2 gallons of milk or 16 pounds. 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 Encouraged the patient that if tolerated he can consider going back to work early. Okay for the patient to do some push mowing and weed eating so long as the device is not too heavy. He will follow up in 6 weeks for a 3 month follow up. Patient is in agreement. Plan Details Goals & Barriers: Goals Improve ROM Decrease spasm Improve ability to perform ADLs (yard work) 02/14/25 1107 <Electronically signed by Karlos Vazquez MD> Date _ Karlos Vazquez MD Cosigner Signature: Date (if applicable) CC: GLO Simmons ~ [facility] Work Phone: Chief Complaint and Reason for Visit Chief Complaint COVID TEST/ILL X3DAY S [employer]OY[employer] Chief Complaint SHAKINESS,DIZZINESS, Chief Complaint Admit Date cough, congestion, headache September 3:47pm pain November 07, 2024 3:12pm LEFT SHOULDER November 08, 2024 9:43am L SHOULDER RX HERE November 15, 2024 1:00 pm Reason for Visit Admit Date Acute sinusitis October 05, 2024 3 :47pm Left shoulder pain November 08, 2024 9:43am Chief Complaint Admit Date cough, congestion, headache September 3:47pm pain November 07, 2024 3:12pm LEFT SHOULDER November 08, 2024 9:43am CERVICAL SPINE November 21, 2024 2:2 0pm pain November 21, 2024 2:2 8pm CERVICAL MYELOPATHY November 27, 2024 2:5 0pm L SHOULDER RX HERE November 29, 2024 10: 00am CERVICAL SPINE November 29, 2024 11: 23am Reason for Visit Admit Date Acute sinusitis October 05, 2024 3 :47pm Left shoulder pain November 08, 2024 9:43am Cervical myelopathy November 21, 2024 2:2 0pm Cervical myelopathy November 29, 2024 11: 23am Chief Complaint Admit Date cough, congestion, headache September 3:47pm pain November 07, 2024 3:12pm LEFT SHOULDER November 08, 2024 9:43am CERVICAL SPINE November 21, 2024 2:2 0pm pain November 21, 2024 2:2 8pm CERVICAL MYELOPATHY November 27, 2024 2:5 0pm CERVICAL SPINE November 29, 2024 11: 23am L SHOULDER RX HERE December 03, 2024 4:0 0pm Chief Complaint Admit Date cough, congestion, headache September 3:47pm pain November 07, 2024 3:12pm LEFT SHOULDER November 08, 2024 9:43am CERVICAL SPINE November 21, 2024 2:2 0pm pain November 21, 2024 2:2 8pm CERVICAL MYELOPATHY November 27, 2024 2:5 0pm CERVICAL SPINE November 29, 2024 11: 23am L SHOULDER RX HERE December 07, 2024 3:0 0pm Chief Complaint Admit Date cough, congestion, headache September 3:47pm pain November 07, 2024 3:12pm LEFT SHOULDER November 08, 2024 9:43am CERVICAL SPINE November 21, 2024 2:2 0pm pain November 21, 2024 2:2 8pm CERVICAL MYELOPATHY November 27, 2024 2:5 0pm CERVICAL SPINE November 29, 2024 11: 23am L SHOULDER RX HERE December 07, 2024 3:0 0pm PREOP December 21, 2024 4:4 1am cervical spine December 21, 2024 8:2 9am Cervical Disc Arthroplasty C4-5 and C5-6 January 01, 2025 9:26am Cervical Disc Arthroplasty C4-5 and C5-6 January 01, 2025 11:01am HYPERTENSION AND PAIN January 02, 2025 1 2:42am Reason for Visit Admit Date Acute sinusitis October 05, 2024 3 :47pm Left shoulder pain November 08, 2024 9:43am Cervical myelopathy November 21, 2024 2:2 0pm Cervical myelopathy November 29, 2024 11: 23am Cervical myelopathy with cervical radicu lopathy December 21, 2024 8:29am Chief Complaint Admit Date cough, congestion, headache September 3:47pm pain November 07, 2024 3:12pm LEFT SHOULDER November 08, 2024 9:43am CERVICAL SPINE November 21, 2024 2:2 0pm pain November 21, 2024 2:2 8pm CERVICAL MYELOPATHY November 27, 2024 2:5 0pm CERVICAL SPINE November 29, 2024 11: 23am L SHOULDER RX HERE December 07, 2024 3:0 0pm PREOP December 21, 2024 4:4 1am cervical spine December 21, 2024 8:2 9am Cervical Disc Arthroplasty C4-5 and C5-6 January 01, 2025 9:26am Cervical Disc Arthroplasty C4-5 and C5-6 January 01, 2025 11:01am HYPERTENSION AND PAIN January 02, 2025 1 2:42am Status post disc replacement May 6th, 20 25 10:11am cervical spine January 15, 2025 10:20a m Reason for Visit Admit Date Acute sinusitis October 05, 2024 3 :47pm Left shoulder pain November 08, 2024 9:43am Cervical myelopathy November 21, 2024 2:2 0pm Cervical myelopathy November 29, 2024 11: 23am Cervical myelopathy with cervical radicu lopathy December 21, 2024 8:29am Status post cervical disc replacement Ma y 2024 10:20am Chief Complaint Admit Date pain November 07, 2024 3:12pm LEFT SHOULDER November 08, 2024 9:43am CERVICAL SPINE November 21, 2024 2:2 0pm pain November 21, 2024 2:2 8pm CERVICAL MYELOPATHY November 27, 2024 2:5 0pm CERVICAL SPINE November 29, 2024 11: 23am L SHOULDER RX HERE December 07, 2024 3:0 0pm PREOP December 21, 2024 4:4 1am cervical spine December 21, 2024 8:2 9am Cervical Disc Arthroplasty C4-5 and C5-6 January 01, 2025 9:26am Cervical Disc Arthroplasty C4-5 and C5-6 January 01, 2025 11:01am HYPERTENSION AND PAIN January 02, 2025 1 2:42am Status post disc replacement January 15 10:11am cervical spine January 15, 2025 10:20a m NECK/SHOULDER POST SURGERY. RX TO BE FAX ED. February 12, 2025 11:30am s/p cervical disc replacment February 13 025 4:00pm cervical spine February 14, 2025 10:28 am Reason for Visit Admit Date Left shoulder pain November 08, 2024 9:43am Cervical myelopathy November 21, 2024 2:2 0pm Cervical myelopathy November 29, 2024 11: 23am Cervical myelopathy with cervical radicu lopathy December 21, 2024 8:29am Status post cervical disc replacement Ma y 2024 10:20am Status post cervical disc replacement Chelsea cortes 2024 10:28am Chief Complaint Admit Date pain November 07, 2024 3:12pm LEFT SHOULDER November 08, 2024 9:43am CERVICAL SPINE November 21, 2024 2:2 0pm pain November 21, 2024 2:2 8pm CERVICAL MYELOPATHY November 27, 2024 2:5 0pm CERVICAL SPINE November 29, 2024 11: 23am L SHOULDER RX HERE December 07, 2024 3:0 0pm PREOP December 21, 2024 4:4 1am cervical spine December 21, 2024 8:2 9am Cervical Disc Arthroplasty C4-5 and C5-6 January 01, 2025 9:26am Cervical Disc Arthroplasty C4-5 and C5-6 January 01, 2025 11:01am HYPERTENSION AND PAIN January 02, 2025 1 2:42am Status post disc replacement January 15 10:11am cervical spine January 15, 2025 10:20a m s/p cervical disc replacment February 13 025 4:00pm cervical spine February 14, 2025 10:28 am NECK/SHOULDER POST SURGERY. RX TO BE FAX ED. February 15, 2025 1:30pm Chief Complaint Admit Date pain November 07, 2024 3:12pm LEFT SHOULDER November 08, 2024 9:43am CERVICAL SPINE November 21, 2024 2:2 0pm pain November 21, 2024 2:2 8pm CERVICAL MYELOPATHY November 27, 2024 2:5 0pm CERVICAL SPINE November 29, 2024 11: 23am L SHOULDER RX HERE December 07, 2024 3:0 0pm PREOP December 21, 2024 4:4 1am cervical spine December 21, 2024 8:2 9am Cervical Disc Arthroplasty C4-5 and C5-6 January 01, 2025 9:26am Cervical Disc Arthroplasty C4-5 and C5-6 January 01, 2025 11:01am HYPERTENSION AND PAIN January 02, 2025 1 2:42am Status post disc replacement January 15 10:11am cervical spine January 15, 2025 10:20a m s/p cervical disc replacment February 13 025 4:00pm cervical spine February 14, 2025 10:28 am NECK/SHOULDER POST SURGERY. RX TO BE FAX ED. February 19, 2025 10:00am EST CARE February 25, 2025 1:54 pm Chief Complaint Admit Date CERVICAL SPINE November 21, 2024 2:2 0pm pain November 21, 2024 2:2 8pm CERVICAL MYELOPATHY November 27, 2024 2:5 0pm CERVICAL SPINE November 29, 2024 11: 23am L SHOULDER RX HERE December 07, 2024 3:0 0pm PREOP December 21, 2024 4:4 1am cervical spine December 21, 2024 8:2 9am Cervical Disc Arthroplasty C4-5 and C5-6 January 01, 2025 9:26am Cervical Disc Arthroplasty C4-5 and C5-6 January 01, 2025 11:01am HYPERTENSION AND PAIN January 02, 2025 1 2:42am Status post disc replacement January 15 10:11am cervical spine January 15, 2025 10:20a m s/p cervical disc replacment February 13 025 4:00pm cervical spine February 14, 2025 10:28 am EST CARE February 25, 2025 1:54 pm NECK/SHOULDER POST SURGERY. RX TO BE FAX ED. March 14, 2025 11:00am Reason for Visit Admit Date Cervical myelopathy November 21, 2024 2:2 0pm Cervical myelopathy November 29, 2024 11: 23am Cervical myelopathy with cervical radicu lopathy December 21, 2024 8:29am Status post cervical disc replacement Ma y 2024 10:20am Status post cervical disc replacement Ju ne 2024 10:28am Neck pain February 25, 2025 1:54 pm Status post cervical disc replacement Ju ne 2024 1:54pm Chief Complaint Admit Date CERVICAL SPINE November 29, 2024 11: 23am L SHOULDER RX HERE December 07, 2024 3:0 0pm PREOP December 21, 2024 4:4 1am cervical spine December 21, 2024 8:2 9am Cervical Disc Arthroplasty C4-5 and C5-6 January 01, 2025 9:26am Cervical Disc Arthroplasty C4-5 and C5-6 January 01, 2025 11:01am HYPERTENSION AND PAIN January 02, 2025 1 2:42am Status post disc replacement January 15 10:11am cervical spine January 15, 2025 10:20a m s/p cervical disc replacment February 13 025 4:00pm cervical spine February 14, 2025 10:28 am EST CARE February 25, 2025 1:54 pm NECK/SHOULDER POST SURGERY. RX TO BE FAX ED. March 14, 2025 11:00am s/p cervical disc replacement March 25, 2025 1:41pm CERVICAL SPINE March 28, 2025 10:5 5am Reason for Visit Admit Date Cervical myelopathy November 29, 2024 11: 23am Cervical myelopathy with cervical radicu lopathy December 21, 2024 8:29am Status post cervical disc replacement Ma y 2024 10:20am Status post cervical disc replacement Ju ne 2024 10:28am Neck pain February 25, 2025 1:54 pm Status post cervical disc replacement Ju ne 2024 1:54pm Reason for Visit Admit Date Cervical myelopathy November 29, 2024 11: 23am Cervical myelopathy with cervical radicu lopathy December 21, 2024 8:29am Status post cervical disc replacement Ma y 2024 10:20am Status post cervical disc replacement Ju ne 2024 10:28am Neck pain February 25, 2025 1:54 pm Status post cervical disc replacement Ju ne 2024 1:54pm Status post cervical disc replacement Ju ly 2024 10:55am Advance Directives No Advanced Directives Records Found Advance Directive Response Recorded Date/ Time Advance Directives No April 20 7:26am Living Will No April 20, 2022 7:26am Power of Shingle Trimmer No April 20 7:26am Advance Directive Response Recorded Date/ Time Advance Directives No April 20 7:26am Living Will No May 12 4:07am Power of Shingle Trimmer No May 12 4:07am Advance Directive Response Recorded Date/ Time Advance Directives No October 5:10pm Advance Directive Response Recorded Date/ Time Advance Directives No October 5:10pm Living Will No December 18, 2024 8:22am Do you have a Healthcare Power of Shingle Trimmer? No December 18, 2024 8:22am Do you have a Healthcare Power of Shingle Trimmer? No January 02, 2025 12:47am Advance Directive Response Recorded Date/ Time Living Will No December 18, 2024 8:22am Do you have a Healthcare Power of Shingle Trimmer? No December 18, 2024 8:22am Do you have a Healthcare Power of Shingle Trimmer? No January 02, 2025 12:47am Advance Directives No October 5:10pm Summary Purpose Family History No Family History Records Found Additional Source Comments Care Teams (unrecognized sec tion and content) Team Status: Active Member Role Status Dates Dr. Mat Cotter MD Family Provider Active Nyasia Simmons NP-C Primary Care Provider Active Team Status: Inactive Member Role Status Dates Dr. Jaime Lockwood DO Emergency Provider Active Nyasia Simmons AWNING MAKER-C Primary Care Provider Active Team Status: Active Member Role Status Dates Nyasia Simmons NP-C Primary Care Provider Active Team Status: Inactive Member Role Status Dates Nyasia Simmons NP-C Primary Care Provider Active Start: October 05, 2024 End: October 05, 2024 Nyasia Simmons NP-C Referring Provider Active St art: October 05, 2024 End: October 05, 2024 Anderson HOGUE, PA Attending Provider Active Sta rt: October 05, 2024 End: October 05, 2024 Team Status: Inactive Member Role Status Dates Mat Deutsch MD Attending Provider Active St art: November 07, 2024 End: November 07, 2024 Mat Deutsch MD Referring Provider Active St art: November 07, 2024 End: November 07, 2024 Nyasia Simmons NP-C Primary Care Provider Active Start: November 07, 2024 End: November 07, 2024 Team Status: Inactive Member Role Status Dates Nyasia Simmons NP-C Primary Care Provider Active Start: November 08, 2024 End: November 08, 2024 Nyasia Simmons NP-C Referring Provider Active St art: November 08, 2024 End: November 08, 2024 Mat Deutsch MD Attending Provider Active St art: November 08, 2024 End: November 08, 2024 Team Status: Active Member Role Status Dates Nyasia Simmons NP-C Primary Care Provider Active Start: November 15, 2024 Mat Deutsch MD Attending Provider Active St art: November 15, 2024 Mat Deutsch MD Referring Provider Active St art: November 15, 2024 Team Status: Inactive Member Role Status Dates Nyasia Simmons AWNING MAKER-C Primary Care Provider Active Start: November 21, 2024 End: November 21, 2024 Nyasia Simmons NP-C Referring Provider Active St art: November 21, 2024 End: November 21, 2024 MYKEL Harvey Attending Provider Active Star t: November 21, 2024 End: November 21, 2024 Team Status: Inactive Member Role Status Dates Nyasia Simmons [employer] Primary Care Provider Active Start: November 21, 2024 End: November 21, 2024 MYKEL Harvey Attending Provider Active Star t: November 21, 2024 End: November 21, 2024 MYKEL Harvey Referring Provider Active Star t: November 21, 2024 End: November 21, 2024 Team Status: Active Member Role Status Dates Nyasia Simmons [employer] Primary Care Provider Active Start: November 27, 2024 MYKEL Harvey Attending Provider Active Star t: November 27, 2024 MYKEL Harvey Referring Provider Active Star t: November 27, 2024 Team Status: Active Member Role Status Dates Nyasia Simmons [employer] Primary Care Provider Active Start: November 29, 2024 Mat Deutsch MD Attending Provider Active St art: November 29, 2024 Mat Deutsch MD Referring Provider Active St art: November 29, 2024 Team Status: Inactive Member Role Status Dates Nyasia Simmons [employer] Primary Care Provider Active Start: November 29, 2024 End: November 29, 2024 Nyasia Simmons [employer] Referring Provider Active St art: November 29, 2024 End: November 29, 2024 MYKEL Harvey Attending Provider Active Star t: November 29, 2024 End: November 29, 2024 Team Status: Inactive Member Role Status Dates Nyasia Simmons [employer] Primary Care Provider Active Start: November 27, 2024 End: November 27, 2024 MYKEL Harvey Attending Provider Active Star t: November 27, 2024 End: November 27, 2024 MYKEL Harvey Referring Provider Active Star t: November 27, 2024 End: November 27, 2024 Team Status: Active Member Role Status Dates Nyasia Simmons [employer] Primary Care Provider Active Start: December 03, 2024 Mat Deutsch MD Attending Provider Active St art: December 03, 2024 Mat Deutsch MD Referring Provider Active St art: December 03, 2024 Team Status: Inactive Member Role Status Dates Nyasia Simmons [employer] Primary Care Provider Active Start: December 07, 2024 End: December 07, 2024 Mat Deutsch MD Attending Provider Active St art: December 07, 2024 End: December 07, 2024 Mat Deutsch MD Referring Provider Active St art: December 07, 2024 End: December 07, 2024 Team Status: Active Member Role Status Dates Nyasia Simmons , [employer] Primary Care Provider Active Start: December 21, 2024 End: December 21, 2024 Dr. Parveen Pandey MD Attending Provider Active S tart: December 21, 2024 End: December 21, 2024 Dr. Karlos Vazquez MD Referring Provider Active Start: December 21, 2024 End: December 21, 2024 Team Status: Inactive Member Role Status Dates Nyasia Simmons [employer] Primary Care Provider Active Start: December 21, 2024 End: December 21, 2024 Nyasia Simmons [employer] Referring Provider Active St art: December 21, 2024 End: December 21, 2024 Dr. Karlos Vazquez MD Attending Provider Active Start: December 21, 2024 End: December 21, 2024 Team Status: Inactive Member Role Status Dates Nyasia Simmons [employer] Primary Care Provider Active Start: January 01, 2025 End: January 01, 2025 Dr. Karlos Vazquez MD Attending Provider Active Start: January 01, 2025 End: January 01, 2025 Dr. Karlos Vazquez MD Referring Provider Active Start: January 01, 2025 End: January 01, 2025 Dr. Jeramy Ochoa MD Other Provider Active S tart: January 01, 2025 End: January 01, 2025 Team Status: Active Member Role Status Dates Nyasia Simmons [employer] Primary Care Provider Active Start: January 01, 2025 Dr. Karlos Vazquez MD Attending Provider Active Start: January 01, 2025 Dr. Karlos Vazquez MD Referring Provider Active Start: January 01, 2025 Dr. Karlos Vazquez MD Other Provider Active Star t: January 01, 2025 Dr. Jeramy Ochoa MD Other Provider Active S tart: January 01, 2025 Team Status: Inactive Member Role Status Dates Nyasia Simmons [employer] Primary Care Provider Active Start: January 02, 2025 End: January 02, 2025 Dr. Finn Alan DO Emergency Provider Active Start: January 02, 2025 End: January 02, 2025 Team Status: Inactive Member Role Status Dates Nyasia Simmons , [employer] Primary Care Provider Active Start: January 02, 2025 End: January 02, 2025 Dr. Finn Alan , DO Attending Provider Active Start: January 02, 2025 End: January 02, 2025 Dr. Finn Alan , DO Emergency Provider Active Start: January 02, 2025 End: January 02, 2025 Team Status: Inactive Member Role Status Dates Nyasia Simmons , [employer] Primary Care Provider Active Start: January 15, 2025 End: January 15, 2025 MYKEL Harvey Attending Provider Active Star t: January 15, 2025 End: January 15, 2025 MYKEL Harvey Referring Provider Active Star t: January 15, 2025 End: January 15, 2025 Team Status: Inactive Member Role Status Dates Nyasia Simmons , [employer] Primary Care Provider Active Start: January 15, 2025 End: January 15, 2025 Nyasia Simmons [employer] Referring Provider Active St art: January 15, 2025 End: January 15, 2025 MYKEL Harvey Attending Provider Active Star t: January 15, 2025 End: January 15, 2025 Team Status: Active Member Role Status Dates Nyasia Simmons [employer] Primary Care Provider Active Start: February 12, 2025 MYKEL Harvey Attending Provider Active Star t: February 12, 2025 Team Status: Active Member Role Status Dates Dr. Karlos Vazquez MD Attending Provider Active Start: February 13, 2025 Dr. Karlos Vazquez MD Referring Provider Active Start: February 13, 2025 Nyasia Simmons , [employer] Primary Care Provider Active Start: February 13, 2025 Team Status: Inactive Member Role Status Dates Nyasia Simmons , [employer] Primary Care Provider Active Start: February 14, 2025 End: February 14, 2025 Nyasia Simmons , [employer] Referring Provider Active St art: February 14, 2025 End: February 14, 2025 Dr. Karlos Vazquez MD Attending Provider Active Start: February 14, 2025 End: February 14, 2025 Team Status: Inactive Member Role Status Dates Dr. Karlos Vazquez MD Attending Provider Active Start: February 13, 2025 End: February 13, 2025 Dr. Karlos Vazquez MD Referring Provider Active Start: February 13, 2025 End: February 13, 2025 Nyasia Simmons , [employer] Primary Care Provider Active Start: February 13, 2025 End: February 13, 2025 Team Status: Active Member Role Status Dates Nyasiamary Simmons , [employer] Primary Care Provider Active Start: February 15, 2025 MYKEL Harvey Attending Provider Active Star t: February 15, 2025 Team Status: Active Member Role Status Dates Nyasiamary Simmons [employer] Primary Care Provider Active Start: February 19, 2025 MYKEL Harvey Attending Provider Active Star t: February 19, 2025 Team Status: Inactive Member Role Status Dates Nyasiamary Simmons , [employer] Primary Care Provider Active Start: February 25, 2025 End: February 25, 2025 Nyasia Simmons , [employer] Referring Provider Active St art: February 25, 2025 End: February 25, 2025 Dr. Alyssa Peralta DC Attending Provider Active S tart: February 25, 2025 End: February 25, 2025 Team Status: Active Member Role/Relationship Status Dates Nyasia Troy , [employer] Primary Care Provider Active Team Status: Inactive Member Role/Relationship Status Dates Nyasiamary Simmons , [employer] Primary Care Provider Active Start: November 21, 2024 End: November 21, 2024 Nyasia Simmons [employer] Referring Provider Active St art: November 21, 2024 End: November 21, 2024 MYKEL Harvey Attending Provider Active Star t: November 21, 2024 End: November 21, 2024 Team Status: Inactive Member Role/Relationship Status Dates Nyasia Simmons [employer] Primary Care Provider Active Start: November 21, 2024 End: November 21, 2024 MYKEL Harvey Attending Provider Active Star t: November 21, 2024 End: November 21, 2024 MYKEL Harvey Referring Provider Active Star t: November 21, 2024 End: November 21, 2024 Team Status: Inactive Member Role/Relationship Status Dates Nyasia Troy , [employer] Primary Care Provider Active Start: November 27, 2024 End: November 27, 2024 MYKEL Harvey Attending Provider Active Star t: November 27, 2024 End: November 27, 2024 MYKEL Harvey Referring Provider Active Star t: November 27, 2024 End: November 27, 2024 Team Status: Inactive Member Role/Relationship Status Dates Nyasiamary Simmons , [employer] Primary Care Provider Active Start: November 29, 2024 End: November 29, 2024 Nyasia Simmons , [employer] Referring Provider Active St art: November 29, 2024 End: November 29, 2024 MYKEL Harvey Attending Provider Active Star t: November 29, 2024 End: November 29, 2024 Team Status: Inactive Member Role/Relationship Status Dates Nyasiamary Simmons , [employer] Primary Care Provider Active Start: December 07, 2024 End: December 07, 2024 Mat Deutsch MD Attending Provider Active St art: December 07, 2024 End: December 07, 2024 Mat Deutsch MD Referring Provider Active St art: December 07, 2024 End: December 07, 2024 Team Status: Active Member Role/Relationship Status Dates Nyasia Simmons , [employer] Primary Care Provider Active Start: December 21, 2024 End: December 21, 2024 Dr. Parveen Pandey MD Attending Provider Active S tart: December 21, 2024 End: December 21, 2024 Dr. Karlos Vazquez MD Referring Provider Active Start: December 21, 2024 End: December 21, 2024 Team Status: Inactive Member Role/Relationship Status Dates Nyasia Simmons , [employer] Primary Care Provider Active Start: December 21, 2024 End: December 21, 2024 Nyasia Simmons [employer] Referring Provider Active St art: December 21, 2024 End: December 21, 2024 Dr. Karlos Vazquez MD Attending Provider Active Start: December 21, 2024 End: December 21, 2024 Team Status: Inactive Member Role/Relationship Status Dates Nyasia Simmons , [employer] Primary Care Provider Active Start: January 01, 2025 End: January 01, 2025 Dr. Karlos Vazquez MD Attending Provider Active Start: January 01, 2025 End: January 01, 2025 Dr. Karlos Vazquez MD Referring Provider Active Start: January 01, 2025 End: January 01, 2025 Dr. Jeramy Ochoa MD Other Provider Active S tart: January 01, 2025 End: January 01, 2025 Team Status: Active Member Role/Relationship Status Dates Nyasia Simmons , [employer] Primary Care Provider Active Start: January 01, 2025 Dr. Karlos Vazquez MD Attending Provider Active Start: January 01, 2025 Dr. Karlos Vazquez MD Referring Provider Active Start: January 01, 2025 Dr. Karlos Vazquez MD Other Provider Active Star t: January 01, 2025 Dr. Jeramy Ochoa MD Other Provider Active S tart: January 01, 2025 Team Status: Inactive Member Role/Relationship Status Dates Nyasia Simmons , [employer] Primary Care Provider Active Start: January 02, 2025 End: January 02, 2025 Dr. Finn Alan DO Attending Provider Active Start: January 02, 2025 End: January 02, 2025 Dr. Finn Alan DO Emergency Provider Active Start: January 02, 2025 End: January 02, 2025 Team Status: Inactive Member Role/Relationship Status Dates Nyasia Simmons , [employer] Primary Care Provider Active Start: January 15, 2025 End: January 15, 2025 MYKEL Harvey Attending Provider Active Star t: January 15, 2025 End: January 15, 2025 MYKEL Harvey Referring Provider Active Star t: January 15, 2025 End: January 15, 2025 Team Status: Inactive Member Role/Relationship Status Dates Nyasia Simmons , [employer] Primary Care Provider Active Start: January 15, 2025 End: January 15, 2025 Nyasia Simmons , [employer] Referring Provider Active St art: January 15, 2025 End: January 15, 2025 MYKEL Harvey Attending Provider Active Star t: January 15, 2025 End: January 15, 2025 Team Status: Inactive Member Role/Relationship Status Dates Dr. Karlos Vazquez MD Attending Provider Active Start: February 13, 2025 End: February 13, 2025 Dr. Karlos Vazquez MD Referring Provider Active Start: February 13, 2025 End: February 13, 2025 Nyasia Simmons , [employer] Primary Care Provider Active Start: February 13, 2025 End: February 13, 2025 Team Status: Inactive Member Role/Relationship Status Dates Nyasia Simmons , [employer] Primary Care Provider Active Start: February 14, 2025 End: February 14, 2025 Nyasia Simmons , [employer] Referring Provider Active St art: February 14, 2025 End: February 14, 2025 Dr. Karlos Vazquez MD Attending Provider Active Start: February 14, 2025 End: February 14, 2025 Team Status: Inactive Member Role/Relationship Status Dates Nyasia Simmons , [employer] Primary Care Provider Active Start: February 25, 2025 End: February 25, 2025 Nyasia Simmons , [employer] Referring Provider Active St art: February 25, 2025 End: February 25, 2025 Dr. Alyssa Peralta DC Attending Provider Active S tart: February 25, 2025 End: February 25, 2025 Team Status: Inactive Member Role/Relationship Status Dates Nyasiamary Simmons , [employer] Primary Care Provider Active Start: March 14, 2025 End: March 14, 2025 MYKEL Harvey Attending Provider Active Star t: March 14, 2025 End: March 14, 2025 Team Status: Inactive Member Role/Relationship Status Dates Nyasiamary Simmons , [employer] Primary Care Provider Active Start: November 29, 2024 End: November 29, 2024 Nyasia Simmons , [employer] Referring Provider Active St art: November 29, 2024 End: November 29, 2024 MYKEL Harvey Attending Provider Active Star t: November 29, 2024 End: November 29, 2024 Team Status: Inactive Member Role/Relationship Status Dates Nyasiamary Simmons , [employer] Primary Care Provider Active Start: December 07, 2024 End: December 07, 2024 Mat Deutsch MD Attending Provider Active St art: December 07, 2024 End: December 07, 2024 Mat Deutsch MD Referring Provider Active St art: December 07, 2024 End: December 07, 2024 Team Status: Active Member Role/Relationship Status Dates Nyasia Simmons , [employer] Primary Care Provider Active Start: December 21, 2024 End: December 21, 2024 Dr. Parveen Pandey MD Attending Provider Active S tart: December 21, 2024 End: December 21, 2024 Dr. Karlos Vazquez MD Referring Provider Active Start: December 21, 2024 End: December 21, 2024 Team Status: Inactive Member Role/Relationship Status Dates Nyasia Simmons , [employer] Primary Care Provider Active Start: December 21, 2024 End: December 21, 2024 Nyasia Simmons , [employer] Referring Provider Active St art: December 21, 2024 End: December 21, 2024 Dr. Karlos Vazquez MD Attending Provider Active Start: December 21, 2024 End: December 21, 2024 Team Status: Inactive Member Role/Relationship Status Dates Nyasia Simmons , [employer] Primary Care Provider Active Start: January 01, 2025 End: January 01, 2025 Dr. Karlos Vazquez MD Attending Provider Active Start: January 01, 2025 End: January 01, 2025 Dr. Karlos Vazquez MD Referring Provider Active Start: January 01, 2025 End: January 01, 2025 Dr. Jeramy Ochoa MD Other Provider Active S tart: January 01, 2025 End: January 01, 2025 Team Status: Active Member Role/Relationship Status Dates Nyasia Simmons , [employer] Primary Care Provider Active Start: January 01, 2025 Dr. Karlos Vazquez MD Attending Provider Active Start: January 01, 2025 Dr. Karlos Vazquez MD Referring Provider Active Start: January 01, 2025 Dr. Karlos Vazquez MD Other Provider Active Star t: January 01, 2025 Dr. Jeramy Ochoa MD Other Provider Active S tart: January 01, 2025 Team Status: Inactive Member Role/Relationship Status Dates Nyasia Simmons , [employer] Primary Care Provider Active Start: January 02, 2025 End: January 02, 2025 Dr. Finn Alan DO Attending Provider Active Start: January 02, 2025 End: January 02, 2025 Dr. Finn Alan DO Emergency Provider Active Start: January 02, 2025 End: January 02, 2025 Team Status: Inactive Member Role/Relationship Status Dates Nyasia Simmons , [employer] Primary Care Provider Active Start: January 15, 2025 End: January 15, 2025 MYKEL Harvey Attending Provider Active Star t: January 15, 2025 End: January 15, 2025 MYKEL Harvey Referring Provider Active Star t: January 15, 2025 End: January 15, 2025 Team Status: Inactive Member Role/Relationship Status Dates Nyasia Simmons , [employer] Primary Care Provider Active Start: January 15, 2025 End: January 15, 2025 Nyasia Troy , [employer] Referring Provider Active St art: January 15, 2025 End: January 15, 2025 MYKEL Harvey Attending Provider Active Star t: January 15, 2025 End: January 15, 2025 Team Status: Inactive Member Role/Relationship Status Dates Dr. Karlos Vazquez MD Attending Provider Active Start: February 13, 2025 End: February 13, 2025 Dr. Karlos Vazquez MD Referring Provider Active Start: February 13, 2025 End: February 13, 2025 Nyasia Troy , [employer] Primary Care Provider Active Start: February 13, 2025 End: February 13, 2025 Team Status: Inactive Member Role/Relationship Status Dates Nyasia Troy , [employer] Primary Care Provider Active Start: February 14, 2025 End: February 14, 2025 Nyasia Simmons , [employer] Referring Provider Active St art: February 14, 2025 End: February 14, 2025 Dr. Karlos Vazquez MD Attending Provider Active Start: February 14, 2025 End: February 14, 2025 Team Status: Inactive Member Role/Relationship Status Dates Nyasiamary Simmons , [employer] Primary Care Provider Active Start: February 25, 2025 End: February 25, 2025 Nyasia Simmons , [employer] Referring Provider Active St art: February 25, 2025 End: February 25, 2025 Dr. Alyssa Peralta DC Attending Provider Active S tart: February 25, 2025 End: February 25, 2025 Team Status: Inactive Member Role/Relationship Status Dates Nyasia Troy , [employer] Primary Care Provider Active Start: March 14, 2025 End: March 14, 2025 MYKEL Harvey Attending Provider Active Star t: March 14, 2025 End: March 14, 2025 Team Status: Active Member Role/Relationship Status Dates Nyasia Troy , [employer] Primary Care Provider Active Start: March 25, 2025 MYKEL Harvey Attending Provider Active Star t: March 25, 2025 MYKEL Harvey Referring Provider Active Star t: March 25, 2025 Team Status: Inactive Member Role/Relationship Status Dates Nyasia Troy , [employer] Primary Care Provider Active Start: March 28, 2025 End: March 28, 2025 Nyasia Simmons , [employer] Referring Provider Active St art: March 28, 2025 End: March 28, 2025 Dr. Karlos Vazquez MD Attending Provider Active Start: March 28, 2025 End: March 28, 2025 Team Status: Inactive Member Role/Relationship Status Dates GLO Donnelly Primary Care Provider Active Start: March 25, 2025 End: March 25, 2025 MYKEL Harvey Attending Provider Active Star t: March 25, 2025 End: March 25, 2025 MYKEL Harvey Referring Provider Active Star t: March 25, 2025 End: March 25, 2025 (unrecognized sect ion and content) No Status Records Found INFORMATION SOURCE (unrecogn ized section and content) DATE CREATED AUTHOR 07/13/2025 [facility] FOR RECORDS PERTAINING TO PATIENTS WHO ARE OR HAVE BEEN ENROLLED IN A CHEMICAL DEPENDENCY/SUBSTANCEABUSE PROGRAM, SOME INFORMATION MAY BE OMITTED. This clinical summary was aggregated from multiple sources. Caution should be exercised in using it in the provision of clinical care. This summary normalizes information from multiple sources, and as a consequence, information in this document may materially change the coding, format and clinical context of patient data. In addition, data may be omitted in some cases. CLINICAL DECISIONS SHOULD BE BASED ON THE PRIMARY CLINICAL RECORDS. [employer] provides no warranty or guarantee of the accuracy or completeness of information in this document.
[2025-07-16] MEDS: Lactated Ringers 1,000 ML 15 ML IV (06:49)
--- NOTE | 2025-07-16 07:20 | PRE.ANES_ITS ---
ASA Classification* ASA Classification ASA Classification: 2 Assessment & Plan Anesthesia* Anesthesia Assessment Anesthesia Assessment: Discussed sedation and/or anesthesia options, risks, benefits, and alternatives with patient/parents/legal guardian/POA. Questions invited. The patient/parents/legal guardian/POA seems to understand and agrees to proceed with anesthesia plan. Reviewed the physical assessment, medical history, allergy history and patient home medications list prior to surgery/procedure/anesthetic and documented any changes. Performed airway and anesthesia risk assessments. Anesthesia Type Anesthesia Type: MAC History Source History Obtained from:: Patient and Chart Anesthesia Focused Assessment* Temperature: 97.5 F Pulse Rate: 83 Blood Pressure: 135/91 Respiratory Rate: 16 Pulse Ox: 96 Oxygen Delivery Method: Room Air Airway Assessment Mouth opens: >3 cm Mallampati Score: III Teeth Condition: Missing (Patient is missing several upper molars. Rest are tight.) Neck Range of motion (ROM): Full ROM Labs Anesthesia Preop lab: CBC WBC, (4.4-11.0) 8.8 K/mm3 07/02/25, 06:30 RBC, (4.6-6.2) 4.98 M/mm3 07/02/25, 06:30 Hgb, (13.0-16.5) 14.6 g/dL 07/02/25, 06:30 Hct, (40-54) 43.5 % 07/02/25, 06:30 Plt Count, (150-450) 238 K/mm3 07/02/25, 06:30 CHEMISTRY Potassium, (3.3-5.1) 4.2 mmol/L 07/02/25, 06:30 Sodium, (133-145) 139 mmol/L 07/02/25, 06:30 Magnesium, (1.5-2.2) 2.1 mg/dL 01/02/25, 00:57 Phosphorus, (2.7-4.5) 4.1 mg/dL 07/02/25, 06:30 BUN, (4-19) 19 mg/dL 07/02/25, 06:30 Creatinine, (0.70-1.20) 1.05 mg/dL 07/02/25, 06:30 Glucose, (70-99) 94 mg/dL 07/02/25, 06:30 POC Glucose, (74-106) 132 mg/dL H 01/01/25, 10:11 TSH, (0.358-3.74) 1.46 uIU/mL 12/23/14, 17:30 COAG PT, (11.7-14.9) 13.1 SECONDS 10/20/14, 09:15 Pre-Assessment Diagnosis/Proposed Procedure Planned Operative Procedure(s): COLONOSCOPY Anesthesia History 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 When Was Last Pacemaker Check QUESTION #4 FULL TEXT: You/Your Family Experience fever (hyperthermia) with Anesthesia Last Oral Intake Last Oral intake: Last Oral Intake NPO since 22:00 07/16/25 06:40 Meds taken in AM with sips of water? Meds patient instructed to take am of surgery PONV PONV - disk and tape machine tender: PONV - disk and tape machine tender Female No 07/11/25 11:46 HX of Motion Sickness No 07/11/25 11:46 HX of N/V After Surgery No 07/11/25 11:46 Non-Smoker Yes 07/11/25 11:46 Duration of Surgery greater No 07/11/25 11:46 than 60 minutes Number of Risk Factors 1 07/11/25 11:46 PONV Score Low Risk 07/11/25 11:46 Height & Weight Height & Weight: Anesthesia: Height & Weight Height 5 ft 9 in 07/16/25 06:40 Weight: 90.718 kg 07/16/25 06:40 Body Mass Index (BMI) 29.5 07/16/25 06:40 Respiratory Assessment Respiratory Assessment - disk and tape machine tender: Respiratory Tract Infection Hx - disk and tape machine tender Hx Respiratory Tract Infection No 07/11/25 11:46 STOP Sleep Apnea STOP Sleep Apnea - disk and tape machine tender: STOP Sleep Apnea - disk and tape machine tender Hx Hypertension Yes 07/11/25 11:46 Hx Sleep Apnea No 07/11/25 11:46 CPAP No 07/11/25 11:46 BIPAP No 07/11/25 11:46 Do you snore loudly (louder No 07/11/25 11:46 than talking or can be heard Do you often feel tired/ No 07/11/25 11:46 fatigued/ sleepy during daytime? Has anyone observed you stop No 07/11/25 11:46 breathing during sleep? STOP Results Negative 07/11/25 11:46 QUESTION #5 FULL TEXT : Do you snore loudly (louder than talking or can be heard through closed doors)? 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 Specify any problems Hx of Preganancy in last 3 N/A 07/11/25 11:46 Months Nurse Filling Out Transfusion VCHRISTIN 07/11/25 11:46 & Questions: Date: 07/11/25 07/11/25 11:46 Time: 11:48 07/11/25 11:46 Patient unable to answer at this time (ie. confused, unrespo /Reproduction History /Reproductive History - disk and tape machine tender: /Reproductive Hx- disk and tape machine tender Hx Now No 07/11/25 11:46 Gestational Age (in weeks): EDC: Hx Hx Para Hx Section SAB No 07/11/25 11:46 Active Medications Active Medications: Current Medications Generic Name Dose Route Start Last Admin Trade Name Freq PRN Reason Stop Dose Admin Lactated Ringer's 1,000 mls @ 15 mls/hr 07/16/25 06:30 07/16/25 06:49 IV 15 mls/hr .Q48H NANDA Administration PFSH Medical History Wears glasses History of steroid therapy Injury of head and neck Gastric reflux Former smoker History of echocardiogram Cardiology follow-up encounter History of irregular heartbeat Left shoulder pain Knee pain Back pain Severe headache Arthritis Hypertension Home Medications Medication Instructions Recorded Last Taken Type TENS unit electrodes (Pro Comfort 11/08/24 Unknown Hi story Tens Electrode pads) multivitamin 1 tab PO QDAY 11/08/2412/29 History omeprazole 20 mg capsule,delayed 20 mg PO DAILY PRN GE RD 01/01/25 12/31/24 History release losartan 50 mg tablet 50 mg PO QDAY 02/14/2507/14 History Allergy/AdvReac Type Severity Reaction Status Date / Time No Known Allergies Allergy Verified 07/16/25 06:39 Family History Father Diabetes Surgical History Hx of cervical spine surgery History of fusion of talotibial joint and subtalar joint surgery of tibia H/O cardiac radiofrequency ablation Optional surgery Social History household members: spouse and children Smoking Status: Former smoker quit date: 09/12/00 alcohol intake: current alcohol intake frequency: holidays/special occasions only substance use type: does not use Review of Systems (Anesthesia) ROS Narrative System reviewed and no additional complaints, except as documented.
--- NOTE | 2025-07-16 07:30 | COLBX_PTH ---
PATIENT: IMAN GREEN LOC: EN U#:[id number] AGE/SX: 45/M ROOM: RE07/16/[address]: Dr. Ld Leon MD : 1980 BED: DIS: 07/16/2025 SPEC #: [id number] RECD: 07/16/25 10:21 STATUS: [place] #: [id number] BLANKA: 07/16/25 07:[address]: Ld Leon DEPT: SURGICAL PATHOLOGY RECD BY: Rogelio Herrmann ENTERED: 07/16/25 11:16 SP TYPE: COLON BX OTHR DR: Nyasia Simmons, TITLE ATTORNEY-C Tissues: A - Sigmoid colon biopsy Procedures: Surgery Specimen Level IV HEADER OPERATION: Colonoscopy, polypectomy PRE-OP DIAGNOSIS: Colon cancer screening TISSUE SUBMITTED: A- Sigmoid polyp MICROSCOPIC DIAGNOSIS A. Sigmoid colon, polyp, polypectomy: - Tubulovillous adenoma. MICROSCOPIC DESCRIPTION Slides are reviewed. GROSS DESCRIPTION A. Received in formalin labeled with the patient's name and date of . Designated as " sigmoid polyp" is a 0.9 x 0.8 x 0.4 cm pink-red lobulated and granular polyp. The resection margin is inked black. The specimen is bisected (on the long axis). Entirely submitted in 1 cassette. MD 07/16/2025 CPT:14805
--- NOTE | 2025-07-16 07:31 | HP.PCM_ITS ---
HPI - General General Date of Admission: 07/16/25 Date of Service: 07/16/25 Chief Complaint: Colonoscopy HPI Narrative IMAN GREEN, is a 45 M who presents for screening colonoscopy. He has had no previous colonoscopy. He does have a mom that had colon polyps. He denies any GI issues or complaints [facility] Medical History (Updated 07/16/25 @ 07:[address] Ld Leon MD) Colon cancer screening Wears glasses History of steroid therapy Injury of head and neck Gastric reflux Former smoker History of echocardiogram Cardiology follow-up encounter History of irregular heartbeat Left shoulder pain Knee pain Back pain Severe headache Arthritis Hypertension Home Medications Medication Instructions Recorded Last Taken Type TENS unit electrodes (Pro Comfort 11/08/24 Unknown Hi story Tens Electrode pads) multivitamin 1 tab PO QDAY 11/08/2412/29 History omeprazole 20 mg capsule,delayed 20 mg PO DAILY PRN GE RD 01/01/25 12/31/24 History release losartan 50 mg tablet 50 mg PO QDAY 02/14/2507/14 History Allergy/AdvReac Type Severity Reaction Status Date / Time No Known Allergies Allergy Verified 07/16/25 06:39 Family History Father Diabetes Surgical History Hx of cervical spine surgery History of fusion of talotibial joint and subtalar joint surgery of tibia H/O cardiac radiofrequency ablation Optional surgery Social History household members: spouse and children Smoking Status: Former smoker quit date: 09/12/00 alcohol intake: current alcohol intake frequency: holidays/special occasions only substance use type: does not use Vital Signs Vital Signs Vital Signs: 07/16/25 06:40 07/16/25 06:40 07/16/25 07:27 Temperature 97.5 F L 97.5 F L Temperature Source Temporal Pulse Rate 83 83 Respiratory Rate 16 16 Respiratory Pattern Normal Blood Pressure 135/91 H 135/91 H Blood Pressure Mean 105 Blood Pressure Source Monitor Blood Pressure Position Semi-Fowlers Blood Pressure Location Right Arm Pulse Ox 96 96 Oxygen Delivery Method Room Air Room Air Weight Weight: 200 lb Body Mass Index (BMI) 29.5 Physical Exam Const alert, oriented x3 and no apparent distress Assessment & Plan Assessment/Plan (1) Colon cancer screening: PLAN: Plan The patient is a 45-year-old male in need of a screening colonoscopy. We discussed the details of the planned procedure and he wishes to proceed. This began momentarily
--- NOTE | 2025-07-16 08:29 | OP.PROVAT_ITS ---
07/16/2025 Al Donnelly Re : Colonoscopy procedure for Vincent Gonzalezr Troy This procedure was performed on Wednesday, July 16, 2025. My impressions and recommendations are as follows: Impressions : - Internal hemorrhoids. - One 7 mm polyp in the sigmoid colon, removed with a hot snare. Resected and retrieved. - The examination was otherwise normal on direct and retroflexion views. Recommendations : - Discharge patient to home (ambulatory). - High fiber diet. - Await pathology results. - Repeat colonoscopy in 5 years for surveillance. - Return to my office PRN. - Continue present medications. My findings are described in the full procedure note, which is enclosed. If I can be of further assistance, please feel free to contact me at . Sincerely, Ld Leon MD 07/16/2025 8:28:26 AM This report has been signed electronically.
--- NOTE | 2025-07-16 08:29 | OP.COLON_ITS ---
Patient Name: Vincent Luna Procedure Date: 07/16/2025 7:51 AM Date of : 1980 Age: 45 Procedure: Colonoscopy Indications: Colon cancer screening in patient at increased risk: Family history of 1st-degree relative with colon polyps Providers: Ld Leon MD Referring MD: Al Donnelly Medicines: Monitored Anesthesia Care Patient Profile: Refer to note in patient chart for documentation of history and physical. Last Colonoscopy: none. The patient's first colonoscopy is today. Complications: No immediate complications. Estimated blood loss: None. Procedure: Pre-Anesthesia Assessment: - Prior to the procedure, a History and Physical was performed, and patient medications and allergies were reviewed. The patient's tolerance of previous anesthesia was also reviewed. The risks and benefits of the procedure and the sedation options and risks were discussed with the patient. All questions were answered, and informed consent was obtained. Prior Anticoagulants: The patient has taken no anticoagulant or antiplatelet agents. ASA Grade Assessment: II - A patient with mild systemic disease. After reviewing the risks and benefits, the patient was deemed in satisfactory condition to undergo the procedure. After I obtained informed consent, the scope was passed under direct vision. Throughout the procedure, the patient's blood pressure, pulse, and oxygen saturations were monitored continuously. The colonoscope was introduced through the anus and advanced to the cecum, identified by appendiceal orifice and ileocecal valve. The ileocecal valve, appendiceal orifice, and rectum were photographed. The entire colon was well visualized. The colonoscopy was performed without difficulty. The patient tolerated the procedure well. The quality of the bowel preparation was adequate. Moderate Sedation: See the other procedure note for documentation of moderate sedation with intraservice time. Scope In: 7:57:06 AM Scope Withdrawal Time 0 hours 14 minutes 36 seconds Scope Out: 8:21:48 AM Total Procedure Duration Time 0 hours 24 minutes 42 seconds Findings: The perianal and digital rectal examinations were normal. Internal hemorrhoids were found during retroflexion. The hemorrhoids were mild. A 7 mm polyp was found in the sigmoid colon @ 40 cm. The polyp was pedunculated. The polyp was removed with a hot snare. Resection and retrieval were complete. Verification of patient identification for the specimen was done by the nurse using the patient's name, date and medical record number. Estimated blood loss was minimal. The exam was otherwise without abnormality on direct and retroflexion views. Impression: - Internal hemorrhoids. - One 7 mm polyp in the sigmoid colon, removed with a hot snare. Resected and retrieved. - The examination was otherwise normal on direct and retroflexion views. Recommendation: - Discharge patient to home (ambulatory). - High fiber diet. - Await pathology results. - Repeat colonoscopy in 5 years for surveillance. - Return to my office PRN. - Continue present medications. Procedure Code(s): --- Professional --- 99717, Colonoscopy, flexible; with removal of tumor(s), polyp(s), or other lesion(s) by snare technique Diagnosis Code(s): --- Professional --- Z83.71, Family history of colonic polyps D12.5, Benign neoplasm of sigmoid colon K64.8, Other hemorrhoids CPT copyright 2021 [employer]. All rights reserved. The codes documented in this report are preliminary and upon assistant project manager review may be revised to meet current compliance requirements. Ld Leon MD 07/16/2025 8:28:26 AM This report has been signed electronically. Number of Addenda: 0 Note Initiated On: 07/16/2025 7:51 AM
--- NOTE | 2025-07-16 08:33 | PCM.POST.ANE ---
Anesthesia: Postop Eval I Current Vital Signs Temperature: 97.1 F Pulse Rate: 71 Blood Pressure: 106/71 Respiratory Rate: 16 Pulse Ox: 94 Oxygen Delivery Method: Room Air Assessment Airway patent: Yes Spontaneous unlabored respirations: Yes Mental status: Asleep nausea: No Vomiting: No Anesthesia Complication: No Fluid Hydration Crystalloid volume administer (ml): 700 Total IV fluid infused: 700 Progress Note Anesthesia document: Postop Eval 1 completed: Yes
--- NOTE | 2025-07-16 08:44 | PCM.POSTANE2 ---
Anesthesia Postop Eval I Sum Postop Eval Completion status Anesthesia document: Postop Eval 1 completed: Yes Anesthesia Postop Eval I Summary Anesthesia Postop Eval I Summary: Anesthesia Postop Eval I: Assessment Summary Airway patent Yes 07/16/25 08:34 [email or web address] Spontaneous unlabored Yes 07/16/25 08:34 [email or web address] respirations Mental status Asleep 07/16/25 08:34 [email or web address] nausea No 07/16/25 08:34 [email or web address] Vomiting No 07/16/25 08:34 [email or web address] Anesthesia Postop Eval I: Fluid Summary Crystalloid volume administer 700 07/16/25 08:34 [email or web address] (ml) Colloids volume administered ( ml) Blood Product volume administered (ml) Total IV fluid infused 700 07/16/25 08:34 [email or web address] Anesthesia Postop Eval I: Summary Notes Anesthesia Complication No 07/16/25 08:34 [email or web address] Anesthesia Complication Comment: Post-operative progress note Anesthesia: Postop Eval II Evaluation Mental status: Awake and Calm Pain Level: 0 nausea: No Vomiting: No Complications Anesthesia Complication: No
== END 2025-07-16 08:55 | disposition home or self-care (01) ==
LOC: EN 06:24 → AC 06:24
PROVIDERS: PCP Nurse Practitioner Family; Referring Provider Nurse Practitioner Family; Visit Provider Surgery
DX: Z12.11 Encounter for screening for malignant neoplasm of colon (principal); K21.9 Gastro-esophageal reflux disease without esophagitis; Z87.891 Personal history of nicotine dependence; I10 Essential (primary) hypertension; Z79.899 Other long term (current) drug therapy; D12.5 Benign neoplasm of sigmoid colon
CPT/HCPCS: 45385; 88305; J2405